=== PATIENT | female | born 1955 | race Caucasian/White ===

== ENCOUNTER 2021-02-11 09:49 | Outpatient (REF) | payer OTHER, SELFPAY ==
[2021-02-11 11:30] LABS: Basophils Percent Auto 0.2 % (0-2); Eosinophils Absolute Auto 0.1 X10*3/uL (0.0-0.4); Eosinophils Percent Auto 1.8 % (0-4); Hematocrit 37.8 % (37-47); Hemoglobin 12.6 g/dl (12.0-16.0); Imm Gran Abs Auto 0.01 X10*3/uL (0.00-0.03); Imm Gran Pct Auto 0.2 % (0.0-0.4); Lymphocytes Absolute Auto 1.4 X10*3/uL (1.2-4.9); Lymphocytes Percent Auto 28.3 % (20-40); MANUAL DIFF FLAG NO; Mean Corpuscular HGB Conc 33.3 g/dl (31.0-35.0); Mean Corpuscular Hemoglobin 36.2 pg (27.0-33.0); Mean Corpuscular Volume 108.6 fL (80-98); Mean Platelet Volume 10.2 fL (9.4-12.3); Monocytes Absolute Auto 0.6 X10*3/uL (0.1-1.2); Monocytes Percent Auto 11.6 % (2-11); Neutrophils Absolute Auto 2.9 X10*3/uL (2.0-8.3); Neutrophils Percent Auto 57.9 % (45-73); Platelet Count 212 X10*3/uL (160-400); Red Blood Count 3.48 X10*6/uL (4.20-5.50)
[2021-02-11 12:32] LABS: Alanine Aminotransferase 12 U/L (0-31); Albumin Level 4.7 g/dL (3.5-5.0); Alkaline Phosphatase 65 U/L (39-117); Anion Gap 16 (12-20); Aspartate Amino Transferase 25 U/L (5-31); Bilirubin Direct 0.4 mg/dL (0.0-0.5); Bilirubin Total 0.9 mg/dL (0.0-1.0); Blood Urea Nitrogen 29 mg/dL (9-16); Calcium 9.4 mg/dL (8.4-10.2); Carbon Dioxide 25 mmol/L (22-29); Chloride 103 mmol/L (96-108); Estimated Glomerular Filt Rate 48; Glucose Random 84 mg/dL (60-115); Potassium 4.7 mmol/L (3.3-5.1); Sodium 139 mmol/L (135-145); Total Protein 7.5 g/dL (6.5-8.0)
[2021-02-12 10:57] LABS: LDL Cholesterol Direct 53 mg/dL (<100)
== END 2021-02-11 09:50 | disposition home or self-care (01) ==
LOC: HO.HMGCLDS 09:49
PROVIDERS: PCP Internal Medicine; Visit Provider Internal Medicine
DX: I10 Essential (primary) hypertension (principal); J44.9 Chronic obstructive pulmonary disease, unspecified; Q60.0 Renal agenesis, unilateral
CPT/HCPCS: 36415; 80053; 80076; 82248; 83721; 85025

== ENCOUNTER 2021-08-16 07:37 | Outpatient (REF) | payer OTHER, SELFPAY ==
--- NOTE | ~2021-08-16 | XR_ITS ---
EXAMINATION: XR cervical spine 3V, XR shoulder RT min 2V CLINICAL INFORMATION: Reason for Exam M25.511 - Pain in right shoulder COMPARISON: None. TECHNIQUE: 3 views of the cervical spine and 3 views of the right shoulder FINDINGS: Cervical spine: No acute fracture or traumatic malalignment. Moderate loss of disc space height at C4-C5. Mild loss of disc space height at C2-C3. Small endplate osteophytes present throughout the cervical spine. Slight retrolisthesis of C5 on C6. Facet arthropathy throughout the cervical spine. Paraspinal soft tissues unremarkable. Carotid bulb calcifications. Right shoulder: No acute fracture or dislocation. Small acromioclavicular marginal osteophytes. Tiny marginal osteophytes along the glenohumeral joint. No suspicious osseous lesions. Imaged right lung unremarkable. Soft tissues unremarkable. XR/XR shoulder RT min 2V IMPRESSION: No acute findings. Cervical spondylosis and degenerative changes of the right shoulder as described
--- NOTE | ~2021-08-16 | XR_ITS ---
EXAMINATION: XR cervical spine 3V, XR shoulder RT min 2V CLINICAL INFORMATION: Reason for Exam M25.511 - Pain in right shoulder COMPARISON: None. TECHNIQUE: 3 views of the cervical spine and 3 views of the right shoulder FINDINGS: Cervical spine: No acute fracture or traumatic malalignment. Moderate loss of disc space height at C4-C5. Mild loss of disc space height at C2-C3. Small endplate osteophytes present throughout the cervical spine. Slight retrolisthesis of C5 on C6. Facet arthropathy throughout the cervical spine. Paraspinal soft tissues unremarkable. Carotid bulb calcifications. Right shoulder: No acute fracture or dislocation. Small acromioclavicular marginal osteophytes. Tiny marginal osteophytes along the glenohumeral joint. No suspicious osseous lesions. Imaged right lung unremarkable. Soft tissues unremarkable. XR/XR cervical spine 3V IMPRESSION: No acute findings. Cervical spondylosis and degenerative changes of the right shoulder as described
[2021-08-16 11:11] LABS: MANUAL DIFF FLAG NO
[2021-08-16 11:19] LABS: Basophils Percent Auto 0.5 % (0-2); Eosinophils Absolute Auto 0.2 X10*3/uL (0.0-0.4); Eosinophils Percent Auto 4.6 % (0-4); Hematocrit 39.6 % (37.0-47.0); Hemoglobin 13.1 g/dl (12.0-16.0); Imm Gran Abs Auto 0.01 X10*3/uL (0.00-0.03); Imm Gran Pct Auto 0.2 % (0.0-0.4); Lymphocytes Absolute Auto 1.3 X10*3/uL (1.2-4.9); Lymphocytes Percent Auto 29.3 % (20-40); Mean Corpuscular HGB Conc 33.1 g/dl (31.0-35.0); Mean Corpuscular Hemoglobin 33.3 pg (27.0-33.0); Mean Corpuscular Volume 100.8 fL (80.0-98.0); Mean Platelet Volume 10.9 fL (9.4-12.3); Monocytes Absolute Auto 0.5 X10*3/uL (0.1-1.2); Monocytes Percent Auto 11.2 % (2-11); Neutrophils Absolute Auto 2.4 x10*3/uL (2.0-8.3); Neutrophils Percent Auto 54.2 % (45-73); Platelet Count 228 X10*3/uL (160-400); Red Blood Count 3.93 X10*6/uL (4.20-5.50); White Blood Count 4.4 X10*3/uL (4.8-10.8)
[2021-08-16 11:56] LABS: Alanine Aminotransferase 12 U/L (0-31); Albumin Level 4.2 g/dL (3.5-5.0); Alkaline Phosphatase 68 U/L (39-117); Anion Gap 11 (12-20); Aspartate Amino Transferase 20 U/L (5-31); Bilirubin Total 0.8 mg/dL (0.0-1.0); Blood Urea Nitrogen 29 mg/dL (9-16); Calcium 9.4 mg/dL (8.4-10.2); Carbon Dioxide 27 mmol/L (22-29); Chloride 103 mmol/L (96-108); Cholesterol 205 mg/dL; Estimated Glomerular Filt Rate 49; Glucose Fasting 96 mg/dL (60-99); HDL Cholesterol 71 mg/dL; LDL Cholesterol Calculated 121 mg/dl; Potassium 4.4 mmol/L (3.3-5.1); Sodium 137 mmol/L (135-145); Total Protein 6.8 g/dL (6.5-8.0); Triglycerides 67 mg/dL
[2021-08-16 12:17] LABS: TSH reflex Free T4 0.56 uIU/mL (0.32-4.0)
== END 2021-08-16 07:38 | disposition home or self-care (01) ==
LOC: HO.HMGCX 07:37
PROVIDERS: PCP Internal Medicine; Visit Provider Internal Medicine
DX: M25.511 Pain in right shoulder (principal); R20.2 Paresthesia of skin; J44.9 Chronic obstructive pulmonary disease, unspecified; Q60.0 Renal agenesis, unilateral; I10 Essential (primary) hypertension
CPT/HCPCS: 36415; 72040; 73030; 80053; 80061; 84443; 85025

== ENCOUNTER 2021-09-05 12:43 | Outpatient (REF) | payer OTHER, SELFPAY ==
--- NOTE | ~2021-09-05 | MR_ITS ---
EXAMINATION: MR CERVICAL SPINE WITHOUT CONTRAST CLINICAL INFORMATION: 66-year-old with paresthesia of skin. COMPARISON: 08/16/2021 x-rays. TECHNIQUE: MRI of the cervical spine was obtained using routine sequences without contrast. FINDINGS: Alignment: Lordotic curvature is maintained. There is trace retrolisthesis at C4-C5 and C5-C6. Craniocervical Junction/C1-C2 Articulations: There are degenerative changes at the occipitoatlantal joints, right more than left. The C1-C2 articulations are intact and aligned. There are osteoarthritic degenerative changes at the anterior atlantodental joint with a small joint effusion. Visualized Intracranial Structures: Within normal limits. Vertebral Bodies: Normal height. Disc Spaces and Endplates: Kqdnafrn-nk-felbvh disc space height loss at C2-C3 is noted with disc desiccation and Schmorl's nodes. Severe disc space height loss at C4-C5 is noted with Schmorl's nodes and moderate spondylosis. Bckxkpts-cy-czhuub disc space height loss noted at C5-C6. Mild disc space height loss at C6-C7. Bone Marrow: There are type I degenerative marrow signal changes along the endplates at C2-C3 and C5-C6 and, to a lesser degree, at C4-C5 with type II degenerative marrow signal changes at C4-C5. No suspicious marrow-replacing process. Mild subchondral marrow edema on both sides of the left C7-T1 facet joint consistent with facet arthrosis. C2-C3: Broad-based posterior disc-osteophyte complex noted with mild flattening of the dural sac without cord impingement. Ligamentum flavum thickening noted without significant spinal canal stenosis. There is uncovertebral spurring bilaterally with facet hypertrophic change on the left, with qwzi-tt-[id number] left-sided neural foraminal stenosis. C3-C4: Small central disc protrusion noted with slight indentation of the ventral thecal sac without cord impingement or spinal canal stenosis. Xuoo-qj-ekwsftur facet hypertrophic degenerative change on the left noted with moderate left-sided neural foraminal stenosis. C4-C5: Broad-based posterior disc-osteophyte complex asymmetric to the right noted, with effacement of the dural sac without cord impingement. Mild spinal canal stenosis noted asymmetric to the right. There is uncovertebral spurring, right more than left, and there is severe right-sided and moderate left-sided facet hypertrophic degenerative change. Severe right-sided neural foraminal stenosis is noted with mild left-sided foraminal stenosis. C5-C6: Right paramedian to subarticular extruded disc herniation noted with mild caudal migration, with effacement of the dural sac on the right resulting in mild right-sided ventral cord impingement. There is effacement of the right lateral recess with mild central spinal canal stenosis. Bilateral facet arthrosis is noted with uncovertebral spurring, right more than left. Hskskown-cn-sgyjhj right-sided and bwhn-vq-sknjasxt left-sided neural foraminal stenosis noted. C6-C7: Broad-based disc-osteophyte complex asymmetric to the left with mild flattening of the dural sac without cord impingement or canal stenosis. There is uncovertebral arthrosis on the left with bilateral facet hypertrophic change, left more than right. Severe left-sided and wdwq-rz-zsdklowk right-sided neural foraminal stenosis is noted. C7-T1: No disc herniation. Trace anterolisthesis noted at this level with severe left-sided facet arthropathy, with moderate left-sided neural foraminal stenosis. No significant canal stenosis. T1-T2: No disc herniation. Mild facet arthrosis on the left with mild left-sided neural foraminal stenosis noted without canal stenosis. T2-T3: No disc herniation. No significant canal stenosis. Moderate bilateral facet arthrosis is noted with moderate bilateral neural foraminal stenosis. There is moderate bilateral facet arthropathy at T3-T4 and T4-T5 with zopc-bj-dikvqsyi degrees of bilateral neural foraminal stenosis at these levels. The cervical and visualized upper thoracic spinal cord is normal in morphology, caliber and signal intensity throughout. MR/MR cervical spine wo con IMPRESSION: 1. Slight degrees of retrolisthesis at C4-C5 and C5-C6 are noted. There is multilevel DDD and spondylosis, as discussed above, with multilevel posterior disc-osteophyte complexes and a right paramedian extruded disc herniation at C5-C6 with mild right-sided ventral cord impingement and marked narrowing of the right lateral recess. 2. Multilevel bilateral uncovertebral and facet arthropathy with multilevel bilateral neural foraminal stenosis, as detailed above. Mild degrees of canal stenosis at C4-C5 and C5-C6. 3. Upper thoracic facet arthropathy, as noted above, with associated ljkl-ls-nmvjyylw degrees of bony neural foraminal stenosis at these levels.
== END 2021-09-05 12:44 | disposition home or self-care (01) ==
LOC: HO.MRI 12:43
PROVIDERS: PCP Internal Medicine; Visit Provider Internal Medicine
DX: M54.12 Radiculopathy, cervical region (principal); R20.2 Paresthesia of skin; R29.898 Other symptoms and signs involving the musculoskeletal system
CPT/HCPCS: 72141

== ENCOUNTER 2022-02-10 14:42 | Outpatient (REF) | payer OTHER, SELFPAY ==
[2022-02-10 15:41] LABS: Influenza A PCR POSITIVE (Negative); Influenza B PCR NEGATIVE (Negative); Resp Syncy Virus RNA Qual PCR NEGATIVE (Negative); SARS COV2 PCR INHOUSE NEGATIVE (Negative)
== END 2022-02-10 14:43 | disposition home or self-care (01) ==
LOC: HO.LNP 14:42
PROVIDERS: Visit Provider Physician Assistant
DX: Z20.822 Contact with and (suspected) exposure to COVID-19 (principal); B34.9 Viral infection, unspecified
CPT/HCPCS: 0241U

== ENCOUNTER 2022-03-27 11:40 | Outpatient (REF) | payer OTHER, SELFPAY ==
[2022-03-27 14:07] LABS: Alanine Aminotransferase 10 U/L (0-31); Albumin Level 4.5 g/dL (3.5-5.0); Alkaline Phosphatase 62 U/L (39-117); Anion Gap 15 (12-20); Aspartate Amino Transferase 22 U/L (5-31); Blood Urea Nitrogen 21 mg/dL (9-16); Calcium 9.6 mg/dL (8.4-10.2); Carbon Dioxide 24 mmol/L (22-29); Chloride 102 mmol/L (96-108); Estimated Glomerular Filt Rate 43; Glucose Random 103 mg/dL (60-115); Potassium 4.1 mmol/L (3.3-5.1); Sodium 137 mmol/L (135-145); Total Protein 7.4 g/dL (6.5-8.0)
== END 2022-03-27 11:41 | disposition home or self-care (01) ==
LOC: HO.HMGCLDS 11:40
PROVIDERS: PCP Internal Medicine; Visit Provider Internal Medicine
DX: J45.909 Unspecified asthma, uncomplicated (principal); I10 Essential (primary) hypertension; Q60.0 Renal agenesis, unilateral; R20.2 Paresthesia of skin; M50.20 Other cervical disc displacement, unspecified cervical region; E66.09 Other obesity due to excess calories
CPT/HCPCS: 36415; 80053

== ENCOUNTER 2022-11-20 09:05 | Outpatient (REF) | payer MEDICARE, SELFPAY ==
[2022-11-20 11:32] LABS: MANUAL DIFF FLAG NO
[2022-11-20 11:47] LABS: Basophils Percent Auto 0.2 % (0-2); Eosinophils Absolute Auto 0.1 X10*3/uL (0.0-0.4); Eosinophils Percent Auto 2.1 % (0-4); Hematocrit 36.1 % (37.0-47.0); Hemoglobin 12.2 g/dl (12.0-16.0); Imm Gran Abs Auto 0.01 X10*3/uL (0.00-0.03); Imm Gran Pct Auto 0.2 % (0.0-0.4); Lymphocytes Absolute Auto 1.2 X10*3/uL (1.2-4.9); Lymphocytes Percent Auto 28.3 % (20-40); Mean Corpuscular HGB Conc 33.8 g/dl (31.0-35.0); Mean Corpuscular Hemoglobin 35.1 pg (27.0-33.0); Mean Corpuscular Volume 103.7 fL (80.0-98.0); Mean Platelet Volume 10.6 fL (9.4-12.3); Monocytes Absolute Auto 0.6 X10*3/uL (0.1-1.2); Monocytes Percent Auto 13.1 % (2-11); Neutrophils Absolute Auto 2.4 x10*3/uL (2.0-8.3); Neutrophils Percent Auto 56.1 % (45-73); Platelet Count 222 X10*3/uL (160-400); Red Blood Count 3.48 X10*6/uL (4.20-5.50); Red Cell Distribution Width 13.4 % (11.0-16.0); White Blood Count 4.2 X10*3/uL (4.8-10.8)
[2022-11-20 12:47] LABS: Alanine Aminotransferase 16 U/L (0-31); Albumin Level 4.5 g/dL (3.5-5.0); Alkaline Phosphatase 66 U/L (39-117); Anion Gap 13 (12-20); Aspartate Amino Transferase 24 U/L (5-31); Bilirubin Total 1.4 mg/dL (0.0-1.0); Blood Urea Nitrogen 27 mg/dL (9-16); Calcium 9.7 mg/dL (8.4-10.2); Carbon Dioxide 25 mmol/L (22-29); Chloride 99 mmol/L (96-108); Estimated Glomerular Filt Rate 36; Glucose Random 102 mg/dL (60-115); Potassium 5.4 mmol/L (3.3-5.1); Sodium 132 mmol/L (135-145); TSH reflex Free T4 0.53 uIU/mL (0.32-4.0); Total Protein 7.1 g/dL (6.5-8.0)
[2022-11-21 13:44] LABS: LDL Cholesterol Direct 118 mg/dL (<100)
== END 2022-11-20 09:06 | disposition home or self-care (01) ==
LOC: HO.HMGCLDS 09:05
PROVIDERS: PCP Internal Medicine; Visit Provider Internal Medicine
DX: J44.9 Chronic obstructive pulmonary disease, unspecified (principal); Q60.0 Renal agenesis, unilateral; I10 Essential (primary) hypertension
CPT/HCPCS: 36415; 80053; 83721; 84443; 85025

== ENCOUNTER 2022-11-23 10:26 | Outpatient (REF) | payer MEDICARE, SELFPAY ==
[2022-11-23 12:10] LABS: Anion Gap 14 (12-20); Blood Urea Nitrogen 30 mg/dL (9-16); Calcium 9.2 mg/dL (8.4-10.2); Carbon Dioxide 23 mmol/L (22-29); Chloride 93 mmol/L (96-108); Estimated Glomerular Filt Rate 37; Glucose Random 97 mg/dL (60-115); Potassium 5.7 mmol/L (3.3-5.1); Sodium 124 mmol/L (135-145)
== END 2022-11-23 10:27 | disposition home or self-care (01) ==
LOC: HO.HMGCLDS 10:26
PROVIDERS: PCP Internal Medicine; Visit Provider Internal Medicine
DX: Z13.89 Encounter for screening for other disorder (principal)
CPT/HCPCS: 36415; 80048

== ENCOUNTER 2022-11-23 16:31 | Emergency (ER) | payer MEDICARE, SELFPAY | END 2022-11-23 17:00 | disposition left against medical advice (07) | PROVIDERS: Emergency Provider Emergency Medicine; PCP Internal Medicine | DX: R79.9 Abnormal finding of blood chemistry, unspecified (principal) ==

== ENCOUNTER 2022-11-24 07:36 | Inpatient (IN) | payer MEDICARE, SELFPAY ==
[2022-11-24] VITALS (8 sets, daily range): BP systolic 139–165; BP diastolic 67–85; PULSE 70–89; RESP 12–21; TEMP 35.7–37; O2SAT 96–100; BMI 29.7
[2022-11-24 07:51] LABS: MANUAL DIFF FLAG NO
[2022-11-24 08:01] LABS: Basophils Percent Auto 0.4 % (0-2); Eosinophils Absolute Auto 0.1 X10*3/uL (0.0-0.4); Eosinophils Percent Auto 2.3 % (0-4); Hematocrit 34.7 % (37.0-47.0); Hemoglobin 12.1 g/dl (12.0-16.0); Imm Gran Abs Auto 0.02 X10*3/uL (0.00-0.03); Imm Gran Pct Auto 0.4 % (0.0-0.4); Lymphocytes Absolute Auto 1.5 X10*3/uL (1.2-4.9); Lymphocytes Percent Auto 28.5 % (20-40); Mean Corpuscular HGB Conc 34.9 g/dl (31.0-35.0); Mean Corpuscular Hemoglobin 35.4 pg (27.0-33.0); Mean Corpuscular Volume 101.5 fL (80.0-98.0); Mean Platelet Volume 9.9 fL (9.4-12.3); Monocytes Absolute Auto 0.7 X10*3/uL (0.1-1.2); Neutrophils Absolute Auto 2.9 x10*3/uL (2.0-8.3); Neutrophils Percent Auto 55.4 % (45-73); Platelet Count 203 X10*3/uL (160-400); Red Blood Count 3.42 X10*6/uL (4.20-5.50); Red Cell Distribution Width 13.1 % (11.0-16.0); White Blood Count 5.2 X10*3/uL (4.8-10.8)
[2022-11-24 08:07] LABS: Alanine Aminotransferase 17 U/L (0-31); Albumin Level 4.5 g/dL (3.5-5.0); Alkaline Phosphatase 68 U/L (39-117); Anion Gap 15 (12-20); Aspartate Amino Transferase 26 U/L (5-31); Bilirubin Total 1.4 mg/dL (0.0-1.0); Blood Urea Nitrogen 29 mg/dL (9-16); Calcium 9.5 mg/dL (8.4-10.2); Carbon Dioxide 23 mmol/L (22-29); Chloride 92 mmol/L (96-108); Estimated Glomerular Filt Rate 41; Glucose Random 98 mg/dL (60-115); Potassium 5.5 mmol/L (3.3-5.1); Sodium 124 mmol/L (135-145); Total Protein 7.4 g/dL (6.5-8.0)
[2022-11-24 08:54] LABS: Influenza A PCR NEGATIVE (Negative); Influenza B PCR NEGATIVE (Negative); Resp Syncy Virus RNA Qual PCR NEGATIVE (Negative); SARS COV2 PCR INHOUSE NEGATIVE (Negative)
--- NOTE | 2022-11-24 09:13 | ED_ITS ---
HPI - Recheck/Abnormal Lab/Rx General Chief Complaint: Recheck/Abnormal Lab/Rx Stated Complaint: Abnormal labs Time Seen by Provider: 11/24/22 08:49 Source: patient Mode of arrival: ambulatory Limitations: no limitations History of Present Illness HPI narrative: Pt is a 67y/o female with PMHx of HTN, single kidney presents from home after being called by PCP for abnormal lab values. Pt states my sodium and potassium are out of whack. Pt states she feels well. Pt endorses muscle soreness in lower extremities with some tightening at night but denies cramping. Pt states she wakes up frequently at night to urinate, denies pain/burning with urination. Pt denies vomiting/diarrhea. Pt denies alcohol intake. Pt denies recent changes in medications. Pt denies changes in fluid intake. Pt denies personal h/o cance r. Pt denies chest pain, SOB, recent illness. Related Data Previous Rx's Medication Instructions Recorded hydrochlorothiazide 25 mg tablet 25 mg PO DAILY 90 days #90 tabs 03/27/22 albuterol sulfate 90 mcg/actuation 1 inh inhalation QID PRN shortness 05/08/22 aerosol inhaler of breath or wheezing 90 days #3 ea nifedipine 60 mg tablet,extended 60 mg PO DAILY 90 days #90 tabs 09/26/22 release 24 hr losartan 100 mg tablet 100 mg PO DAILY #90 tabs 10/20/22 fluticasone 232 mcg-salmeterol 14 1 inh PO BID 90 days #3 ea 11/20/22 mcg/actuation breath activated powdr fluticasone propionate 50 1 spray intranasal DAILY 30 days 11/20/22 mcg/actuation nasal #1 mL spray,suspension (Allergy Relief (fluticasone)) gabapentin 600 mg tablet 600 mg PO BEDTIME 90 days #90 tabs 11/20/22 Allergies Allergy/AdvReac Type Severity Reaction Status Date / Time No Known Allergies Allergy Verified 11/20/22 08:37 Review of Systems Review of Systems: Yes all other systems are reviewed and are negative Constitutional: Constitutional: Reports no additional constitutional complaints Eyes: Eyes: Reports no additional eye complaints and Denies change in vision ENT: Reports system reviewed and no additional complaints, except as documented, Denies dizziness, Denies nasal congestion, Denies nasal discharge and Denies neck pain Comments: post nasal drip cough Cardiovascular: Cardiovascular: Reports no additional cardiovascular complaints, Denies chest pain, Reports leg edema (mild swelling in b/l LE) and Denies dyspnea Respiratory: Respiratory: Reports no additional respiratory complaints, Reports cough (recent cough related to post nasal drip) and Denies dyspnea Gastrointestinal: Gastrointestinal: Reports no additional gastrointestinal complaints, Denies abdominal pain, Denies diarrhea, Denies nausea and Denies vomiting Genitourinary: Genitourinary: Reports no additional female genitourinary com plaints, Reports nocturia and Denies urinary incontinence Musculoskeletal: Musculoskeletal: Reports no additional musculoskeletal complaints, Denies back pain, Denies arthralgias, Denies joint swelling, Denies neck pain, Denies numbness and Denies tingling Comments: b/l LE muscle soreness and tightness Integumentary/Breasts: Skin/Breast: Reports system reviewed and no additional complaints, except as docu and Denies rash Neurologic: Reports system reviewed and no additional complaints, except as documented, Denies Abnormal speech present, Denies dizziness, Denies numbness and Denies tingling PMFSH Past Medical History Attestation statement: The following information was validated with the patient. Source: old records reviewed and nursing notes reviewed Surgical History History of tonsillectomy History of tumor S/P removal of right ovary Family History Family History Father Cancer of prostate Mother Diabetes mellitus Brother No problems noted. Brother No problems noted. Brother No problems noted. Sister No problems noted. Sister No problems noted. Sister History of heart attack Daughter No problems noted. Daughter No problems noted. Maternal Grandfather No problems noted. Maternal Grandmother No problems noted. Paternal Grandfather No problems noted. Paternal Grandmother No problems noted. Maternal Aunt No problems noted. Social History Social History Housing: Other (mobile home) Housing Other:: Mobile Home Alcohol intake: unknown Patient Tobacco Use Status: Former Tobacco user Quit Date: 2016 Tobacco use type: Cigarette Years Smoked: 30 years Smoked in Last 30 Days: Yes e-Cigarette/Vaping Use: Never Used Use of substances other than those prescribed or required for medical reasons: Unknown Advance Directives: No Advance Directives Information Provided: Yes Current occupational status: employed and retired Cognitive needs: No Hearing needs: No Vision needs: Yes Physical Exam Vital Signs: Vital Signs: Last Vital Signs Temp 98.0 F 11/24/22 13:00 Pulse 78 11/24/22 13:00 Resp 21 H 11/24/22 13:00 BP 139/81 11/24/22 13:00 Pulse Ox 98 11/24/22 13:00 O2 Del Method 11/24/22 13:00 BMI result Body Mass Index 29.7 Const: General: cooperative, healthy appearing, comfortable and no acute distress Orientation/consciousness: patient oriented x3 Limitations: no limitations HEENT: Head: Yes normal to inspection Ears: hearing grossly normal bilaterally General nose exam: Normal external nose present Face and sinus: Yes normal facial exam Eyes: General: appearance normal, both eyes and all related structures Pupils: Equal, round and reactive pupils present Neck: Neck: Yes normal visual inspection and Yes no lymphadenopathy Chest: Chest palpation & inspection: normal inspection of the chest Resp: Effort & Inspection: normal respiratory effort Auscultation: clear to auscultation bilaterally Cardio: Rate: regular rate Rhythm: regular rhythm Peripheral pulses: Peripheral pulses 2+ throughout GI: Inspection: Yes normal to inspection Palpation (GI): Soft to palpation and nontender Auscultation: normal bowel sounds Back/Spine/Pelvis: Thoracic/Lumbar Spine: thoracic and lumbar spine normal to inspection Skin: General skin exam: no rashes or lesions noted Neuro: General: patient oriented x3, no focal motor deficits and normal sensation to monofilament Cranial nerves: Yes Equal, round and reactive pupils present Cognition (Neuro): normal cognition Speech: No Abnormal sp eech present Gait exam (Neuro): Normal gait present Motor exam (neuro): 5/5 motor strength present throughout Extrem: General: Yes normal to inspection, Yes no pedal edema and Yes no calf tenderness Course Course Course Narrative: Labs show hyponatremia with sodium 124 and hyperkalemia with potassium of 5.5. Unclear if this is acute or chronic. Patient did receive Lokelma. Nephrology was consult on the patient. See their consultation note. Patient will need admission for further management of her hyponatremia. Medications Administered Generic Name Dose Route Start Last Admin Trade Name Freq PRN Reason Stop Dose Admin Sodium Chloride 3 ml 11/24/22 16:00 11/24/22 15:51 0.9 % Sodium Chloride Flush 3 Ml Syringe IVFLUSH Not Given QSHIFT TERRENCE Discontinued Medications Generic Name Dose Route Start Last Admin Trade Name Scott PRN Reason Stop Dose Admin Sodium Zirconium Cyclosilicate 5 gm 11/24/22 09:37 11/24/22 09:58 Sodium Zirconium Cyclosilicate 5 Gm Powd.Pack PO 11/24/22 09:38 5 gm ONCE ONE Administration Medical Decision Making Medical Decision Making [facility] Narrative: 67y/o female with PMHx of HTN, single kidney presenting with hyponatremia, hyperkalemia. Pt is asymptomatic, here with abnormal labs drawn by primary care. Last available labs from 03/2021, unsure if this is acute or chronic. Overall pt appears well, normal neuro exam, vitals stable, will obtain labs, urine studies, anticipate admission. Differential Diagnosis Differential Diagnoses: The differential diagnosis associated with the present ation includes SIADH, med related, volume loss, Admission/Observation Consideration of admission/observation: Escalation of care including admission/observation considered hyponatremia with sodium 124 unsure if acute on chronic, unclear cause, would benefit from further w/u and/or nephro consultation. will need close observation and slow correction of NA Consult Healthcare Provider Management of the patient was discussed with: Hospitalist and Die Filer I spoke to the hospitalist (Thao LINDER)for admission for hyponatremia. They would like Nephrology consultation prior to admission. [id number] spoke to Dr. Delgadillo who is the on-call arts and crafts instructor. He came and consult on the patient. Thought hyponatremia may be secondary to thiazide diuretic. Recommend holding this. Recommended repeating sodium now and admission to the hospital for further management. Lab Data [facility] Lab Attestation statement: I reviewed the patient's lab results. 11/24/22 07:46 11/24/22 07:46 Labs: Lab Results 11/24/22 11/24/22 11/24/22 Range/Units 07:46 07:46 07:46 WBC 5.2 (4.8-10.8) X10*3/uL RBC 3.42 L (4.20-5.50) X10*6/uL Hgb 12.1 (12.0-16.0) g/dl Hct 34.7 L (37.0-47.0) % MCV 101.5 H (80.0-98.0) fL MCH 35.4 H (27.0-33.0) pg MCHC 34.9 (31.0-35.0) g/dl RDW 13.1 (11.0-16.0) % Plt Count 203 (160-400) X10*3/uL MPV 9.9 (9.4-12.3) fL Immature Gran % (Auto) 0.4 (0.0-0.4) % Neut % (Auto) 55.4 (45-73) % Lymph % (Auto) 28.5 (20-40) % [place] % (Auto) 13.0 H (2-11) % Eos % (Auto) 2.3 (0-4) % Baso % (Auto) 0.4 (0-2) % Lymph # (Auto) 1.5 (1.2-4.9) X10*3/uL [place] # (Auto) 0.7 (0.1-1.2) X10*3/uL Eos # (Auto) 0.1 (0.0-0.4) X10*3/uL Baso # (Auto) 0.0 (0.0-0.2) X10*3/uL Abs Immat Gran (auto) 0.02 (0.00-0.03) X10*3/uL Absolute Neuts (auto) 2.9 (2.0-8.3) x10*3/uL Absolute Nucleated RBC 0.000 (0.0-0.012) X10*3/uL Nucleated RBC % (auto) 0.0 (0.0-0.2) /100WBC Sodium 124 L (135-145) mmol/L Potassium 5.5 H (3.3-5.1) mmol/L Chloride 92 L (96-108) mmol/L Carbon Dioxide 23 (22-29) mmol/L Anion Gap 15 (12-20) BUN 29 H (9-16) mg/dL Creatinine 1.29 (0.5-1.4) mg/dL Estim Creat Clear Calc 49.0 Estimated GFR 41 Random Glucose 98 (60-115) mg/dL Osmolality (281-305) mosm/kg Calcium 9.5 (8.4-10.2) mg/dL Phosphorus (2.7-4.5) mg/dL Magnesium (1.6-2.6) mg/dL Total Bilirubin 1.4 H (0.0-1.0) mg/dL AST 26 (5-31) U/L ALT 17 (0-31) U/L Alkaline Phosphatase 68 (39-117) U/L Total Protein 7.4 (6.5-8.0) g/dL Albumin 4.5 (3.5-5.0) g/dL TSH (0.32-4.0) uIU/mL Urine Color Urine Appearance Urine pH (5.0-9.0) Ur Specific [place] (1.005-1.025) Urine Protein (Neg-Trace) mg/dL Urine Glucose (UA) (Negative) mg/dL Urine Ketones (Negative) mg/dL Urine Blood (Negative) Urine Nitrite (Negative) Ur Leukocyte Esterase (Negative) Urine Osmolality (373-1093) mosm/kg Ur Random Sodium mmol/L Ur Random Uric Acid mg/dL Urine Creatinine mg/dL Influenza Type A (PCR) NEGATIVE (Negative) Influenza Type B (PCR) NEGATIVE (Negative) RSV RNA Qual (PCR) NEGATIVE (Negative) SARS-CoV-2 RNA (RT-PCR) NEGATIVE (Negative) 11/24/22 11/24/22 11/24/22 Range/Units 09:33 09:33 09:33 WBC (4.8-10.8) X10*3/uL RBC (4.20-5.50) X10*6/uL Hgb (12.0-16.0) g/dl Hct (37.0-47.0) % MCV (80.0-98.0) fL MCH (27.0-33.0) pg MCHC (31.0-35.0) g/dl RDW (11.0-16.0) % Plt Count (160-400) X10*3/uL MPV (9.4-12.3) fL Immature Gran % (Auto) (0.0-0.4) % Neut % (Auto) (45-73) % Lymph % (Auto) (20-40) % [place] % (Auto) (2-11) % Eos % (Auto) (0-4) % Baso % (Auto) (0-2) % Lymph # (Auto) (1.2-4.9) X10*3/uL [place] # (Auto) (0.1-1.2) X10*3/uL Eos # (Auto) (0.0-0.4) X10*3/uL Baso # (Auto) (0.0-0.2) X10*3/uL Abs Immat Gran (auto) (0.00-0.03) X10*3/uL Absolute Neuts (auto) (2.0-8.3) x10*3/uL Absolute Nucleated RBC (0.0-0.012) X10*3/uL Nucleated RBC % (auto) (0.0-0.2) /100WBC Sodium (135-145) mmol/L Potassium (3.3-5.1) mmol/L Chloride (96-108) mmol/L Carbon Dioxide (22-29) mmol/L Anion Gap (12-20) BUN (9-16) mg/dL Creatinine (0.5-1.4) mg/dL Estim Creat Clear Calc Estimated GFR Random Glucose (60-115) mg/dL Osmolality 266 L (281-305) mosm/kg Calcium (8.4-10.2) mg/dL Phosphorus 3.6 (2.7-4.5) mg/dL Magnesium 1.7 (1.6-2.6) mg/dL Total Bilirubin (0.0-1.0) mg/dL AST (5-31) U/L ALT (0-31) U/L Alkaline Phosphatase (39-117) U/L Total Protein (6.5-8.0) g/dL Albumin (3.5-5.0) g/dL TSH 0.47 (0.32-4.0) uIU/mL Urine Color Yellow Urine Appearance Clear Urine pH 7.0 (5.0-9.0) Ur Specific [place] <= 1.005 (1.005-1.025) Urine Protein Negative (Neg-Trace) mg/dL Urine Glucose (UA) Negative (Negative) mg/dL Urine Ketones Negative (Negative) mg/dL Urine Blood Negative (Negative) Urine Nitrite Negative (Negative) Ur Leukocyte Esterase Negative (Negative) Urine Osmolality (373-1093) mosm/kg Ur Random Sodium mmol/L Ur Random Uric Acid mg/dL Urine Creatinine mg/dL Influenza Type A (PCR) (Negative) Influenza Type B (PCR) (Negative) RSV RNA Qual (PCR) (Negative) SARS-CoV-2 RNA (RT-PCR) (Negative) 11/24/22 11/24/22 11/24/22 Range/Units 09:33 09:33 09:33 WBC (4.8-10.8) X10*3/uL RBC (4.20-5.50) X10*6/uL Hgb (12.0-16.0) g/dl Hct (37.0-47.0) % MCV (80.0-98.0) fL MCH (27.0-33.0) pg MCHC (31.0-35.0) g/dl RDW (11.0-16.0) % Plt Count (160-400) X10*3/uL MPV (9.4-12.3) fL Immature Gran % (Auto) (0.0-0.4) % Neut % (Auto) (45-73) % Lymph % (Auto) (20-40) % [place] % (Auto) (2-11) % Eos % (Auto) (0-4) % Baso % (Auto) (0-2) % Lymph # (Auto) (1.2-4.9) X10*3/uL [place] # (Auto) (0.1-1.2) X10*3/uL Eos # (Auto) (0.0-0.4) X10*3/uL Baso # (Auto) (0.0-0.2) X10*3/uL Abs Immat Gran (auto) (0.00-0.03) X10*3/uL Absolute Neuts (auto) (2.0-8.3) x10*3/uL Absolute Nucleated RBC (0.0-0.012) X10*3/uL Nucleated RBC % (auto) (0.0-0.2) /100WBC Sodium (135-145) mmol/L Potassium (3.3-5.1) mmol/L Chloride (96-108) mmol/L Carbon Dioxide (22-29) mmol/L Anion Gap (12-20) BUN (9-16) mg/dL Creatinine (0.5-1.4) mg/dL Estim Creat Clear Calc Estimated GFR Random Glucose (60-115) mg/dL Osmolality (281-305) mosm/kg Calcium (8.4-10.2) mg/dL Phosphorus (2.7-4.5) mg/dL Magnesium (1.6-2.6) mg/dL Total Bilirubin (0.0-1.0) mg/dL AST (5-31) U/L ALT (0-31) U/L Alkaline Phosphatase (39-117) U/L Total Protein (6.5-8.0) g/dL Albumin (3.5-5.0) g/dL TSH (0.32-4.0) uIU/mL Urine Color Urine Appearance Urine pH (5.0-9.0) Ur Specific [place] (1.005-1.025) Urine Protein (Neg-Trace) mg/dL Urine Glucose (UA) (Negative) mg/dL Urine Ketones (Negative) mg/dL Urine Blood (Negative) Urine Nitrite (Negative) Ur Leukocyte Esterase (Negative) Urine Osmolality 208 L (373-1093) mosm/kg Ur Random Sodium 30.0 mmol/L Ur Random Uric Acid 19.2 mg/dL Urine Creatinine 21.79 mg/dL Influenza Type A (PCR) (Negative) Influenza Type B (PCR) (Negative) RSV RNA Qual (PCR) (Negative) SARS-CoV-2 RNA (RT-PCR) (Negative) 11/24/22 Range/Units 11:54 WBC (4.8-10.8) X10*3/uL RBC (4.20-5.50) X10*6/uL Hgb (12.0-16.0) g/dl Hct (37.0-47.0) % MCV (80.0-98.0) fL MCH (27.0-33.0) pg MCHC (31.0-35.0) g/dl RDW (11.0-16.0) % Plt Count (160-400) X10*3/uL MPV (9.4-12.3) fL Immature Gran % (Auto) (0.0-0.4) % Neut % (Auto) (45-73) % Lymph % (Auto) (20-40) % [place] % (Auto) (2-11) % Eos % (Auto) (0-4) % Baso % (Auto) (0-2) % Lymph # (Auto) (1.2-4.9) X10*3/uL [place] # (Auto) (0.1-1.2) X10*3/uL Eos # (Auto) (0.0-0.4) X10*3/uL Baso # (Auto) (0.0-0.2) X10*3/uL Abs Immat Gran (auto) (0.00-0.03) X10*3/uL Absolute Neuts (auto) (2.0-8.3) x10*3/uL Absolute Nucleated RBC (0.0-0.012) X10*3/uL Nucleated RBC % (auto) (0.0-0.2) /100WBC Sodium 124 L (135-145) mmol/L Potassium 4.5 (3.3-5.1) mmol/L Chloride 93 L (96-108) mmol/L Carbon Dioxide 23 (22-29) mmol/L Anion Gap 13 (12-20) BUN 26 H (9-16) mg/dL Creatinine 1.11 (0.5-1.4) mg/dL Estim Creat Clear Calc 57.0 Estimated GFR 49 Random Glucose 121 H (60-115) mg/dL Osmolality (281-305) mosm/kg Calcium 9.1 (8.4-10.2) mg/dL Phosphorus (2.7-4.5) mg/dL Magnesium (1.6-2.6) mg/dL Total Bilirubin (0.0-1.0) mg/dL AST (5-31) U/L ALT (0-31) U/L Alkaline Phosphatase (39-117) U/L Total Protein (6.5-8.0) g/dL Albumin (3.5-5.0) g/dL TSH (0.32-4.0) uIU/mL Urine Color Urine Appearance Urine pH (5.0-9.0) Ur Specific [place] (1.005-1.025) Urine Protein (Neg-Trace) mg/dL Urine Glucose (UA) (Negative) mg/dL Urine Ketones (Negative) mg/dL Urine Blood (Negative) Urine Nitrite (Negative) Ur Leukocyte Esterase (Negative) Urine Osmolality (373-1093) mosm/kg Ur Random Sodium mmol/L Ur Random Uric Acid mg/dL Urine Creatinine mg/dL Influenza Type A (PCR) (Negative) Influenza Type B (PCR) (Negative) RSV RNA Qual (PCR) (Negative) SARS-CoV-2 RNA (RT-PCR) (Negative) Independent Interpretation I performed an independent interpretation of an: EKG Interpretation: I independently reviewed the EKG which shows normal sinus rhythm with a rate of 78, normal AL, normal QRS, normal QT External Record Review External record reviewed: Outpatient record reviewed labs drawn outpatient Critical Care Time Critical Care Time Critical Care Time: Yes Total Critical Care Time: 60 Attestation: Management of hyponatremia, discussion with arts and crafts instructor, admission to hospital Discharge Plan Discharge Clinical Impression: Acute hyponatremia, Acute hyperkalemia Patient Disposition: Admitted As Inpatient
--- NOTE | 2022-11-24 09:37 | ECG_ITS ---
Test Reason : hyperkalemia Blood Pressure : / mmHG Vent. Rate : 078 BPM Atrial Rate : 078 BPM P-R Int : 142 ms QRS Dur : 076 ms QT Int : 370 ms P-R-T Axes : 037 071 046 degrees QTc Int : 421 ms Normal sinus rhythm Low voltage QRS Borderline ECG When compared with ECG of 01-FEB-2020 09:46, Aberrant conduction is no longer Present Criteria for Septal infarct are no longer Present Referred By: Nikki Guillory Electronically Signed By:ARNAV SHANE MD
[2022-11-24 09:51] LABS: Appearance Urine Clear; Color Urine Yellow; Glucose Urine UA Negative (Negative); Leukocyte Esterase Urine Negative (Negative); Nitrite Urine Negative (Negative); Specific Gravity - Urine <= 1.005 (1.005-1.025); Urine Blood Negative (Negative); Urine Ketones Negative (Negative); Urine Protein Negative (Neg-Trace)
--- NOTE | 2022-11-24 09:52 | PHA.MEDREC ---
Pharmacy Consult ? Medication Reconciliation Pharmacy has completed the medication reconciliation.
[2022-11-24] MEDS: Sodium Zirconium Cyclosilicate 5 GM POWD.PACK PO (09:58)
[2022-11-24 10:04] LABS: Creatinine Urine 21.79 mg/dL
[2022-11-24 10:14] LABS: Magnesium 1.7 mg/dL (1.6-2.6); Phosphorus 3.6 mg/dL (2.7-4.5)
[2022-11-24 10:16] LABS: Uric Acid Urine Random 19.2 mg/dL
[2022-11-24 10:29] LABS: Osmolality Urine 208 mosm/kg (373-1093); Osmolality, Serum 266 mosm/kg (281-305); Thyroid Stimulating Hormone 0.47 uIU/mL (0.32-4.0)
[2022-11-24 12:14] LABS: Anion Gap 13 (12-20); Blood Urea Nitrogen 26 mg/dL (9-16); Calcium 9.1 mg/dL (8.4-10.2); Carbon Dioxide 23 mmol/L (22-29); Chloride 93 mmol/L (96-108); Estimated Glomerular Filt Rate 49; Glucose Random 121 mg/dL (60-115); Potassium 4.5 mmol/L (3.3-5.1); Sodium 124 mmol/L (135-145)
--- NOTE | 2022-11-24 12:55 | P.HPHOSP_ITS ---
History of Present Illness Date of Service: 11/24/22 Chief Complaint: hypOnatremia 67 year old female with HTN takes HCTZ. Over last weekend she was having pain in the legs and had lab work done and she was noted to have low sodium and advise to hydrate herself and had lab repeated yesterday 11/23 and was called to come to ED because sodium level has dropped further and was advised to come to the ED where repeat lab is 124, essentially unchanged from yesterday. She, otherwise, feels fine. Potassium was high at 5.7 but down to 4.8 after lokelema Review of Systems Review of Systems: Gen: no fever Resp: no sob, no cough CV: no chest, no BUITRAGO, no leg edema GI: No n/v, no abd pain Neuro: No confusion Yes all other systems are reviewed and are negative [facility] Family History Father Cancer of prostate Mother Diabetes mellitus Brother No problems noted. Brother No problems noted. Brother No problems noted. Sister No problems noted. Sister No problems noted. Sister History of heart attack Daughter No problems noted. Daughter No problems noted. Maternal Grandfather No problems noted. Maternal Grandmother No problems noted. Paternal Grandfather No problems noted. Paternal Grandmother No problems noted. Maternal Aunt No problems noted. Surgical History History of tonsillectomy History of tumor S/P removal of right ovary Social History Housing: Other (mobile home) Housing Other:: Mobile Home Alcohol intake: unknown Patient Tobacco Use Status: Former Tobacco user Quit Date: 2016 Tobacco use type: Cigarette Years Smoked: 30 years Smoked in Last 30 Days: Yes e-Cigarette/Vaping Use: Never Used Use of substances other than those prescribed or required for medical reasons: Unknown Advance Directives: No Advance Directives Information Provided: Yes Nutrition Risks: No Nutritional Risk service: No Current occupational status: retired Cognitive needs: No Hearing needs: No Vision needs: Yes Meds Allergies Allergy/AdvReac Type Severity Reaction Status Date / Time No Known Allergies Allergy Verified 11/20/22 08:37 Active Medications: Current Medications Pharmacy Consult (Consult Rx Perform Med Rec) 1 each MISCELLANE ONCE PRN PRN Reason: Consult order Physical Exam Vital Signs and Narrative: Vital Signs: Last Vital Signs Temp 97.2 F 11/24/22 09:18 Pulse 80 11/24/22 10:00 Resp 16 11/24/22 10:00 BP 142/67 H 11/24/22 10:00 Pulse Ox 96 11/24/22 10:00 O2 Del Method 11/24/22 10:00 BMI result Body Mass Index 29.7 Const: Other: Constitutional: Alert, in no distress Mental Status: Oriented to person, place and time. Eyes: Pupils are equal, round and reactive to light. Ear, Nose and Throat: Oropharynx clear, mucous membranes moist. Ears and nose without deformities. Respiratory: Clear to auscultation. No wheezing, rales or rhonchi. Cardiovascular: S1 S2 regular. No murmurs, rubs or gallops. Gastrointestinal: Abdomen soft, non-tender, non-distended. Normal bowel sounds.? Neurologic: Cranial nerves II-XII grossly intact. No focal neurological deficits. Moves all extremities spontaneously.? Skin: No rashes or lesions.? Musculoskeletal: No cyanosis or clubbing. Psychiatric: Normal mood and affect? Results Labs 11/24/22 07:46 11/24/22 11:54 Labs: Laboratory Results - last 24 hr 11/24/22 11/24/22 11/24/22 07:46 07:46 07:46 MCV 101.5 H MCH 35.4 H MCHC 34.9 RDW 13.1 Plt Count 203 MPV 9.9 Immature Gran % (Auto) 0.4 Neut % (Auto) 55.4 Lymph % (Auto) 28.5 [place] % (Auto) 13.0 H Eos % (Auto) 2.3 Baso % (Auto) 0.4 Lymph # (Auto) 1.5 [place] # (Auto) 0.7 Eos # (Auto) 0.1 Baso # (Auto) 0.0 Abs Immat Gran (auto) 0.02 Absolute Neuts (auto) 2.9 Absolute Nucleated RBC 0.000 Nucleated RBC % (auto) 0.0 Anion Gap 15 Estim Creat Clear Calc 49.0 Estimated GFR 41 Random Glucose 98 Osmolality Calcium 9.5 Phosphorus Magnesium Total Bilirubin 1.4 H AST 26 ALT 17 Alkaline Phosphatase 68 Total Protein 7.4 Albumin 4.5 TSH Urine Color Urine Appearance Urine pH Ur Specific [place] Urine Protein Urine Glucose (UA) Urine Ketones Urine Blood Urine Nitrite Ur Leukocyte Esterase Urine Osmolality Ur Random Sodium Ur Random Uric Acid Urine Creatinine Influenza Type A (PCR) NEGATIVE Influenza Type B (PCR) NEGATIVE RSV RNA Qual (PCR) NEGATIVE SARS-CoV-2 RNA (RT-PCR) NEGATIVE 11/24/22 11/24/22 11/24/22 09:33 09:33 09:33 MCV MCH MCHC RDW Plt Count MPV Immature Gran % (Auto) Neut % (Auto) Lymph % (Auto) [place] % (Auto) Eos % (Auto) Baso % (Auto) Lymph # (Auto) [place] # (Auto) Eos # (Auto) Baso # (Auto) Abs Immat Gran (auto) Absolute Neuts (auto) Absolute Nucleated RBC Nucleated RBC % (auto) Anion Gap Estim Creat Clear Calc Estimated GFR Random Glucose Osmolality 266 L Calcium Phosphorus 3.6 Magnesium 1.7 Total Bilirubin AST ALT Alkaline Phosphatase Total Protein Albumin TSH 0.47 Urine Color Yellow Urine Appearance Clear Urine pH 7.0 Ur Specific [place] <= 1.005 Urine Protein Negative Urine Glucose (UA) Negative Urine Ketones Negative Urine Blood Negative Urine Nitrite Negative Ur Leukocyte Esterase Negative Urine Osmolality Ur Random Sodium Ur Random Uric Acid Urine Creatinine Influenza Type A (PCR) Influenza Type B (PCR) RSV RNA Qual (PCR) SARS-CoV-2 RNA (RT-PCR) 11/24/22 11/24/22 11/24/22 09:33 09:33 09:33 MCV MCH MCHC RDW Plt Count MPV Immature Gran % (Auto) Neut % (Auto) Lymph % (Auto) [place] % (Auto) Eos % (Auto) Baso % (Auto) Lymph # (Auto) [place] # (Auto) Eos # (Auto) Baso # (Auto) Abs Immat Gran (auto) Absolute Neuts (auto) Absolute Nucleated RBC Nucleated RBC % (auto) Anion Gap Estim Creat Clear Calc Estimated GFR Random Glucose Osmolality Calcium Phosphorus Magnesium Total Bilirubin AST ALT Alkaline Phosphatase Total Protein Albumin TSH Urine Color Urine Appearance Urine pH Ur Specific [place] Urine Protein Urine Glucose (UA) Urine Ketones Urine Blood Urine Nitrite Ur Leukocyte Esterase Urine Osmolality 208 L Ur Random Sodium 30.0 Ur Random Uric Acid 19.2 Urine Creatinine 21.79 Influenza Type A (PCR) Influenza Type B (PCR) RSV RNA Qual (PCR) SARS-CoV-2 RNA (RT-PCR) 11/24/22 11:54 MCV MCH MCHC RDW Plt Count MPV Immature Gran % (Auto) Neut % (Auto) Lymph % (Auto) [place] % (Auto) Eos % (Auto) Baso % (Auto) Lymph # (Auto) [place] # (Auto) Eos # (Auto) Baso # (Auto) Abs Immat Gran (auto) Absolute Neuts (auto) Absolute Nucleated RBC Nucleated RBC % (auto) Anion Gap 13 Estim Creat Clear Calc 57.0 Estimated GFR 49 Random Glucose 121 H Osmolality Calcium 9.1 Phosphorus Magnesium Total Bilirubin AST ALT Alkaline Phosphatase Total Protein Albumin TSH Urine Color Urine Appearance Urine pH Ur Specific [place] Urine Protein Urine Glucose (UA) Urine Ketones Urine Blood Urine Nitrite Ur Leukocyte Esterase Urine Osmolality Ur Random Sodium Ur Random Uric Acid Urine Creatinine Influenza Type A (PCR) Influenza Type B (PCR) RSV RNA Qual (PCR) SARS-CoV-2 RNA (RT-PCR) Assessment and Plan (1) Acute hyponatremia: Status: Acute Plan 67/F with HCTZ induced hyponatremia of 124 Plan: Stop HCTZ permanently, fluid restrictio, Neprhology consult, freqhrent level check Increase Nifedipine for BP control if needed,along with Losartan Time Spent With Patient Time: Total time managing care of this patient today ____ minutes. Quality Stroke Does the patient have a stroke diagnosis?: No VTE Prior VTE?: No VTE Risk Level:: Medical - low VTE Device Contraindication: Treatment Not Indicated VTE Drug Contraindication: Treatment Not Indicated
[2022-11-24 16:36] LABS: Anion Gap 16 (12-20); Carbon Dioxide 20 mmol/L (22-29); Chloride 95 mmol/L (96-108); Potassium 4.6 mmol/L (3.3-5.1); Sodium 126 mmol/L (135-145)
[2022-11-24] MEDS: Gabapentin 600 MG TABLET PO (22:00)
--- NOTE | 2022-11-24 22:00 | PC.NURSE ---
Assumed care for pt at 1900. Pt aox3 resting at the bedside in no apparent distress. VSS. Pt aware of plan of care. Will continue to monitor.
--- NOTE | 2022-11-24 23:18 | MHC.EDTECH ---
Patient placed in hospital bed for comfort,call ramirez within reach.
--- NOTE | 2022-11-24 23:51 | MHC.CM.PN ---
IMM 11/24. Lives with . Retired [employer] from [employer]. No DME/services. Pfizer x3. HCP reviewed, completed and signed. Copies given. Uploaded into [facility] [employer] and [facility] [employer]. D/C plan: Home without services. Pt will drive herself home. If need be, can arrange ride. CM to follow for discharge needs.
[2022-11-25] MEDS: 0.9 % Sodium Chloride Flush 3 ML SYRINGE IVFLUSH (03:06)
--- NOTE | 2022-11-25 03:25 | CONS_ITS ---
DATE OF SERVICE: 11/24/2022 REASON FOR CONSULTATION: I was asked to see the patient to assist in evaluation and management of patient's hyponatremia as reflected by serum sodium 124 yesterday at 10:30 a.m. and was 124 again this morning at 7:46 a.m. with hyperkalemia with a potassium of 5.7. HISTORY OF PRESENT ILLNESS: In summary, patient is a 67-year-old with history of hypertension, on hydrochlorothiazide, who admits drinking increased amount of fluids recently and I was contacted to come to the hospital because of low serum sodium. She apparently was having some increasing pains in her legs and this prompted the blood work done yesterday, which noted a low sodium. Patient states she has been on the same diuretics for many years. PAST MEDICAL HISTORY: Notable for the hypertension. MEDICATIONS: On admission noted in the admitting notes. Current medications on the NOV. FAMILY HISTORY: Noncontributory. SOCIAL HISTORY: She has history of smoking. No alcohol or illicit drug use and denies taking NSAIDs. PHYSICAL EXAMINATION: VITAL SIGNS: Blood pressure 140/60 with a heart rate in the 80s. HEAD: Atraumatic and normocephalic. NECK: Supple. Mucous membranes are moist. LUNGS: Clear. CARDIAC: Regular rate and rhythm without rub. ABDOMEN: Soft, nontender. Good bowel sounds. No CVA tenderness. EXTREMITIES: Show no edema. LABORATORY DATA: Hemoglobin of 12 and hematocrit 34.7, white count 5.2. Sodium 124, potassium 4.5, chloride 93, bicarb 23, BUN 26, creatinine 1.1. As mentioned, sodium was 124 yesterday 10:30 a.m. when she came to the hospital. She had a TSH level of 0.47. Urine studies show urine osm 208, urine sodium of 30. IMPRESSION: 67-YEAR-OLD HYPERTENSIVE PATIENT WITH HYPONATREMIA AND HYPERKALEMIA. 1. Hyponatremia. Patient appears euvolemic. I suspect the hyponatremia is due to the hydrochlorothiazide and increased p.o. fluid intake. Hydrochlorothiazide is the most common drug to cause hyponatremia due to its effect on the distal tubule by blocking sodium reabsorption and at the same time, not interfering with the concentration gradient in the medullary portion of the kidney sets up a perfect storm for developing hyponatremia in certain patients. Despite the fact that she has been on the hydrochlorothiazide long-standing, this is still most likely the culprit. 2. Other possibilities such as adrenal insufficiency needs to be ruled out. Hypothyroidism has already been ruled out. It could be that she has idiopathic SIADH, but this is a diagnosis that we can only make when she has been off thiazide diuretic for a period of time. There is some group of patients that have a persistence of the thiazide effect causing hyponatremia can last for several days. 3. Episode of hyperkalemia. Again, we need to rule out adrenal insufficiency, which could account for both the hyponatremia and hyperkalemia. RECOMMENDATION: At this time include continue p.o. fluid restriction. Avoid use of thiazide diuretics. Track serum sodiums. Our goal is to allow the serum sodium to increase by 60 mEq per 24 hours. At some point, she may need urea or salt tablets to help increase her serum sodium. We will follow the patient closely with the team. MD ROSA Oliver/BRETT / [phone]
--- NOTE | 2022-11-25 04:34 | PC.NURSE ---
Pt sleeping at the bedside in no apparent distress. Breaths are even and unlabored with equal chest rises. Will continue to monitor.
[2022-11-25 05:24] LABS: Anion Gap 12 (12-20); Blood Urea Nitrogen 23 mg/dL (9-16); Calcium 9.4 mg/dL (8.4-10.2); Carbon Dioxide 26 mmol/L (22-29); Chloride 96 mmol/L (96-108); Creatinine Clr Calc Pharmacy 59.1; Estimated Glomerular Filt Rate 51; Glucose Random 102 mg/dL (60-115); Potassium 4.5 mmol/L (3.3-5.1); Sodium 129 mmol/L (135-145)
[2022-11-25 05:37] LABS: Cortisol Random 6.9 ug/dL
[2022-11-25 06:08] VITALS: BP 132/73; PULSE 76; RESP 16; TEMP 36.9; O2SAT 100
[2022-11-25 07:55] VITALS: BP 142/68; PULSE 23; RESP 22; TEMP 36.7; O2SAT 98
[2022-11-25] MEDS: Losartan Potassium 50 MG TABLET 100 MG PO (08:53)
--- NOTE | 2022-11-25 09:49 | PC.NURSE ---
PT AOX4 BACK TO BASELINE PLAN FOR DC TODAY
--- NOTE | 2022-11-25 11:29 | P.DS_ITS ---
DS: Providers Provider Date of Service: 11/25/22 Date of admission: 11/24/22 13:21 Primary care physician: Carla Michael MD Consults: 11/24/22 11:32 Consult to Nephrology Stat Consulting Provider: Edward Delgadillo Reason for consultation: hyponatremia 11/24/22 13:27 Consult to Nephrology Routine Consulting Provider: Edward Delgadillo Reason for consultation: hypOnatremia Has provider been notified: Yes DS: Diagnosis Discharge Diagnosis (1) Acute hyponatremia: Status: Acute DS: Summary Hospital Course Hospital Course: Chief Complaint: hypOnatremia 67 year old female with HTN takes HCTZ. Over last weekend she was having pain in the legs and had lab work done? and she was noted to have low sodium and advise to hydrate herself and had lab repeated yesterday 11/23 and was called to come to ED because sodium level has dropped further? and was advised to come to the ED where repeat lab is 124, essentially unchanged from yesterday. She, otherwise, feels fine.? Potassium was high at 5.7 but down to 4.8 after [facility] course: Patient was observed overnight, HCTZ was stopped, fluid restirction was put in place. Nephology was consulted and we did serial labd drawas and by the next day, sodium level has gradually improved from 124 to 129 and had no symptoms. She was to stop HCTZ and will have lab work on outpatient basis. She was advised not to drink too much water. Time Spent with Patient Time attestation: Total time managing care of this patient today ____ minutes. Discharge coordination time: Less than 30 minutes Quality: Safe Use of Opioids Does Pt have an Active Cancer Diagnosis on the Problem List?: No Quality: Stroke Does the patient have a stroke diagnosis?: No Physical Exam Vital Signs: Vital Signs: Last Vital Signs Temp 97.8 F 11/25/22 15:17 Pulse 91 11/25/22 15:17 Resp 19 11/25/22 15:17 BP 128/63 11/25/22 15:17 Pulse Ox 100 11/25/22 15:17 O2 Del Method 11/25/22 15:17 BMI result Body Mass Index 29.7 Discharge Plan Discharge Anticipated Discharge Date/Time: 11/25/22 12:35 Patient Disposition: Home, Self-Care Discharge Diagnosis: Hyponatremia Referrals: Carla Michael MD [Primary Care Provider] - 1 Week Discharge Medications: Continued albuterol sulfate 90 mcg/actuation HFA aerosol inhaler 1 inh inhalation QID PRN (Reason: shortness of breath or wheezing) 90 Days Qty: 3 6RF nifedipine 60 mg tablet extended release 24hr 60 mg PO DAILY 90 Days Qty: 90 0RF losartan 100 mg tablet 100 mg PO DAILY Qty: 90 0RF gabapentin 600 mg tablet 600 mg PO BEDTIME 90 Days Qty: 90 0RF fluticasone propion-salmeterol 232-14 mcg/actuation aerosol powdr breath activated 1 inh PO BID 90 Days Qty: 3 1RF fluticasone propionate [Allergy Relief (fluticasone)] 50 mcg/actuation spray,suspension 1 spray intranasal DAILY 30 Days Qty: 1 0RF Rx Instructions: administer into each nostril Discontinued hydrochlorothiazide 25 mg tablet 25 mg PO DAILY 90 Days Qty: 90 1RF Discharge Orders: Discharge Order (Routine); Ordered 11/25/22 Ordered By: German Preston Diet: Advance to usual diet Activity on Discharge: As tolerated Stand Alone Forms: Patient Portal Discharge page Other Ambulatory Orders: Basic Metabolic Panel (Routine) Timeframe: 1 Week Facility: [facility] - Location: Laboratory Ordered By: German Preston Care Plan Goals: recovery from hyponatremia (low sodium) Health Concerns: Hyponatremia low sodium and Hyperkalemia high potassium now resolved Plan of Treatment: Do not take Hydrochlorothiazide anymore Follow up with Dr. Delgadillo's practice if 3 weeks You will have repeat lab done in a week Do not drink water in excess Assessment: as voida Discharge Date/Time: 11/25/22 17:21
[2022-11-25 12:53] VITALS: BP 160/89; PULSE 86; RESP 12; TEMP 36.8; O2SAT 98
[2022-11-25 15:17] VITALS: BP 128/63; PULSE 91; RESP 19; TEMP 36.6; O2SAT 100
--- NOTE | 2022-11-25 15:43 | MHC.CM.PN ---
Received notification patient will be discharged home without services. Patient will transort herself home.
[2022-11-26 18:38] LABS: Urea, Random Urine 210 mg/dL
== END 2022-11-25 17:21 | disposition home or self-care (01) | DRG 641 ==
LOC: HO.ED 09:39 → HO.EDOVER 13:28
PROVIDERS: Internal Medicine Nephrology; Nurse Practitioner Family; Admitting Provider Internal Medicine; Emergency Provider Emergency Medicine Emergency Medical Services; PCP Internal Medicine; Visit Provider Internal Medicine
DX: E87.1 Hypo-osmolality and hyponatremia (principal); E87.5 Hyperkalemia; T50.2X5A Adverse effect of carbonic-anhydrase inhibitors, benzothiadiazides and other diuretics, initial encounter; Z20.822 Contact with and (suspected) exposure to COVID-19; Z90.5 Acquired absence of kidney; Z87.891 Personal history of nicotine dependence; Z79.51 Long term (current) use of inhaled steroids; Z79.899 Other long term (current) drug therapy
CPT/HCPCS: 0241U; 36415; 80048; 80051; 80053; 81003; 82533; 83735; 83930; 83935; 84100; 84300; 84443; 84540; 84560; 85025; 93005; 99285

== ENCOUNTER 2022-12-04 10:00 | Outpatient (REF) | payer MEDICARE, SELFPAY ==
[2022-12-04 12:54] LABS: Anion Gap 12 (12-20); Blood Urea Nitrogen 19 mg/dL (9-16); Calcium 9.2 mg/dL (8.4-10.2); Carbon Dioxide 26 mmol/L (22-29); Chloride 102 mmol/L (96-108); Estimated Glomerular Filt Rate 43; Glucose Random 100 mg/dL (60-115); Potassium 5.3 mmol/L (3.3-5.1); Sodium 135 mmol/L (135-145)
== END 2022-12-04 10:01 | disposition home or self-care (01) ==
LOC: HO.HMGCLDS 10:00
PROVIDERS: PCP Internal Medicine; Visit Provider Internal Medicine
DX: E87.1 Hypo-osmolality and hyponatremia (principal)
CPT/HCPCS: 36415; 80048

== ENCOUNTER 2023-02-19 09:12 | Outpatient (REF) | payer MEDICARE, SELFPAY ==
[2023-02-19 11:23] LABS: MANUAL DIFF FLAG NO
[2023-02-19 11:38] LABS: Basophils Percent Auto 0.2 % (0-2); Eosinophils Absolute Auto 0.5 X10*3/uL (0.0-0.4); Eosinophils Percent Auto 10.1 % (0-4); Hematocrit 36.1 % (37.0-47.0); Hemoglobin 12.6 g/dl (12.0-16.0); Imm Gran Abs Auto 0.02 X10*3/uL (0.00-0.03); Imm Gran Pct Auto 0.4 % (0.0-0.4); Lymphocytes Absolute Auto 0.9 X10*3/uL (1.2-4.9); Lymphocytes Percent Auto 21.1 % (20-40); Mean Corpuscular HGB Conc 34.9 g/dl (31.0-35.0); Mean Corpuscular Hemoglobin 35.3 pg (27.0-33.0); Mean Corpuscular Volume 101.1 fL (80.0-98.0); Mean Platelet Volume 10.5 fL (9.4-12.3); Monocytes Absolute Auto 0.5 X10*3/uL (0.1-1.2); Monocytes Percent Auto 11.5 % (2-11); Neutrophils Absolute Auto 2.5 x10*3/uL (2.0-8.3); Neutrophils Percent Auto 56.7 % (45-73); Platelet Count 201 X10*3/uL (160-400); Red Blood Count 3.57 X10*6/uL (4.20-5.50); Red Cell Distribution Width 11.4 % (11.0-16.0); White Blood Count 4.5 X10*3/uL (4.8-10.8)
[2023-02-19 11:48] LABS: Alanine Aminotransferase 13 U/L (0-31); Albumin Level 4.3 g/dL (3.5-5.0); Alkaline Phosphatase 83 U/L (39-117); Anion Gap 14 (12-20); Aspartate Amino Transferase 24 U/L (5-31); Blood Urea Nitrogen 19 mg/dL (9-16); Calcium 9.4 mg/dL (8.4-10.2); Carbon Dioxide 25 mmol/L (22-29); Chloride 95 mmol/L (96-108); Estimated Glomerular Filt Rate 37; Glucose Random 96 mg/dL (60-115); Potassium 5.1 mmol/L (3.3-5.1); Sodium 129 mmol/L (135-145); Total Protein 7.1 g/dL (6.5-8.0)
== END 2023-02-19 09:13 | disposition home or self-care (01) ==
LOC: HO.HMGCLDS 09:12
PROVIDERS: PCP Internal Medicine; Visit Provider Internal Medicine
DX: E87.5 Hyperkalemia (principal); I10 Essential (primary) hypertension; J44.9 Chronic obstructive pulmonary disease, unspecified; J45.909 Unspecified asthma, uncomplicated
CPT/HCPCS: 36415; 80053; 85025

== ENCOUNTER 2023-05-28 08:31 | Outpatient (AMB) | payer MEDICARE, SELFPAY ==
[2023-05-28 08:34] VITALS: BP 140/76; PULSE 72; O2SAT 95; BMI 30.5
--- NOTE | 2023-05-28 08:34 | A.OFFPC_ITS ---
Vital Signs 05/28/23 08:34 Height 5 ft 6 in Weight 189 lb BMI 30.5 BP 140/76 H Blood Pressure Location Lt brachial Position Sitting Pulse 72 Pulse Source Pulse Oximeter Pulse Oximetry (%) 95 Oxygen Delivery Method Room Air Intake Visit Reasons: 3 Month follow up Intake Note: Pt is here today for 3 months follow up visit. Allergies No Known Allergies Allergy (Verified 05/28/23 08:34) Medication List - Last Reconciled 05/28/23 by Carla Michael MD albuterol sulfate 90 mcg/actuation 1 inh inhalation QID PRN 90 days fluticasone propion-salmeterol 232-14 mcg/actuation 1 inh PO BID 90 days fluticasone propionate 50 mcg/actuation (Allergy Relief (fluticasone)) 1 spray intranasal DAILY 30 days furosemide 20 mg PO QAM gabapentin 600 mg PO BEDTIME 90 days losartan 100 mg PO DAILY nifedipine ER 60 mg PO DAILY 90 days Tobacco use date assessed: 05/28/23 Dental Screening Dental Screen Date: 05/28/23 Did you have a dental visit in the last 12 months?: No Did you have a dental problem in the last 6 months where you did not have access to dental care?: No Was dental information given to patient?: Patient declined HPI 3 Month follow up HPI Details Patient is a 68-year-old female came in today for follow-up appointment She is feeling will overwhelmed today as her is sick and is in hospital [facility] Patient says that he had a kidney stone ended up having sepsis but he is out of ICU now Patient have a chronic lower back pain and neck pain which is managed with the help of gabapentin 600 mg at night patient is requesting a refill She is aware that this is a controlled medication and require 3 month follow-up appointment Blood pressure is controlled, patient is taking hydrochlorothiazide 25 mg, losartan 100 mg and nifedipine 60 mg no side effects, blood pressure is slightly elevated at 140 systolic Patient has single kidney and also have a hypertensive nephropathy, her kidney in was 1.4 when we did labs in January She will be repeating labs again today. I wanted her to see public administration professor last time but patient did not had the proper insurance She says that she is still waiting for the insurance so they can cover the speciality visits. Asthma is stable with maintenance inhaler and albuterol as needed BMI is elevated need to lose weight Allergic rhinitis stable with Flonase use Follow-up 3 months [facility] Surgical History History of tonsillectomy History of tumor S/P removal of right ovary Family History Father Cancer of prostate Mother Diabetes mellitus Brother No problems noted. Brother No problems noted. Brother No problems noted. Sister No problems noted. Sister No problems noted. Sister History of heart attack Daughter No problems noted. Daughter No problems noted. Maternal Grandfather No problems noted. Maternal Grandmother No problems noted. Paternal Grandfather No problems noted. Paternal Grandmother No problems noted. Maternal Aunt No problems noted. Social History Housing: Other (mobile home) Housing Other:: Mobile Home Alcohol intake: unknown Patient Tobacco Use Status: Former Tobacco user Quit Date: 2016 Tobacco use type: Cigarette Years Smoked: 30 years e-Cigarette/Vaping Use: Never Used service: No Current occupational status: retired Cognitive needs: No Hearing needs: No Vision needs: Yes Questionnaire PHQ-9 Over the last 2 weeks, how often have you been bothered by any of the following problems? 1. Little interest or pleasure in doing things: not at all 2. Feeling down, depressed, or hopeless: not at all 3. Trouble falling or staying asleep, or sleeping too much: not at all 4. Feeling tired or having little energy: not at all 5. Poor appetite or overeating: not at all 6. Feeling bad about yourself - or that you are a failure or have let yourself or your family down: not at all 7. Trouble concentrating on things, such as reading the newspaper or watching television: not at all 8. Moving or speaking so slowly that other people could have noticed. Or the opposite - being so fidgety or restless that you have been moving around a lot more than usual: not at all 9. Thoughts that you would be better off or of hurting yourself in some way: not at all Total score: 0 Depression Screening Interpretation: Negative 71307 - PHQ-9 Billing: Yes Source: Developed by Drs. Marco Antonio Oliva, Hoda Del Cid, Enmanuel Duenas and colleagues, with an educational arie from [employer]. Thrive Questionnaire Date Thrive assessed: 11/20/22 CAESAR-7 AMB Questionnaire CAESAR-7 Date CAESAR - 7 assessed: 11/20/22 Source: Developed by Drs. Marco Antonio Oliva, Hoda Del Cid, Enmanuel Duenas and colleagues, with an educational arie from [employer]. Review of Systems Const Denies chills and Denies fever(s) ENT Denies epistaxis and Denies nasal discharge Card Denies chest pain Resp Denies chest congestion, Denies cough and Denies hemoptysis GI Denies diarrhea and Denies nausea Skin/Breast Denies rash Neuro Reports no additional complaints Psych Reports no additional complaints Endo Reports no additional complaints Physical exam (Primary Care) Vital Signs: Last Vital Signs Pulse 72 05/28/23 08:34 BP 140/76 H 05/28/23 08:34 Pulse Ox 95 05/28/23 08:34 Oxygen Delivery Method Room Air 05/28/23 08:34 BMI result Body Mass Index 30.5 Tobacco/Smoking Status: Tobacco use Status Tobacco use date assessed 05/28/23 05/28/23 08:39 Patient Tobacco Use Status Former Tobacco user 05/28/23 08:34 Tobacco use type Cigarette 05/28/23 08:34 e-Cigarette/Vaping Use Never Used 05/28/23 08:34 PHQ-9: PHQ-9 Score PHQ-9: Total score 0 05/28/23 09:06 Depression Screening Interpretation: Negative Thrive Assessment: Date of Thrive Assessment Date Thrive assessed 11/20/22 05/28/23 08:34 Const General: cooperative, comfortable and no acute distress Orientation/consciousness: patient oriented x3 HENMT Head: Yes normocephalic Eyes General: appearance normal, both eyes and all related structures Neck Neck: Yes supple Resp Effort & Inspection: normal respiratory effort, no cough and no stridor Cardio Rhythm: regular rhythm Heart sounds: S1 normal heart sound present and S2 normal heart sound present Skin General skin exam: turgor normal Neuro General: patient oriented x3, tone normal and moves all extremities Extrem Right lower extremity: no edema Left lower extremity: no edema Assessment and Plan Assessment & Plan (1) Hypertensive nephropathy: Code(s): I12.9 - Hypertensive chronic kidney disease with stage 1 through stage 4 chronic kidney disease, or unspecified chronic kidney disease (2) Obesity due to excess calories: Code(s): E66.09 - Other obesity due to excess calories Qualifiers: Body mass index: BMI 30.0-30.9 Obesity classification: adult class 1 (BMI 30 - 34.9) Serious obesity comorbidity presence: with serious comorbidity Qualified Code(s): E66.09 - Other obesity due to excess calories; Z68.30 - Body mass index [BMI] 30.0-30.9, adult (3) Asthma, moderate: Code(s): J45.909 - Unspecified asthma, uncomplicated Qualifiers: Asthma complication type: uncomplicated Asthma persistence: persistent Qualified Code(s): J45.40 - Moderate persistent asthma, uncomplicated (4) Renal artery aneurysm: Code(s): I72.2 - Aneurysm of renal artery (5) Unilateral congenital absence of kidney: Code(s): Q60.0 - Renal agenesis, unilateral (6) Cervical disc herniation: Code(s): M50.20 - Other cervical disc displacement, unspecified cervical region (7) Radiculitis of right cervical region: Code(s): M54.12 - Radiculopathy, cervical region (8) COPD mixed type: Code(s): J44.9 - Chronic obstructive pulmonary disease, unspecified (9) Hypertension, essential: Code(s): I10 - Essential (primary) hypertension (10) Elevated serum creatinine: Code(s): R79.89 - Other specified abnormal findings of blood chemistry Plan Patient is a 68-year-old female came in today for follow-up appointment She is feeling will overwhelmed today as her is sick and is in [facility] Patient says that he had a kidney stone ended up having sepsis but he is out of ICU now Patient have a chronic lower back pain and neck pain which is managed with the help of gabapentin 600 mg at night patient is requesting a refill She is aware that this is a controlled medication and require 3 month follow-up appointment Blood pressure is controlled, patient is taking hydrochlorothiazide 25 mg, losartan 100 mg and nifedipine 60 mg no side effects, blood pressure is slightly elevated at 140 systolic Patient has single kidney and also have a hypertensive nephropathy, her kidney in was 1.4 when we did labs in January She will be repeating labs again today. She is established with nephrology Dr. Delgadillo, who is also monitoring the renal artery aneurysm Asthma is stable with maintenance inhaler and albuterol as needed BMI is elevated need to lose weight Allergic rhinitis stable with Flonase use Follow-up 3 months Orders: Orders Comprehensive Met. Panel Today E66.09 - Other obesity due to excess calories, I12.9 - Hypertensive chronic kidney disease with stage 1 through stage 4 chronic kidney disease, or unspecified chronic kidney disease, I72.2 - Aneurysm of renal artery, J45.909 - Unspecified asthma, uncomplicated LDL Cholesterol Direct Today E66.09 - Other obesity due to excess calories, I12.9 - Hypertensive chronic kidney disease with stage 1 through stage 4 chronic kidney disease, or unspecified chronic kidney disease, I72.2 - Aneurysm of renal artery, J45.909 - Unspecified asthma, uncomplicated Complete Blood Count Auto Diff Today E66.09 - Other obesity due to excess calories, I12.9 - Hypertensive chronic kidney disease with stage 1 through stage 4 chronic kidney disease, or unspecified chronic kidney disease, I72.2 - Aneurysm of renal artery, J45.909 - Unspecified asthma, uncomplicated Medications: New cetirizine (All Day Allergy (cetirizine)) 10 mg PO DAILY PRN 90 caps 0RF allergy symptoms Refilled gabapentin 600 mg PO BEDTIME 90 tabs 0RF 90 days Coding Level of Care Code Est Pt Level 4 (79945) Diagnoses Hypertensive nephropathy I12.9 Obesity due to excess calories E66.09; Z68.30 Body mass index: BMI 30.0-30.9 Obesity classification: adult class 1 (BMI 30 - 34.9) Serious obesity comorbidity presence: with serious comorbidity Asthma, moderate J45.40 Asthma complication type: uncomplicated Asthma persistence: persistent Renal artery aneurysm I72.2 Unilateral congenital absence of kidney Q60.0 Cervical disc herniation M50.20 Radiculitis of right cervical region M54.12 COPD mixed type J44.9 Hypertension, essential I10 Elevated serum creatinine R79.89
== END 2023-05-28 11:23 | disposition home or self-care (01) ==
PROVIDERS: Visit Provider Internal Medicine
DX: J44.9 Chronic obstructive pulmonary disease, unspecified (principal); Z68.30 Body mass index [BMI] 30.0-30.9, adult; I72.2 Aneurysm of renal artery; E66.09 Other obesity due to excess calories; Q60.0 Renal agenesis, unilateral; M50.20 Other cervical disc displacement, unspecified cervical region; M54.12 Radiculopathy, cervical region; R79.89 Other specified abnormal findings of blood chemistry
CPT/HCPCS: 99214

== ENCOUNTER 2023-05-28 08:57 | Outpatient (REF) | payer MEDICARE, SELFPAY ==
[2023-05-28 11:27] LABS: MANUAL DIFF FLAG NO
[2023-05-28 11:48] LABS: Basophils Percent Auto 0.2 % (0-2); Eosinophils Absolute Auto 0.3 X10*3/uL (0.0-0.4); Eosinophils Percent Auto 5.9 % (0-4); Hematocrit 37.2 % (37.0-47.0); Hemoglobin 12.6 g/dl (12.0-16.0); Imm Gran Abs Auto 0.01 X10*3/uL (0.00-0.03); Imm Gran Pct Auto 0.2 % (0.0-0.4); Lymphocytes Absolute Auto 1.3 X10*3/uL (1.2-4.9); Lymphocytes Percent Auto 31.1 % (20-40); Mean Corpuscular HGB Conc 33.9 g/dl (31.0-35.0); Mean Corpuscular Hemoglobin 34.9 pg (27.0-33.0); Mean Platelet Volume 10.5 fL (9.4-12.3); Monocytes Absolute Auto 0.6 X10*3/uL (0.1-1.2); Monocytes Percent Auto 13.5 % (2-11); Neutrophils Absolute Auto 2.1 x10*3/uL (2.0-8.3); Neutrophils Percent Auto 49.1 % (45-73); Platelet Count 247 X10*3/uL (160-400); Red Blood Count 3.61 X10*6/uL (4.20-5.50); Red Cell Distribution Width 12.8 % (11.0-16.0); White Blood Count 4.2 X10*3/uL (4.8-10.8)
[2023-05-28 12:05] LABS: Alanine Aminotransferase 10 U/L (0-31); Albumin Level 4.2 g/dL (3.5-5.0); Alkaline Phosphatase 80 U/L (39-117); Anion Gap 17 (12-20); Aspartate Amino Transferase 21 U/L (5-31); Bilirubin Total 0.5 mg/dL (0.0-1.0); Blood Urea Nitrogen 13 mg/dL (9-16); Calcium 10.1 mg/dL (8.4-10.2); Carbon Dioxide 24 mmol/L (22-29); Chloride 98 mmol/L (96-108); Estimated Glomerular Filt Rate 51; Glucose Random 91 mg/dL (60-115); Potassium 4.8 mmol/L (3.3-5.1); Sodium 134 mmol/L (135-145); Total Protein 7.3 g/dL (6.5-8.0)
[2023-05-30 02:38] LABS: LDL Cholesterol Direct 123 mg/dL (<100)
== END 2023-05-28 08:58 | disposition home or self-care (01) ==
LOC: HO.HMGCLDS 08:57
PROVIDERS: PCP Internal Medicine; Visit Provider Internal Medicine
DX: E66.09 Other obesity due to excess calories (principal); I12.9 Hypertensive chronic kidney disease with stage 1 through stage 4 chronic kidney disease, or unspecified chronic kidney disease; N18.9 Chronic kidney disease, unspecified; I72.2 Aneurysm of renal artery; J45.909 Unspecified asthma, uncomplicated
CPT/HCPCS: 36415; 80053; 83721; 85025

== ENCOUNTER 2023-10-01 14:34 | Outpatient (AMB) | payer MEDICARE, MEDICAID, SELFPAY ==
[2023-10-01 14:43] VITALS: BP 144/90; PULSE 68; O2SAT 97; BMI 28.6
--- NOTE | 2023-10-01 14:43 | MHC.PC.OV ---
Vital Signs 10/01/23 14:43 Height 5 ft 6 in Weight 177 lb 8 oz BMI 28.6 BP 144/90 H Blood Pressure Location Lt brachial Position Sitting Pulse 68 Pulse Source Pulse Oximeter Pulse Oximetry (%) 97 Oxygen Delivery Method Room Air Intake Visit Reasons: [facility] ~ Allergies No Known Allergies Allergy (Verified 10/01/23 14:52) Medication List - Last Reconciled 10/01/23 by Carla Michael MD albuterol sulfate 90 mcg/actuation 1 inh inhalation QID PRN 90 days fluticasone propion-salmeterol 232-14 mcg/actuation 1 inh PO BID 90 days fluticasone propionate 50 mcg/actuation (Allergy Relief (fluticasone)) 1 spray intranasal DAILY 30 days gabapentin 600 mg PO BEDTIME 90 days metoprolol succinate ER 25 mg PO BID senna mg PO torsemide 20 mg PO DAILY Tobacco use date assessed: 10/01/23 Last assessed Fall Risk: 10/01/23 Dental Screening Dental Screen Date: 10/01/23 Did you have a dental visit in the last 12 months?: Yes Did you have a dental problem in the last 6 months where you did not have access to dental care?: No Was dental information given to patient?: Patient has dentist HPI [facility] ~ HPI Details Hospital discharge follow-up September 08 08/28/2020 presented with chest pain or shortness a breath novel Hospital Workup showed NSTEMI Echocardiogram was done which showed ischemic cardiomyopathy, dyskinetic mild apex and apical segments with ejection fraction of 20-25% Patient also had cardiac catheterization and was diagnosed with stress induced cardiomyopathy She also ended up having paroxysmal atrial fibrillation in the hospital and was given script for Eliquis 5 mg b.i.d. patient is to follow up with the Cardiology she has appointment coming up next month with Dr. Barry Patient had hyponatremia in the hospital and found to have chronic kidney disease She does admit to drinking a lot of alcohol including beer which can lower the sodium We will be repeating the electrolytes again she was instructed to restrict fluid Patient was diagnosed with elevated liver enzymes most likely secondary to fatty liver She was discharged on metoprolol and losartan was discontinued Her asthma is acting up because she ran out of Breo and is not using it. Refill sent patient was instructed to continue to use it if she runs out she need to call us for refill Patient has been having severe depression since her has she was also started on Lexapro 10 I have placed a referral to Ophthalmology as she is complaining of blurring of vision Patient is on high-dose gabapentin because of chronic low back pain does not want to have surgery or any other intervention. She is doing well with gabapentin 600 mg as far as pain control his concern. Her discharge medications were atorvastatin 40 mg Lexapro 10 mg gabapentin 600 mg metoprolol 25 b.i.d. torsemide 20 mg and aspirin 81 mg and Eliquis Furosemide, losartan, nifedipine was discontinued Patient is to have labs today Follow-up 3 months [facility] Surgical History History of tumor S/P removal of right ovary History of tonsillectomy Family History Father Cancer of prostate Mother Diabetes mellitus Brother No problems noted. Brother No problems noted. Brother No problems noted. Sister No problems noted. Sister No problems noted. Sister History of heart attack Daughter No problems noted. Daughter No problems noted. Maternal Grandfather No problems noted. Maternal Grandmother No problems noted. Paternal Grandfather No problems noted. Paternal Grandmother No problems noted. Maternal Aunt No problems noted. Social History Housing: Other (mobile home) Housing Other:: Mobile Home Alcohol intake: unknown Patient Tobacco Use Status: Former Tobacco user Quit Date: 2016 Tobacco use type: Cigarette Years Smoked: 30 years e-Cigarette/Vaping Use: Never Used service: No Current occupational status: retired Cognitive needs: No Hearing needs: No Vision needs: Yes Questionnaire PHQ-9 Over the last 2 weeks, how often have you been bothered by any of the following problems? 1. Little interest or pleasure in doing things: not at all 2. Feeling down, depressed, or hopeless: more than half the days 3. Trouble falling or staying asleep, or sleeping too much: nearly every day 4. Feeling tired or having little energy: not at all 5. Poor appetite or overeating: not at all 6. Feeling bad about yourself - or that you are a failure or have let yourself or your family down: not at all 7. Trouble concentrating on things, such as reading the newspaper or watching television: not at all 8. Moving or speaking so slowly that other people could have noticed. Or the opposite - being so fidgety or restless that you have been moving around a lot more than usual: not at all 9. Thoughts that you would be better off or of hurting yourself in some way: not at all Total score: 5 Depression Screening Interpretation: Negative Depression Screening Done: Yes 41799 - PHQ-9 Billing: Yes Source: Developed by Drs. Marc oAntonio Oliva, Hoda Del Cid, Enmanuel Duenas and colleagues, with an educational arie from [employer]. Thrive Questionnaire Date Thrive assessed: 10/01/23 I am a: Patient What is your living situation today?: I have a steady place to live Within the past 12 months, did the food you bought not last and you didn't have the money to get more?: Never true Within the past 12 months, did you worry whether your food would run out before you got money to buy more?: Never true Do you have trouble paying for medicines?: No Do you have trouble getting transportation to medical appointments?: No Do you have trouble paying your heating and electricity bill?: Yes Do you have trouble taking care of your child, family member or friend?: No Do you have trouble with day-to-day activities such as bathing, preparing meals, shopping, managing finances, etc.?: No Are you currently unemployed and looking for a job?: Yes Are you interested in more education?: No Please select the resources that you would like help with: None Currently or been in a relationship where the following occur: no concerns reported AUDIT C Alcohol Use Questionnaire (AUDIT-C) 1. How often do you have a drink containing alcohol?: Never 3. How often do you have six or more drinks on one occasion?: Never Total Score: 0 Score Reviewed/Action Taken: Yes CAESAR-7 AMB Questionnaire CAESAR-7 Date CAESAR - 7 assessed: 10/01/23 Feeling nervous, anxious, or on edge: 2 = More than half the days Not being able to stop or control worryin = More than half the days Worrying too much about different things: 2 = More than half the days Trouble relaxin = Several days Being so restless that it is hard to sit still: 2 = More than half the days Becoming easily annoyed or irritable: 0 = Not at all Feeling afraid as if something awful might happen: 0 = Not at all Total CAESAR-7 score (0-4 normal; 5-9 mild; 10-14 moderate; 15-21 severe): 9 Source: Developed by Drs. Marco Antonio Oliva, Hoda Del Cid, Enmanuel Duenas and colleagues, with an educational arie from [employer]. CAESAR-7 Assessment Billing CAESAR-7 Assessment Tool: CAESAR-7 Assessment 29191 Review of Systems Const Denies chills and Denies fever(s) ENT Denies epistaxis and Denies nasal discharge Card Denies chest pain Resp Denies chest congestion, Denies cough and Denies hemoptysis GI Denies diarrhea and Denies nausea Skin/Breast Denies rash Neuro Reports no additional complaints Psych Reports no additional complaints Endo Reports no additional complaints Physical exam (Primary Care) Vital Signs: Last Vital Signs Pulse 68 10/01/23 14:43 BP 144/90 H 10/01/23 14:43 Pulse Ox 97 10/01/23 14:43 Oxygen Delivery Method Room Air 10/01/23 14:43 BMI result Body Mass Index 28.6 Tobacco/Smoking Status: Tobacco use Status Tobacco use date assessed 10/01/23 10/01/23 14:53 Patient Tobacco Use Status Former Tobacco user 10/01/23 14:53 Tobacco use type Cigarette 10/01/23 14:53 e-Cigarette/Vaping Use Never Used 10/01/23 14:53 PHQ-9: PHQ-9 Score PHQ-9: Total score 5 10/01/23 15:14 Depression Screening Interpretation: Negative Thrive Assessment: Date of Thrive Assessment Date Thrive assessed 10/01/23 10/01/23 14:53 Currently or been in a relationship where the following occur: no concerns reported Const General: cooperative, comfortable and no acute distress Orientation/consciousness: patient oriented x3 HENMT Head: Yes normocephalic Eyes General: appearance normal, both eyes and all related structures Neck Neck: Yes supple Resp Other: Mild wheezing bilateral with deep breath Effort & Inspection: normal respiratory effort, no cough and no stridor Cardio Rhythm: regular rhythm Heart sounds: S1 normal heart sound present and S2 normal heart sound present Skin General skin exam: turgor normal Neuro General: patient oriented x3, tone normal and moves all extremities Extrem Right lower extremity: no edema Left lower extremity: no edema Assessment and Plan Assessment & Plan (1) Hospital discharge follow-up: Code(s): Z09 - Encounter for follow-up examination after completed treatment for conditions other than malignant neoplasm (2) Blurring of vision: Code(s): H53.8 - Other visual disturbances (3) Acute hyponatremia: Code(s): E87.1 - Hypo-osmolality and hyponatremia (4) Hyperkalemia: Code(s): E87.5 - Hyperkalemia (5) Hypertensive nephropathy: Code(s): I12.9 - Hypertensive chronic kidney disease with stage 1 through stage 4 chronic kidney disease, or unspecified chronic kidney disease (6) Stress-induced cardiomyopathy: Code(s): I51.81 - Takotsubo syndrome (7) Cardiac LV ejection fraction of 20-34%: Code(s): R94.30 - Abnormal result of cardiovascular function study, unspecified (8) COPD mixed type: Code(s): J44.9 - Chronic obstructive pulmonary disease, unspecified (9) Renal artery aneurysm: Code(s): I72.2 - Aneurysm of renal artery (10) Asthma, moderate: Code(s): J45.909 - Unspecified asthma, uncomplicated Qualifiers: Asthma persistence: persistent Asthma complication type: uncomplicated Qualified Code(s): J45.40 - Moderate persistent asthma, uncomplicated (11) Hypertension, essential: Code(s): I10 - Essential (primary) hypertension (12) Major depression, recurrent: Code(s): F33.9 - Major depressive disorder, recurrent, unspecified Qualifiers: Active/Remission status: currently active Major depression episode severity: mild Qualified Code(s): F33.0 - Major depressive disorder, recurrent, mild Plan Hospital discharge follow-up September 08 08/28/2020 presented with chest pain or shortness a breath novel Hospital Workup showed NSTEMI Echocardiogram was done which showed ischemic cardiomyopathy, dyskinetic mild apex and apical segments with ejection fraction of 20-25% Patient also had cardiac catheterization and was diagnosed with stress induced cardiomyopathy She also ended up having paroxysmal atrial fibrillation in the hospital and was given script for Eliquis 5 mg b.i.d. patient is to follow up with the Cardiology she has appointment coming up next month with Dr. 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 Refill sent patient was instructed to continue to use it if she runs out she need to call us for refill Patient has been having severe depression since her has she was also started on Lexapro 10 I have placed a referral to Ophthalmology as she is complaining of blurring of vision Patient is on high-dose gabapentin because of chronic low back pain does not want to have surgery or any other intervention. She is doing well with gabapentin 600 mg as far as pain control his concern. Her discharge medications were atorvastatin 40 mg Lexapro 10 mg gabapentin 600 mg metoprolol 25 b.i.d. torsemide 20 mg and aspirin 81 mg and Eliquis Furosemide, losartan, nifedipine was discontinued Patient is to have labs today Follow-up 3 months Orders: Orders Comprehensive Met. Panel Today E87.1 - Hypo-osmolality and hyponatremia, E87.5 - Hyperkalemia, I12.9 - Hypertensive chronic kidney disease with stage 1 through stage 4 chronic kidney disease, or unspecified chronic kidney disease Referrals Ophthalmology Referral H53.8 - Other visual disturbances Nephrology Referral I72.2 - Aneurysm of renal artery Medications: New albuterol sulfate 90 mcg/actuation (Ventolin HFA) 1 inh inhalation QID PRN 6.7 grams 6RF shortness of breath or wheezing 30 days escitalopram oxalate (Lexapro) 10 mg PO DAILY 90 tabs 0RF atorvastatin 40 mg PO DAILY 90 tabs 0RF metoprolol succinate ER 25 mg PO BID 180 tabs 0RF 90 days torsemide 20 mg PO DAILY 30 tabs 0RF Refilled gabapentin 600 mg PO BEDTIME 90 tabs 0RF 90 days fluticasone propion-salmeterol 232-14 mcg/actuation 1 inh PO BID 3 ea 2RF 90 days J44.9 - Chronic obstructive pulmonary disease, unspecified, J45.909 - Unspecified asthma, uncomplicated Discontinued albuterol sulfate 90 mcg/actuation Discontinued Reason: Doctor's Order 1 inh inhalation QID 90 days PRN 3 ea 6RF shortness of breath or wheezing J44.9 - Chronic obstructive pulmonary disease, unspecified, J45.909 - Unspecified asthma, uncomplicated Coding Level of Care Code Est Pt Level 5 (06821) Diagnoses Hospital discharge follow-up Z09 Blurring of vision H53.8 Acute hyponatremia E87.1 Hyperkalemia E87.5 Hypertensive nephropathy I12.9 Stress-induced cardiomyopathy I51.81 Cardiac LV ejection fraction of 20-34% R94.30 COPD mixed type J44.9 Renal artery aneurysm I72.2 Moderate persistent asthma without complication J45.40 Asthma persistence: persistent Asthma complication type: uncomplicated Hypertension, essential I10 Mild episode of recurrent major depressive disorder F33.0 Active/Remission status: currently active Major depression episode severity: mild Additional Codes CAESAR-7 Assessment Billing - CAESAR-7 Assessment Tool: CAESAR-7 Assessment 26397 ([id number]) Time Spent (min) 41 Comment 7 minute preparation, 20 with patient, 14 minute charting and coordination of care
== END 2023-10-01 15:15 | disposition home or self-care (01) ==
PROVIDERS: PCP Internal Medicine; Visit Provider Internal Medicine
DX: J44.9 Chronic obstructive pulmonary disease, unspecified (principal); F33.0 Major depressive disorder, recurrent, mild; I72.2 Aneurysm of renal artery; Z09 Encounter for follow-up examination after completed treatment for conditions other than malignant neoplasm; H53.8 Other visual disturbances; E87.1 Hypo-osmolality and hyponatremia; E87.5 Hyperkalemia; I12.9 Hypertensive chronic kidney disease with stage 1 through stage 4 chronic kidney disease, or unspecified chronic kidney disease; I51.81 Takotsubo syndrome; R94.30 Abnormal result of cardiovascular function study, unspecified; J45.40 Moderate persistent asthma, uncomplicated; I10 Essential (primary) hypertension
CPT/HCPCS: 99215

== ENCOUNTER 2023-10-01 15:16 | Outpatient (REF) | payer MEDICARE, MEDICAID, SELFPAY ==
[2023-10-01 16:35] LABS: Alanine Aminotransferase 19 U/L (0-31); Albumin Level 4.2 g/dL (3.5-5.0); Alkaline Phosphatase 95 U/L (39-117); Anion Gap 15 (12-20); Aspartate Amino Transferase 34 U/L (5-31); Bilirubin Total 0.7 mg/dL (0.0-1.0); Blood Urea Nitrogen 20 mg/dL (9-16); Calcium 9.6 mg/dL (8.4-10.2); Carbon Dioxide 26 mmol/L (22-29); Chloride 100 mmol/L (96-108); Estimated Glomerular Filt Rate 34; Glucose Random 86 mg/dL (60-115); Potassium 3.8 mmol/L (3.3-5.1); Sodium 137 mmol/L (135-145); Total Protein 7.8 g/dL (6.5-8.0)
== END 2023-10-01 15:17 | disposition home or self-care (01) ==
LOC: HO.HMGCLDS 15:16
PROVIDERS: PCP Internal Medicine; Visit Provider Internal Medicine
DX: E87.1 Hypo-osmolality and hyponatremia (principal); E87.5 Hyperkalemia; I12.9 Hypertensive chronic kidney disease with stage 1 through stage 4 chronic kidney disease, or unspecified chronic kidney disease; N18.9 Chronic kidney disease, unspecified
CPT/HCPCS: 36415; 80053

== ENCOUNTER 2023-10-19 11:39 | Outpatient (AMB) | payer MEDICARE, MEDICAID, SELFPAY ==
[2023-10-19 11:42] VITALS: BP 154/84; PULSE 74; O2SAT 98; BMI 29.9
--- NOTE | 2023-10-19 11:42 | HO.NEPHOV ---
HPI HPI Comments History of Present Illness Details 68 yr old woman with a solitary kidney an dh/o Renal artery aneurysm, well known to me , referred back for CKD She lost her in May 2023 and started drinknig beer. She was admitted to [facility] with hyponatremia Na was corrected Diuretics were changed LExapro has been added Recent creatinine is 1.54 mg/dL and hence this referral She quit smoking 7 years ago She has quit beer as well [facility] Medical History (Updated 10/19/23 @ 11:58 by Steve Catalan MD) Renal artery aneurysm Surgical History History of tumor S/P removal of right ovary History of tonsillectomy Family History Father Cancer of prostate Mother Diabetes mellitus Brother No problems noted. Brother No problems noted. Brother No problems noted. Sister No problems noted. Sister No problems noted. Sister History of heart attack Daughter No problems noted. Daughter No problems noted. Maternal Grandfather No problems noted. Maternal Grandmother No problems noted. Paternal Grandfather No problems noted. Paternal Grandmother No problems noted. Maternal Aunt No problems noted. Social History Housing: Other (mobile home) Housing Other:: Mobile Home Alcohol intake: unknown Patient Tobacco Use Status: Former Tobacco user Quit Date: 2016 Tobacco use type: Cigarette Years Smoked: 30 years e-Cigarette/Vaping Use: Never Used service: No Current occupational status: retired Cognitive needs: No Hearing needs: No Vision needs: Yes Vital Signs 10/19/23 11:42 10/19/23 12:04 Height 5 ft 6 in Weight 185 lb 4 oz BMI 29.9 BP 154/84 H 134/70 Blood Pressure Location Lt brachial Lt brachial Position Sitting Sitting Pulse 74 Pulse Source Pulse Oximeter Pulse Oximetry (%) 98 Oxygen Delivery Method Room Air Physical Exam Vital Signs: Last Vital Signs Pulse 74 10/19/23 11:42 BP 154/84 H 10/19/23 11:42 Pulse Ox 98 10/19/23 11:42 Oxygen Delivery Method Room Air 10/19/23 11:42 BMI result Body Mass Index 29.9 Const General: comfortable Nutritional Appearance: well nourished Orientation/consciousness: patient oriented x3 HEENT Head: No normal to inspection Mouth: moist mucous membranes Neck Neck: Yes supple and Yes no JVD Resp Auscultation: clear to auscultation bilaterally, no rales and rub present Cardio Jugular venous distension: no JVD Palpation: no palpable S3 and no palpable S4 Heart sounds: no rubs GI Palpation (GI): Soft to palpation and nontender Percussion: No Fluid wave present General: Yes no CVA tenderness Back/Spine/Pelvis Back: no CVA tenderness Skin General skin exam: no rashes or lesions noted Neuro General: patient oriented x3 Extrem General: Yes no pedal edema and No clubbing Assessment & Plan Assessment & Plan (1) CKD (chronic kidney disease) stage 3, GFR 30-59 ml/min: Code(s): N18.30 - Chronic kidney disease, stage 3 unspecified Plan: Possible super imposed JULIO due to hypoperfusion Work up ordered (2) Hyponatremia: Code(s): E87.1 - Hypo-osmolality and hyponatremia Plan: Due to excess beer Na has normalized after stopping beer However , she is on SSRI Will recheck Na today If Na is normal, can DC Po water restriction, escpecially if she has quit drinking beer (3) HTN (hypertension): Code(s): I10 - Essential (primary) hypertension Plan: BP acceptable. No change in meds for now (4) Renal artery aneurysm: Code(s): I72.2 - Aneurysm of renal artery Plan Repeat REnal ultrasound with doppler BAsed on this, might need referral [facility] Orders: Orders US renal doppler Today E87.1 - Hypo-osmolality and hyponatremia, I72.2 - Aneurysm of renal artery, N18.30 - Chronic kidney disease, stage 3 unspecified US renal BI Today E87.1 - Hypo-osmolality and hyponatremia, I72.2 - Aneurysm of renal artery, N18.30 - Chronic kidney disease, stage 3 unspecified Coding Level of Care Code New Pt Level 5 (23347) Diagnoses CKD (chronic kidney disease) stage 3, GFR 30-59 ml/min N18.30 Hyponatremia E87.1 HTN (hypertension) I10 Renal artery aneurysm I72.2 Results Reviewed Nephrology Results: Hgb 12.6 g/dl (12.0-16.0) 09/01/23 WBC 4.2 X10*3/uL (4.8-10.8) L 05/28/23 Plt Count 247 X10*3/uL (160-400) 05/28/23 Sodium 137 mmol/L (135-145) 10/01/23 Potassium 3.8 mmol/L (3.3-5.1) 10/01/23 Chloride 100 mmol/L (96-108) 10/01/23 Carbon Dioxide 26 mmol/L (22-29) 10/01/23 BUN 20 mg/dL (9-16) H 10/01/23 Creatinine 1.54 mg/dL (0.5-1.4) H 10/01/23 Calcium 9.6 mg/dL (8.4-10.2) 10/01/23 Phosphorus 3.6 mg/dL (2.7-4.5) 11/24/22 Urine Protein Negative mg/dL (Neg-Trace) 11/24/22 Urine Creatinine 21.79 mg/dL 11/24/22
[2023-10-19 12:04] VITALS: BP 134/70
== END 2023-10-19 12:03 | disposition home or self-care (01) ==
PROVIDERS: PCP Internal Medicine; Visit Provider Internal Medicine Hypertension Specialist
DX: I12.9 Hypertensive chronic kidney disease with stage 1 through stage 4 chronic kidney disease, or unspecified chronic kidney disease (principal); N18.30 Chronic kidney disease, stage 3 unspecified; E87.1 Hypo-osmolality and hyponatremia; I72.2 Aneurysm of renal artery
CPT/HCPCS: 99205

== ENCOUNTER → 2023-10-19 11:39 | Outpatient (BNVA) | payer MEDICARE, MEDICAID, SELFPAY | PROVIDERS: PCP Internal Medicine; Visit Provider Internal Medicine Hypertension Specialist | DX: I12.9 Hypertensive chronic kidney disease with stage 1 through stage 4 chronic kidney disease, or unspecified chronic kidney disease (principal); N18.30 Chronic kidney disease, stage 3 unspecified; E87.1 Hypo-osmolality and hyponatremia; I72.2 Aneurysm of renal artery | CPT/HCPCS: 99202 ==

== ENCOUNTER 2023-11-10 09:02 | Outpatient (AMB) | payer MEDICARE, MEDICAID, SELFPAY ==
[2023-11-10 09:11] VITALS: BP 114/64; PULSE 52; BMI 29.2
--- NOTE | 2023-11-10 09:11 | MHC.OFFVIS ---
Intake Vital Signs 11/10/23 09:11 Height 5 ft 6 in Weight 181 lb 3.52 oz BMI 29.2 BP 114/64 Blood Pressure Location Lt brachial Position Sitting Pulse 52 Intake Visit Reasons: [facility] dc - 6 wk fu Intake Note: hospital follow up Qa Tester Required: No Accompanied by: Self / Same As Patient Allergies No Known Allergies Allergy (Verified 11/10/23 09:13) Medication List - Last Reconciled 11/10/23 by Bryan Barry MD acetaminophen ER (Tylenol 8 Hour) 650 mg PO Q12H albuterol sulfate 90 mcg/actuation (Ventolin HFA) 1 inh inhalation QID PRN 30 days apixaban (Eliquis) 5 mg PO BID aspirin 81 mg PO DAILY atorvastatin 40 mg PO DAILY escitalopram oxalate (Lexapro) 10 mg PO DAILY fluticasone propion-salmeterol 232-14 mcg/actuation 1 inh PO BID 90 days gabapentin 600 mg PO BEDTIME 90 days metoprolol succinate ER 25 mg PO DAILY multivitamin (Daily Multi-Vitamin tablet) 1 tab PO DAILY senna 187 mg PO torsemide 20 mg PO DAILY HPI HPI Comments History of Present Illness Details Josi returns for follow-up. She was recently seen in consultation at [facility]. Prior to that, she has been seen in our [place] off is few years back. She presented to [facility] with complaints of substernal chest pain. EKG as well as high sensitivity troponins were abnormal. Echocardiogram showed wall motion abnormalities and that led to cardiac catheterization but suspicion was rather stress-induced cardiomyopathy. Per discharge summary, it seems she also had some atrial fibrillation and hence she was put on Eliquis. Currently, she states she is feeling fine. No cardiac symptoms like angina. Otherwise, feels okay. [facility] Medical History (Updated 11/10/23 @ 09:29 by Bryan Barry MD) Atherosclerotic heart disease Renal artery aneurysm Surgical History History of tumor S/P removal of right ovary History of tonsillectomy Family History Father Cancer of prostate Mother Diabetes mellitus Brother No problems noted. Brother No problems noted. Brother No problems noted. Sister No problems noted. Sister No problems noted. Sister History of heart attack Daughter No problems noted. Daughter No problems noted. Maternal Grandfather No problems noted. Maternal Grandmother No problems noted. Paternal Grandfather No problems noted. Paternal Grandmother No problems noted. Maternal Aunt No problems noted. Social History (Updated 11/10/23 @ 09:14 by Faith Freitas) Housing: Other Housing Other:: Mobile Home Alcohol intake: former Patient Tobacco Use Status: Former Tobacco user Quit Date: 2016 Tobacco use type: Cigarette Years Smoked: 30 years e-Cigarette/Vaping Use: Never Used service: No Current occupational status: retired Cognitive needs: No Hearing needs: No Vision needs: Yes Review of Systems Const Denies chills, Denies daytime sleepiness, Denies fatigue, Denies fever(s), Denies frequent falls, Denies night sweats, Denies snoring, Denies weakness, Denies weight gain and Denies weight loss Eyes Denies loss of vision ENT Denies dizziness and Denies hearing loss Card Denies chest pain, Denies chest pain with activity, Denies syncope, Denies rapid heart rate, Denies edema, Denies claudication, Denies leg edema, Denies lightheadedness, Denies palpitations and Denies orthopnea Resp Denies cough, Denies excessive phlegm production, Denies snoring and Denies wheezing GI Denies abdominal pain, Denies hematochezia, Denies change in bowel habits, Denies change in stool character, Denies heartburn, Denies nausea and Denies vomiting Denies hematuria, Denies urinary frequency and Denies dysuria Musc Denies arthralgias, Denies muscle weakness, Denies numbness and Denies tingling Skin/Breast Denies nail changes and Denies rash Neuro Denies Abnormal speech present, Denies dizziness, Denies syncope, Denies frequent falls, Denies loss of vision, Denies memory loss, Denies numbness, Denies tingling and Denies weakness Psych Denies depression and Denies memory loss Endo Denies fatigue and Denies palpitations Aller/Immun Denies wheezing Physical Exam Vital Signs: Last Vital Signs Pulse 52 11/10/23 09:11 BP 114/64 11/10/23 09:11 BMI result Body Mass Index 29.2 Const General: comfortable and no acute distress Orientation/consciousness: patient oriented x3 HEENT Other: Unremarkable Head: Yes normal to inspection Neck Neck: Yes normal visual inspection Chest Chest palpation & inspection: normal inspection of the chest Resp Auscultation: clear to auscultation bilaterally Cardio Palpation: normal PMI Heart sounds: S1 normal heart sound present, S2 normal heart sound present, no gallops, no murmurs and no rubs GI Palpation (GI): Soft to palpation Back/Spine/Pelvis Other: unremarkable Skin General skin exam: no rashes or lesions noted Neuro General: patient oriented x3 Speech: No Abnormal speech present Extrem General: Yes normal to inspection Psych Mental Status: mental status grossly normal Office Procedures EKG Details: EKG today shows junctional rhythm at 52/Min. [place] septal infarct. [id number], Complete Assessment & Plan Assessment & Plan (1) Stress-induced cardiomyopathy: Code(s): I51.81 - Takotsubo syndrome Plan: [place] [facility] [place]F of 20-25%. Mid/apical segments dyskinetic and basal segments hyperdynamic. Cardiac catheterization with 40% stenosis in the proximal LAD/RCA with minimal irregularities circumflex. Overall suspicion is stress-induced cardiomyopathy. Clinically, no heart failure symptoms or signs. Due to junctional rhythm, stopped beta-blockers. Can not use NAKUL inhibitors or ARB due to renal insufficiency. Repeat echocardiogram to assess for recovery of LVEF. (2) Atherosclerotic heart disease: Code(s): I25.10 - Atherosclerotic heart disease of [place] coronary artery without angina pectoris Plan: Moderate coronary disease only. Continue statins. May check lipids in due course. No angina clinically. (3) Junctional rhythm: Code(s): I49.8 - Other specified cardiac arrhythmias Plan: EKG today shows junctional rhythm. From last year had shown sinus rhythm at 78/Min. We will get the most recent EKG from [facility]. Will stop beta-blockers and get a Holter monitor. Orders: Orders ECG 3 day holter monitor Today I49.8 - Other specified cardiac arrhythmias CA echo transthoracic complete Today I51.81 - Takotsubo syndrome Coding Level of Care Code Est Pt Level 4 (18306) Diagnoses Stress-induced cardiomyopathy I51.81 Atherosclerotic heart disease I25.10 Junctional rhythm I49.8 CPT Codes EKG - CPT: 14476-[id number], Complete ([id number])
== END 2023-11-10 09:34 | disposition home or self-care (01) ==
PROVIDERS: PCP Internal Medicine; Visit Provider Internal Medicine
DX: I51.81 Takotsubo syndrome (principal); I25.10 Atherosclerotic heart disease of native coronary artery without angina pectoris; I49.8 Other specified cardiac arrhythmias
CPT/HCPCS: 93010; 99214

== ENCOUNTER 2023-11-10 09:40 | Outpatient (REF) | payer MEDICARE, MEDICAID, SELFPAY ==
--- NOTE | ~2023-11-10 | US_ITS ---
EXAMINATION: ULTRASOUND RENAL WITH DOPPLER CLINICAL INFORMATION: Renal artery aneurysm; congenitally absent right kidney. COMPARISON: CT abdomen dated 11/01/2007. TECHNIQUE: Real-time grayscale, color Doppler, and duplex Doppler evaluation of the kidneys and renal vasculature was performed. FINDINGS: RENAL MEASUREMENTS: Right: Congenitally absent as per history. Left: 12.2 x 4.2 x 5.9 cm (Sag x AP x TV) The left renal parenchyma appears normal. A 1.4 cm calcified interpolar aneurysm is redemonstrated. This shows no central Doppler flow and may be thrombosed, although this cannot be said with full certainty. No hydronephrosis or nephrolithiasis. At the lower pole, an 8 mm benign, simple cyst is seen, which requires no imaging follow-up. DOPPLER INTERROGATION: Aorta: 62 cm/sec Left Main Renal Artery: Proximal: 93 cm/sec Mid: 192 cm/sec Distal: 105 cm/sec Renal-Aortic Ratio (RAR): Left: 3.1 Bilateral upper pole, interpolar and lower pole segmental arteriolar resistive indices are within normal limits. Bilateral upper pole, interpolar and lower pole segmental arteriolar pulse doppler waveforms are unremarkable, with uniformly rapid upstrokes and no parvus et tardus configuration. US/US renal LT IMPRESSION: 1. Abnormal findings, consistent with less than 60% left renal artery stenosis. This could be more fully evaluated with CTA or MRA, if clinically indicated. 2. A 1.4 cm heavily calcified mid left renal artery aneurysm is redemonstrated, possibly thrombosed. This as well could be further evaluated with CTA/MRA. 3. The right kidney is congenitally absent.
--- NOTE | ~2023-11-10 | US_ITS ---
EXAMINATION: ULTRASOUND RENAL WITH DOPPLER CLINICAL INFORMATION: Renal artery aneurysm; congenitally absent right kidney. COMPARISON: CT abdomen dated 11/01/2007. TECHNIQUE: Real-time grayscale, color Doppler, and duplex Doppler evaluation of the kidneys and renal vasculature was performed. FINDINGS: RENAL MEASUREMENTS: Right: Congenitally absent as per history. Left: 12.2 x 4.2 x 5.9 cm (Sag x AP x TV) The left renal parenchyma appears normal. A 1.4 cm calcified interpolar aneurysm is redemonstrated. This shows no central Doppler flow and may be thrombosed, although this cannot be said with full certainty. No hydronephrosis or nephrolithiasis. At the lower pole, an 8 mm benign, simple cyst is seen, which requires no imaging follow-up. DOPPLER INTERROGATION: Aorta: 62 cm/sec Left Main Renal Artery: Proximal: 93 cm/sec Mid: 192 cm/sec Distal: 105 cm/sec Renal-Aortic Ratio (RAR): Left: 3.1 Bilateral upper pole, interpolar and lower pole segmental arteriolar resistive indices are within normal limits. Bilateral upper pole, interpolar and lower pole segmental arteriolar pulse doppler waveforms are unremarkable, with uniformly rapid upstrokes and no parvus et tardus configuration. US/US renal doppler IMPRESSION: 1. Abnormal findings, consistent with less than 60% left renal artery stenosis. This could be more fully evaluated with CTA or MRA, if clinically indicated. 2. A 1.4 cm heavily calcified mid left renal artery aneurysm is redemonstrated, possibly thrombosed. This as well could be further evaluated with CTA/MRA. 3. The right kidney is congenitally absent.
== END 2023-11-10 09:41 | disposition home or self-care (01) ==
LOC: HO.US 09:40
PROVIDERS: PCP Internal Medicine; Visit Provider Internal Medicine Hypertension Specialist
DX: I72.2 Aneurysm of renal artery (principal); I51.81 Takotsubo syndrome; I25.10 Atherosclerotic heart disease of native coronary artery without angina pectoris; I49.8 Other specified cardiac arrhythmias; E87.1 Hypo-osmolality and hyponatremia; N18.30 Chronic kidney disease, stage 3 unspecified; Z79.899 Other long term (current) drug therapy
CPT/HCPCS: 76775; 93005; 93975; 99212

== ENCOUNTER → 2023-11-19 10:39 | Outpatient (REF) | payer MEDICARE, MEDICAID, SELFPAY ==
--- NOTE | 2023-11-19 10:41 | HM_ITS ---
Conclusion: 1. Patient was monitored for total period of 3 days 2. Baseline was normal sinus rhythm with average heart of 71 beats per minute 3. 1 episode of atrial fibrillation noticed that lasted for 3 minutes with the fastest heart rate of 208 beats per minute 4. Frequent PACs noted with total burden of 2.1% 5. One episode of nonsustained VT noted, 4 beats at 240 beats per minute 6. One reported patient event of sharp chest pain correlated with sinus rhythm MTDD
== END ==
LOC: HO.CARD 10:39
PROVIDERS: PCP Internal Medicine; Visit Provider Internal Medicine
DX: I49.8 Other specified cardiac arrhythmias (principal)
CPT/HCPCS: 93242

== ENCOUNTER → 2023-11-19 10:41 | Outpatient (BNV) | payer MEDICARE, MEDICAID, SELFPAY | PROVIDERS: PCP Internal Medicine; Visit Provider Internal Medicine Cardiovascular Disease | DX: I48.0 Paroxysmal atrial fibrillation (principal) | CPT/HCPCS: 93244 ==

== ENCOUNTER → 2023-11-23 12:44 | Outpatient (REF) | payer MEDICARE, MEDICAID, SELFPAY ==
--- NOTE | 2023-11-23 12:47 | CA_ITS ---
Transthoracic Echocardiogram Patient (Last, First, Middle): Josi Bush A Gender: Female Date of : 1955 Age: 68 Procedure Date: 11/23/2023 Procedure Type: Transthoracic Echocardiogram Location: OP Height: 167.64 cm Weight: 81.65 kg BSA: 1.91 m2 Heart Rate: bpm BP: 122 / 76 mmHg Go Go Dancer: TO Referring MD: Bryan Barry MD Symptoms: I51.81 - Takotsubo syndrome Study Quality: Fair/Contrast ECG Rhythm: Sinus Conclusions: - The left ventricular systolic function is low normal. The calculated ejection fraction is 54% by biplane method. - No obvious valvular pathology seen on this study. - There is mild dilatation of the ascending aorta measuring 4.00 cm. Findings Procedure Information Contrast agent, definity, is being given per protocol without apparent complications. Left Ventricle Normal left ventricular cavity size. The left ventricular systolic function is low normal. The calculated ejection fraction is 54% by biplane method. There is no evidence of regional wall motion abnormalities. Evidence suggests grade I (mild) diastolic dysfunction. There is mild septal and mild basal asymmetric hypertrophy. Right Ventricle Normal right ventricular cavity size and systolic function. Atria Both atria are normal in size. Aortic Valve There is a normal trileaflet aortic valve. There is no aortic valve stenosis. There is no aortic valve regurgitation. Mitral Valve There is mild mitral annular calcification. There is trace mitral valve regurgitation. There is no mitral valve stenosis. Pulmonic Valve The pulmonic valve is likely normal. Tricuspid Valve Normal tricuspid valve structure. There is mild tricuspid valve regurgitation. There is no evidence of pulmonary hypertension. Great Vessels There is mild dilatation of the ascending aorta measuring 4.00 cm. Small plaque is seen in the sino tubular ridge. (4cm proximally; 3.5cm distal ascending aorta). Venous The inferior vena cava is normal in size and collapses greater than 50% with inspiration. Pericardium/Pleural There is no evidence of pericardial effusion. Prior Study Comparison Changes noted compared to prior study dated: 09/23/2023. Improved LVEF compared [place] [facility] [place]ations, Care & Conclusions No obvious valvular pathology seen on this study. Measurements 2D Linear Measurements IVSd: 1.26 0.6-0.9/0.6-1.0 cm LVIDd: 4.43 3.9-5.3/4.2-5.9 cm LVIDd Index: 2.32 2.4-3.2/2.2-3.1 cm/m2 LVIDs: 2.70 2.0-3.6 cm LVPWd: 0.90 0.7-1.1 cm LA Diam: 2.80 2.7-3.8/3.0-4.0 cm LAIDs Index: 1.47 1.5-2.3 cm/m2 LV Mass: 207.36 67-162/88-224 g LV Mass Index: 108.56 43-95/49-115 g/m2 LVOT Diam: 2.00 3.0+(-)1.3 cm 2D Systolic Function EF 4C: 51.70 >55% EF 2C: 55.80 >55% EF BiP: 54.40 >55% Mitral Valve MV Pk E: 0.46 MV PK A: 0.87 MV Decel Time: 318.00 E/A: 0.50 E'Lateral: 4.35 E'Medial: 3.15 E/E' Med: 14.70 E/E' Lat: 10.60 PHT: 93.00 MVA PHT: 2.37 Decel Dare: 1.46 Aortic Valve AoV Pk Gerson: 1.43 AoV Mn Gerson: 0.93 AoV VTI: 0.30 AoV Pk Grad: 8.00 Aov Mn Grad: 4.00 KRISTEN Cont.VTI: 1.99 LVOT LVOT Pk Gerson: 0.99 LVOT Mn Gerson: 0.62 LVOT VTI: 0.19 LVOT Pk Grad: 4.00 LVOT Mn Grad: 2.00 LVOT Diam: 2.00 LVOT Area: 3.14 Diastolic Function MV Pk E: 0.46 MV Pk A: 0.87 E/A: 0.50 E'Medial: 3.15 E/E' Med: 14.70 E' Laterial: 4.35 E/E' Lat: 10.60 Right Ventricle TAPSE (mm): 20.70 TVS' Gerson: 17.10 Tricuspid Valve TR Pk Gerson: 2.17 TR Pk Grad: 19.00 RA Press: 3.00 RVSP: 22.00 Great Vessels Aorta Sinus of Valsalva: 3.60 2.0-3.[address] [place]: 2.76 1.7-3.4 cm Ao Asc: 4.00 2.1-3.4 cm Updated in Other Vendor System with Status of Final Bryan Barry MD electronically signed on 11/24/2023 9:00:33 AM with status of Final
== END ==
LOC: HO.CARD 12:44
PROVIDERS: PCP Internal Medicine; Visit Provider Internal Medicine
DX: I51.81 Takotsubo syndrome (principal)
CPT/HCPCS: 93306; Q9957

== ENCOUNTER → 2023-11-23 12:47 | Outpatient (BNV) | payer MEDICARE, MEDICAID, SELFPAY | PROVIDERS: PCP Internal Medicine; Visit Provider Internal Medicine | DX: I51.81 Takotsubo syndrome (principal); I36.1 Nonrheumatic tricuspid (valve) insufficiency | CPT/HCPCS: 93306 ==

== ENCOUNTER 2023-12-09 11:20 | Outpatient (AMB) | payer MEDICARE, MEDICAID, SELFPAY ==
--- NOTE | 2023-12-09 11:24 | HO.NEPHOV_ITS ---
HPI HPI Comments History of Present Illness Details 68 yr old woman with a solitary kidney a n dh/o Renal artery aneurysm, well known to me , referred back for CKD She lost her in May 2023 and started drinknig beer. She was admitted to [facility] [place] with hyponatremia Na was corrected Diuretics were changed LExapro has been added Recent creatinine is 1.54 mg/dL and hence this referral She quit smoking 7 years ago She has quit beer as well 12/09/23 Doing well. No edema Still has dyspnea [facility] Medical History (Updated 11/26/23 @ 12:23 by Bryan Barry MD) PAF (paroxysmal atrial fibrillation) Atherosclerotic heart disease Renal artery aneurysm Surgical History History of tumor S/P removal of right ovary History of tonsillectomy Family History Father Cancer of prostate Mother Diabetes mellitus Brother No problems noted. Brother No problems noted. Brother No problems noted. Sister No problems noted. Sister No problems noted. Sister History of heart attack Daughter No problems noted. Daughter No problems noted. Maternal Grandfather No problems noted. Maternal Grandmother No problems noted. Paternal Grandfather No problems noted. Paternal Grandmother No problems noted. Maternal Aunt No problems noted. Social History Housing: Other Housing Other:: Mobile Home Alcohol intake: former Patient Tobacco Use Status: Former Tobacco user Quit Date: 2016 Tobacco use type: Cigarette Years Smoked: 30 years e-Cigarette/Vaping Use: Never Used service: No Current occupational status: retired Cognitive needs: No Hearing needs: No Vision needs: Yes Vital Signs 12/09/23 11:25 Height 5 ft 6 in Weight 176 lb BMI 28.4 BP 112/64 Blood Pressure Location Lt brachial Position Sitting Pulse 80 Pulse Source Pulse Oximeter Pulse Oximetry (%) 96 Oxygen Delivery Method Room Air Physical Exam Vital Signs: Last Vital Signs Pulse 80 12/09/23 11:25 BP 112/64 12/09/23 11:25 Pulse Ox 96 12/09/23 11:25 Oxygen Delivery Method Room Air 12/09/23 11:25 BMI result Body Mass Index 28.4 Const General: comfortable Nutritional Appearance: well nourished Orientation/consciousness: patient oriented x3 HEENT Head: No normal to inspection Mouth: moist mucous membranes Neck Neck: Yes supple and Yes no JVD Resp Auscultation: clear to auscultation bilaterally, no rales and rub present Cardio Jugular venous distension: no JVD Palpation: no palpable S3 and no palpable S4 Heart sounds: no rubs GI Palpation (GI): Soft to palpation and nontender Percussion: No Fluid wave present General: Yes no CVA tenderness Back/Spine/Pelvis Back: no CVA tenderness Skin General skin exam: no rashes or lesions noted Neuro General: patient oriented x3 Extrem General: Yes no pedal edema and No clubbing Assessment & Plan Assessment & Plan (1) CKD (chronic kidney disease) stage 3, GFR 30-59 ml/min: Code(s): N18.30 - Chronic kidney disease, stage 3 unspecified Plan: Possible super imposed JULIO due to hypoperfusion Cr is at 1.5 Will decrease Torsemide to 20 mg QOD Follow creatinine (2) Hyponatremia: Code(s): E87.1 - Hypo-osmolality and hyponatremia Plan: Due to excess beer Na has normalized after stopping beer However , she is on SSRI Discussed avoiding beer and limit PO water intake (3) HTN (hypertension): Code(s): I10 - Essential (primary) hypertension Plan: BP acceptable. No change in meds for now (4) Renal artery aneurysm: Code(s): I72.2 - Aneurysm of renal artery (5) COPD mixed type: Code(s): J44.9 - Chronic obstructive pulmonary disease, unspecified Plan Right kidney is absent Left reanl artery Aneurysm is calcified Left RA shows about 60 % stenosis Avoid CTA due to risk of Contrast nephropathy Will consider MRA if Creatinien worsens of BP is difficulty BAsed on MRA,might need referral to Vascular surgery Orders: Orders Basic Metabolic Panel 1 Week N18.30 - Chronic kidney disease, stage 3 unspecified Comprehensive Met. Panel 4 Months N18.9 - Chronic kidney disease, unspecified Referrals Pulmonary Medicine Referral J44.9 - Chronic obstructive pulmonary disease, unspecified Coding Level of Care Code Est Pt Level 4 (71673) Diagnoses CKD (chronic kidney disease) stage 3, GFR 30-59 ml/min N18.30 Hyponatremia E87.1 HTN (hypertension) I10 Renal artery aneurysm I72.2 COPD mixed type J44.9 Results Reviewed Results Reviewed: 1. Abnormal findings, consistent with less than 60% left renal artery stenosis. This could be more fully evaluated with CTA or MRA, if clinically indicated. 2. A 1.4 cm heavily calcified mid left renal artery aneurysm is redemonstrated, possibly thrombosed. This as well could be further evaluated with CTA/MRA. 3. The right kidney is congenitally absent. Nephrology Results: Hgb 12.6 g/dl (12.0-16.0) 05/28/23 WBC 4.2 X10*3/uL (4.8-10.8) L 05/28/23 Plt Count 247 X10*3/uL (160-400) 05/28/23 Sodium 137 mmol/L (135-145) 10/01/23 Potassium 3.8 mmol/L (3.3-5.1) 10/01/23 Chloride 100 mmol/L (96-108) 10/01/23 Carbon Dioxide 26 mmol/L (22-29) 10/01/23 BUN 20 mg/dL (9-16) H 10/01/23 Creatinine 1.54 mg/dL (0.5-1.4) H 10/01/23 Calcium 9.6 mg/dL (8.4-10.2) 10/01/23 Renal US 11/10/23
[2023-12-09 11:25] VITALS: BP 112/64; PULSE 80; O2SAT 96; BMI 28.4
== END 2023-12-09 11:43 | disposition home or self-care (01) ==
PROVIDERS: PCP Internal Medicine; Visit Provider Internal Medicine Hypertension Specialist
DX: N18.30 Chronic kidney disease, stage 3 unspecified (principal); E87.1 Hypo-osmolality and hyponatremia; I10 Essential (primary) hypertension; I72.2 Aneurysm of renal artery; J44.9 Chronic obstructive pulmonary disease, unspecified
CPT/HCPCS: 99214

== ENCOUNTER → 2023-12-09 11:20 | Outpatient (BNVA) | payer MEDICARE, MEDICAID, SELFPAY | PROVIDERS: PCP Internal Medicine; Visit Provider Internal Medicine Hypertension Specialist | DX: I12.9 Hypertensive chronic kidney disease with stage 1 through stage 4 chronic kidney disease, or unspecified chronic kidney disease (principal); N18.30 Chronic kidney disease, stage 3 unspecified; E87.1 Hypo-osmolality and hyponatremia; I72.2 Aneurysm of renal artery; J44.9 Chronic obstructive pulmonary disease, unspecified | CPT/HCPCS: 99212 ==

== ENCOUNTER 2023-12-17 08:43 | Outpatient (AMB) | payer MEDICARE, MEDICAID, SELFPAY ==
--- NOTE | 2023-12-17 08:46 | MHC.PC.OV ---
Vital Signs 12/17/23 08:47 Height 5 ft 6 in Weight 177 lb 4 oz BMI 28.6 BP 116/66 Blood Pressure Location Rt brachial Position Sitting Pulse 67 Pulse Source Pulse Oximeter Pulse Oximetry (%) 96 Oxygen Delivery Method Room Air Intake Visit Reasons: 3 month follow up Allergies No Known Allergies Allergy (Verified 12/17/23 08:47) Medication List - Last Reconciled 12/17/23 by Carla Michael MD acetaminophen ER (Tylenol 8 Hour) 650 mg PO Q12H albuterol sulfate 90 mcg/actuation (Ventolin HFA) 1 inh inhalation QID PRN 30 days apixaban (Eliquis) 5 mg PO BID aspirin 81 mg PO DAILY atorvastatin 40 mg PO DAILY escitalopram oxalate (Lexapro) 10 mg PO DAILY fluticasone propion-salmeterol 232-14 mcg/actuation 1 inh PO BID 90 days gabapentin 600 mg PO BEDTIME 90 days multivitamin (Daily Multi-Vitamin tablet) 1 tab PO DAILY senna 187 mg PO DAILY torsemide 20 mg PO DAILY Tobacco use date assessed: 12/17/23 Fall risk assessment: 1 Fall in past year Last assessed Fall Risk: 12/17/23 Dental Screening Dental Screen Date: 12/17/23 Did you have a dental visit in the last 12 months?: Yes Did you have a dental problem in the last 6 months where you did not have access to dental care?: No Was dental information given to patient?: Patient has dentist HPI 3 month follow up HPI Details Patient is 68-year-old female came in today for her regular follow-up appointment. Patient had ischemic cardiomyopathy, dyskinetic mild apex and apical segments with ejection fraction of 20-25% Patient also had cardiac catheterization and was diagnosed with stress induced cardiomyopathy In October of this year she had echocardiogram which showed Conclusions: - The left ventricular systolic function is low normal. The calculated ejection fraction is 54% by biplane method. - No obvious valvular pathology seen on this study. - There is mild dilatation of the ascending aorta measuring 4.[address] Barry, and is taking Eliquis for atrial fibrillation Patient is on high-dose gabapentin because of chronic low back pain does not want to have surgery or any other intervention. She is doing well with gabapentin 600 mg as far as pain control his concern. Taking Lexapro for depression Having difficulty sleeping, patient is requesting help with that I have sent mirtazapine 15 mg patient is to get back to me if there is any problem Allergies are acting up, patient is requesting refill on her cetirizine which I have sent. Chronic kidney disease patient is seeing Dr. Gallagher, and have appointment coming up Asthma COPD: Continue inhalers, patient has appointment with Dr. Albright coming up [facility] Medical History PAF (paroxysmal atrial fibrillation) Atherosclerotic heart disease Renal artery aneurysm Surgical History History of tumor S/P removal of right ovary History of tonsillectomy Family History Father Cancer of prostate Mother Diabetes mellitus Brother No problems noted. Brother No problems noted. Brother No problems noted. Sister No problems noted. Sister No problems noted. Sister History of heart attack Daughter No problems noted. Daughter No problems noted. Maternal Grandfather No problems noted. Maternal Grandmother No problems noted. Paternal Grandfather No problems noted. Paternal Grandmother No problems noted. Maternal Aunt No problems noted. Social History Housing: Other Housing Other:: Mobile Home Alcohol intake: former Patient Tobacco Use Status: Former Tobacco user Quit Date: 2016 Tobacco use type: Cigarette Years Smoked: 30 years e-Cigarette/Vaping Use: Never Used service: No Current occupational status: retired Cognitive needs: No Hearing needs: No Vision needs: Yes Questionnaire Thrive Questionnaire Date Thrive assessed: 10/01/23 AUDIT C Alcohol Use Questionnaire (AUDIT-C) 1. How often do you have a drink containing alcohol?: Never 3. How often do you have six or more drinks on one occasion?: Never Total Score: 0 Score Reviewed/Action Taken: Yes CAESAR-7 AMB Questionnaire CAESAR-7 Date CAESAR - 7 assessed: 10/01/23 Source: Developed by Drs. Marco Antonio Oliva, Hoda Del Cid, Enmanuel Duenas and colleagues, with an educational arie from [employer]. Review of Systems Const Denies chills and Denies fever(s) ENT Denies epistaxis and Denies nasal discharge Card Denies chest pain Resp Denies hemoptysis GI Denies diarrhea and Denies nausea Skin/Breast Denies rash Neuro Reports no additional complaints Psych Reports no additional complaints Endo Reports no additional complaints Physical exam (Primary Care) Vital Signs: Last Vital Signs Pulse 67 12/17/23 08:47 BP 116/66 12/17/23 08:47 Pulse Ox 96 12/17/23 08:47 Oxygen Delivery Method Room Air 12/17/23 08:47 BMI result Body Mass Index 28.6 Tobacco/Smoking Status: Tobacco use Status Tobacco use date assessed 12/17/23 12/17/23 08:49 Patient Tobacco Use Status Former Tobacco user 12/17/23 08:49 Tobacco use type Cigarette 12/17/23 08:49 e-Cigarette/Vaping Use Never Used 12/17/23 08:49 Thrive Assessment: Date of Thrive Assessment Date Thrive assessed 10/01/23 12/17/23 08:49 Const General: cooperative, comfortable and no acute distress Orientation/consciousness: patient oriented x3 HENMT Head: Yes normocephalic Eyes General: appearance normal, both eyes and all related structures Neck Neck: Yes supple Resp Effort & Inspection: normal respiratory effort, no cough and no stridor Cardio Rhythm: regular rhythm Heart sounds: S1 normal heart sound present and S2 normal heart sound present Skin General skin exam: turgor normal Neuro General: patient oriented x3, tone normal and moves all extremities Extrem Right lower extremity: no edema Left lower extremity: no edema Assessment and Plan Assessment & Plan (1) Hypertension, essential: Code(s): I10 - Essential (primary) hypertension (2) Asthma, moderate: Code(s): J45.909 - Unspecified asthma, uncomplicated Qualifiers: Asthma complication type: uncomplicated Asthma persistence: persistent Qualified Code(s): J45.40 - Moderate persistent asthma, uncomplicated (3) COPD mixed type: Code(s): J44.9 - Chronic obstructive pulmonary disease, unspecified (4) CKD (chronic kidney disease) stage 3, GFR 30-59 ml/min: Code(s): N18.30 - Chronic kidney disease, stage 3 unspecified Qualifiers: Chronic kidney disease stage 3 subtype: stage 3b (GFR 30-44) Qualified Code(s): N18.32 - Chronic kidney disease, stage 3b (5) Major depression, recurrent: Code(s): F33.9 - Major depressive disorder, recurrent, unspecified Qualifiers: Active/Remission status: currently active Major depression episode severity: mild Qualified Code(s): F33.0 - Major depressive disorder, recurrent, mild (6) HTN (hypertension): Code(s): I10 - Essential (primary) hypertension Qualifiers: Hypertension type: primary hypertension Qualified Code(s): I10 - Essential (primary) hypertension (7) PAF (paroxysmal atrial fibrillation): Code(s): I48.0 - Paroxysmal atrial fibrillation (8) Hypertensive nephropathy: Code(s): I12.9 - Hypertensive chronic kidney disease with stage 1 through stage 4 chronic kidney disease, or unspecified chronic kidney disease (9) Stress-induced cardiomyopathy: Code(s): I51.81 - Takotsubo syndrome (10) Cardiac LV ejection fraction of 20-34%: Code(s): R94.30 - Abnormal result of cardiovascular function study, unspecified (11) Renal artery aneurysm: Code(s): I72.2 - Aneurysm of renal artery Plan Patient is 68-year-old female came in today for her regular follow-up appointment. Patient had ischemic cardiomyopathy, dyskinetic mild apex and apical segments with ejection fraction of 20-25% Patient also had cardiac catheterization and was diagnosed with stress induced cardiomyopathy In October of this year she had echocardiogram which showed Conclusions: - The left ventricular systolic function is low normal. The calculated ejection fraction is 54% by biplane method. - No obvious valvular pathology seen on this study. - There is mild dilatation of the ascending aorta measuring 4.[address] Barry, and is taking Eliquis for atrial fibrillation Patient is on high-dose gabapentin because of chronic low back pain does not want to have surgery or any other intervention. She is doing well with gabapentin 600 mg as far as pain control his concern. Taking Lexapro for depression Having difficulty sleeping, patient is requesting help with that I have sent mirtazapine 15 mg patient is to get back to me if there is any problem Allergies are acting up, patient is requesting refill on her cetirizine which I have sent. Chronic kidney disease patient is seeing Dr. Gallagher, and have appointment coming up Asthma COPD: Continue inhalers, patient has appointment with Dr. Albright coming up Orders: Orders Complete Blood Count Auto Diff Today E66.09 - Other obesity due to excess calories, F33.9 - Major depressive disorder, recurrent, unspecified, I10 - Essential (primary) hypertension, I48.0 - Paroxysmal atrial fibrillation, J44.9 - Chronic obstructive pulmonary disease, unspecified, J45.909 - Unspecified asthma, uncomplicated, N18.30 - Chronic kidney disease, stage 3 unspecified Comprehensive Marshall. Panel Fast Today E66.09 - Other obesity due to excess calories, F33.9 - Major depressive disorder, recurrent, unspecified, I10 - Essential (primary) hypertension, I48.0 - Paroxysmal atrial fibrillation, J44.9 - Chronic obstructive pulmonary disease, unspecified, J45.909 - Unspecified asthma, uncomplicated, N18.30 - Chronic kidney disease, stage 3 unspecified Lipid Panel Today E66.09 - Other obesity due to excess calories, F33.9 - Major depressive disorder, recurrent, unspecified, I10 - Essential (primary) hypertension, I48.0 - Paroxysmal atrial fibrillation, J44.9 - Chronic obstructive pulmonary disease, unspecified, J45.909 - Unspecified asthma, uncomplicated, N18.30 - Chronic kidney disease, stage 3 unspecified Vitamin D 25-OH (D2 and D3) Today E66.09 - Other obesity due to excess calories, F33.9 - Major depressive disorder, recurrent, unspecified, I10 - Essential (primary) hypertension, I48.0 - Paroxysmal atrial fibrillation, J44.9 - Chronic obstructive pulmonary disease, unspecified, J45.909 - Unspecified asthma, uncomplicated, N18.30 - Chronic kidney disease, stage 3 unspecified TSH reflex Free T4 Today E66.09 - Other obesity due to excess calories, F33.9 - Major depressive disorder, recurrent, unspecified, I10 - Essential (primary) hypertension, I48.0 - Paroxysmal atrial fibrillation, J44.9 - Chronic obstructive pulmonary disease, unspecified, J45.909 - Unspecified asthma, uncomplicated, N18.30 - Chronic kidney disease, stage 3 unspecified Medications: New sennosides-docusate sodium 8.6-50 mg (Senokot-S) 1 tab-cap PO BEDTIME 90 tabs 0RF 90 days K59.03 - Drug induced constipation, T40.2X5A - Adverse effect of other opioids, initial encounter mirtazapine 15 mg PO BEDTIME 30 tabs 0RF Refilled cetirizine (All Day Allergy (cetirizine)) 10 mg PO DAILY PRN 90 caps 0RF allergy symptoms gabapentin 600 mg PO BEDTIME 90 tabs 0RF 90 days Coding Level of Care Code Est Pt Level 4 (87880) Diagnoses Hypertension, essential I10 Moderate persistent asthma without complication J45.40 Asthma complication type: uncomplicated Asthma persistence: persistent COPD mixed type J44.9 Stage 3b chronic kidney disease N18.32 Chronic kidney disease stage 3 subtype: stage 3b (GFR 30-44) Mild episode of recurrent major depressive disorder F33.0 Active/Remission status: currently active Major depression episode severity: mild Primary hypertension I10 Hypertension type: primary hypertension PAF (paroxysmal atrial fibrillation) I48.0 Hypertensive nephropathy I12.9 Stress-induced cardiomyopathy I51.81 Cardiac LV ejection fraction of 20-34% R94.30 Renal artery aneurysm I72.2
[2023-12-17 08:47] VITALS: BP 116/66; PULSE 67; O2SAT 96; BMI 28.6
== END 2023-12-17 09:07 | disposition home or self-care (01) ==
PROVIDERS: PCP Internal Medicine; Visit Provider Internal Medicine
DX: I12.9 Hypertensive chronic kidney disease with stage 1 through stage 4 chronic kidney disease, or unspecified chronic kidney disease (principal); N18.32 Chronic kidney disease, stage 3b; J44.9 Chronic obstructive pulmonary disease, unspecified; F33.0 Major depressive disorder, recurrent, mild; I48.0 Paroxysmal atrial fibrillation; I72.2 Aneurysm of renal artery; J45.40 Moderate persistent asthma, uncomplicated; I51.81 Takotsubo syndrome; R94.30 Abnormal result of cardiovascular function study, unspecified
CPT/HCPCS: 99214

== ENCOUNTER 2023-12-17 09:07 | Outpatient (REF) | payer MEDICARE, MEDICAID, SELFPAY ==
[2023-12-17 10:30] LABS: MANUAL DIFF FLAG NO
[2023-12-17 10:39] LABS: Basophils Percent Auto 0.2 % (0-2); Eosinophils Absolute Auto 0.1 X10*3/uL (0.0-0.4); Eosinophils Percent Auto 2.1 % (0-4); Hematocrit 37.6 % (37.0-47.0); Hemoglobin 12.4 g/dl (12.0-16.0); Imm Gran Abs Auto 0.01 X10*3/uL (0.00-0.03); Imm Gran Pct Auto 0.2 % (0.0-0.4); Lymphocytes Absolute Auto 1.4 X10*3/uL (1.2-4.9); Lymphocytes Percent Auto 24.8 % (20-40); Mean Corpuscular Hemoglobin 31.6 pg (27.0-33.0); Mean Corpuscular Volume 95.7 fL (80.0-98.0); Mean Platelet Volume 10.8 fL (9.4-12.3); Monocytes Absolute Auto 0.5 X10*3/uL (0.1-1.2); Monocytes Percent Auto 8.4 % (2-11); Neutrophils Absolute Auto 3.6 x10*3/uL (2.0-8.3); Neutrophils Percent Auto 64.3 % (45-73); Platelet Count 259 X10*3/uL (160-400); Red Blood Count 3.93 X10*6/uL (4.20-5.50); Red Cell Distribution Width 14.1 % (11.0-16.0); White Blood Count 5.6 X10*3/uL (4.8-10.8)
[2023-12-17 11:01] LABS: Alanine Aminotransferase 16 U/L (0-31); Albumin Level 4.2 g/dL (3.5-5.0); Alkaline Phosphatase 92 U/L (39-117); Anion Gap 13 (12-20); Aspartate Amino Transferase 24 U/L (5-31); Blood Urea Nitrogen 19 mg/dL (9-16); Calcium 10.1 mg/dL (8.4-10.2); Carbon Dioxide 29 mmol/L (22-29); Chloride 98 mmol/L (96-108); Cholesterol 181 mg/dL (<200); Estimated Glomerular Filt Rate 43; Glucose Fasting 96 mg/dL (60-99); Glucose Random 97 mg/dL (60-115); HDL Cholesterol 71 mg/dL (>40); LDL Cholesterol Calculated 93 mg/dL (<100); Potassium 3.9 mmol/L (3.3-5.1); Sodium 136 mmol/L (135-145); Total Protein 7.7 g/dL (6.5-8.0); Triglycerides 86 mg/dL (<150)
[2023-12-17 11:14] LABS: TSH reflex Free T4 0.82 uIU/mL (0.32-4.0)
[2023-12-22 13:58] LABS: Vitamin D 25-OH, D2 <4 ng/mL; Vitamin D 25-OH, D3 34 ng/mL; Vitamin D 25-OH, Total 34 ng/mL (30-100)
== END 2023-12-17 09:08 | disposition home or self-care (01) ==
LOC: HO.HMGCLDS 09:07
PROVIDERS: PCP Internal Medicine; Referring Provider Internal Medicine Hypertension Specialist; Visit Provider Internal Medicine
DX: I12.9 Hypertensive chronic kidney disease with stage 1 through stage 4 chronic kidney disease, or unspecified chronic kidney disease (principal); N18.30 Chronic kidney disease, stage 3 unspecified; J44.9 Chronic obstructive pulmonary disease, unspecified; E66.09 Other obesity due to excess calories; F33.9 Major depressive disorder, recurrent, unspecified; I48.0 Paroxysmal atrial fibrillation
CPT/HCPCS: 36415; 80048; 80053; 80061; 82306; 84443; 85025

== ENCOUNTER 2024-01-12 14:12 | Outpatient (AMB) | payer MEDICARE, MEDICAID, SELFPAY ==
--- NOTE | 2024-01-12 14:20 | A.OFFVIS_ITS ---
Intake Vital Signs 01/12/24 14:22 Height 5 ft 6 in Weight 182 lb BMI 29.4 BP 110/78 Blood Pressure Location Lt brachial Position Sitting Pulse 75 Pulse Source Pulse Oximeter Pulse Oximetry (%) 97 Oxygen Delivery Method Room Air Intake Visit Reasons: COPD Intake Note: pt is here as a new patient, she is experiencing shortness of breath, coughing and wheezing, she had a heart attack in September 08. Household Worker Required: No Allergies No Known Allergies Allergy (Verified 01/12/24 14:25) HPI COPD HPI Details This 68 years old female is being seen for the 1st time for pulmonary evaluation and ongoing management. She is quite familiar to us because she used to always come with her was a patient of mine for many years, and unfortunately in the fall 2022. She has history of heavy smoking since age 22 to age 62, 2 packs a day. She quit smoking 6 years ago. She does have history of chronic obstructive pulmonary disease for the past many years. She has had frequent bouts of cough with, some expectoration, occasional wheezing and mainly dyspnea on exertion such as walking even on the floor or climbing 1 flight of stairs. This dyspnea on exertion is gradually worse now to the point that even in her trailer walking from the bedroom to the bathroom makes her short of breath. She is using fluticasone/salmeterol 1 inhalation b.i.d. and uses albuterol p.r.n. maybe once or twice a day. Her symptoms are somewhat worse in the fall and winter months . She does not have history of any specific allergy. In August 2023 she had acute myocardial infarction, and ischemic cardiomyopathy, for which she is being watched closely by the cardiology service This is a question of the paroxysmal atrial fibrillation with slow heart rate and she is to be evaluated for possible cardiac pacemaker. She is on anticoagulation therapy. For depression after the of her she is being treated with escitalopram and mirtazapine. [facility] REVIEWED. [facility] Medical History Encounter for screening for malignant neoplasm of lung in former smoker who quit in past 15 years with 30 pack year history or greater PAF (paroxysmal atrial fibrillation) Atherosclerotic heart disease Renal artery aneurysm Surgical History History of tumor S/P removal of right ovary History of tonsillectomy Family History Father Cancer of prostate Mother Diabetes mellitus Brother No problems noted. Brother No problems noted. Brother No problems noted. Sister No problems noted. Sister No problems noted. Sister History of heart attack Daughter No problems noted. Daughter No problems noted. Maternal Grandfather No problems noted. Maternal Grandmother No problems noted. Paternal Grandfather No problems noted. Paternal Grandmother No problems noted. Maternal Aunt No problems noted. Social History Housing: Other Housing Other:: Mobile Home Alcohol intake: former Patient Tobacco Use Status: Former Tobacco user Quit Date: 2016 Tobacco use type: Cigarette Years Smoked: 30 years e-Cigarette/Vaping Use: Never Used service: No Current occupational status: retired Cognitive needs: No Hearing needs: No Vision needs: Yes Review of Systems Const All systems reviewed & are unremarkable except as noted in HPI and below Eyes Reports no additional complaints ENT Reports no additional complaints Card Denies chest pain, Reports leg edema and Reports dyspnea on exertion Resp Reports as per HPI and Reports dyspnea on exertion GI Reports constipation Musc Reports no additional complaints Skin/Breast Reports system reviewed and no additional complaints, except as documented Neuro Reports no additional complaints Psych Reports depression Ang/Lymph Reports no additional complaints Physical Exam Vital Signs: Last Vital Signs Pulse 75 01/12/24 14:22 BP 110/78 01/12/24 14:22 Pulse Ox 97 01/12/24 14:22 Oxygen Delivery Method Room Air 01/12/24 14:22 BMI result Body Mass Index 29.4 Const General: comfortable, no acute distress, alert and awake Orientation/consciousness: patient oriented x3 HEENT Head: Yes normal to inspection General nose exam: No nasal polyps present and No nasal discharge present Face and sinus: Yes sinuses nontender Mouth: oropharynx normal Teeth and gingiva: caries and poor dentition Throat: Yes posterior oropharynx normal Eyes General: appearance normal, both eyes and all related structures Neck Neck: Yes normal visual inspection, Yes no lymphadenopathy, Yes trachea midline and Yes no JVD Thyroid: Thyroid normal Chest Chest palpation & inspection: normal inspection of the chest, normal palpation of entire chest wall and no tenderness Resp Other: PERCUSSION NOTE IS RESONANT. BREATH SOUNDS. ARE DISTANT WITH PROLONGED EXPIRATORY PHASE SHE DOES HAVE SCATTERED EXPIRATORY WHEEZES OVER THE LOWER LOBES ON BOTH SIDES. NO CREPITATIONS. Cardio Palpation: normal PMI Rate: regular rate Rhythm: regular rhythm Heart sounds: no gallops and no murmurs GI Palpation (GI): Soft to palpation, nontender, No hepatosplenomegaly present and no masses Auscultation: normal bowel sounds Back/Spine/Pelvis Thoracic/Lumbar Spine: thoracic and lumbar spine normal to inspection Skin General skin exam: no rashes or lesions noted Neuro General: patient oriented x3 and no focal motor deficits Cranial nerves: Yes CN's II-XII intact bilaterally Extrem General: Yes normal to inspection, Yes no clubbing, cyanosis or edema and Yes no calf tenderness Psych Appearance: grossly normal and well kempt Speech and movement: Normal speech and movement present Assessment & Plan Assessment & Plan (1) COPD mixed type: Comment: THIS PATIENT HAS CHRONIC OBSTRUCTIVE PULMONARY DISEASE FOR THE PAST MANY YEARS. SECONDARY TO HER SMOKING. Code(s): J44.9 - Chronic obstructive pulmonary disease, unspecified Plan: COMPLETE PULMONARY FUNCTION TEST TO DEFINE THE SEVERITY OF COPD, TREATMENT REGIMEN WILL BE ADJUSTED AFTER THESE PULMONARY FUNCTION TEST. (2) Encounter for screening for malignant neoplasm of lung in former smoker who quit in past 15 years with 30 pack year history or greater: Comment: SHE HAS HISTORY OF SMOKING FOR 40 YEARS, 2 PACKS A DAY, QUIT 6 YEARS AGO. SHE DOES NEED ANNUAL LUNG SCREENING. Code(s): Z12.2 - Encounter for screening for malignant neoplasm of respiratory organs; Z87.891 - Personal history of nicotine dependence Plan: REFERRED FOR ANNUAL LUNG SCREENING PROGRAM. Orders: Orders XR chest 2V Today J44.9 - Chronic obstructive pulmonary disease, unspecified, Z12.2 - Encounter for screening for malignant neoplasm of respiratory organs, Z87.891 - Personal history of nicotine dependence PFT pulmonary function test Today Referrals Pulmonary Medicine Referral J44.9 - Chronic obstructive pulmonary disease, unspecified, J45.40 - Moderate persistent asthma, uncomplicated, Z12.2 - Encounter for screening for malignant neoplasm of respiratory organs, Z87.891 - Personal history of nicotine dependence Coding Level of Care Code New Pt Level 4 (84747) Diagnoses COPD mixed type J44.9 Encounter for screening for malignant neoplasm of lung in former smoker who quit in past 15 years with 30 pack year history or greater Z12.2; Z87.891
[2024-01-12 14:22] VITALS: BP 110/78; PULSE 75; O2SAT 97; BMI 29.4
== END 2024-01-12 15:00 | disposition home or self-care (01) ==
PROVIDERS: PCP Internal Medicine; Referring Provider Internal Medicine Hypertension Specialist; Visit Provider Internal Medicine
DX: J44.9 Chronic obstructive pulmonary disease, unspecified (principal); Z12.2 Encounter for screening for malignant neoplasm of respiratory organs; Z87.891 Personal history of nicotine dependence
CPT/HCPCS: 99204

== ENCOUNTER 2024-01-12 14:12 | Outpatient (REF) | payer MEDICARE, MEDICAID, SELFPAY ==
--- NOTE | ~2024-01-12 | XR_ITS ---
EXAMINATION: XR CHEST 2 VIEWS CLINICAL INFORMATION: Cough. COMPARISON: Chest radiograph dated 02/01/2020. TECHNIQUE: Frontal and lateral views of the chest were obtained. FINDINGS: The heart, great vessels, pulmonary vasculature and mediastinum are normal. The lungs show no focal infiltrate, effusion or pneumothorax. There is stable mild hyperinflation. There is no acute osseous abnormality. XR/XR chest 2V IMPRESSION: No active cardiopulmonary disease. There is stable mild hyperinflation.
== END 2024-01-12 14:13 | disposition home or self-care (01) ==
LOC: HO.XRAY 14:12
PROVIDERS: PCP Internal Medicine; Referring Provider Internal Medicine Hypertension Specialist; Visit Provider Internal Medicine
DX: J44.9 Chronic obstructive pulmonary disease, unspecified (principal); Z87.891 Personal history of nicotine dependence
CPT/HCPCS: 71046; 99202

== ENCOUNTER 2024-01-19 09:05 | Outpatient (AMB) | payer MEDICARE, MEDICAID, SELFPAY ==
--- NOTE | 2024-01-19 09:22 | A.OFFVIS_ITS ---
Vital Signs 01/19/24 09:23 Height 5 ft 6 in Weight 182 lb 15.739 oz BMI 29.5 BP 120/72 Blood Pressure Location Lt brachial Position Sitting Pulse 72 Intake Visit Reasons: f/up echo/ holter Intake Note: Follow-up after echo and holter Executor Of Estate Required: No Allergies No Known Allergies Allergy (Verified 01/12/24 14:25) Medication List - Last Reconciled 01/19/24 by Bryan Barry MD acetaminophen ER (Tylenol 8 Hour) 650 mg PO Q12H albuterol sulfate 90 mcg/actuation (Ventolin HFA) 1 inh inhalation QID PRN 30 days apixaban (Eliquis) 5 mg PO BID aspirin 81 mg PO DAILY atorvastatin 40 mg PO DAILY cetirizine (All Day Allergy (cetirizine)) 10 mg PO DAILY PRN escitalopram oxalate (Lexapro) 10 mg PO DAILY fluticasone propion-salmeterol 232-14 mcg/actuation 1 inh PO BID 90 days gabapentin 600 mg PO BEDTIME 90 days mirtazapine 15 mg PO BEDTIME multivitamin (Daily Multi-Vitamin tablet) 1 tab PO DAILY senna 187 mg PO DAILY sennosides-docusate sodium 8.6-50 mg (Senokot-S) 1 tab-cap PO BEDTIME 90 days torsemide 20 mg PO .every other day HPI Comments Details: Josi returns for follow-up. She was recently seen in consultation at [facility]. Prior to that, she has been seen in our [place] off is few years back. She presented to [facility] with complaints of substernal chest pain. EKG as well as high sensitivity troponins were abnormal. Echocardiogram showed wall motion abnormalities and that led to cardiac catheterization but suspicion was rather stress-induced cardiomyopathy. Per discharge summary, it seems she also had some atrial fibrillation and hence she was put on Eliquis. Overall, she states that she feels good. No cardiac complaints. [facility] Medical History Encounter for screening for malignant neoplasm of lung in former smoker who quit in past 15 years with 30 pack year history or greater PAF (paroxysmal atrial fibrillation) Atherosclerotic heart disease Renal artery aneurysm Surgical History History of tumor S/P removal of right ovary History of tonsillectomy Family History Father Cancer of prostate Mother Diabetes mellitus Brother No problems noted. Brother No problems noted. Brother No problems noted. Sister No problems noted. Sister No problems noted. Sister History of heart attack Daughter No problems noted. Daughter No problems noted. Maternal Grandfather No problems noted. Maternal Grandmother No problems noted. Paternal Grandfather No problems noted. Paternal Grandmother No problems noted. Maternal Aunt No problems noted. Social History Housing: Other Housing Other:: Mobile Home Alcohol intake: former Patient Tobacco Use Status: Former Tobacco user Quit Date: 2016 Tobacco use type: Cigarette Years Smoked: 30 years e-Cigarette/Vaping Use: Never Used service: No Current occupational status: retired Cognitive needs: No Hearing needs: No Vision needs: Yes Review of Systems Const Denies chills, Denies fatigue, Denies fever(s), Denies frequent falls, Denies weakness, Denies weight gain and Denies weight loss ENT Denies dizziness Card Denies chest pain, Denies leg edema, Denies lightheadedness, Denies palpitations, Denies dyspnea, Denies dyspnea on exertion, Denies orthopnea and Denies other (loss of consciousness) Resp Denies cough, Denies dyspnea and Denies dyspnea on exertion GI Denies hematochezia and Denies change in stool character Musc Denies abnormal gait, Denies muscle weakness, Denies numbness, Denies radiating pain into limb and Denies tingling Neuro Denies abnormal gait, Denies dizziness, Denies frequent falls, Denies numbness, Denies tingling and Denies weakness Endo Denies fatigue and Denies palpitations Physical Exam Vital Signs: Last Vital Signs Pulse 72 01/19/24 09:23 BP 120/72 01/19/24 09:23 BMI result Body Mass Index 29.5 Const General: comfortable and no acute distress Orientation/consciousness: patient oriented x3 HEENT Other: Unremarkable Head: Yes normal to inspection Neck Neck: Yes normal visual inspection Chest Chest palpation & inspection: normal inspection of the chest Resp Auscultation: clear to auscultation bilaterally Cardio Palpation: normal PMI Heart sounds: S1 normal heart sound present, S2 normal heart sound present, no gallops, no murmurs and no rubs GI Palpation (GI): Soft to palpation Back/Spine/Pelvis Other: unremarkable Skin General skin exam: no rashes or lesions noted Neuro General: patient oriented x3 Extrem General: Yes normal to inspection Psych Mental Status: mental status grossly normal Assessment & Plan Assessment & Plan (1) Stress-induced cardiomyopathy: Code(s): I51.81 - Takotsubo syndrome Category: Medical Plan: Echocardiogram at [facility] [place] [place] with LVEF of 20-25%. Mid/apical segments dyskinetic and basal segments hyperdynamic. Cardiac catheterization with 40% stenosis in the proximal LAD/RCA with minimal irregularities circumflex. In the repeat study, LVEF is 55%. Overall suspicion is stress-induced cardiomyopathy. Clinically, no heart failure symptoms or signs. Due to junctional rhythm, stopped beta-blockers. She has not on any NAKUL inhibitors or ARB and has had intermittently elevated creatinine. Clinically, no symptoms or signs of congestive heart failure. (2) Atherosclerotic heart disease: Code(s): I25.10 - Atherosclerotic heart disease of [place] coronary artery without angina pectoris Category: Medical Plan: Moderate coronary disease only. Continue statins. Most recent LDL is 93 mg/dL. Can go up on the statin dose. (3) Junctional rhythm: Code(s): I49.8 - Other specified cardiac arrhythmias Category: Medical Plan: EKG last visit shows junctional rhythm. She was on beta-blockers and that has been stopped. In the Holter monitor, no significant bradyarrhythmia. (4) PAF (paroxysmal atrial fibrillation): Code(s): I48.0 - Paroxysmal atrial fibrillation Category: Medical Plan: Recently noted during [facility] hospitalization. She has not Eliquis. She was also beta-blockers but she was in junctional escape rhythm during last visit and hence they were stopped. In the Holter monitor, mostly sinus rhythm but she had 1 episode of atrial fibrillation for a few minutes when she went up to > 200/min. EP evaluation pending. Medications: New atorvastatin 80 mg PO QPM 90 tabs 3RF Bryan Barry MD Changed From torsemide 20 mg PO DAILY 30 tabs 0RF To torsemide 20 mg PO .every other day Carla Michael MD Discontinued atorvastatin Discontinued Reason: Doctor's Order 40 mg PO DAILY 90 tabs 0RF Coding Level of Care Code Est Pt Level 4 (44264) Diagnoses Stress-induced cardiomyopathy I51.81 Atherosclerotic heart disease I25.10 Junctional rhythm I49.8 PAF (paroxysmal atrial fibrillation) I48.0
[2024-01-19 09:23] VITALS: BP 120/72; PULSE 72; BMI 29.5
== END 2024-01-19 09:48 | disposition home or self-care (01) ==
PROVIDERS: PCP Internal Medicine; Visit Provider Internal Medicine
DX: I51.81 Takotsubo syndrome (principal); I25.10 Atherosclerotic heart disease of native coronary artery without angina pectoris; I49.8 Other specified cardiac arrhythmias; I48.0 Paroxysmal atrial fibrillation
CPT/HCPCS: 99214

== ENCOUNTER → 2024-01-19 09:05 | Outpatient (BNVA) | payer MEDICARE, MEDICAID, SELFPAY | PROVIDERS: PCP Internal Medicine; Visit Provider Internal Medicine | DX: I51.81 Takotsubo syndrome (principal); I25.10 Atherosclerotic heart disease of native coronary artery without angina pectoris; I49.8 Other specified cardiac arrhythmias; I48.0 Paroxysmal atrial fibrillation | CPT/HCPCS: 99212 ==

== ENCOUNTER 2024-02-25 10:27 | Outpatient (AMB) | payer MEDICARE, MEDICAID, SELFPAY ==
--- NOTE | 2024-02-25 08:00 | A.OFFVIS_ITS ---
Intake Visit Reasons: Former Smoker Allergies No Known Allergies Allergy (Verified 01/12/24 14:25) HPI HPI Former Smoker: Details: Initial visit for this 68yo smoker with a 60 PYH. Patient has been smoking since age 21 for 41 years at 1-2ppd. Quit 2018. . Denies marijuana use. Denies second hand smoke exposure. 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 . Denies known family history of lung cancer. Denies personal history of cancers. . Denies chest CT in last year. Screening Chest CT done 08/06/[address] Michael was Lung RADS 2 . Denies recent travel outside the [place]. Denies recent respiratory illness or recent hospitalization for respiratory issues. Notes testing positive for COVID x 2. Admits receiving COVID Vaccine. x 4. . Denies fever, chills, new/worsening cough, hemoptysis, hoarseness or dysphagia. Denies significant chest pain, significant dyspnea or unintentional weight loss. Patient Lung Cancer Screening Questionnaire reviewed with patient by provider. . Shared Decision Making Completed. Patient meets criteria. Discussed in detail with patient, the risk vs benefit of LDCT screening. Patient consents to proceed with scan. Discussed and encouraged continued smoking cessation. [facility] [place] [place] Medical History (Updated 02/25/24 @ 10:43 by Willow Sutherland PA-C) Atherosclerotic heart disease Stress-induced cardiomyopathy (~08/2023) History of non-ST elevation myocardial infarction (NSTEMI) (~08/2023) PAF (paroxysmal atrial fibrillation) (~08/2023) HTN (hypertension) Renal artery aneurysm Kidney congenitally absent, right COPD mixed type Personal history of nicotine dependence Surgical History (Updated 01/24/24 @ 15:32 by Willow Sutherland PA-C) History of cardiac cath (~2022) History of right oophorectomy (~1979) History of left breast biopsy (~1974) History of tubal ligation History of tonsillectomy (~1969) Family History Father Cancer of prostate Mother Diabetes mellitus Brother No problems noted. Brother No problems noted. Brother No problems noted. Sister No problems noted. Sister No problems noted. Sister History of heart attack Daughter No problems noted. Daughter No problems noted. Maternal Grandfather No problems noted. Maternal Grandmother No problems noted. Paternal Grandfather No problems noted. Paternal Grandmother No problems noted. Maternal Aunt No problems noted. Social History (Updated 02/25/24 @ 10:43 by Willow Sutherland PA-C) Housing: Other Housing Other:: Mobile Home Alcohol intake: former Patient Tobacco Use Status: Former Tobacco user Tobacco use type: Cigarette Years Smoked: (onset 21yo, 1-2ppd x 41yrs, 60pyh - quit 2018) e-Cigarette/Vaping Use: Never Used service: No Current occupational status: retired Cognitive needs: No Hearing needs: No Vision needs: Yes Assessment & Plan Assessment & Plan (1) Personal history of nicotine dependence: Comment: (former smoker - onset 21yo, 1-2ppd x 41yrs, 60pyh - quit 2018) Code(s): Z87.891 - Personal history of nicotine dependence Category: Medical Plan: - SDM visit completed today in office. - Patient meets criteria for LDCT for lung cancer screening purposes and is asymptomatic. - Smoking cessation counseling offered. Patients can always call [phone]. - Will arrange for a LDCT scan of the chest for screening purposes at [facility]. - Risks, benefits, and alternatives were discussed in detail and the patient agrees to proceed. - Risks discussed include but are not limited to: radiation exposure, anxiety during testing and while awaiting results, false negatives, false positives and possibility of additional intervention such as further imaging or surgical pro cedures for benign disease. - Benefits are obviously detection of lung cancer at an early stage which can lead to improved outcomes. - Discussed the importance of screening program compliance with adherence to yearly LDCT scan as scheduled - or sooner interval scans for personalized screening regimen. - Discussed follow up plan. Our office will send a letter discussing results and if needed set up phone call and office visit based on CT findings. - Patient educated on results categorization and the management decisions for suspicious findings potentially found on the screening LDCT scan. Any patient with a Lung RADS score of 3 or 4 will be reviewed by a multidisciplinary team at [facility] to form a plan of action in regards to scan findings. - If further work up is warranted for a suspicious lung finding this will be followed by the Lung Cancer Screening program in conjunction with the Thoracic Surgery Department at [facility]. - A copy of the office note and LDCT will be sent to the patient's PCP - as well as documentation on any associated further plans of care. - Incidental findings on LDCT are the PCP's responsibility. These findings are indicated with an S finding on the LDCT Assessment. A note discussing the findings will be sent to the PCP who is then responsible for further management. - All questions answered.? Coding Level of Care Code Lung Cancer Screening G0296 Diagnoses Personal history of nicotine dependence Z87.891
== END 2024-02-25 10:49 | disposition home or self-care (01) ==
PROVIDERS: PCP Internal Medicine; Referring Provider Internal Medicine; Visit Provider Physician Assistant Medical
DX: Z87.891 Personal history of nicotine dependence (principal)
CPT/HCPCS: G0296

== ENCOUNTER 2024-02-25 10:50 | Outpatient (REF) | payer MEDICARE, MEDICAID, SELFPAY ==
--- NOTE | ~2024-02-25 | CT_ITS ---
EXAMINATION: CT LOW-DOSE SCREENING CHEST WITHOUT CONTRAST CLINICAL INFORMATION: Personal history of nicotine dependence. The patient has a 19 pack-year history of smoking, having quit 7 years ago. COMPARISON: CT chest 08/06/2017. TECHNIQUE: Multidetector volumetric CT imaging of the chest is performed on a Siemens SOMATOM Definition scanner without contrast using low dose technique. Additional 2D coronal and sagittal reformatted images and axial 3D maximum intensity projection (MIP) images are generated on the CT workstation. This CT examination was performed using dose optimization techniques as appropriate, variously including the following: *Automated exposure control *Adjustment of mA and/or kV according to patient size (this includes techniques or standardized protocols for targeted exams where dose is matched to indication/reason for exam; i.e. extremities or head) *Use of iterative reconstruction technique TOTAL EXAM DLP: 52 mGy-cm. CTDIvol: 1.43 mGy. FINDINGS: PULMONARY NODULES: There is a 3 mm left lower lobe pulmonary nodule (5:117). There is a calcified granuloma in the right middle lobe and right lower lobe (5:326 and 333). LUNGS: Lungs bilaterally symmetrically expanded. There is mild emphysema and bronchial thickening.. No effusion or pneumothorax. Central airways patent. MEDIASTINUM: No mediastinal, hilar or axillary adenopathy or free fluid collection. CORONARY ARTERY CALCIFICATION: Moderate to marked. THYROID GLAND: Unremarkable to the extent seen. CARDIOVASCULAR STRUCTURES: Aortic and heart size normal. No pericardial effusion. CHEST WALL/AXILLA: Unremarkable. UPPER ABDOMEN: Large calcified splenic granuloma is present. A splenule is seen. Otherwise, the included portions of the solid organs in the upper abdomen unremarkable on noncontrast imaging. OSSEOUS STRUCTURES: No suspicious focal findings. CT/CT lung screening IMPRESSION: 1. A 3 mm left lower lobe pulmonary nodule. 2. Mild emphysema and bronchial thickening. 3. [id number] coronary calcifications. 4. Incidental findings (S category): No incidental findings. ASSESSMENT: Lung-RADS Category 2: Benign appearance or behavior of nodules. N/A RECOMMENDATION: Continued routine annual low-dose CT lung screening in 1 year is recommended. An order for CT CHEST LOW DOSE CANCER SCREENING ([id number]) can be placed.
== END 2024-02-25 10:51 | disposition home or self-care (01) ==
LOC: HO.CT 10:50
PROVIDERS: PCP Internal Medicine; Visit Provider Physician Assistant Medical
DX: Z12.2 Encounter for screening for malignant neoplasm of respiratory organs (principal); Z87.891 Personal history of nicotine dependence
CPT/HCPCS: 71271; G0296

== ENCOUNTER 2024-03-03 09:47 | Outpatient (REF) | payer MEDICARE, MEDICAID, SELFPAY ==
[2024-03-03 10:16] VITALS: PULSE 65; RESP 16; O2SAT 98
--- NOTE | 2024-03-03 15:56 | PFT_ITS ---
Indication: COPD Spirometry [FEV1 to FVC 60%; FEV1 1.52 L; FVC 2.54 L. there was a significant response to bronchodilators noted. Maximum voluntary ventilation 45% predicted Lung Volumes [Total lung capacity 90% predicted; residual volume 148% predicted] Diffusion Capacity [DLCO 60% predicted] Comparisons [None] Interpretation [There has an obstructive ventilatory defect consistent with likely moderate COPD. There was a significant response to bronchodilators noted. The patient does have a moderate to severe decrease in maximum voluntary ventilation which could be due to worsening dynamic inspiratory capacity and or deconditioning. Neuromuscular conditions can not be ruled out. Lung volumes are significant for air trapping due to the COPD. The patient also has a moderate diffusion impairment. Clinical correlation warranted.] MTDD
== END 2024-03-03 09:48 | disposition home or self-care (01) ==
LOC: HO.RESP 09:47
PROVIDERS: PCP Internal Medicine; Visit Provider Internal Medicine
DX: J44.9 Chronic obstructive pulmonary disease, unspecified (principal)
CPT/HCPCS: 94010; 94640; 94727; 94729

== ENCOUNTER → 2024-03-03 15:56 | Outpatient (BNV) | payer MEDICARE, MEDICAID, SELFPAY | PROVIDERS: PCP Internal Medicine; Visit Provider Hospitalist | DX: J44.9 Chronic obstructive pulmonary disease, unspecified (principal) | CPT/HCPCS: 94060; 94727; 94729 ==

== ENCOUNTER 2024-03-06 09:37 | Outpatient (AMB) | payer MEDICARE, MEDICAID, SELFPAY ==
[2024-03-06 09:51] VITALS: BP 130/82; PULSE 6; O2SAT 99; BMI 30.2
--- NOTE | 2024-03-06 09:51 | MHC.OFFVIS ---
Vital Signs 03/06/24 09:51 Height 5 ft 6 in Weight 187 lb BMI 30.2 BP 130/82 Blood Pressure Location Lt brachial Position Sitting Pulse 6 L Pulse Source Pulse Oximeter Pulse Oximetry (%) 99 Oxygen Delivery Method Room Air Intake Visit Reasons: COPD/PFT Follow Up Intake Note: pt is here for follow up Responder Required: No Allergies No Known Allergies Allergy (Verified 03/06/24 09:59) Medication List - Last Reconciled 03/06/24 by Enrique Albright MD acetaminophen ER (Tylenol 8 Hour) 650 mg PO Q12H albuterol sulfate 90 mcg/actuation (Ventolin HFA) 1 inh inhalation QID PRN 30 days apixaban (Eliquis) 5 mg PO BID atorvastatin 80 mg PO QPM cetirizine (All Day Allergy (cetirizine)) 10 mg PO DAILY PRN escitalopram oxalate (Lexapro) 10 mg PO DAILY gabapentin 600 mg PO BEDTIME 90 days mirtazapine 15 mg PO BEDTIME mometasone-formoterol 200-5 mcg/actuation (Dulera) 2 puffs inhalation BID multivitamin (Daily Multi-Vitamin tablet) 1 tab PO DAILY senna 187 mg PO DAILY sennosides-docusate sodium 8.6-50 mg (Senokot-S) 1 tab-cap PO BEDTIME 90 days torsemide 20 mg PO .every other day Do you need a note to return to daycare/school/sports/work: No HPI HPI COPD/PFT Follow Up: Details: This 68 years old female who quit smoking 6 years ago, Comes for follow-up for her COPD. Using Dulera of 200-5 2 puffs b.i.d. and breathing has remained very stable. She did not have to use the rescue inhaler much. Still gets short of breath when she wakes up and goes in a hurry to the bathroom, but as she slows down she feels okay. She has occasional cough. Denies any wheezing. [facility] Medical History Atherosclerotic heart disease Stress-induced cardiomyopathy (~08/2023) History of non-ST elevation myocardial infarction (NSTEMI) (~08/2023) PAF (paroxysmal atrial fibrillation) (~08/2023) HTN (hypertension) Renal artery aneurysm Kidney congenitally absent, right COPD mixed type Personal history of nicotine dependence Surgical History History of cardiac cath (~2022) History of right oophorectomy (~1979) History of left breast biopsy (~1974) History of tubal ligation History of tonsillectomy (~1969) Family History Father Cancer of prostate Mother Diabetes mellitus Brother No problems noted. Brother No problems noted. Brother No problems noted. Sister No problems noted. Sister No problems noted. Sister History of heart attack Daughter No problems noted. Daughter No problems noted. Maternal Grandfather No problems noted. Maternal Grandmother No problems noted. Paternal Grandfather No problems noted. Paternal Grandmother No problems noted. Maternal Aunt No problems noted. Social History Housing: Other Housing Other:: Mobile Home Alcohol intake: former Patient Tobacco Use Status: Former Tobacco user Tobacco use type: Cigarette Years Smoked: (onset 21yo, 1-2ppd x 41yrs, 60pyh - quit 2017) e-Cigarette/Vaping Use: Never Used service: No Current occupational status: retired Cognitive needs: No Hearing needs: No Vision needs: Yes Review of Systems Const All systems reviewed & are unremarkable except as noted in HPI and below Eyes Reports no additional complaints ENT Reports no additional complaints Card Denies chest pain, Reports leg edema and Reports dyspnea on exertion Resp Reports as per HPI and Reports dyspnea on exertion GI Reports constipation Musc Reports no additional complaints Skin/Breast Reports system reviewed and no additional complaints, except as documented Neuro Reports no additional complaints Psych Reports depression Ang/Lymph Reports no additional complaints Physical Exam Vital Signs: Last Vital Signs Pulse 6 L 03/06/24 09:51 BP 130/82 03/06/24 09:51 Pulse Ox 99 03/06/24 09:51 Oxygen Delivery Method Room Air 03/06/24 09:51 BMI result Body Mass Index 30.2 Const General: comfortable, no acute distress, alert and awake Orientation/consciousness: patient oriented x3 HEENT Head: Yes normal to inspection General nose exam: No nasal polyps present and No nasal discharge present Face and sinus: Yes sinuses nontender Mouth: oropharynx normal Teeth and gingiva: caries and poor dentition Throat: Yes posterior oropharynx normal Eyes General: appearance normal, both eyes and all related structures Neck Neck: Yes normal visual inspection, Yes no lymphadenopathy, Yes trachea midline and Yes no JVD Thyroid: Thyroid normal Chest Chest palpation & inspection: normal inspection of the chest, normal palpation of entire chest wall and no tenderness Resp Other: PERCUSSION NOTE IS RESONANT. BREATH SOUNDS ARE DISTANT WITH PROLONGED EXPIRATORY PHASE NO WHEEZES OR RHONCHI ARE HEARD TODAY. NO CREPITATIONS. Cardio Palpation: normal PMI Rate: regular rate Rhythm: regular rhythm Heart sounds: no gallops and no murmurs GI Palpation (GI): Soft to palpation, nontender, No hepatosplenomegaly present and no masses Auscultation: normal bowel sounds Back/Spine/Pelvis Thoracic/Lumbar Spine: thoracic and lumbar spine normal to inspection Skin General skin exam: no rashes or lesions noted Neuro General: patient oriented x3 and no focal motor deficits Cranial nerves: Yes CN's II-XII intact bilaterally Extrem General: Yes normal to inspection, Yes no clubbing, cyanosis or edema and Yes no calf tenderness Psych Appearance: grossly normal and well kempt Speech and movement: Normal speech and movement present Results Reviewed Results Reviewed: PULMONARY FUNCTION TEST. MODERATELY SEVERE OBSTRUCTIVE AIRWAY DISORDER WITH GOOD RESPONSE TO BRONCHODILATOR THERAPY ( C/W ASTHMA/COPD OVERLAP SYNDROME ) CHEST XRAY , UNREMARKABLE . LDCT SCAN : ( OFFICIAL READING IS PENDING ) Assessment & Plan Assessment & Plan (1) COPD mixed type: Comment: (COPD - secondary to smoking), MODERATELY SEVERE, WITH GOOD RESPONSE TO BRONCHODILATOR THERAPY. Code(s): J44.9 - Chronic obstructive pulmonary disease, unspecified Category: Medical Plan: CONTINUE USING DULERA 200-5 2 PUFFS B.I.D. REGULARLY. RINSE THE THROAT THOROUGHLY AFTER USING. THE INHALER USE ALBUTEROL HFA 2 PUFFS Q 6 HOURS ONLY P.R.N.. (2) Personal history of nicotine dependence: Comment: (former smoker - onset 21yo, 1-2ppd x 41yrs, 60pyh - quit 2018) Code(s): Z87.891 - Personal history of nicotine dependence Category: Medical Plan: COMMENDED FOR HAVING QUIT SMOKING ALREADY. PATIENT IS IN ANNUAL LUNG SCREENING PROGRAM Coding Level of Care Code Est Pt Level 3 (12046) Diagnoses COPD mixed type J44.9 Personal history of nicotine dependence Z87.894
== END 2024-03-06 10:01 | disposition home or self-care (01) ==
PROVIDERS: PCP Internal Medicine; Visit Provider Internal Medicine
DX: J44.9 Chronic obstructive pulmonary disease, unspecified (principal); Z87.891 Personal history of nicotine dependence
CPT/HCPCS: 99213

== ENCOUNTER → 2024-03-06 09:37 | Outpatient (BNVA) | payer MEDICARE, MEDICAID, SELFPAY | PROVIDERS: PCP Internal Medicine; Visit Provider Internal Medicine | DX: J44.9 Chronic obstructive pulmonary disease, unspecified (principal); Z87.891 Personal history of nicotine dependence | CPT/HCPCS: 99212 ==

== ENCOUNTER 2024-03-15 08:19 | Outpatient (AMB) | payer MEDICARE, MEDICAID, SELFPAY ==
--- NOTE | 2024-03-15 08:22 | MHC.PC.OV ---
Vital Signs 03/15/24 08:32 Height 5 ft 6 in Weight 186 lb BMI 30.0 BP 124/82 Blood Pressure Location Rt brachial Position Sitting Pulse 82 Pulse Source Pulse Oximeter Pulse Oximetry (%) 98 Oxygen Delivery Method Room Air Intake Visit Reasons: 3 month follow up Allergies No Known Allergies Allergy (Verified 03/15/24 08:32) Medication List - Last Reconciled 03/15/24 by Carla Michael MD acetaminophen ER (Tylenol 8 Hour) 650 mg PO Q12H albuterol sulfate 90 mcg/actuation (Ventolin HFA) 1 inh inhalation QID PRN 30 days apixaban (Eliquis) 5 mg PO BID atorvastatin 80 mg PO QPM cetirizine (All Day Allergy (cetirizine)) 10 mg PO DAILY PRN escitalopram oxalate (Lexapro) 10 mg PO DAILY gabapentin 600 mg PO BEDTIME 90 days mirtazapine 15 mg PO BEDTIME mometasone-formoterol 200-5 mcg/actuation (Dulera) 2 puffs inhalation BID multivitamin (Daily Multi-Vitamin tablet) 1 tab PO DAILY senna 187 mg PO DAILY sennosides-docusate sodium 8.6-50 mg (Senokot-S) 1 tab-cap PO BEDTIME 90 days torsemide 20 mg PO .every other day Tobacco use date assessed: 03/15/24 Fall risk assessment: No Falls in past year Last assessed Fall Risk: 03/15/24 Dental Screening Dental Screen Date: 12/17/23 HPI 3 month follow up HPI Details Patient is a 68-year-old female with a history of stress-induced cardiomyopathy diagnosed August of 2023 with improved ejection fraction after that back to 55% from 25% on echocardiogram done October of 2023. Cardiac catheterization showed 40% blockage of CAD Patient had monitoring coordinator which showed evidence of atrial fibrillation along with SVT. She continued to complain of palpitations Patient is going in tomorrow for electrophysiological study and possible ablation. Explained to her what is going on as patient was not very clear and was feeling anxious She has seen Dr. Barry in December as well, note reviewed. She has a renal artery aneurysm, and her appointment with Nephrology is coming up in March She is seeing Dr. Gallagher for CKD She is very active now and is doing lot of gardening growing donovan and vegetable plants Patient is on high-dose gabapentin because of chronic low back pain does not want to have surgery or any other intervention. She is doing well with gabapentin 600 mg as far as pain control his concern. Taking Lexapro for depression She takes mirtazapine 15 mg to sleep at night and is doing well with that medication as well, no side effects Allergies stable with cetirizine Asthma COPD: Continue inhalers, patient has appointment with Dr. Albright coming up Follow-up 3 months labs are needed before visit [facility] Medical History Atherosclerotic heart disease Stress-induced cardiomyopathy (~08/2023) History of non-ST elevation myocardial infarction (NSTEMI) (~08/2023) PAF (paroxysmal atrial fibrillation) (~08/2023) HTN (hypertension) Renal artery aneurysm Kidney congenitally absent, right COPD mixed type Personal history of nicotine dependence Surgical History History of cardiac cath (~2022) History of right oophorectomy (~1979) History of left breast biopsy (~1974) History of tubal ligation History of tonsillectomy (~1969) Family History Father Cancer of prostate Mother Diabetes mellitus Brother No problems noted. Brother No problems noted. Brother No problems noted. Sister No problems noted. Sister No problems noted. Sister History of heart attack Daughter No problems noted. Daughter No problems noted. Maternal Grandfather No problems noted. Maternal Grandmother No problems noted. Paternal Grandfather No problems noted. Paternal Grandmother No problems noted. Maternal Aunt No problems noted. Social History Housing: Other Housing Other:: Mobile Home Alcohol intake: former Patient Tobacco Use Status: Former Tobacco user Tobacco use type: Cigarette Years Smoked: (onset 21yo, 1-2ppd x 41yrs, 60pyh - quit 2017) e-Cigarette/Vaping Use: Never Used service: No Current occupational status: retired Cognitive needs: No Hearing needs: No Vision needs: Yes Questionnaire Thrive Questionnaire Date Thrive assessed: 10/01/23 CAESAR-7 AMB Questionnaire CAESAR-7 Date CAESAR - 7 assessed: 10/01/23 Source: Developed by Drs. Marco Antonio Oliva, Hoda Del Cid, Enmanuel Duenas and colleagues, with an educational arie from [employer]. Review of Systems Const Denies chills and Denies fever(s) ENT Denies epistaxis and Denies nasal discharge Card Denies chest pain Resp Denies chest congestion, Denies cough and Denies hemoptysis GI Denies diarrhea and Denies nausea Skin/Breast Denies rash Neuro Reports no additional complaints Psych Reports no additional complaints Endo Reports no additional complaints Physical exam (Primary Care) Vital Signs: Last Vital Signs Pulse 82 03/15/24 08:32 BP 124/82 03/15/24 08:32 Pulse Ox 98 03/15/24 08:32 Oxygen Delivery Method Room Air 03/15/24 08:32 BMI result Body Mass Index 30.0 Tobacco/Smoking Status: Tobacco use Status Tobacco use date assessed 03/15/24 03/15/24 08:34 Patient Tobacco Use Status Former Tobacco user 03/15/24 08:23 Tobacco use type Cigarette 03/15/24 08:23 e-Cigarette/Vaping Use Never Used 03/15/24 08:23 Thrive Assessment: Date of Thrive Assessment Date Thrive assessed 10/01/23 03/15/24 08:23 Const General: cooperative, comfortable and no acute distress Orientation/consciousness: patient oriented x3 HENMT Head: Yes normocephalic Eyes General: appearance normal, both eyes and all related structures Neck Neck: Yes supple Resp Effort & Inspection: normal respiratory effort, no cough and no stridor Cardio Heart sounds: S1 normal heart sound present and S2 normal heart sound present Skin General skin exam: turgor normal Neuro General: patient oriented x3, tone normal and moves all extremities Extrem Right lower extremity: no edema Left lower extremity: no edema Assessment and Plan Assessment & Plan (1) Hypertension, essential: Code(s): I10 - Essential (primary) hypertension (2) Asthma, moderate: Code(s): J45.909 - Unspecified asthma, uncomplicated Qualifiers: Asthma complication type: uncomplicated Asthma persistence: persistent Qualified Code(s): J45.40 - Moderate persistent asthma, uncomplicated (3) COPD mixed type: Comment: (COPD - secondary to smoking), MODERATELY SEVERE, WITH GOOD RESPONSE TO BRONCHODILATOR THERAPY. Code(s): J44.9 - Chronic obstructive pulmonary disease, unspecified (4) CKD (chronic kidney disease) stage 3, GFR 30-59 ml/min: Code(s): N18.30 - Chronic kidney disease, stage 3 unspecified Qualifiers: Chronic kidney disease stage 3 subtype: stage 3b (GFR 30-44) Qualified Code(s): N18.32 - Chronic kidney disease, stage 3b (5) Major depression, recurrent: Code(s): F33.9 - Major depressive disorder, recurrent, unspecified Qualifiers: Active/Remission status: currently active Major depression episode severity: mild Qualified Code(s): F33.0 - Major depressive disorder, recurrent, mild (6) HTN (hypertension): Code(s): I10 - Essential (primary) hypertension Qualifiers: Hypertension type: primary hypertension Qualified Code(s): I10 - Essential (primary) hypertension (7) PAF (paroxysmal atrial fibrillation): Onset Date: ~08/2023 Code(s): I48.0 - Paroxysmal atrial fibrillation (8) Hypertensive nephropathy: Code(s): I12.9 - Hypertensive chronic kidney disease with stage 1 through stage 4 chronic kidney disease, or unspecified chronic kidney disease (9) Stress-induced cardiomyopathy: Onset Date: ~08/2023 Code(s): I51.81 - Takotsubo syndrome (10) Renal artery aneurysm: Code(s): I72.2 - Aneurysm of renal artery Plan Patient is a 68-year-old female with a history of stress-induced cardiomyopathy diagnosed August of 2023 with improved ejection fraction after that back to 55% from 25% on echocardiogram done October of 2023. Cardiac catheterization showed 40% blockage of CAD Patient had monitoring coordinator which showed evidence of atrial fibrillation along with SVT. She continued to complain of palpitations Patient is going in tomorrow for electrophysiological study and possible ablation. Explained to her what is going on as patient was not very clear and was feeling anxious She has seen Dr. Barry in December as well, note reviewed. She has a renal artery aneurysm, and her appointment with Nephrology is coming up in March She is seeing Dr. Gallagher for CKD She is very active now and is doing lot of gardening growing donovan and vegetable plants Patient is on high-dose gabapentin because of chronic low back pain does not want to have surgery or any other intervention. She is doing well with gabapentin 600 mg as far as pain control his concern. Taking Lexapro for depression She takes mirtazapine 15 mg to sleep at night and is doing well with that medication as well, no side effects Allergies stable with cetirizine Asthma COPD: Continue inhalers, patient has appointment with Dr. Albright coming up Follow-up 3 months labs are needed before visit Total amount of time spent in care of this patient 46 minutes Orders: Orders Complete Blood Count Auto Diff Today I10 - Essential (primary) hypertension, I12.9 - Hypertensive chronic kidney disease with stage 1 through stage 4 chronic kidney disease, or unspecified chronic kidney disease, I48.0 - Paroxysmal atrial fibrillation, I72.2 - Aneurysm of renal artery, N18.32 - Chronic kidney disease, stage 3b Comprehensive Met. Panel Today I10 - Essential (primary) hypertension, I12.9 - Hypertensive chronic kidney disease with stage 1 through stage 4 chronic kidney disease, or unspecified chronic kidney disease, I48.0 - Paroxysmal atrial fibrillation, I72.2 - Aneurysm of renal artery, N18.32 - Chronic kidney disease, stage 3b LDL Cholesterol Direct Today I10 - Essential (primary) hypertension, I12.9 - Hypertensive chronic kidney disease with stage 1 through stage 4 chronic kidney disease, or unspecified chronic kidney disease, I48.0 - Paroxysmal atrial fibrillation, I72.2 - Aneurysm of renal artery, N18.32 - Chronic kidney disease, stage 3b Coding Level of Care Code Est Pt Level 5 (24324) Complex EM visit Add On G2211 Diagnoses Hypertension, essential I10 Moderate persistent asthma without complication J45.40 Asthma complication type: uncomplicated Asthma persistence: persistent COPD mixed type J44.9 Stage 3b chronic kidney disease N18.32 Chronic kidney disease stage 3 subtype: stage 3b (GFR 30-44) Mild episode of recurrent major depressive disorder F33.0 Active/Remission status: currently active Major depression episode severity: mild Primary hypertension I10 Hypertension type: primary hypertension PAF (paroxysmal atrial fibrillation) I48.0 Hypertensive nephropathy I12.9 Stress-induced cardiomyopathy I51.81 Renal artery aneurysm I72.2
[2024-03-15 08:32] VITALS: BP 124/82; PULSE 82; O2SAT 98
== END 2024-03-15 08:47 | disposition home or self-care (01) ==
PROVIDERS: PCP Internal Medicine; Visit Provider Internal Medicine
DX: I12.9 Hypertensive chronic kidney disease with stage 1 through stage 4 chronic kidney disease, or unspecified chronic kidney disease (principal); N18.32 Chronic kidney disease, stage 3b; F33.0 Major depressive disorder, recurrent, mild; J44.9 Chronic obstructive pulmonary disease, unspecified; I72.2 Aneurysm of renal artery; I48.0 Paroxysmal atrial fibrillation; I51.81 Takotsubo syndrome; J45.40 Moderate persistent asthma, uncomplicated
CPT/HCPCS: 99215; G2211

== ENCOUNTER 2024-04-13 13:29 | Outpatient (AMB) | payer MEDICARE, MEDICAID, SELFPAY ==
--- NOTE | 2024-04-13 13:35 | A.OFFVIS_ITS ---
Vital Signs 04/13/24 13:36 Height 5 ft 6 in Weight 185 lb 10.067 oz BMI 30.0 BP 124/68 Blood Pressure Location Lt brachial Position Sitting Pulse 63 Pulse Source Pulse Oximeter Intake Visit Reasons: 3 mth f/up [employer] Director Required: No Accompanied by: Self / Same As Patient Allergies No Known Allergies Allergy (Verified 03/15/24 08:32) Medication List - Last Reconciled 04/13/24 by Bryan Barry MD acetaminophen ER (Tylenol 8 Hour) 650 mg PO Q12H albuterol sulfate 90 mcg/actuation (Ventolin HFA) 1 inh inhalation QID PRN 30 days apixaban (Eliquis) 5 mg PO BID atorvastatin 80 mg PO QPM cetirizine (All Day Allergy (cetirizine)) 10 mg PO DAILY PRN escitalopram oxalate (Lexapro) 10 mg PO DAILY gabapentin 600 mg PO BEDTIME 90 days metoprolol tartrate 25 mg PO BID mirtazapine 15 mg PO BEDTIME mometasone-formoterol 200-5 mcg/actuation (Dulera) 2 puffs inhalation BID multivitamin (Daily Multi-Vitamin tablet) 1 tab PO DAILY senna 187 mg PO DAILY sennosides-docusate sodium 8.6-50 mg (Senokot-S) 1 tab-cap PO BEDTIME 90 days torsemide 20 mg PO .every other day HPI Comments Details: Josi returns for follow-up. To recall, she presented to [facility] with complaints of substernal chest pain. EKG as well as high sensitivity troponins were abnormal. Echocardiogram showed wall motion abnormalities and that led to cardiac catheterization but suspicion was rather stress-induced cardiomyopathy. Per discharge summary, it seems she also had some atrial fibrillation and hence she was put on Eliquis. During outpatient visit, she also had evidence of junctional rhythm. Then we had stopped the beta-blockers she was taking. Sent to EP and it seems that she underwent atrial fibrillation ablation. She states that she is back on beta-blockers as advised by EP. Otherwise, doing very well. No complaints whatsoever. [facility] Medical History Atherosclerotic heart disease Stress-induced cardiomyopathy (~08/2023) History of non-ST elevation myocardial infarction (NSTEMI) (~08/2023) PAF (paroxysmal atrial fibrillation) (~08/2023) HTN (hypertension) Renal artery aneurysm Kidney congenitally absent, right COPD mixed type Personal history of nicotine dependence Surgical History History of cardiac cath (~2022) History of right oophorectomy (~1979) History of left breast biopsy (~1974) History of tubal ligation History of tonsillectomy (~1969) Family History Father Cancer of prostate Mother Diabetes mellitus Brother No problems noted. Brother No problems noted. Brother No problems noted. Sister No problems noted. Sister No problems noted. Sister History of heart attack Daughter No problems noted. Daughter No problems noted. Maternal Grandfather No problems noted. Maternal Grandmother No problems noted. Paternal Grandfather No problems noted. Paternal Grandmother No problems noted. Maternal Aunt No problems noted. Social History Housing: Other Housing Other:: Mobile Home Alcohol intake: former Patient Tobacco Use Status: Former Tobacco user Tobacco use type: Cigarette Years Smoked: (onset 21yo, 1-2ppd x 41yrs, 60pyh - quit 2017) e-Cigarette/Vaping Use: Never Used service: No Current occupational status: retired Cognitive needs: No Hearing needs: No Vision needs: Yes Review of Systems Const Denies chills, Denies fatigue, Denies fever(s), Denies weight gain and Denies weight loss ENT Denies dizziness Card Denies chest pain, Denies leg edema, Denies lightheadedness, Denies palpitations, Denies dyspnea on exertion, Denies orthopnea and Denies other Resp Denies cough and Denies dyspnea on exertion GI Denies hematochezia and Denies change in stool character Musc Denies abnormal gait, Denies muscle weakness, Denies numbness, Denies radiating pain into limb and Denies tingling Neuro Denies abnormal gait, Denies dizziness, Denies numbness and Denies tingling Endo Denies fatigue and Denies palpitations Physical Exam Vital Signs: Last Vital Signs Pulse 63 04/13/24 13:36 BP 124/68 04/13/24 13:36 BMI result Body Mass Index 30.0 Const General: comfortable and no acute distress Orientation/consciousness: patient oriented x3 HEENT Other: Unremarkable Head: Yes normal to inspection Neck Neck: Yes normal visual inspection Chest Chest palpation & inspection: normal inspection of the chest Resp Auscultation: clear to auscultation bilaterally Cardio Palpation: normal PMI Heart sounds: S1 normal heart sound present, S2 normal heart sound present, no gallops, no murmurs and no rubs GI Palpation (GI): Soft to palpation Back/Spine/Pelvis Other: unremarkable Skin General skin exam: no rashes or lesions noted Neuro General: patient oriented x3 Extrem General: Yes normal to inspection Psych Mental Status: mental status grossly normal Assessment & Plan Assessment & Plan (1) Stress-induced cardiomyopathy: Onset Date: ~08/2023 Code(s): I51.81 - Takotsubo syndrome Category: Medical Plan: Echocardiogram at [facility] [place] with LVEF of 20-25%. Mid/apical segments dyskinetic and basal segments hyperdynamic. Cardiac catheterization with 40% stenosis in the proximal LAD/RCA with minimal irregularities circumflex. In the repeat study, LVEF is 55%. Overall suspicion is stress-induced cardiomyopathy. Clinically, no heart failure symptoms or signs. Not on any NAKUL inhibitors or ARB and has had intermittently elevated creatinine. On beta-blockers. (2) Atherosclerotic heart disease: Code(s): I25.10 - Atherosclerotic heart disease of [place] coronary artery without angina pectoris Category: Medical Plan: Moderate coronary disease only. Continue statins. Most recent LDL is 93 mg/dL. Statin dose has been increased. Follow-up lipids in due course. (3) Junctional rhythm: Code(s): I49.8 - Other specified cardiac arrhythmias Category: Medical Plan: EKG in a prior visit had shown junctional rhythm. At that time, she was on beta-blockers that was stopped but she states she is back on them as advised by EP. We will recheck Holter in about 3 months or so. She states she is taking metoprolol twice a day but advised to do once a day. (4) PAF (paroxysmal atrial fibrillation): Onset Date: ~08/2023 Code(s): I48.0 - Paroxysmal atrial fibrillation Category: Medical Plan: Recently noted during [facility] hospitalization. Status post atrial fibrillation ablation. Remains on Eliquis. With regard to beta-blockers, may reduced to once a day due to history of junctional rhythm. Follow-up Holter in 3 months. Orders: Orders ECG 3 day holter monitor 3 Months I48.0 - Paroxysmal atrial fibrillation, I49.8 - Other specified cardiac arrhythmias Coding Level of Care Code Est Pt Level 4 (81309) Diagnoses Stress-induced cardiomyopathy I51.81 Atherosclerotic heart disease I25.10 Junctional rhythm I49.8 PAF (paroxysmal atrial fibrillation) I48.0
[2024-04-13 13:36] VITALS: BP 124/68; PULSE 63
== END 2024-04-13 13:56 | disposition home or self-care (01) ==
PROVIDERS: PCP Internal Medicine; Visit Provider Internal Medicine
DX: I51.81 Takotsubo syndrome (principal); I25.10 Atherosclerotic heart disease of native coronary artery without angina pectoris; I49.8 Other specified cardiac arrhythmias; I48.0 Paroxysmal atrial fibrillation
CPT/HCPCS: 99214

== ENCOUNTER → 2024-04-13 13:29 | Outpatient (BNVA) | payer MEDICARE, MEDICAID, SELFPAY | PROVIDERS: PCP Internal Medicine; Visit Provider Internal Medicine | DX: I51.81 Takotsubo syndrome (principal); I25.10 Atherosclerotic heart disease of native coronary artery without angina pectoris; I49.8 Other specified cardiac arrhythmias; I48.0 Paroxysmal atrial fibrillation | CPT/HCPCS: 99212 ==

== ENCOUNTER 2024-04-18 10:29 | Outpatient (REF) | payer MEDICARE, MEDICAID, SELFPAY ==
[2024-04-18 11:21] LABS: MANUAL DIFF FLAG NO
[2024-04-18 11:32] LABS: Basophils Percent Auto 0.5 % (0-2); Eosinophils Absolute Auto 0.2 X10*3/uL (0.0-0.4); Eosinophils Percent Auto 4.1 % (0-4); Hematocrit 35.1 % (37.0-47.0); Hemoglobin 11.6 g/dl (12.0-16.0); Imm Gran Abs Auto 0.02 X10*3/uL (0.00-0.03); Imm Gran Pct Auto 0.5 % (0.0-0.4); Lymphocytes Absolute Auto 1.2 X10*3/uL (1.2-4.9); Lymphocytes Percent Auto 27.4 % (20-40); Mean Platelet Volume 10.6 fL (9.4-12.3); Monocytes Absolute Auto 0.5 X10*3/uL (0.1-1.2); Monocytes Percent Auto 10.8 % (2-11); Neutrophils Absolute Auto 2.5 x10*3/uL (2.0-8.3); Neutrophils Percent Auto 56.7 % (45-73); Platelet Count 167 X10*3/uL (160-400); Red Blood Count 3.51 X10*6/uL (4.20-5.50); Red Cell Distribution Width 14.4 % (11.0-16.0); White Blood Count 4.4 X10*3/uL (4.8-10.8)
[2024-04-18 12:12] LABS: Alanine Aminotransferase 9 U/L (0-31); Albumin Level 4.1 g/dL (3.5-5.0); Alkaline Phosphatase 104 U/L (39-117); Anion Gap 15 (12-20); Aspartate Amino Transferase 22 U/L (5-31); Bilirubin Total 0.8 mg/dL (0.0-1.0); Blood Urea Nitrogen 25 mg/dL (9-16); Calcium 8.5 mg/dL (8.4-10.2); Carbon Dioxide 24 mmol/L (22-29); Chloride 104 mmol/L (96-108); Estimated Glomerular Filt Rate 36; Glucose Random 92 mg/dL (60-115); Sodium 138 mmol/L (135-145); Total Protein 6.9 g/dL (6.5-8.0)
[2024-04-18 12:29] LABS: Appearance Urine Clear; Color Urine Dark Yellow; Glucose Urine UA Negative (Negative); Leukocyte Esterase Urine Negative (Negative); Nitrite Urine Negative (Negative); Specific Gravity - Urine 1.025 (1.005-1.025); UMIC TRIGGER UA YES; Urine Blood Negative (Negative); Urine Ketones Trace mg/dL (Negative); Urine Protein 30 (1+) mg/dL (Neg-Trace)
[2024-04-18 12:53] LABS: Bacteria Urine None Seen (None Seen); Epith (RTE) Cast Present; Hyaline Casts Urine >20 /LPF (0-2); RBC Urine 0-2 /HPF (0-2); WBC Urine 0-5 /HPF (0-5)
== END 2024-04-18 10:30 | disposition home or self-care (01) ==
LOC: HO.LAB 10:29
PROVIDERS: PCP Internal Medicine; Visit Provider Internal Medicine Hypertension Specialist
DX: I12.9 Hypertensive chronic kidney disease with stage 1 through stage 4 chronic kidney disease, or unspecified chronic kidney disease (principal); N18.32 Chronic kidney disease, stage 3b; E87.1 Hypo-osmolality and hyponatremia; I72.2 Aneurysm of renal artery; J44.9 Chronic obstructive pulmonary disease, unspecified; N39.0 Urinary tract infection, site not specified
CPT/HCPCS: 36415; 80053; 81001; 85025; 87086; 87088; 99212

== ENCOUNTER 2024-04-18 10:29 | Outpatient (AMB) | payer MEDICARE, MEDICAID, SELFPAY ==
[2024-04-18 10:37] VITALS: BP 110/64; PULSE 62; O2SAT 97; BMI 30.2
--- NOTE | 2024-04-18 10:37 | HO.NEPHOV_ITS ---
Vital Signs 04/18/24 10:37 Height 5 ft 6 in Weight 187 lb BMI 30.2 BP 110/64 Blood Pressure Location Rt brachial Position Sitting Pulse 62 Pulse Source Pulse Oximeter Pulse Oximetry (%) 97 Oxygen Delivery Method Room Air Intake Visit Reasons: CKD / 4 MO FU/ LVM [employer] Supervisor Required: No Accompanied by: Self / Same As Patient Allergies No Known Allergies Allergy (Verified 04/18/24 10:41) HPI Comments Details: 68 yr old woman with a solitary kidney an dh/o Renal artery aneurysm, well known to me , referred back for CKD She lost her in May 2023 and started drinknig beer. She was admitted to [facility] with hyponatremia Na was corrected Diuretics were changed LExapro has been added Recent creatinine is 1.54 mg/dL and hence this referral She quit smoking 7 years ago She has quit beer as well 12/09/23 Doing well. No edema Still has dyspnea 04/18/2024. She underwent cardiac ablation due to paroxysmal supraventricular tachycardia. Overall his no new complaints today. [facility] Medical History (Updated 04/18/24 @ 10:54 by Steve Catalan MD) Atherosclerotic heart disease Stress-induced cardiomyopathy (~08/2023) History of non-ST elevation myocardial infarction (NSTEMI) (~08/2023) PAF (paroxysmal atrial fibrillation) (~08/2023) HTN (hypertension) Renal artery aneurysm Kidney congenitally absent, right COPD mixed type Personal history of nicotine dependence Surgical History (Updated 04/18/24 @ 10:41 by SELENA Leyva) History of cardiac cath (~2022) History of right oophorectomy (~1979) History of left breast biopsy (~1974) History of tubal ligation History of tonsillectomy (~1969) Family History Father Cancer of prostate Mother Diabetes mellitus Brother No problems noted. Brother No problems noted. Brother No problems noted. Sister No problems noted. Sister No problems noted. Sister History of heart attack Daughter No problems noted. Daughter No problems noted. Maternal Grandfather No problems noted. Maternal Grandmother No problems noted. Paternal Grandfather No problems noted. Paternal Grandmother No problems noted. Maternal Aunt No problems noted. Social History Housing: Other Housing Other:: Mobile Home Alcohol intake: former Patient Tobacco Use Status: Former Tobacco user Tobacco use type: Cigarette Years Smoked: (onset 21yo, 1-2ppd x 41yrs, 60pyh - quit 2018) e-Cigarette/Vaping Use: Never Used service: No Current occupational status: retired Cognitive needs: No Hearing needs: No Vision needs: Yes Physical Exam Vital Signs: Last Vital Signs Pulse 62 04/18/24 10:37 BP 110/64 04/18/24 10:37 Pulse Ox 97 04/18/24 10:37 Oxygen Delivery Method Room Air 04/18/24 10:37 BMI result Body Mass Index 30.2 Const General: comfortable; No acute distress Orientation/consciousness: patient oriented x3 Eyes General: appearance normal, both eyes and all related structures Visual Kingsley: normal visual kingsley by confrontation Neck Neck: Yes supple and Yes no JVD Resp Effort & Inspection: normal respiratory effort and respiratory effort not decreased Auscultation: rhonchi Cardio Palpation: no palpable S3 and no palpable S4 Heart sounds: no rubs GI Inspection: Yes normal to inspection Palpation (GI): Soft to palpation Percussion: Yes normal to percussion Auscultation: normal bowel sounds General: Yes no CVA tenderness Back/Spine/Pelvis Back: no CVA tenderness Skin General skin exam: no petechiae and no purpura Neuro General: patient oriented x3 and no focal motor deficits Extrem General: No clubbing and No edema Results Reviewed Nephrology Results: Hgb 11.6 g/dl (12.0-16.0) L 04/18/24 WBC 4.4 X10*3/uL (4.8-10.8) L 04/18/24 Plt Count 167 X10*3/uL (160-400) 04/18/24 Sodium 138 mmol/L (135-145) 04/18/24 Potassium 5.0 mmol/L (3.3-5.1) 04/18/24 Chloride 104 mmol/L (96-108) 04/18/24 Carbon Dioxide 24 mmol/L (22-29) 04/18/24 BUN 25 mg/dL (9-16) H 04/18/24 Creatinine 1.44 mg/dL (0.5-1.4) H 04/18/24 Calcium 8.5 mg/dL (8.4-10.2) 04/18/24 Urine Protein 30 (1+) mg/dL (Neg-Trace) H 04/18/24 Assessment & Plan Assessment & Plan (1) HTN (hypertension): Code(s): I10 - Essential (primary) hypertension Category: Medical Qualifiers: Hypertension type: primary hypertension Qualified Code(s): I10 - Essential (primary) hypertension Plan: BP acceptable. No change in meds for now (2) CKD (chronic kidney disease) stage 3, GFR 30-59 ml/min: Code(s): N18.30 - Chronic kidney disease, stage 3 unspecified Category: Medical Qualifiers: Chronic kidney disease stage 3 subtype: stage 3b (GFR 30-44) Qualified Code(s): N18.32 - Chronic kidney disease, stage 3b Plan: Possible super imposed JULIO due to hypoperfusion Cr is at 1.5 Will keep Torsemide to 20 mg QOD Follow creatinine (3) Hyponatremia: Code(s): E87.1 - Hypo-osmolality and hyponatremia Category: Medical Plan: Due to excess beer Na has normalized after stopping beer However , she is on SSRI Discussed avoiding beer and limit PO water intake (4) Renal artery aneurysm: Code(s): I72.2 - Aneurysm of renal artery Category: Medical (5) COPD mixed type: Comment: (COPD - secondary to smoking), MODERATELY SEVERE, WITH GOOD RESPONSE TO BRONCHODILATOR THERAPY. Code(s): J44.9 - Chronic obstructive pulmonary disease, unspecified Category: Medical Plan Right kidney is absent Left renal artery Aneurysm is calcified Left RA shows about 60 % stenosis Avoid CTA due to risk of Contrast nephropathy Will consider MRA if Creatinine worsens of BP is difficulty Based on MRA,might need referral to Vascular surgery Orders: Orders UA and rflx microscopic Today N39.0 - Urinary tract infection, site not specified Urine Culture Today N39.0 - Urinary tract infection, site not specified Complete Blood Count Auto Diff Today I10 - Essential (primary) hypertension, N18.32 - Chronic kidney disease, stage 3b Comprehensive Met. Panel Today I10 - Essential (primary) hypertension, N18.32 - Chronic kidney disease, stage 3b Basic Metabolic Panel 4 Months N18.32 - Chronic kidney disease, stage 3b Coding Level of Care Code Est Pt Level 4 (65159) Diagnoses Primary hypertension I10 Hypertension type: primary hypertension Stage 3b chronic kidney disease N18.32 Chronic kidney disease stage 3 subtype: stage 3b (GFR 30-44) Hyponatremia E87.1 Renal artery aneurysm I72.2 COPD mixed type J44.9
== END 2024-04-18 11:00 | disposition home or self-care (01) ==
PROVIDERS: PCP Internal Medicine; Visit Provider Internal Medicine Hypertension Specialist
DX: I10 Essential (primary) hypertension (principal); N18.32 Chronic kidney disease, stage 3b; E87.1 Hypo-osmolality and hyponatremia; I72.2 Aneurysm of renal artery; J44.9 Chronic obstructive pulmonary disease, unspecified
CPT/HCPCS: 99214

== ENCOUNTER 2024-06-06 08:34 | Outpatient (AMB) | payer MEDICARE, MEDICAID, SELFPAY ==
[2024-06-06 08:40] VITALS: BP 136/88; PULSE 54; O2SAT 98; BMI 31.1
--- NOTE | 2024-06-06 08:40 | A.OFFPC_ITS ---
Vital Signs 06/06/24 08:40 Height 5 ft 6 in Weight 193 lb BMI 31.1 BP 136/88 Blood Pressure Location Lt brachial Position Sitting Pulse 54 Pulse Source Pulse Oximeter Pulse Oximetry (%) 98 Oxygen Delivery Method Room Air Intake Visit Reasons: 3 month follow up Allergies No Known Allergies Allergy (Verified 06/06/24 08:43) Medication List - Last Reconciled 06/06/24 by Carla Michael MD acetaminophen ER (Tylenol 8 Hour) 650 mg PO Q12H albuterol sulfate 90 mcg/actuation (Ventolin HFA) 1 inh inhalation QID PRN 30 days apixaban (Eliquis) 5 mg PO BID atorvastatin 80 mg PO QPM cetirizine (All Day Allergy (cetirizine)) 10 mg PO DAILY PRN escitalopram oxalate (Lexapro) 10 mg PO DAILY gabapentin 600 mg PO BEDTIME 90 days metoprolol tartrate 25 mg PO DAILY mirtazapine 15 mg PO BEDTIME mometasone-formoterol 200-5 mcg/actuation (Dulera) 2 puffs inhalation BID multivitamin (Daily Multi-Vitamin tablet) 1 tab PO DAILY senna 187 mg PO DAILY sennosides-docusate sodium 8.6-50 mg (Senokot-S) 1 tab-cap PO BEDTIME 90 days torsemide 20 mg PO .every other day Tobacco use date assessed: 06/06/24 Fall risk assessment: No Falls in past year Last assessed Fall Risk: 06/06/24 Dental Screening Dental Screen Date: 06/06/24 Did you have a dental visit in the last 12 months?: Yes Did you have a dental problem in the last 6 months where you did not have access to dental care?: No Was dental information given to patient?: Patient has dentist HPI 3 month follow up HPI Details Patient is a 69-year-old female with a history of stress-induced cardiomyopathy diagnosed August of 2023 with improved ejection fraction after that back to 55% from 25% on echocardiogram done October of 2023. Cardiac catheterization showed 40% blockage of CAD Patient had night monitor which showed evidence of atrial fibrillation along with SVT. Had electrophysiological study and has appointment for follow-up on that Patient is also seeing Dr. Barry , cardiology [facility] She has a renal artery aneurysm which is stable She is seeing Dr. Gallagher for CKD Enjoying her time with family Patient is on high-dose gabapentin because of chronic low back pain does not want to have surgery or any other intervention. She is doing well with gabapentin 600 mg as far as pain control his concern. Taking Lexapro for depression She takes mirtazapine 15 mg to sleep at night and is doing well with that medication as well, no side effects Allergies stable with cetirizine Asthma COPD: Continue inhalers, managed by Pulmonary [facility] Dr. Albright [facility] Medical History Atherosclerotic heart disease Stress-induced cardiomyopathy (~08/2023) History of non-ST elevation myocardial infarction (NSTEMI) (~08/2023) PAF (paroxysmal atrial fibrillation) (~08/2023) HTN (hypertension) Renal artery aneurysm Kidney congenitally absent, right COPD mixed type Personal history of nicotine dependence Surgical History History of cardiac cath (~2022) History of right oophorectomy (~1979) History of left breast biopsy (~1974) History of tubal ligation History of tonsillectomy (~1969) Family History Father Cancer of prostate Mother Diabetes mellitus Brother No problems noted. Brother No problems noted. Brother No problems noted. Sister No problems noted. Sister No problems noted. Sister History of heart attack Daughter No problems noted. Daughter No problems noted. Maternal Grandfather No problems noted. Maternal Grandmother No problems noted. Paternal Grandfather No problems noted. Paternal Grandmother No problems noted. Maternal Aunt No problems noted. Social History Housing: Other Housing Other:: Mobile Home Alcohol intake: former Patient Tobacco Use Status: Former Tobacco user Tobacco use type: Cigarette Years Smoked: (onset 21yo, 1-2ppd x 41yrs, 60pyh - quit 2018) e-Cigarette/Vaping Use: Never Used service: No Current occupational status: retired Cognitive needs: No Hearing needs: No Vision needs: Yes Questionnaire PHQ-9 Over the last 2 weeks, how often have you been bothered by any of the following problems? 1. Little interest or pleasure in doing things: not at all 2. Feeling down, depressed, or hopeless: several days 3. Trouble falling or staying asleep, or sleeping too much: several days 4. Feeling tired or having little energy: not at all 5. Poor appetite or overeating: not at all 6. Feeling bad about yourself - or that you are a failure or have let yourself or your family down: not at all 7. Trouble concentrating on things, such as reading the newspaper or watching television: not at all 8. Moving or speaking so slowly that other people could have noticed. Or the opposite - being so fidgety or restless that you have been moving around a lot more than usual: not at all 9. Thoughts that you would be better off or of hurting yourself in some way: not at all Total score: 2 Depression Screening Interpretation: Negative Depression Screening Done: Yes 09321 - PHQ-9 Billing: Yes Source: Developed by Drs. Marco Antonio Oliva, Hoda Del Cid, Enmanuel Duenas and colleagues, with an educational arie from [employer]. Thrive Questionnaire Date Thrive assessed: 06/06/24 I am a: Patient What is your living situation today?: I have a steady place to live Within the past 12 months, did the food you bought not last and you didn't have the money to get more?: Never true Within the past 12 months, did you worry whether your food would run out before you got money to buy more?: Never true Do you have trouble paying for medicines?: No Do you have trouble getting transportation to medical appointments?: No Do you have trouble paying your heating and electricity bill?: Yes Do you have trouble taking care of your child, family member or friend?: No Do you have trouble with day-to-day activities such as bathing, preparing meals, shopping, managing finances, etc.?: No Are you currently unemployed and looking for a job?: No Are you interested in more education?: No Please select the resources that you would like help with: None Currently or been in a relationship where the following occur: No concerns reported THRIVE Score: 1 AUDIT C Alcohol Use Questionnaire (AUDIT-C) 1. How often do you have a drink containing alcohol?: Never 3. How often do you have six or more drinks on one occasion?: Never Total Score: 0 Score Reviewed/Action Taken: Yes CAESAR-7 AMB Questionnaire CAESAR-7 Date CAESAR - 7 assessed: 06/06/24 Feeling nervous, anxious, or on edge: 0 = Not at all Not being able to stop or control worryin = Not at all Worrying too much about different things: 0 = Not at all Trouble relaxin = Not at all Being so restless that it is hard to sit still: 0 = Not at all Becoming easily annoyed or irritable: 0 = Not at all Feeling afraid as if something awful might happen: 0 = Not at all Total CAESAR-7 score (0-4 normal; 5-9 mild; 10-14 moderate; 15-21 severe): 0 Source: Developed by Drs. Marco Antonio Oliva, Hoda Del Cid, Enmanuel Duenas and colleagues, with an educational arie from [employer]. CAESAR-7 Assessment Billing CAESAR-7 Assessment Tool: CAESAR-7 Assessment 31077 Review of Systems Const Denies chills and Denies fever(s) ENT Denies epistaxis and Denies nasal discharge Card Denies chest pain Resp Denies chest congestion, Denies cough and Denies hemoptysis GI Denies diarrhea and Denies nausea Skin/Breast Denies rash Neuro Reports no additional complaints Psych Reports no additional complaints Endo Reports no additional complaints Physical exam (Primary Care) Vital Signs: Last Vital Signs Pulse 54 06/06/24 08:40 BP 136/88 06/06/24 08:40 Pulse Ox 98 06/06/24 08:40 Oxygen Delivery Method Room Air 06/06/24 08:40 BMI result Body Mass Index 31.1 Tobacco/Smoking Status: Tobacco use Status Tobacco use date assessed 06/06/24 06/06/24 08:43 Patient Tobacco Use Status Former Tobacco user 06/06/24 08:43 Tobacco use type Cigarette 06/06/24 08:43 e-Cigarette/Vaping Use Never Used 06/06/24 08:43 PHQ-9: PHQ-9 Score PHQ-9: Total score 2 06/06/24 09:12 Depression Screening Interpretation: Negative Thrive Assessment: Date of Thrive Assessment Date Thrive assessed 06/06/24 06/06/24 08:43 Currently or been in a relationship where the following occur: No concerns reported Const General: cooperative, comfortable and no acute distress Orientation/consciousness: patient oriented x3 HENMT Head: Yes normocephalic Eyes General: appearance normal, both eyes and all related structures Neck Neck: Yes supple Resp Effort & Inspection: normal respiratory effort, no cough and no stridor Cardio Rhythm: regular rhythm Heart sounds: S1 normal heart sound present and S2 normal heart sound present Skin General skin exam: turgor normal Neuro General: patient oriented x3, tone normal and moves all extremities Extrem Right lower extremity: no edema Left lower extremity: no edema Assessment and Plan Assessment & Plan (1) Hypertension, essential: Code(s): I10 - Essential (primary) hypertension (2) Asthma, moderate: Code(s): J45.909 - Unspecified asthma, uncomplicated Qualifiers: Asthma complication type: uncomplicated Asthma persistence: persistent Qualified Code(s): J45.40 - Moderate persistent asthma, uncomplicated (3) COPD mixed type: Comment: (COPD - secondary to smoking), MODERATELY SEVERE, WITH GOOD RESPONSE TO BRONCHODILATOR THERAPY. Code(s): J44.9 - Chronic obstructive pulmonary disease, unspecified (4) CKD (chronic kidney disease) stage 3, GFR 30-59 ml/min: Code(s): N18.30 - Chronic kidney disease, stage 3 unspecified Qualifiers: Chronic kidney disease stage 3 subtype: stage 3b (GFR 30-44) Qualified Code(s): N18.32 - Chronic kidney disease, stage 3b (5) Major depression, recurrent: Code(s): F33.9 - Major depressive disorder, recurrent, unspecified Qualifiers: Active/Remission status: currently active Major depression episode severity: mild Qualified Code(s): F33.0 - Major depressive disorder, recurrent, mild (6) HTN (hypertension): Code(s): I10 - Essential (primary) hypertension Qualifiers: Hypertension type: primary hypertension Qualified Code(s): I10 - Essential (primary) hypertension (7) PAF (paroxysmal atrial fibrillation): Onset Date: ~08/2023 Code(s): I48.0 - Paroxysmal atrial fibrillation (8) Hypertensive nephropathy: Code(s): I12.9 - Hypertensive chronic kidney disease with stage 1 through stage 4 chronic kidney disease, or unspecified chronic kidney disease (9) Stress-induced cardiomyopathy: Onset Date: ~08/2023 Code(s): I51.81 - Takotsubo syndrome (10) Renal artery aneurysm: Code(s): I72.2 - Aneurysm of renal artery Plan Patient is a 69-year-old female with a history of stress-induced cardiomyopathy diagnosed August of 2023 with improved ejection fraction after that back to 55% from 25% on echocardiogram done October of 2023. Cardiac catheterization showed 40% blockage of CAD Patient had night monitor which showed evidence of atrial fibrillation along with SVT. Had electrophysiological study and has appointment for follow-up on that Patient is also seeing Dr. Barry , cardiology [facility] She has a renal artery aneurysm which is stable She is seeing Dr. Gallagher for CKD Enjoying her time with family Patient is on high-dose gabapentin because of chronic low back pain does not want to have surgery or any other intervention. She is doing well with gabapentin 600 mg as far as pain control his concern. Taking Lexapro for depression She takes mirtazapine 15 mg to sleep at night and is doing well with that medication as well, no side effects Allergies stable with cetirizine Asthma COPD: Continue inhalers, managed by Pulmonary [facility] Dr. Albright Coding Level of Care Code Est Pt Level 4 (03343) Complex EM visit Add On G2211 Diagnoses Hypertension, essential I10 Moderate persistent asthma without complication J45.40 Asthma complication type: uncomplicated Asthma persistence: persistent COPD mixed type J44.9 Stage 3b chronic kidney disease N18.32 Chronic kidney disease stage 3 subtype: stage 3b (GFR 30-44) Mild episode of recurrent major depressive disorder F33.0 Active/Remission status: currently active Major depression episode severity: mild Primary hypertension I10 Hypertension type: primary hypertension PAF (paroxysmal atrial fibrillation) I48.0 Hypertensive nephropathy I12.9 Stress-induced cardiomyopathy I51.81 Renal artery aneurysm I72.2 Additional Codes CAESAR-7 Assessment Billing - CAESAR-7 Assessment Tool: CAESAR-7 Assessment [id number] ([id number])
== END 2024-06-06 09:03 | disposition home or self-care (01) ==
PROVIDERS: PCP Internal Medicine; Visit Provider Internal Medicine
DX: I12.9 Hypertensive chronic kidney disease with stage 1 through stage 4 chronic kidney disease, or unspecified chronic kidney disease (principal); J44.9 Chronic obstructive pulmonary disease, unspecified; N18.32 Chronic kidney disease, stage 3b; F33.0 Major depressive disorder, recurrent, mild; I48.0 Paroxysmal atrial fibrillation; I72.2 Aneurysm of renal artery; I10 Essential (primary) hypertension; J45.40 Moderate persistent asthma, uncomplicated; I51.81 Takotsubo syndrome
CPT/HCPCS: 99214; G2211

== ENCOUNTER 2024-07-11 10:10 | Outpatient (AMB) | payer MEDICARE, MEDICAID, SELFPAY ==
[2024-07-11 10:34] VITALS: BP 120/82; PULSE 72; O2SAT 97; BMI 29.9
--- NOTE | 2024-07-11 10:34 | A.OFFVIS_ITS ---
Vital Signs 07/11/24 10:34 Height 5 ft 6 in Weight 185 lb 3.013 oz BMI 29.9 BP 120/82 Blood Pressure Location Lt brachial Position Sitting Pulse 72 Pulse Source Pulse Oximeter Pulse Oximetry (%) 97 Oxygen Delivery Method Room Air Intake Visit Reasons: COPD Intake Note: pt is here for follow up and has been not feeling well for about a week, coughing, running nose, head congestion, negative covid test. no energy. [employer] Required: No Allergies No Known Allergies Allergy (Verified 07/11/24 10:55) Medication List - Last Reconciled 07/11/24 by Enrique Albright MD acetaminophen ER (Tylenol 8 Hour) 650 mg PO Q12H albuterol sulfate 90 mcg/actuation (Ventolin HFA) 1 inh inhalation QID PRN 30 days apixaban (Eliquis) 5 mg PO BID atorvastatin 80 mg PO QPM cetirizine (All Day Allergy (cetirizine)) 10 mg PO DAILY PRN escitalopram oxalate (Lexapro) 10 mg PO DAILY ferrous sulfate (Feosol) 325 mg PO DAILY gabapentin 600 mg PO BEDTIME 90 days metoprolol tartrate 25 mg PO DAILY mirtazapine 15 mg PO BEDTIME mometasone-formoterol 200-5 mcg/actuation (Dulera) 2 puffs inhalation BID multivitamin (Daily Multi-Vitamin tablet) 1 tab PO DAILY senna 187 mg PO DAILY sennosides-docusate sodium 8.6-50 mg (Senokot-S) 1 tab-cap PO BEDTIME 90 days torsemide 20 mg PO .every other day Do you need a note to return to daycare/school/sports/work: No HPI HPI COPD: Details: 69 years old female known case of COPD/asthma, normally well controlled with the use of Dulera. Now for the past 1 week she has cough with nasal congestion and increased wheezing, Denies fever or chills, COVID testing was negative. She continues to have lot of cough and some discomfort in the chest. [facility] Medical History Atherosclerotic heart disease Stress-induced cardiomyopathy (~08/2023) History of non-ST elevation myocardial infarction (NSTEMI) (~08/2023) PAF (paroxysmal atrial fibrillation) (~08/2023) HTN (hypertension) Renal artery aneurysm Kidney congenitally absent, right COPD mixed type Personal history of nicotine dependence Surgical History History of cardiac cath (~2022) History of right oophorectomy (~1979) History of left breast biopsy (~1974) History of tubal ligation History of tonsillectomy (~1969) Family History Father Cancer of prostate Mother Diabetes mellitus Brother No problems noted. Brother No problems noted. Brother No problems noted. Sister No problems noted. Sister No problems noted. Sister History of heart attack Daughter No problems noted. Daughter No problems noted. Maternal Grandfather No problems noted. Maternal Grandmother No problems noted. Paternal Grandfather No problems noted. Paternal Grandmother No problems noted. Maternal Aunt No problems noted. Social History Housing: Other Housing Other:: Mobile Home Alcohol intake: former Patient Tobacco Use Status: Former Tobacco user Tobacco use type: Cigarette Years Smoked: (onset 21yo, 1-2ppd x 41yrs, 60pyh - quit 2017) e-Cigarette/Vaping Use: Never Used service: No Current occupational status: retired Cognitive needs: No Hearing needs: No Vision needs: Yes Review of Systems Const All systems reviewed & are unremarkable except as noted in HPI and below Eyes Reports no additional complaints ENT Reports no additional complaints Card Denies chest pain, Reports leg edema and Reports dyspnea on exertion Resp Reports as per HPI and Reports dyspnea on exertion GI Reports constipation Musc Reports no additional complaints Skin/Breast Reports system reviewed and no additional complaints, except as documented Neuro Reports no additional complaints Psych Reports depression Ang/Lymph Reports no additional complaints Physical Exam Vital Signs: Last Vital Signs Pulse 72 07/11/24 10:34 BP 120/82 07/11/24 10:34 Pulse Ox 97 07/11/24 10:34 Oxygen Delivery Method Room Air 07/11/24 10:34 BMI result Body Mass Index 29.9 Const General: comfortable, no acute distress, alert and awake Orientation/consciousness: patient oriented x3 HEENT Head: Yes normal to inspection General nose exam: No nasal polyps present and No nasal discharge present Face and sinus: Yes sinuses nontender Mouth: oropharynx normal Teeth and gingiva: caries and poor dentition Throat: Yes posterior oropharynx normal Eyes General: appearance normal, both eyes and all related structures Neck Neck: Yes normal visual inspection, Yes no lymphadenopathy, Yes trachea midline and Yes no JVD Thyroid: Thyroid normal Chest Chest palpation & inspection: normal inspection of the chest, normal palpation of entire chest wall and no tenderness Resp Other: PERCUSSION NOTE IS RESONANT. BREATH SOUNDS ARE DISTANT WITH PROLONGED EXPIRATORY PHASE HAS SCATTERED INSPIRATORY AND EXPIRATORY WHEEZES ESPECIALLY ON THE LEFT SIDE OF THE CHEST.. NO CREPITATIONS. Cardio Palpation: normal PMI Rate: regular rate Rhythm: regular rhythm Heart sounds: no gallops and no murmurs GI Palpation (GI): Soft to palpation, nontender, No hepatosplenomegaly present and no masses Auscultation: normal bowel sounds Back/Spine/Pelvis Thoracic/Lumbar Spine: thoracic and lumbar spine normal to inspection Skin General skin exam: no rashes or lesions noted Neuro General: patient oriented x3 and no focal motor deficits Cranial nerves: Yes CN's II-XII intact bilaterally Extrem General: Yes normal to inspection, Yes no clubbing, cyanosis or edema and Yes no calf tenderness Psych Appearance: grossly normal and well kempt Speech and movement: Normal speech and movement present Assessment & Plan Assessment & Plan (1) COPD mixed type: Comment: (COPD - secondary to smoking), MODERATELY SEVERE, WITH GOOD RESPONSE TO BRONCHODILATOR THERAPY. PATIENT HAS BEEN FEELING WELL WITH THE USE OF DULERA HFA 2 PUFFS B.I.D., AND HARDLY NEEDING TO USE THE RESCUE INHALER. NOW FOR THE PAST 1 WEEK SHE HAS A LINGERING COUGH WITH SOME WHEEZING, AND GETTING MORE SHORT OF BREATH. SHE SEEMS TO HAVE AN ACUTE EXACERBATIONS SECONDARY TO UPPER AIRWAYS ALLERGY OR A MILD VIRAL INFECTION. Code(s): J44.9 - Chronic obstructive pulmonary disease, unspecified Category: Medical Plan: CONTINUE DULERA 200-5 2 PUFFS B.I.D. USE ALBUTEROL HFA(VENTOLIN ) 2 PUFFS Q 4-6 HOURS P.R.N.. A SHORT COURSE OF PREDNISONE 40 MG A DAY FOR 5 DAYS IS PRESCRIBED (2) Personal history of nicotine dependence: Comment: (former smoker - onset 21yo, 1-2ppd x 41yrs, 60pyh - quit 2018) Code(s): Z87.891 - Personal history of nicotine dependence Category: Medical Plan: COMMENDED FOR NOT GOING BACK TO SMOKING Coding Level of Care Code Est Pt Level 3 (76562) Diagnoses COPD mixed type J44.9 Personal history of nicotine dependence Z87.891
== END 2024-07-11 11:01 | disposition home or self-care (01) ==
PROVIDERS: PCP Internal Medicine; Visit Provider Internal Medicine
DX: J44.9 Chronic obstructive pulmonary disease, unspecified (principal); Z87.891 Personal history of nicotine dependence
CPT/HCPCS: 99213

== ENCOUNTER → 2024-07-11 10:10 | Outpatient (BNVA) | payer MEDICARE, MEDICAID, SELFPAY | PROVIDERS: PCP Internal Medicine; Visit Provider Internal Medicine | DX: J44.9 Chronic obstructive pulmonary disease, unspecified (principal); Z87.891 Personal history of nicotine dependence | CPT/HCPCS: 99212 ==

== ENCOUNTER → 2024-07-14 10:41 | Outpatient (REF) | payer MEDICARE, MEDICAID, SELFPAY ==
--- NOTE | 2024-07-14 10:46 | HM_ITS ---
* Total monitoring time 3 days. * Underlying rhythm is sinus with an average rate of 75/Min. * Frequent supraventricular ectopy with a burden of 3.6%. * No significant pauses or high-grade AV blocks. * No patient markers or diary events. MTDD
== END ==
LOC: HO.CARD 10:41
PROVIDERS: PCP Internal Medicine; Visit Provider Internal Medicine
DX: I48.0 Paroxysmal atrial fibrillation (principal); I49.8 Other specified cardiac arrhythmias
CPT/HCPCS: 93242

== ENCOUNTER → 2024-07-14 10:46 | Outpatient (BNV) | payer MEDICARE, MEDICAID, SELFPAY | PROVIDERS: PCP Internal Medicine; Visit Provider Internal Medicine | DX: I48.91 Unspecified atrial fibrillation (principal) | CPT/HCPCS: 93244 ==

== ENCOUNTER 2024-08-07 10:33 | Outpatient (REF) | payer MEDICARE, MEDICAID, SELFPAY ==
[2024-08-07 11:30] LABS: MANUAL DIFF FLAG NO
[2024-08-07 12:07] LABS: Basophils Percent Auto 0.2 % (0-2); Eosinophils Absolute Auto 0.2 X10*3/uL (0.0-0.4); Hematocrit 34.9 % (37.0-47.0); Hemoglobin 11.7 g/dl (12.0-16.0); Imm Gran Abs Auto 0.02 X10*3/uL (0.00-0.03); Imm Gran Pct Auto 0.4 % (0.0-0.4); Lymphocytes Absolute Auto 1.2 X10*3/uL (1.2-4.9); Mean Corpuscular HGB Conc 33.5 g/dl (31.0-35.0); Mean Corpuscular Hemoglobin 32.7 pg (27.0-33.0); Mean Corpuscular Volume 97.5 fL (80.0-98.0); Mean Platelet Volume 10.4 fL (9.4-12.3); Monocytes Absolute Auto 0.6 X10*3/uL (0.1-1.2); Monocytes Percent Auto 12.2 % (2-11); Neutrophils Absolute Auto 2.8 x10*3/uL (2.0-8.3); Neutrophils Percent Auto 58.2 % (45-73); Platelet Count 256 X10*3/uL (160-400); Red Blood Count 3.58 X10*6/uL (4.20-5.50); Red Cell Distribution Width 12.6 % (11.0-16.0); White Blood Count 4.8 X10*3/uL (4.8-10.8)
[2024-08-07 12:22] LABS: Appearance Urine Clear; Color Urine Yellow; Glucose Urine UA Negative (Negative); Leukocyte Esterase Urine Negative (Negative); Nitrite Urine Negative (Negative); PH 8.5 (5.0-9.0); Specific Gravity - Urine <= 1.005 (1.005-1.025); Urine Blood Negative (Negative); Urine Ketones Negative (Negative); Urine Protein Negative (Neg-Trace)
[2024-08-07 12:44] LABS: Alanine Aminotransferase 14 U/L (0-31); Albumin Level 3.8 g/dL (3.5-5.0); Alkaline Phosphatase 96 U/L (39-117); Anion Gap 12 (12-20); Aspartate Amino Transferase 28 U/L (5-31); Blood Urea Nitrogen 15 mg/dL (9-16); Calcium 8.5 mg/dL (8.4-10.2); Carbon Dioxide 28 mmol/L (22-29); Chloride 98 mmol/L (96-108); Cholesterol 131 mg/dL (<200); Estimated Glomerular Filt Rate 44; Glucose Random 91 mg/dL (60-115); HDL Cholesterol 70 mg/dL (>40); LDL Cholesterol Calculated 51 mg/dL (<100); Potassium 4.3 mmol/L (3.3-5.1); Sodium 134 mmol/L (135-145); Total Protein 6.8 g/dL (6.5-8.0); Triglycerides 52 mg/dL (<150)
[2024-08-08 20:17] LABS: LDL Cholesterol Direct 48 mg/dL (<100)
== END 2024-08-07 10:34 | disposition home or self-care (01) ==
LOC: HO.LAB 10:33
PROVIDERS: Internal Medicine Hypertension Specialist; PCP Internal Medicine; Visit Provider Internal Medicine
DX: E78.5 Hyperlipidemia, unspecified (principal); N39.0 Urinary tract infection, site not specified; N18.32 Chronic kidney disease, stage 3b; I72.2 Aneurysm of renal artery; I12.9 Hypertensive chronic kidney disease with stage 1 through stage 4 chronic kidney disease, or unspecified chronic kidney disease; I10 Essential (primary) hypertension; I48.0 Paroxysmal atrial fibrillation
CPT/HCPCS: 36415; 80053; 80061; 81003; 83721; 85025; 99212

== ENCOUNTER 2024-08-07 10:33 | Outpatient (AMB) | payer MEDICARE, MEDICAID, SELFPAY ==
--- NOTE | 2024-08-07 10:48 | A.OFFVIS_ITS ---
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 Accompanied by: Self / Same As Patient Allergies No Known Allergies Allergy (Verified 07/11/24 10:55) Medication List - Last Reconciled 08/07/24 by Bryan Barry MD acetaminophen ER (Tylenol 8 Hour) 650 mg PO Q12H albuterol sulfate 90 mcg/actuation (Ventolin HFA) 1 inh inhalation QID PRN 30 days apixaban (Eliquis) 5 mg PO BID atorvastatin 80 mg PO QPM cetirizine (All Day Allergy (cetirizine)) 10 mg PO DAILY PRN escitalopram oxalate (Lexapro) 10 mg PO DAILY ferrous sulfate (Feosol) 325 mg PO DAILY gabapentin 600 mg PO BEDTIME 90 days metoprolol succinate ER 25 mg PO DAILY mirtazapine 15 mg PO BEDTIME mometasone-formoterol 200-5 mcg/actuation (Dulera) 2 puffs inhalation BID multivitamin (Daily Multi-Vitamin tablet) 1 tab PO DAILY senna 187 mg PO DAILY sennosides-docusate sodium 8.6-50 mg (Senokot-S) 1 tab-cap PO BEDTIME 90 days torsemide 20 mg PO .every other day HPI Comments Details: Josi returns for follow-up. To recall, she presented to [facility] with complaints of substernal chest pain. EKG as well as high sensitivity troponins were abnormal. Echocardiogram showed wall motion abnormalities and that led to cardiac catheterization but suspicion was rather stress-induced cardiomyopathy. Per discharge summary, it seems she also had some atrial fibrillation and hence she was put on Eliquis. During outpatient visit, she also had evidence of junctional rhythm. Then we had stopped the beta-blockers she was taking. Sent to EP and she underwent atrial fibrillation ablation. She is back on a small dose of beta-blockers. Otherwise, doing fine. No angina or palpitations or any other cardiac symptoms. Getting along fine. [facility] Medical History Atherosclerotic heart disease Stress-induced cardiomyopathy (~08/2023) History of non-ST elevation myocardial infarction (NSTEMI) (~08/2023) PAF (paroxysmal atrial fibrillation) (~08/2023) HTN (hypertension) Renal artery aneurysm Kidney congenitally absent, right COPD mixed type Personal history of nicotine dependence Surgical History History of cardiac cath (~2022) History of right oophorectomy (~1979) History of left breast biopsy (~1974) History of tubal ligation History of tonsillectomy (~1969) Family History Father Cancer of prostate Mother Diabetes mellitus Brother No problems noted. Brother No problems noted. Brother No problems noted. Sister No problems noted. Sister No problems noted. Sister History of heart attack Daughter No problems noted. Daughter No problems noted. Maternal Grandfather No problems noted. Maternal Grandmother No problems noted. Paternal Grandfather No problems noted. Paternal Grandmother No problems noted. Maternal Aunt No problems noted. Social History Housing: Other Housing Other:: Mobile Home Alcohol intake: former Patient Tobacco Use Status: Former Tobacco user Tobacco use type: Cigarette Years Smoked: (onset 21yo, 1-2ppd x 41yrs, 60pyh - quit 2017) e-Cigarette/Vaping Use: Never Used service: No Current occupational status: retired Cognitive needs: No Hearing needs: No Vision needs: Yes Review of Systems Const Denies chills, Denies fatigue, Denies fever(s), Denies weight gain and Denies weight loss ENT Denies dizziness Card Denies chest pain, Denies leg edema, Denies lightheadedness, Denies palpitati ons, Denies dyspnea on exertion, Denies orthopnea and Denies other Resp Denies cough and Denies dyspnea on exertion GI Denies hematochezia and Denies change in stool character Musc Denies abnormal gait, Denies muscle weakness, Denies numbness, Denies radiating pain into limb and Denies tingling Neuro Denies abnormal gait, Denies dizziness, Denies numbness and Denies tingling Endo Denies fatigue and Denies palpitations Physical Exam Vital Signs: Last Vital Signs Pulse 63 08/07/24 10:49 BP 126/70 08/07/24 10:49 BMI result Body Mass Index 31.0 Const General: comfortable and no acute distress Orientation/consciousness: patient oriented x3 HEENT Other: Unremarkable Head: Yes normal to inspection Neck Neck: Yes normal visual inspection Chest Chest palpation & inspection: normal inspection of the chest Resp Auscultation: clear to auscultation bilaterally Cardio Palpation: normal PMI Heart sounds: S1 normal heart sound present, S2 normal heart sound present, no gallops, no murmurs and no rubs GI Palpation (GI): Soft to palpation Back/Spine/Pelvis Other: unremarkable Skin General skin exam: no rashes or lesions noted Neuro General: patient oriented x3 Extrem General: Yes normal to inspection Psych Mental Status: mental status grossly normal Assessment & Plan Assessment & Plan (1) Stress-induced cardiomyopathy: Onset Date: ~08/2023 Code(s): I51.81 - Takotsubo syndrome Category: Medical Plan: Echocardiogram at [facility] with LVEF of 20-25%. Mid/apical segments dyskinetic and basal segments hyperdynamic. Cardiac catheterization with 40% stenosis in the proximal LAD/RCA with minimal irregularities in circumflex. In the repeat study, LVEF is 55%. Overall suspicion is stress-induced cardiomyopathy. Clinically, no heart failure symptoms or signs. Not on any NAKUL inhibitors or ARB and has had intermittently elevated creatinine. On beta-blockers. (2) Atherosclerotic heart disease: Code(s): I25.10 - Atherosclerotic heart disease of [place] coronary artery without angina pectoris Category: Medical Plan: Moderate coronary disease only. Continue statins. Dose increased in the past. May recheck lipids. (3) Junctional rhythm: Code(s): I49.8 - Other specified cardiac arrhythmias Category: Medical Plan: EKG in a prior visit had shown junctional rhythm. This issue is resolved at this time. (4) PAF (paroxysmal atrial fibrillation): Onset Date: ~08/2023 Code(s): I48.0 - Paroxysmal atrial fibrillation Category: Medical Plan: Recently noted during [facility] hospitalization. Now status post ablation. On a small dose of beta-blockers due to junctional rhythm history. Continue anticoagulation. In the Holter monitor, underlying sinus rhythm with an average rate of 75/Min. Frequent supraventricular ectopy with a burden of 3.6%. Orders: Orders Lipid Panel Today E78.5 - Hyperlipidemia, unspecified Coding Level of Care Code Est Pt Level 4 (42956) Diagnoses Stress-induced cardiomyopathy I51.81 Atherosclerotic heart disease I25.10 Junctional rhythm I49.8 PAF (paroxysmal atrial fibrillation) I48.0
[2024-08-07 10:49] VITALS: BP 126/70; PULSE 63; BMI 31.0
== END 2024-08-07 11:08 | disposition home or self-care (01) ==
PROVIDERS: PCP Internal Medicine; Visit Provider Internal Medicine
DX: I51.81 Takotsubo syndrome (principal); I25.10 Atherosclerotic heart disease of native coronary artery without angina pectoris; I49.8 Other specified cardiac arrhythmias; I48.0 Paroxysmal atrial fibrillation
CPT/HCPCS: 99214

== ENCOUNTER 2024-08-15 09:19 | Outpatient (AMB) | payer MEDICARE, MEDICAID, SELFPAY ==
--- NOTE | 2024-08-15 09:29 | HO.NEPHOV ---
Vital Signs 08/15/24 09:30 Height 5 ft 6 in Weight 192 lb BMI 31.0 BP 114/72 Blood Pressure Location Rt brachial Position Sitting Pulse 65 Pulse Source Pulse Oximeter Pulse Oximetry (%) 97 Oxygen Delivery Method Room Air Intake Visit Reasons: 4 mon follow up/ Conf Concrete Analyst Required: No Accompanied by: Self / Same As Patient Allergies No Known Allergies Allergy (Verified 08/15/24 09:33) Medication List - Last Reconciled 08/15/24 by Steve Catalan MD acetaminophen ER (Tylenol 8 Hour) 650 mg PO Q12H albuterol sulfate 90 mcg/actuation (Ventolin HFA) 1 inh inhalation QID PRN 30 days apixaban (Eliquis) 5 mg PO BID atorvastatin 80 mg PO QPM cetirizine (All Day Allergy (cetirizine)) 10 mg PO DAILY PRN escitalopram oxalate (Lexapro) 10 mg PO DAILY ferrous sulfate (Feosol) 325 mg PO DAILY gabapentin 600 mg PO BEDTIME 90 days metoprolol succinate ER 25 mg PO DAILY mirtazapine 15 mg PO BEDTIME mometasone-formoterol 200-5 mcg/actuation (Dulera) 2 puffs inhalation BID multivitamin (Daily Multi-Vitamin tablet) 1 tab PO DAILY senna 187 mg PO DAILY sennosides-docusate sodium 8.6-50 mg (Senokot-S) 1 tab-cap PO BEDTIME 90 days torsemide 20 mg PO .every other day HPI Comments Details: 68 yr old woman with a solitary kidney an dh/o Renal artery aneurysm, well known to me , referred back for CKD She lost her in May 2023 and started drinknig beer. She was admitted to [facility] with hyponatremia Na was corrected Diuretics were changed LExapro has been added Recent creatinine is 1.54 mg/dL and hence this referral She quit smoking 7 years ago She has quit beer as well 12/09/23 Doing well.No edema;Still has dyspnea 04/18/2024. She underwent cardiac ablation due to paroxysmal supraventricular tachycardia. Overall his no new complaints today. 08/15/24 Doing well. Dyspnea on exertion. NO chest pain Follows with Dr. Albright and currently on inhalers Currently not smoking or consuming beer [facility] Medical History Atherosclerotic heart disease Stress-induced cardiomyopathy (~08/2023) History of non-ST elevation myocardial infarction (NSTEMI) (~08/2023) PAF (paroxysmal atrial fibrillation) (~08/2023) HTN (hypertension) Renal artery aneurysm Kidney congenitally absent, right COPD mixed type Personal history of nicotine dependence Surgical History History of cardiac cath (~2022) History of right oophorectomy (~1979) History of left breast biopsy (~1974) History of tubal ligation History of tonsillectomy (~1969) Family History Father Cancer of prostate Mother Diabetes mellitus Brother No problems noted. Brother No problems noted. Brother No problems noted. Sister No problems noted. Sister No problems noted. Sister History of heart attack Daughter No problems noted. Daughter No problems noted. Maternal Grandfather No problems noted. Maternal Grandmother No problems noted. Paternal Grandfather No problems noted. Paternal Grandmother No problems noted. Maternal Aunt No problems noted. Social History Housing: Other Housing Other:: Mobile Home Alcohol intake: former Patient Tobacco Use Status: Former Tobacco user Tobacco use type: Cigarette Years Smoked: (onset 21yo, 1-2ppd x 41yrs, 60pyh - quit 2017) e-Cigarette/Vaping Use: Never Used service: No Current occupational status: retired Cognitive needs: No Hearing needs: No Vision needs: Yes Physical Exam Vital Signs: Last Vital Signs Pulse 65 08/15/24 09:30 BP 114/72 08/15/24 09:30 Pulse Ox 97 08/15/24 09:30 Oxygen Delivery Method Room Air 08/15/24 09:30 BMI result Body Mass Index 31.0 Const General: comfortable; No acute distress Orientation/consciousness: patient oriented x3 Eyes General: appearance normal, both eyes and all related structures Visual Kingsley: normal visual kingsley by confrontation Neck Neck: Yes supple and Yes no JVD Resp Effort & Inspection: normal respiratory effort and respiratory effort not decreased Auscultation: rhonchi Cardio Palpation: no palpable S3 and no palpable S4 Heart sounds: no rubs GI Inspection: Yes normal to inspection Palpation (GI): Soft to palpation Percussion: Yes normal to percussion Auscultation: normal bowel sounds General: Yes no CVA tenderness Back/Spine/Pelvis Back: no CVA tenderness Skin General skin exam: no petechiae and no purpura Neuro General: patient oriented x3 and no focal motor deficits Extrem General: No clubbing and No edema Results Reviewed Nephrology Results: Hgb 11.7 g/dl (12.0-16.0) L 08/07/24 WBC 4.8 X10*3/uL (4.8-10.8) 08/07/24 Plt Count 256 X10*3/uL (160-400) 08/07/24 Sodium 134 mmol/L (135-145) L 08/07/24 Potassium 4.3 mmol/L (3.3-5.1) 08/07/24 Chloride 98 mmol/L (96-108) 08/07/24 Carbon Dioxide 28 mmol/L (22-29) 08/07/24 BUN 15 mg/dL (9-16) 08/07/24 Creatinine 1.22 mg/dL (0.5-1.4) 08/07/24 Calcium 8.5 mg/dL (8.4-10.2) 08/07/24 Urine Protein Negative mg/dL (Neg-Trace) 08/07/24 Assessment & Plan Assessment & Plan (1) HTN (hypertension): Comment: Right kidney is absent Left renal artery Aneurysm is calcified Left RA shows about 60 % stenosis Code(s): I10 - Essential (primary) hypertension Category: Medical Qualifiers: Hypertension type: primary hypertension Qualified Code(s): I10 - Essential (primary) hypertension Plan: BP acceptable. No change in meds for now Would avoid CTA due to risk of Contrast nephropathy Will consider MRA IF Creatinine worsens of BP is difficulty Based on MRA,might need referral to Vascular surgery. (2) CKD (chronic kidney disease) stage 3, GFR 30-59 ml/min: Code(s): N18.30 - Chronic kidney disease, stage 3 unspecified Category: Medical Qualifiers: Chronic kidney disease stage 3 subtype: stage 3b (GFR 30-44) Qualified Code(s): N18.32 - Chronic kidney disease, stage 3b Plan: Possible super imposed JULIO due to hypoperfusion Cr is at 1.22 Will keep Torsemide to 20 mg QOD Follow creatinine . (3) Hyponatremia: Code(s): E87.1 - Hypo-osmolality and hyponatremia Category: Medical Plan: Due to excess free water intake Na has improved after stopping beer However , she is on SSRI Discussed avoiding beer and limit PO water intake . (4) Renal artery aneurysm: Code(s): I72.2 - Aneurysm of renal artery Category: Medical Plan: as above Already on Eliquis Orders: Orders Basic Metabolic Panel 4 Months I10 - Essential (primary) hypertension, N18.32 - Chronic kidney disease, stage 3b Coding Level of Care Code Est Pt Level 4 (92446) Diagnoses Primary hypertension I10 Hypertension type: primary hypertension Stage 3b chronic kidney disease N18.32 Chronic kidney disease stage 3 subtype: stage 3b (GFR 30-44) Hyponatremia E87.1 Renal artery aneurysm I72.2
[2024-08-15 09:30] VITALS: BP 114/72; PULSE 65; O2SAT 97; BMI 31.0
== END 2024-08-15 09:43 | disposition home or self-care (01) ==
PROVIDERS: PCP Internal Medicine; Visit Provider Internal Medicine Hypertension Specialist
DX: I12.9 Hypertensive chronic kidney disease with stage 1 through stage 4 chronic kidney disease, or unspecified chronic kidney disease (principal); N18.32 Chronic kidney disease, stage 3b; E87.1 Hypo-osmolality and hyponatremia; I72.2 Aneurysm of renal artery
CPT/HCPCS: 99214

== ENCOUNTER → 2024-08-15 09:19 | Outpatient (BNVA) | payer MEDICARE, MEDICAID, SELFPAY | PROVIDERS: PCP Internal Medicine; Visit Provider Internal Medicine Hypertension Specialist | DX: I12.9 Hypertensive chronic kidney disease with stage 1 through stage 4 chronic kidney disease, or unspecified chronic kidney disease (principal); N18.32 Chronic kidney disease, stage 3b; E87.1 Hypo-osmolality and hyponatremia; I72.2 Aneurysm of renal artery | CPT/HCPCS: 99212 ==

== ENCOUNTER 2024-10-10 08:37 | Outpatient (AMB) | payer MEDICARE, MEDICAID, SELFPAY ==
[2024-10-10 08:40] VITALS: BP 128/80; PULSE 62; O2SAT 97; BMI 31.9
--- NOTE | 2024-10-10 08:40 | A.OFFPC_ITS ---
Vital Signs 10/10/24 08:40 Height 5 ft 6 in Weight 197 lb 6 oz BMI 31.9 BP 128/80 Blood Pressure Location Lt brachial Position Sitting Pulse 62 Pulse Source Pulse Oximeter Pulse Oximetry (%) 97 Oxygen Delivery Method Room Air Intake Visit Reasons: Office visit Allergies No Known Allergies Allergy (Verified 10/10/24 08:40) Medication List - Last Reconciled 10/10/24 by Carla Michael MD acetaminophen ER (Tylenol 8 Hour) 650 mg PO Q12H albuterol sulfate 90 mcg/actuation (Ventolin HFA) 1 inh inhalation QID PRN 30 days apixaban (Eliquis) 5 mg PO BID atorvastatin 80 mg PO QPM cetirizine (All Day Allergy (cetirizine)) 10 mg PO DAILY PRN escitalopram oxalate (Lexapro) 10 mg PO DAILY ferrous sulfate (Feosol) 325 mg PO DAILY gabapentin 600 mg PO BEDTIME 90 days metoprolol succinate ER 25 mg PO DAILY mirtazapine 15 mg PO BEDTIME mometasone-formoterol 200-5 mcg/actuation (Dulera) 2 puffs inhalation BID multivitamin (Daily Multi-Vitamin tablet) 1 tab PO DAILY senna 187 mg PO DAILY sennosides-docusate sodium 8.6-50 mg (Senokot-S) 1 tab-cap PO BEDTIME 90 days torsemide 20 mg PO .every other day Tobacco use date assessed: 10/10/24 Fall risk assessment: No Falls in past year Last assessed Fall Risk: 10/10/24 Dental Screening Dental Screen Date: 10/10/24 Did you have a dental visit in the last 12 months?: No Did you have a dental problem in the last 6 months where you did not have access to dental care?: No Was dental information given to patient?: Patient has dentist HPI Office visit HPI Details - The patient is a 69-year-old female pr esenting with back pain and a history of several chronic conditions. - Worsening of lower back pain is report ed without any leg involvement; the pain persists despite the use of gabapentin, 600 mg at night, mainly impacting morning routines. - The patient has undergone an ablation for atrial fibrillation and has seen improvement, with no further episodes reported. - History of COPD with a recent episode of bronchitis treated with antibiotics; mild lingering respiratory symptoms remain. - She is slightly anemic, with a history dating back to childhood, and continues to monitor iron levels. - Her renal artery aneurysm has spontane ously coagulated with improving renal function. - Depression and allergic rhinitis are m anaged with medication, with reported stability. - Weight gain has been noted, which may be contributing to back pain exacerbation. Mobility, particularly increased activity with caring for a young grandchild, might be influencing pain severity. Problem List - Atrial Fibrillation (post-ablation) - Chronic Obstructive Pulmonary Disease (COPD) - Anemia - Back Pain - Depression - Allergic Rhinitis - Bronchitis - Renal Artery Aneurysm (coagulated) Medications - Gabapentin 600 mg at night for back pa in - Escitalopram for depression - Antihistamines for allergic rhinitis - Mirtazapine for sleep - Antibiotics (recently completed course for bronchitis) Diagnostic results - Labs (July): Hemoglobin 11.7, slig ht anemia; kidney function slightly improved at GFR 44; creatinine and glucose levels stable; LDL cholesterol 51. [place] [facility] : docket specialist Cardiology Nephrology Patient Instructions - Continue taking gabapentin 600 mg at n ight and 300 mg in the morning[through PCP office] - Utilize back support when performing a ctivities involving bending. - Continue current medications unless ch anges are discussed during this visit. - Engage in physical activity as tolerat ed and consider weight management strategies. - Schedule labs before the appointment i november for further evaluation. Plan I plan to adjust the gabapentin dosage to 600 mg at night with an optional 300 mg dose in the morning to manage her back pain. She is also advised to use additional back support during activities that may stress her spine. For COPD, obtaining a home nebulizer is suggested to help manage respiratory symptoms efficiently. Follow-up with cardiology and nephrology should continue to monitor cardiac rhythm and renal function improvements. The patient's management of depression and allergic rhinitis with current medications should remain steady unless new symptoms arise. Addressing weight increase through exercise is ad vised, which may also help manage back pain effectively. Review of Systems - Musculoskeletal: Reports worsening joseph k pain. - Respiratory: Reports recent bronchitis . - Neurological: Denies new symptoms rela bernadette to previous atrial fibrillation. - Allergic/Immunologic: Denies new aller gic reactions. General: No fever no chills neurological: No headaches no dizziness ear nose throat: No sore throat no hearing difficulty no ear pain cardiovascular: No syncope, no chest pain, no palpitations gastrointestinal: No nausea vomiting or diarrhea endocrine: No polyuria polydipsia no heat intolerance genitourinary: No dysuria skin: No new complaints Physical Exam general: No acute distress HEENT: No acute findings neck: Supple respiratory system: Able to talk in full sentences, no audible wheeze, no stridor cardiovascular: S1-S2, regular gastrointestinal: No pain extremities: No new findings [employer]: Alert, awake, oriented x3, motor sensory intact skin: Normal turgor ON LICENSE OF [facility] Medical History Atherosclerotic heart disease Stress-induced cardiomyopathy (~08/2023) History of non-ST elevation myocardial infarction (NSTEMI) (~08/2023) PAF (paroxysmal atrial fibrillation) (~08/2023) HTN (hypertension) Renal artery aneurysm Kidney congenitally absent, right COPD mixed type Personal history of nicotine dependence Surgical History History of cardiac cath (~2022) History of right oophorectomy (~1979) History of left breast biopsy (~1974) History of tubal ligation History of tonsillectomy (~1969) Family History Father Cancer of prostate Mother Diabetes mellitus Brother No problems noted. Brother No problems noted. Brother No problems noted. Sister No problems noted. Sister No problems noted. Sister History of heart attack Daughter No problems noted. Daughter No problems noted. Maternal Grandfather No problems noted. Maternal Grandmother No problems noted. Paternal Grandfather No problems noted. Paternal Grandmother No problems noted. Maternal Aunt No problems noted. Social History Housing: Other Housing Other:: Mobile Home Alcohol intake: former Patient Tobacco Use Status: Former Tobacco user Tobacco use type: Cigarette Years Smoked: (onset 21yo, 1-2ppd x 41yrs, 60pyh - quit 2018) e-Cigarette/Vaping Use: Never Used service: No Current occupational status: retired Cognitive needs: No Hearing needs: No Vision needs: Yes Questionnaire PHQ-9 Over the last 2 weeks, how often have you been bothered by any of the following problems? 1. Little interest or pleasure in doing things: not at all 2. Feeling down, depressed, or hopeless: several days 3. Trouble falling or staying asleep, or sleeping too much: several days 4. Feeling tired or having little energy: not at all 5. Poor appetite or overeating: not at all 6. Feeling bad about yourself - or that you are a failure or have let yourself or your family down: not at all 7. Trouble concentrating on things, such as reading the newspaper or watching television: not at all 8. Moving or speaking so slowly that other people could have noticed. Or the opposite - being so fidgety or restless that you have been moving around a lot more than usual: not at all 9. Thoughts that you would be better off or of hurting yourself in some way: not at all Total score: 2 Depression Screening Interpretation: Negative Depression Screening Done: Yes 37218 - PHQ-9 Billing: Yes Source: Developed by Drs. Marco Antonio Oliva, Hoda Del Cid, Enmanuel Duenas and colleagues, with an educational arie from [employer]. Thrive Questionnaire Date Thrive assessed: 10/10/24 I am a: Patient What is your living situation today?: I have a steady place to live Within the past 12 months, did the food you bought not last and you didn't have the money to get more?: Never true Within the past 12 months, did you worry whether your food would run out before you got money to buy more?: Never true Do you have trouble paying for medicines?: No Do you have trouble getting transportation to medical appointments?: No Do you have trouble paying your heating and electricity bill?: Yes Do you have trouble taking care of your child, family member or friend?: No Do you have trouble with day-to-day activities such as bathing, preparing meals, shopping, managing finances, etc.?: No Are you currently unemployed and looking for a job?: I choose not to answer this question Are you interested in more education?: I choose not to answer this question Please select the resources that you would like help with: Utilities Currently or been in a relationship where the following occur: No concerns reported THRIVE Score: 1 AUDIT C Alcohol Use Questionnaire (AUDIT-C) 1. How often do you have a drink containing alcohol?: Never 3. How often do you have six or more drinks on one occasion?: Never Total Score: 0 Score Reviewed/Action Taken: Yes CAESAR-7 AMB Questionnaire CAESAR-7 Date CAESAR - 7 assessed: 10/10/24 Feeling nervous, anxious, or on edge: 0 = Not at all Not being able to stop or control worryin = Not at all Worrying too much about different things: 0 = Not at all Trouble relaxin = Not at all Being so restless that it is hard to sit still: 0 = Not at all Becoming easily annoyed or irritable: 0 = Not at all Feeling afraid as if something awful might happen: 0 = Not at all Total CAESAR-7 score (0-4 normal; 5-9 mild; 10-14 moderate; 15-21 severe): 0 Source: Developed by Drs. Marco Antonio Oliva, Hoda Del Cid, Enmanuel Duenas and colleagues, with an educational arie from [employer]. CAESAR-7 Assessment Billing CAESAR-7 Assessment Tool: CAESAR-7 Assessment 68829 Physical exam (Primary Care) Vital Signs: Last Vital Signs Pulse 62 10/10/24 08:40 BP 128/80 10/10/24 08:40 Pulse Ox 97 10/10/24 08:40 Oxygen Delivery Method Room Air 10/10/24 08:40 BMI result Body Mass Index 31.9 Tobacco/Smoking Status: Tobacco use Status Tobacco use date assessed 10/10/24 10/10/24 08:46 Patient Tobacco Use Status Former Tobacco user 10/10/24 08:46 Tobacco use type Cigarette 10/10/24 08:46 e-Cigarette/Vaping Use Never Used 10/10/24 08:46 PHQ-9: PHQ-9 Score PHQ-9: Total score 2 10/10/24 09:06 Depression Screening Interpretation: Negative Thrive Assessment: Date of Thrive Assessment Date Thrive assessed 10/10/24 10/10/24 08:46 Currently or been in a relationship where the following occur: No concerns reported Coding Level of Care Code Est Pt Level 5 (58959) Complex EM visit Add On G2211 Diagnoses Radiculitis of right cervical region M54.12 Lumbar back pain M54.50 Primary hypertension I10 Hypertension type: primary hypertension Hypertensive nephropathy I12.9 Elevated serum creatinine R79.89 Mild episode of recurrent major depressive disorder F33.0 Active/Remission status: currently active Major depression episode severity: mild COPD mixed type J44.9 Atherosclerosis of [place] coronary artery of [place] heart without angina pectori s I25.10 Associated angina: without angina Coronary Disease-Associated Artery/Lesion type: [place] artery [place] vs. transplanted heart: [place] heart Hyponatremia E87.1 Class 1 obesity due to excess calories with serious comorbidity and body mass index (BMI) of 30.0 to 30.9 in adult E66.09; Z68.30 Body mass index: BMI 30.0-30.9 Obesity classification: adult class 1 (BMI 30 - 34.9) Serious obesity comorbidity presence: with serious comorbidity Additional Codes CAESAR-7 Assessment Billing - CAESAR-7 Assessment Tool: CAESAR-7 Assessment 20571 ([id number]) PHQ-9 - 21977 - PHQ-9 Billing: Yes ([id number]) Assessment & Plan Assessment & Plan (1) Radiculitis of right cervical region: Code(s): M54.12 - Radiculopathy, cervical region Category: Medical (2) Lumbar back pain: Code(s): M54.50 - Low back pain, unspecified Category: Medical (3) HTN (hypertension): Comment: Right kidney is absent Left renal artery Aneurysm is calcified Left RA shows about 60 % stenosis Code(s): I10 - Essential (primary) hypertension Category: Medical Qualifiers: Hypertension type: primary hypertension Qualified Code(s): I10 - Essential (primary) hypertension (4) Hypertensive nephropathy: Code(s): I12.9 - Hypertensive chronic kidney disease with stage 1 through stage 4 chronic kidney disease, or unspecified chronic kidney disease Category: Medical (5) Elevated serum creatinine: Code(s): R79.89 - Other specified abnormal findings of blood chemistry Category: Medical (6) Major depression, recurrent: Code(s): F33.9 - Major depressive disorder, recurrent, unspecified Category: Medical Qualifiers: Active/Remission status: currently active Major depression episode severity: mild Qualified Code(s): F33.0 - Major depressive disorder, recurrent, mild (7) COPD mixed type: Comment: (COPD - secondary to smoking), MODERATELY SEVERE, WITH GOOD RESPONSE TO BRONCHODILATOR THERAPY. PATIENT HAS BEEN FEELING WELL WITH THE USE OF DULERA HFA 2 PUFFS B.I.D., AND HARDLY NEEDING TO USE THE RESCUE INHALER. NOW FOR THE PAST 1 WEEK SHE HAS A LINGERING COUGH WITH SOME WHEEZING, AND GETTING MORE SHORT OF BREATH. SHE SEEMS TO HAVE AN ACUTE EXACERBATIONS SECONDARY TO UPPER AIRWAYS ALLERGY OR A MILD VIRAL INFECTION. Code(s): J44.9 - Chronic obstructive pulmonary disease, unspecified Category: Medical (8) Atherosclerotic heart disease: Code(s): I25.10 - Atherosclerotic heart disease of [place] coronary artery without angina pectoris Category: Medical Qualifiers: Associated angina: without angina Coronary Disease-Associated Artery/Lesion type: [place] artery [place] vs. transplanted heart: [place] heart Qualified Code(s): I25.10 - Atherosclerotic heart disease of [place] coronary artery without angina pectoris (9) Hyponatremia: Code(s): E87.1 - Hypo-osmolality and hyponatremia Category: Medical (10) Obesity due to excess calories: Code(s): E66.09 - Other obesity due to excess calories Category: Medical Qualifiers: Body mass index: BMI 30.0-30.9 Obesity classification: adult class 1 (BMI 30 - 34.9) Serious obesity comorbidity presence: with serious comorbidity Qualified Code(s): E66.09 - Other obesity due to excess calories; Z68.30 - Body mass index [BMI] 30.0-30.9, adult Plan - The patient is a 69-year-old female presenting with back pain and a history of several chronic conditions. - Worsening of lower back pain is reported without any leg involvement; the pain persists despite the use of gabapentin, 600 mg at night, mainly impacting mo rning routines. - The patient has undergone an ablation for atrial fibrillation and has seen improvement, with no further episodes reported. - History of COPD with a recent episode of bronchitis treated with antibiotics; mild lingering respiratory symptoms remain. - She is slightly anemic, with a history dating back to childhood, and continues to monitor iron levels. - Her renal artery aneurysm has spontaneously coagulated with improving renal function. - Depression and allergic rhinitis are managed with medication, with reported stability. - Weight gain has been noted, which may be contributing to back pain exacerbation. Mobility, particularly increased activity with caring for a young grandchild, might be influencing pain severity. Problem List - Atrial Fibrillation (post-ablation) - Chronic Obstructive Pulmonary Disease (COPD) - Anemia - Back Pain - Depression - Allergic Rhinitis - Bronchitis - Renal Artery Aneurysm (coagulated) Medications - Gabapentin 600 mg at night for back pain - Escitalopram for depression - Antihistamines for allergic rhinitis - Mirtazapine for sleep - Antibiotics (recently completed course for bronchitis) Diagnostic results - Labs (July): Hemoglobin 11.7, slight anemia; kidney function slightly improved at GFR 44; creatinine and glucose levels stable; LDL cholesterol 51. [place] [facility] : docket specialist Cardiology Nephrology Patient Instructions - Continue taking gabapentin 600 mg at night and 300 mg in the morning[through PCP office] - Utilize back support when performing activities involving bending. - Continue current medications unless changes are discussed during this visit. - Engage in physical activity as tolerated and consider weight management strategies. - Schedule labs before the appointment in November for further evaluation. Plan I plan to adjust the gabapentin dosage to 600 mg at night with an optional 300 mg dose in the morning to manage her back pain. She is also advised to use additional back support during activities that may stress her spine. For COPD, obtaining a home nebulizer is suggested to help manage respiratory symptoms efficiently. Follow-up with cardiology and nephrology should continue to monitor cardiac rhythm and renal function improvements. The patient's management of depression and allergic rhinitis with current medications should remain steady unless new symptoms arise. Addressing weight increase through exercise is advised, which may also help manage back pain effectively. Orders: Orders Complete Blood Count Auto Diff Today E87.1 - Hypo-osmolality and hyponatremia, F33.0 - Major depressive disorder, recurrent, mild, I10 - Essential (primary) hypertension, I12.9 - Hypertensive chronic kidney disease with stage 1 through stage 4 chronic kidney disease, or unspecified chronic kidney disease, I25.10 - Atherosclerotic heart disease of [place] coronary artery without angina pectoris, J44.9 - Chronic obstructive pulmonary disease, unspecified, M54.12 - Radiculopathy, cervical region, M54.50 - Low back pain, unspecified, R79.89 - Other specified abnormal findings of blood chemistry Comprehensive Met. Panel Today E87.1 - Hypo-osmolality and hyponatremia, F33.0 - Major depressive disorder, recurrent, mild, I10 - Essential (primary) hypertension, I12.9 - Hypertensive chronic kidney disease with stage 1 through stage 4 chronic kidney disease, or unspecified chronic kidney disease, I25.10 - Atherosclerotic heart disease of [place] coronary artery without angina pectoris, J44.9 - Chronic obstructive pulmonary disease, unspecified, M54.12 - Radiculopathy, cervical region, M54.50 - Low back pain, unspecified, R79.89 - Other specified abnormal findings of blood chemistry Medications: New gabapentin 300 mg PO TID 90 days 270 caps 0RF Discontinued gabapentin Discontinued Reason: Doctor's Order 600 mg PO BEDTIME 90 days 90 tabs 0RF
== END 2024-10-10 09:02 | disposition home or self-care (01) ==
PROVIDERS: PCP Internal Medicine; Visit Provider Internal Medicine
DX: I12.9 Hypertensive chronic kidney disease with stage 1 through stage 4 chronic kidney disease, or unspecified chronic kidney disease (principal); M54.12 Radiculopathy, cervical region; F33.0 Major depressive disorder, recurrent, mild; J44.9 Chronic obstructive pulmonary disease, unspecified; M54.50 Low back pain, unspecified; I10 Essential (primary) hypertension; R79.89 Other specified abnormal findings of blood chemistry; I25.10 Atherosclerotic heart disease of native coronary artery without angina pectoris; E87.1 Hypo-osmolality and hyponatremia; E66.09 Other obesity due to excess calories; Z68.30 Body mass index [BMI] 30.0-30.9, adult

== ENCOUNTER → 2024-10-10 08:37 | Outpatient (BNVA) | payer MEDICARE, MEDICAID, SELFPAY | PROVIDERS: PCP Internal Medicine; Visit Provider Internal Medicine | DX: M54.12 Radiculopathy, cervical region (principal); M54.50 Low back pain, unspecified; I12.9 Hypertensive chronic kidney disease with stage 1 through stage 4 chronic kidney disease, or unspecified chronic kidney disease; N18.9 Chronic kidney disease, unspecified; R79.89 Other specified abnormal findings of blood chemistry; F33.0 Major depressive disorder, recurrent, mild; J44.9 Chronic obstructive pulmonary disease, unspecified; E87.1 Hypo-osmolality and hyponatremia; E66.09 Other obesity due to excess calories; Z68.30 Body mass index [BMI] 30.0-30.9, adult | CPT/HCPCS: 96127; 99212 ==

== ENCOUNTER 2024-11-07 10:34 | Outpatient (AMB) | payer MEDICARE, MEDICAID, SELFPAY ==
[2024-11-07 10:46] VITALS: BP 140/92; PULSE 71; O2SAT 98; BMI 32.6
--- NOTE | 2024-11-07 10:46 | MHC.OFFVIS ---
Vital Signs 11/07/24 10:46 Height 5 ft 6 in Weight 201 lb 11.567 oz BMI 32.6 BP 140/92 H Blood Pressure Location Lt brachial Position Sitting Pulse 71 Pulse Source Pulse Oximeter Pulse Oximetry (%) 98 Oxygen Delivery Method Room Air Intake Visit Reasons: COPD Intake Note: pt is here for follow up and states coughing and wheezing for a few days, a lot of mucous, but she has a rash all over the front and back of stomach. pt would like to talk about nebulizer. Paper Cone Machine Operator Required: No Allergies No Known Allergies Allergy (Verified 11/07/24 11:10) Medication List - Last Reconciled 11/07/24 by Enrique Albright MD acetaminophen ER (Tylenol 8 Hour) 650 mg PO Q12H albuterol sulfate 90 mcg/actuation (Ventolin HFA) 1 inh inhalation QID PRN 30 days apixaban (Eliquis) 5 mg PO BID atorvastatin 80 mg PO QPM cetirizine (All Day Allergy (cetirizine)) 10 mg PO DAILY PRN escitalopram oxalate (Lexapro) 10 mg PO DAILY ferrous sulfate (Feosol) 325 mg PO DAILY gabapentin 300 mg PO TID 90 days metoprolol succinate ER 25 mg PO DAILY mirtazapine 15 mg PO BEDTIME mometasone-formoterol 200-5 mcg/actuation (Dulera) 2 puffs inhalation BID multivitamin (Daily Multi-Vitamin tablet) 1 tab PO DAILY senna 187 mg PO DAILY sennosides-docusate sodium 8.6-50 mg (Senokot-S) 1 tab-cap PO BEDTIME 90 days Shower Chair Shower chair with back, use as directed NS torsemide 20 mg PO .every other day Do you need a note to return to daycare/school/sports/work: No HPI HPI COPD: Details: This 69 years old female is here for her routine follow-up, for COPD. She is ex smoker. Has been doing quite well except that about 2 weeks ago she had chest congestion and upper respiratory infection. She was treated with a course of Z-Julien, no steroids. Got better but still has some extra mucus in the upper airways. She has difficulty in using the Ventolin inhaler, which she usually needs at night. Now for the past few days she has developed a rash in front on the lower chest and abdominal wall and also on the back. It is dry , erythematous and itchy, [facility] Medical History (Updated 11/07/24 @ 11:20 by Enrique Albright MD) Dermatitis Atherosclerotic heart disease Stress-induced cardiomyopathy (~08/2023) History of non-ST elevation myocardial infarction (NSTEMI) (~08/2023) PAF (paroxysmal atrial fibrillation) (~08/2023) HTN (hypertension) Renal artery aneurysm Kidney congenitally absent, right COPD mixed type Personal history of nicotine dependence Surgical History History of cardiac cath (~2022) History of right oophorectomy (~1979) History of left breast biopsy (~1974) History of tubal ligation History of tonsillectomy (~1969) Family History Father Cancer of prostate Mother Diabetes mellitus Brother No problems noted. Brother No problems noted. Brother No problems noted. Sister No problems noted. Sister No problems noted. Sister History of heart attack Daughter No problems noted. Daughter No problems noted. Maternal Grandfather No problems noted. Maternal Grandmother No problems noted. Paternal Grandfather No problems noted. Paternal Grandmother No problems noted. Maternal Aunt No problems noted. Social History Housing: Other Housing Other:: Mobile Home Alcohol intake: former Patient Tobacco Use Status: Former Tobacco user Tobacco use type: Cigarette Years Smoked: (onset 21yo, 1-2ppd x 41yrs, 60pyh - quit 2017) e-Cigarette/Vaping Use: Never Used service: No Current occupational status: retired Cognitive needs: No Hearing needs: No Vision needs: Yes Review of Systems Const All systems reviewed & are unremarkable except as noted in HPI and below Eyes Reports no additional complaints ENT Reports no additional complaints Card Denies chest pain, Reports leg edema and Reports dyspnea on exertion Resp Reports as per HPI and Reports dyspnea on exertion GI Reports constipation Musc Reports no additional complaints Skin/Breast Reports system reviewed and no additional complaints, except as documented Neuro Reports no additional complaints Psych Reports depression Ang/Lymph Reports no additional complaints Physical Exam Vital Signs: Last Vital Signs Pulse 71 11/07/24 10:46 BP 140/92 H 11/07/24 10:46 Pulse Ox 98 11/07/24 10:46 Oxygen Delivery Method Room Air 11/07/24 10:46 BMI result Body Mass Index 32.6 Const General: comfortable, no acute distress, alert and awake Orientation/consciousness: patient oriented x3 HEENT Head: Yes normal to inspection General nose exam: No nasal polyps present and No nasal discharge present Face and sinus: Yes sinuses nontender Mouth: oropharynx normal Teeth and gingiva: caries and poor dentition Throat: Yes posterior oropharynx normal Eyes General: appearance normal, both eyes and all related structures Neck Neck: Yes normal visual inspection, Yes no lymphadenopathy, Yes trachea midline and Yes no JVD Thyroid: Thyroid normal Chest Chest palpation & inspection: normal inspection of the chest, normal palpation of entire chest wall and no tenderness Resp Other: PERCUSSION NOTE IS RESONANT. BREATH SOUNDS ARE DISTANT WITH PROLONGED EXPIRATORY PHASE HAS SCATTERED INSPIRATORY AND EXPIRATORY WHEEZES ESPECIALLY ON THE LEFT SIDE OF THE CHEST.. NO CREPITATIONS. Cardio Palpation: normal PMI Rate: regular rate Rhythm: regular rhythm Heart sounds: no gallops and no murmurs GI Palpation (GI): Soft to palpation, nontender, No hepatosplenomegaly present and no masses Auscultation: normal bowel sounds Back/Spine/Pelvis Thoracic/Lumbar Spine: thoracic and lumbar spine normal to inspection Skin General skin exam: other (Diffuse, nummular , erythematous rash on front of the chest ,abdomen/back) Neuro General: patient oriented x3 and no focal motor deficits Cranial nerves: Yes CN's II-XII intact bilaterally Extrem General: Yes normal to inspection, Yes no clubbing, cyanosis or edema and Yes no calf tenderness Psych Appearance: grossly normal and well kempt Speech and movement: Normal speech and movement present Assessment & Plan Assessment & Plan (1) COPD mixed type: Comment: (COPD - secondary to smoking), MODERATELY SEVERE, WITH GOOD RESPONSE TO BRONCHODILATOR THERAPY. PATIENT HAS BEEN FEELING WELL WITH THE USE OF DULERA HFA 2 PUFFS B.I.D., AND HARDLY NEEDING TO USE THE RESCUE INHALER. RECENTLY HAD A BOUT OF UPPER RESPIRATORY INFECTION WITH CHEST CONGESTION WHICH HAS IMPROVED WITH THE USE OF 1 COURSE OF Z-JULIEN. Code(s): J44.9 - Chronic obstructive pulmonary disease, unspecified Category: Medical Plan: CONTINUE TO USE DULERA 200-5 2 PUFFS B.I.D. AND VENTOLIN 2 PUFFS Q 6 HOURS P.R.N. PATIENT CLAIMS THAT SHE HAS DIFFICULTY IN USING VENTOLIN ESPECIALLY AT NIGHT, ASKING FOR POSSIBLE NEBULIZER. I EXPLAINED TO HER THE BETTER WAYS OF ADMINISTRATION OF THE INHALER. I THINK IS BEST TO TRY A SPACER BEFORE GOING TO THE NEBULIZER. SHE AGREES. (2) Personal history of nicotine dependence: Comment: (former smoker - onset 21yo, 1-2ppd x 41yrs, 60pyh - quit 2018) Code(s): Z87.891 - Personal history of nicotine dependence Category: Medical Plan: COMMENDED FOR NOT GOING BACK TO SMOKING, CONTINUE ANNUAL LUNG SCREENING PROGRAM.. (3) Dermatitis: Comment: SHE HAS DEVELOPED GENERALIZED ERYTHEMATOUS RASH ON FRONT OF THE CHEST AND ABDOMEN WELL ON THE BACK. THIS SEEMS TO BE NONSPECIFIC, POST INFECTIOUS, ECZEMATOUS RASH. Code(s): L30.9 - Dermatitis, unspecified Category: Medical Plan: TRY TO USE CETIRIZINE 10 MG OR BENADRYL 25 MG ONCE A DAY. NO NEED OF ANY ORAL TOPICAL STEROIDS. EXPLAINED TO HER THAT THIS KIND OF RASH USUALLY RESOLVES IN A FEW WEEKS BY HERSELF. HOWEVER IF THE RASH IS PERSISTING THEN SHE WOULD NEED TO SEE PRIMARY CARE PHYSICIAN AND A RESIDENT DIRECTOR, MORE INSTRUCTIONS. Medications: New inhalational spacing device (Bryon Aerosol Roosevelt Enhancer spacer) As directed 1 ea 0RF Coding Level of Care Code Est Pt Level 3 (12470) Diagnoses COPD mixed type J44.9 Personal history of nicotine dependence Z87.891 Dermatitis L30.9
== END 2024-11-07 11:10 | disposition home or self-care (01) ==
PROVIDERS: PCP Internal Medicine; Visit Provider Internal Medicine
DX: J44.9 Chronic obstructive pulmonary disease, unspecified (principal); Z87.891 Personal history of nicotine dependence; L30.9 Dermatitis, unspecified
CPT/HCPCS: 99213

== ENCOUNTER → 2024-11-07 10:34 | Outpatient (BNVA) | payer MEDICARE, MEDICAID, SELFPAY | PROVIDERS: PCP Internal Medicine; Visit Provider Internal Medicine | DX: J44.9 Chronic obstructive pulmonary disease, unspecified (principal); L30.9 Dermatitis, unspecified; Z87.891 Personal history of nicotine dependence | CPT/HCPCS: 99212 ==

== ENCOUNTER 2024-12-11 10:48 | Outpatient (REF) | payer MEDICARE, MEDICAID, SELFPAY ==
[2024-12-11 10:59] LABS: MANUAL DIFF FLAG NO
[2024-12-11 11:11] LABS: Basophils Percent Auto 0.2 % (0-2); Eosinophils Absolute Auto 0.1 X10*3/uL (0.0-0.4); Eosinophils Percent Auto 2.2 % (0-4); Hemoglobin 11.7 g/dl (12.0-16.0); Imm Gran Abs Auto 0.02 X10*3/uL (0.00-0.03); Imm Gran Pct Auto 0.4 % (0.0-0.4); Lymphocytes Absolute Auto 1.1 X10*3/uL (1.2-4.9); Lymphocytes Percent Auto 24.3 % (20-40); Mean Corpuscular HGB Conc 33.4 g/dl (31.0-35.0); Mean Corpuscular Hemoglobin 33.4 pg (27.0-33.0); Mean Platelet Volume 9.9 fL (9.4-12.3); Monocytes Absolute Auto 0.5 X10*3/uL (0.1-1.2); Monocytes Percent Auto 10.8 % (2-11); Neutrophils Absolute Auto 2.8 x10*3/uL (2.0-8.3); Neutrophils Percent Auto 62.1 % (45-73); Platelet Count 192 X10*3/uL (160-400); White Blood Count 4.5 X10*3/uL (4.8-10.8)
[2024-12-11 13:15] LABS: Alanine Aminotransferase 23 U/L (0-31); Albumin Level 3.9 g/dL (3.5-5.0); Alkaline Phosphatase 99 U/L (39-117); Anion Gap 15 (12-20); Aspartate Amino Transferase 36 U/L (5-31); Bilirubin Total 0.9 mg/dL (0.0-1.0); Blood Urea Nitrogen 18 mg/dL (9-16); Calcium 8.9 mg/dL (8.4-10.2); Carbon Dioxide 29 mmol/L (22-29); Chloride 98 mmol/L (96-108); Estimated Glomerular Filt Rate 45; Glucose Random 98 mg/dL (60-115); Potassium 4.7 mmol/L (3.3-5.1); Sodium 137 mmol/L (135-145); Total Protein 7.1 g/dL (6.5-8.0)
== END 2024-12-11 10:49 | disposition home or self-care (01) ==
LOC: HO.LAB 10:48
PROVIDERS: Internal Medicine; Absent Provider Internal Medicine Hypertension Specialist; PCP Psychiatry & Neurology Neurology; Visit Provider Psychiatry & Neurology Neurology
DX: R79.89 Other specified abnormal findings of blood chemistry (principal); F33.0 Major depressive disorder, recurrent, mild; J44.9 Chronic obstructive pulmonary disease, unspecified; I10 Essential (primary) hypertension; I25.10 Atherosclerotic heart disease of native coronary artery without angina pectoris; I12.9 Hypertensive chronic kidney disease with stage 1 through stage 4 chronic kidney disease, or unspecified chronic kidney disease; E87.1 Hypo-osmolality and hyponatremia; M54.12 Radiculopathy, cervical region; M54.50 Low back pain, unspecified
CPT/HCPCS: 36415; 80053; 85025

== ENCOUNTER 2024-12-12 09:46 | Outpatient (AMB) | payer MEDICARE, MEDICAID, SELFPAY ==
--- NOTE | 2024-12-12 09:47 | HO.NEPHOV_ITS ---
Vital Signs 12/12/24 09:48 12/12/24 10:00 Height 5 ft 6 in Weight 210 lb BMI 33.9 BP 156/84 H 130/74 Blood Pressure Location Lt brachial Lt brachial Position Sitting Sitting Pulse 59 Pulse Source Pulse Oximeter Pulse Oximetry (%) 97 Oxygen Delivery Method Room Air Intake Visit Reasons: CKD/ LVM Policy Service Coordinator Required: No Accompanied by: Self / Same As Patient Allergies environmental allergies Allergy (Unknown, Verified 12/12/24 09:50) Unknown Medication List - Last Reconciled 12/12/24 by Steve Catalan MD acetaminophen ER (Tylenol 8 Hour) 650 mg PO Q12H albuterol sulfate 90 mcg/actuation (Ventolin HFA) 1 inh inhalation QID PRN 30 days apixaban (Eliquis) 5 mg PO BID atorvastatin 80 mg PO QPM cetirizine (All Day Allergy (cetirizine)) 10 mg PO DAILY PRN doxycycline hyclate 100 mg PO DAILY escitalopram oxalate (Lexapro) 10 mg PO DAILY ferrous sulfate (Feosol) 325 mg PO DAILY fluticasone furoate-vilanterol 200-25 mcg/dose (Breo Ellipta) 1 inh inhalation DAILY 30 days gabapentin 300 mg PO TID 90 days inhalational spacing device (Bryon Aerosol [place] Enhancer spacer) As directed metoprolol succinate ER 25 mg PO DAILY mirtazapine 15 mg PO BEDTIME mometasone-formoterol 200-5 mcg/actuation (Dulera) 2 puffs inhalation BID multivitamin (Daily Multi-Vitamin tablet) 1 tab PO DAILY senna 187 mg PO DAILY sennosides-docusate sodium 8.6-50 mg (Senokot-S) 1 tab-cap PO BEDTIME 90 days Shower Chair Shower chair with back, use as directed NS torsemide 20 mg PO .every other day HPI Comments Details: 68 yr old woman with a solitary kidney an dh/o Renal artery aneurysm, well known to me , referred back for CKD She lost her in May 2023 and started drinknig beer. She was admitted to [facility] with hyponatremia Na was corrected Diuretics were changed LExapro has been added Recent creatinine is 1.54 mg/dL and hence this referral She quit smoking 7 years ago She has quit beer as well 12/09/23 ; Doing well.No edema;Still has dyspnea 04/18/2024. She underwent cardiac ablation due to paroxysmal supraventricular tachycardia. Overall his no new complaints today. 08/15/24 ; Doing well.Dyspnea on exertion. NO chest pain ;Follows with Dr. Albright and currently on inhalers ; Currently not smoking or consuming beer 12/12/24 Gained some weight. No change in breathing [facility] Medical History (Updated 11/07/24 @ 11:20 by Enrique Albright MD) Dermatitis Atherosclerotic heart disease Stress-induced cardiomyopathy (~08/2023) History of non-ST elevation myocardial infarction (NSTEMI) (~08/2023) PAF (paroxysmal atrial fibrillation) (~08/2023) HTN (hypertension) Renal artery aneurysm Kidney congenitally absent, right COPD mixed type Personal history of nicotine dependence Surgical History History of cardiac cath (~2022) History of right oophorectomy (~1979) History of left breast biopsy (~1974) History of tubal ligation History of tonsillectomy (~1969) Family History Father Cancer of prostate Mother Diabetes mellitus Brother No problems noted. Brother No problems noted. Brother No problems noted. Sister No problems noted. Sister No problems noted. Sister History of heart attack Daughter No problems noted. Daughter No problems noted. Maternal Grandfather No problems noted. Maternal Grandmother No problems noted. Paternal Grandfather No problems noted. Paternal Grandmother No problems noted. Maternal Aunt No problems noted. Social History Housing: Other Housing Other:: Mobile Home Alcohol intake: former Patient Tobacco Use Status: Former Tobacco user Tobacco use type: Cigarette Years Smoked: (onset 21yo, 1-2ppd x 41yrs, 60pyh - quit 2017) e-Cigarette/Vaping Use: Never Used service: No Current occupational status: retired Cognitive needs: No Hearing needs: No Vision needs: Yes Physical Exam Vital Signs: Last Vital Signs Pulse 59 12/12/24 09:48 BP 156/84 H 12/12/24 09:48 Pulse Ox 97 12/12/24 09:48 Oxygen Delivery Method Room Air 12/12/24 09:48 BMI result Body Mass Index 33.9 Const General: comfortable; No acute distress Orientation/consciousness: patient oriented x3 Eyes General: appearance normal, both eyes and all related structures Visual Kingsley: normal visual kingsley by confrontation Neck Neck: Yes supple and Yes no JVD Resp Effort & Inspection: normal respiratory effort and respiratory effort not decreased Cardio Palpation: no palpable S3 and no palpable S4 Heart sounds: no rubs GI Inspection: Yes normal to inspection Palpation (GI): Soft to palpation Percussion: Yes normal to percussion Auscultation: normal bowel sounds General: Yes no CVA tenderness Back/Spine/Pelvis Back: no CVA tenderness Skin General skin exam: no petechiae and no purpura Neuro General: patient oriented x3 and no focal motor deficits Extrem General: No clubbing and No edema Results Reviewed Results Reviewed: 1. Abnormal findings, consistent with less than 60% left renal artery stenosis. This could be more fully evaluated with CTA or MRA, if clinically indicated. 2. A 1.4 cm heavily calcified mid left renal artery aneurysm is redemonstrated, possibly thrombosed. This as well could be further evaluated with CTA/MRA. 3. The right kidney is congenitally absent. Nephrology Results: Hgb 11.7 g/dl (12.0-16.0) L 12/11/24 WBC 4.5 X10*3/uL (4.8-10.8) L 12/11/24 Plt Count 192 X10*3/uL (160-400) 12/11/24 Sodium 137 mmol/L (135-145) 12/11/24 Potassium 4.7 mmol/L (3.3-5.1) 12/11/24 Chloride 98 mmol/L (96-108) 12/11/24 Carbon Dioxide 29 mmol/L (22-29) 12/11/24 BUN 18 mg/dL (9-16) H 12/11/24 Creatinine 1.20 mg/dL (0.5-1.4) 12/11/24 Calcium 8.9 mg/dL (8.4-10.2) 12/11/24 Urine Protein Negative mg/dL (Neg-Trace) 08/07/24 Assessment & Plan Assessment & Plan (1) HTN (hypertension): Comment: Right kidney is absent Left renal artery Aneurysm is calcified Left RA shows about 60 % stenosis Code(s): I10 - Essential (primary) hypertension Category: Medical Qualifiers: Hypertension type: primary hypertension Qualified Code(s): I10 - Essential (primary) hypertension Plan: BP acceptable. No change in meds for now Would avoid CTA due to risk of Contrast nephropathy Will consider MRA IF Creatinine worsens of BP is difficulty Based on MRA,might need referral to Vascular surgery. (2) CKD (chronic kidney disease) stage 3, GFR 30-59 ml/min: Code(s): N18.30 - Chronic kidney disease, stage 3 unspecified Category: Medical Qualifiers: Chronic kidney disease stage 3 subtype: stage 3b (GFR 30-44) Qualified Code(s): N18.32 - Chronic kidney disease, stage 3b Plan: Possible super imposed JULIO due to hypoperfusion Cr is at 1.2 - unchanged over the past few months Will keep Torsemide to 20 mg QOD Follow creatinine . (3) Hyponatremia: Code(s): E87.1 - Hypo-osmolality and hyponatremia Category: Medical Plan: Due to excess free water intake Na has improved after stopping beer However , she is on SSRI Discussed avoiding beer and limit PO water intake . (4) Renal artery aneurysm: Code(s): I72.2 - Aneurysm of renal artery Category: Medical Plan: as above Already on Eliquis Orders: Orders Basic Metabolic Panel 5 Months N18.32 - Chronic kidney disease, stage 3b Coding Level of Care Code Est Pt Level 4 (24723) Diagnoses Primary hypertension I10 Hypertension type: primary hypertension Stage 3b chronic kidney disease N18.32 Chronic kidney disease stage 3 subtype: stage 3b (GFR 30-44) Hyponatremia E87.1 Renal artery aneurysm I72.2
[2024-12-12 09:48] VITALS: BP 156/84; PULSE 59; O2SAT 97; BMI 33.9
[2024-12-12 10:00] VITALS: BP 130/74
--- OUTSIDE RECORDS SUMMARY | 2024-12-12 10:51 | XMS_ITS | Clinical Summary ---
Author Organization [facility] Address [address] [place] [address] Phone Care Team Providers Care Janitor Head Name Role Phone Carla Michael MD Primary Care Provider [phone] Allergies No known active allergies Medications amLODIPine (NORVASC) 10 MG tablet Take 1 tablet by mouth 1 (one) time each day Active aspirin (ST [place]) 81 MG EC tablet Take 81 mg by mouth 1 (one) time each day Active atorvastatin (LIPITOR) 40 MG tablet Take 40 mg by mouth 1 (one) time each day Active escitalopram (LEXAPRO) 10 MG tablet Take 10 mg by mouth 1 (one) time each day Active gabapentin (NEURONTIN) 600 MG tablet Take 600 mg by mouth in the morning and 600 mg in the evening and 600 mg before bedtime. Active metoprolol tartrate 25 MG tablet Take 25 mg by mouth in the morning and 25 mg in the evening. Active SENNA PO Take by mouth Active torsemide (DEMADEX) 20 MG tablet Take 20 mg by mouth 1 (one) time each day Active Active Problems Problem Noted Date Diagnosed Date Hypertensive disorder 03/07/2021 Chronic kidney disease stage 2 03/07/2021 Social History Tobacco Use Types Packs/Day Years Used Date Smoking Tobacco: Unknown Comments Unknown Sex and Gender Information Value Date Recorded Sex Assigned at Not on file Legal Sex Female 5:04 PM EST Gender Identity Not on file Sexual Orientation Not on file Last Filed Vital Signs Vital Sign Reading Time Taken Comments Blood Pressure 132/64 02/17/2019 12:00 PM EDT Pulse 85 02/17/2019 12:00 PM EDT Temperature - - Respiratory Rate - - Oxygen Saturation 98% 02/17/2019 12:00 PM EDT Inhaled Oxygen Concentration - - Weight 87.1 kg (192 lb) 02/17/2019 12:00 PM EDT Height 170.2 cm (5' 7 ) 02/17/2019 12:00 PM EDT Body Mass Index 30.07 02/17/2019 12:00 PM EDT Plan of Treatment Health Maintenance Due Date Last Done Comments Breast Cancer Screening 1957 Pneumococcal Vaccine: 65+ Ye ars (1 of 2 - PCV) 1963 Colorectal Cancer Screening: Annual FOBT 2006 Colorectal Cancer Screening: Colonoscopy 2006 Colorectal Cancer Screening: Sigmoidoscopy 2006 Influenza Vaccine (#1) 2024 Hepatitis B Vaccine Aged Out No longe r eligible based on patient's age to complete this topic Insurance MEDICARE MEDICARE MEDICAID [place] Care Teams Janitor Head Relationship Specialty Start Date End Date Carla Michael MD [address] [place] [address] PCP - General Internal Medicine 11/09/23
--- OUTSIDE RECORDS SUMMARY | 2024-12-12 10:51 | XMS_ITS | Encounter Summary ---
Author Organization [facility] Address [address] [place] [address] Phone Care Team Providers Care Coal Trimmer Machine Operator Name Role Phone Carla Michael MD Primary Care Provider [phone] Encounter Details Date Type Department Care Team (Late st Contact Info) Description 11/09/2023 Documentation Only [facility] [place], [address] [place] [address] Kaitlin Olivas [address] [place] [address] Social History Tobacco Use Types Packs/Day Years Used Date Smoking Tobacco: Unknown Comments Unknown Sex and Gender Information Value Date Recorded Sex Assigned at Not on file Legal Sex Female 5:04 PM EST Gender Identity Not on file Sexual Orientation Not on file documented as of this encounter Plan of Treatment Not on file documented as of this encounter Visit Diagnoses Not on filedocumented in this encounter Care Teams Coal Trimmer Machine Operator Relationship Specialty Start Date End Date Carla Michael MD [facility] [place] [address] PCP - General Internal Medicine 11/09/23 documented as of this encounter
--- OUTSIDE RECORDS SUMMARY | 2024-12-12 10:51 | XMS_ITS | Encounter Summary ---
Author Organization [facility] Address [address] [place] [address] Phone Care Team Providers Care Foot Orthopedist Name Role Phone Carla Michael MD Primary Care Provider [phone] Encounter Details Date Type Department Care Team (Late st Contact Info) Description 11/09/2023 Documentation Only [facility] [place], [address] [place] [address] Kaitlin Olivas [address] [place] [address] Social History Tobacco Use Types [...] on filedocumented in this encounter Care Teams Foot Orthopedist Relationship Specialty Start Date End Date Carla Michael MD [facility] [place] [address] PCP - General Internal Medicine 11/09/23 documented as of this encounter
--- OUTSIDE RECORDS SUMMARY | 2024-12-12 10:51 | XMS_ITS | Encounter Summary ---
Author Organization [facility] Address [address] [place] [address] Phone Care Team Providers Care Rivet Hole Puncher Name Role Phone Carla Michael MD Primary Care Provider [phone] Encounter Details Date Type Department Care Team (Late st Contact Info) Description 11/09/2023 Documentation Only [facility] [place], [address] [place] [address] Kaitlin Olivas [address] [place] [address] Social History Tobacco Use Types [...] on filedocumented in this encounter Care Teams Rivet Hole Puncher Relationship Specialty Start Date End Date Carla Michael MD [place] [address] PCP - General Internal Medicine 11/09/23 documented as of this encounter
--- OUTSIDE RECORDS SUMMARY | 2024-12-12 10:51 | XMS_ITS | Encounter Summary ---
Author Organization [facility] Address [address] [place] [address] Phone Care Team Providers Care Ophthalmic Asst Name Role Phone Carla Michael MD Primary Care Provider [phone] Encounter Details Date Type Department Care Team (Late st Contact Info) Description 11/09/2023 Documentation Only [facility] [place], [address] [place] [address] Kaitlin Olivas [address] [place] [address] Social History Tobacco Use Types [...] on filedocumented in this encounter Care Teams Ophthalmic Asst Relationship Specialty Start Date End Date Car[place] [address] PCP - General Internal Medicine 11/09/23 documented as of this encounter
--- OUTSIDE RECORDS SUMMARY | 2024-12-12 10:51 | XMS_ITS | Encounter Summary ---
Author Organization [facility] Address [address] [place] [address] Phone Care Team Providers Care Sewing Machinist Name Role Phone Carla Michael MD Primary Care Provider Encounter Details Date Type Department Care Team (Late st Contact Info) Description 11/09/2023 Documentation Only [facility] [place], [address] [place] [address] Kaitlin Olivas [address] [place] [address] Social History Tobacco Use Types [...] on filedocumented in this encounter Care Teams Sewing Machinist Relationship Specialty Start Date End Date Carla Michael MD [place] [address] PCP - General Internal Medicine 11/09/23 documented as of this encounter
--- OUTSIDE RECORDS SUMMARY | 2024-12-12 10:51 | XMS_ITS | Encounter Summary ---
Author Organization [facility] Address [address] [place] [address] Phone Care Team Providers Care Taste Tester Name Role Phone Carla Michael MD Primary Care Provider [phone] Encounter Details Date Type Department Care Team (Late st Contact Info) Description 11/09/2023 Documentation Only [facility] [place], [address] [place] [address] Kaitlin Olivas [address] [place] [address] Social History Tobacco Use Types [...] on filedocumented in this encounter Care Teams Taste Tester Relationship Specialty Start Date End Date Carla Michael MD [facility] [place] [address] PCP - General Internal Medicine 11/09/23 documented as of this encounter
--- OUTSIDE RECORDS SUMMARY | 2024-12-12 10:51 | XMS_ITS | Encounter Summary ---
Author Organization [facility] Address [address] [place] [address] Phone Care Team Providers Care Administrative Assistant Coordinator Name Role Phone Carla Michael MD Primary Care Provider [phone] Encounter Details Date Type Department Care Team (Late st Contact Info) Description 11/09/2023 Documentation Only [facility] [place], [address] [place] [address] Kaitlin Olivas [address] [place] [address] Social History Tobacco Use Types [...] on filedocumented in this encounter Care Teams Administrative Assistant Coordinator Relationship Specialty Start Date End Date Carla Mihcael MD [facility] [place] [address] PCP - General Internal Medicine 11/09/23 documented as of this encounter
== END 2024-12-12 10:04 | disposition home or self-care (01) ==
LOC: HO.HKA 09:47
PROVIDERS: PCP Internal Medicine; Visit Provider Internal Medicine Hypertension Specialist
DX: I10 Essential (primary) hypertension (principal); N18.32 Chronic kidney disease, stage 3b; E87.1 Hypo-osmolality and hyponatremia; I72.2 Aneurysm of renal artery
CPT/HCPCS: 99214

== ENCOUNTER → 2024-12-12 09:46 | Outpatient (BNVA) | payer MEDICARE, MEDICAID, SELFPAY | PROVIDERS: PCP Internal Medicine; Visit Provider Internal Medicine Hypertension Specialist | DX: I12.9 Hypertensive chronic kidney disease with stage 1 through stage 4 chronic kidney disease, or unspecified chronic kidney disease (principal); N18.32 Chronic kidney disease, stage 3b; I72.2 Aneurysm of renal artery; E87.1 Hypo-osmolality and hyponatremia | CPT/HCPCS: 99212 ==

== ENCOUNTER 2024-12-26 08:55 | Outpatient (AMB) | payer MEDICARE, MEDICAID, SELFPAY ==
[2024-12-26 09:15] VITALS: BP 134/86; PULSE 66; O2SAT 99; BMI 33.3
--- NOTE | 2024-12-26 09:15 | A.OFFPC_ITS ---
Vital Signs 12/26/24 09:15 Height 5 ft 6 in Weight 206 lb 2 oz BMI 33.3 BP 134/86 Blood Pressure Location Lt brachial Position Sitting Pulse 66 Pulse Source Pulse Oximeter Pulse Oximetry (%) 99 Oxygen Delivery Method Room Air Intake Visit Reasons: Office visit Allergies environmental allergies Allergy (Unknown, Verified 12/26/24 09:16) Unknown Medication List - Last Reconciled 12/26/24 by Carla Michael MD acetaminophen ER (Tylenol 8 Hour) 650 mg PO Q12H albuterol sulfate 90 mcg/actuation (Ventolin HFA) 1 inh inhalation QID PRN 30 days apixaban (Eliquis) 5 mg PO BID atorvastatin 80 mg PO QPM cetirizine (All Day Allergy (cetirizine)) 10 mg PO DAILY PRN doxycycline hyclate 100 mg PO DAILY escitalopram oxalate (Lexapro) 10 mg PO DAILY ferrous sulfate (Feosol) 325 mg PO DAILY fluticasone furoate-vilanterol 200-25 mcg/dose (Breo Ellipta) 1 inh inhalation DAILY 30 days gabapentin 300 mg PO TID 90 days inhalational spacing device (Bryon Aerosol Venango Enhancer spacer) As directed metoprolol succinate ER 25 mg PO DAILY mirtazapine 15 mg PO BEDTIME mometasone-formoterol 200-5 mcg/actuation (Dulera) 2 puffs inhalation BID multivitamin (Daily Multi-Vitamin tablet) 1 tab PO DAILY nebulizers Use every 6 hrs as needed for shortness of breath or wheezing senna 187 mg PO DAILY sennosides-docusate sodium 8.6-50 mg (Senokot-S) 1 tab-cap PO BEDTIME 90 days Shower Chair Shower chair with back, use as directed NS torsemide 20 mg PO .every other day Tobacco use date assessed: 12/26/24 Fall risk assessment: No Falls in past year Last assessed Fall Risk: 12/26/24 Dental Screening Dental Screen Date: 12/26/24 Did you have a dental visit in the last 12 months?: No Did you have a dental problem in the last 6 months where you did not have access to dental care?: No Was dental information given to patient?: Patient has dentist HPI Office visit HPI Details History of Present Illness The patient is a 69-year-old female presenting with management of Chronic Obstructive Pulmonary Disease (COPD). She currently manages her COPD with Breo, though she believes an updraft machine would alleviate symptoms more effectiv daniel. Sleep issues have arisen, likely associated with COPD, contributing to poor rest. in spite of using inhalers, patient is requesting updraft machine which we will address today A family history of respiratory complications is noted, as her daughter requires oxygen therapy due to Hyaline membrane disease and complications from RSV. The patient addresses constipation with medication but must maintain regular intake to avoid symptoms. hypertension is managed through dietary changes, notably reduced salt consumption. patient is also on metoprolol Smoking cessation has been effective since 2018. The patient takes vitamins as needed for a minor deficiency, balancing this with constipation concerns. she also have back pain which is stable at this time with the help of gabapent in 300 mg 3 times a day - The patient has undergone an ablation for atrial fibrillation and has seen improvement, with no further episodes reported. - She is slightly anemic, with a history dating back to childhood, and continues to monitor iron levels. - Her renal artery aneurysm has spontane ously coagulated with improving renal function. - Depression and allergic rhinitis are m anaged with medication, with reported stability. 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) - Atrial Fibrillation (post-ablation) ma nagement through Cardiology - Chronic Obstructive Pulmonary Disease (COPD) - Anemia - Back Pain chronic - Depression table - Allergic Rhinitis - Renal Artery Aneurysm (coagulated) Medications - Breo for Chronic Obstructive Pulmonary Disease - Eliquis for anticoagulation - Atorvastatin for hyperlipidemia - Cetirizine for allergies - Lexapro for depression - Gabapentin 300 mg for neuropathy, 1 ta blet in the morning, and 1 at night, with an additional dose during the day if needed - Mirtazapine for sleep at night - Diuretic (unspecified), used every oth er day for fluid management - Gabapentin 600 mg at night for back pa in - Escitalopram for depression - Antihistamines for allergic rhinitis - Mirtazapine for sleep - Antibiotics (recently completed course for bronchitis) Diagnostic results - Labs: Hemoglobin at 11.7 (slightly low er than normal but stable), Electrolytes normal, Kidney function slightly improved, Liver enzymes normal - Labs (July): Hemoglobin 11.7, slig ht anemia; kidney function slightly improved at GFR 44; creatinine and glucose levels stable; LDL cholesterol 51. Patient Instructions - Continue taking medications as prescri bed, including Breo, Eliquis, Atorvastatin, Cetirizine, Lexapro, Gabapentin, and Mirtazapine. - Use diuretic every other day and samara nue avoiding salt to manage blood pressure. - Maintain vitamin intake as needed, bal ancing to avoid constipation. - Follow up on the new updraft machine a fter it has been sent. - Schedule follow-up appointments with y monique talent acquisition director in January, eye doctor this week, and kidney doctor in April. - Continue taking gabapentin as prescrib ed, with adjusted dosing if recommended. - Utilize back support when performing a ctivities involving bending. - Continue current medications unless ch anges are discussed during this visit. - Engage in physical activity as tolerat ed and consider weight management strategies. - Schedule labs before the appointment i november for further evaluation. General: No fever no chills neurological: No headaches no dizziness ear nose throat: No sore throat no hearing difficulty no ear pain cardiovascular: No syncope, no chest pain, no palpitations gastrointestinal: No nausea vomiting or diarrhea endocrine: No polyuria polydipsia no heat intolerance genitourinary: No dysuria skin: No new complaints Physical Exam general: No acute distress HEENT: No acute findings neck: Supple respiratory system: Able to talk in full sentences, no audible wheeze, no stridor cardiovascular: S1-S2, regular gastrointestinal: No pain extremities: No new findings SHIP MANAGER: Alert, awake, oriented x3, motor sensory intact skin: Normal turgor [facility] Medical History Dermatitis Atherosclerotic heart disease Stress-induced cardiomyopathy (~08/2023) History of non-ST elevation myocardial infarction (NSTEMI) (~08/2023) PAF (paroxysmal atrial fibrillation) (~08/2023) HTN (hypertension) Renal artery aneurysm Kidney congenitally absent, right COPD mixed type Personal history of nicotine dependence Surgical History History of cardiac cath (~2022) History of right oophorectomy (~1979) History of left breast biopsy (~1975) History of tubal ligation History of tonsillectomy (~1970) Family History Father Cancer of prostate Mother Diabetes mellitus Brother No problems noted. Brother No problems noted. Brother No problems noted. Sister No problems noted. Sister No problems noted. Sister History of heart attack Daughter No problems noted. Daughter No problems noted. Maternal Grandfather No problems noted. Maternal Grandmother No problems noted. Paternal Grandfather No problems noted. Paternal Grandmother No problems noted. Maternal Aunt No problems noted. Social History Housing: Other Housing Other:: Mobile Home Alcohol intake: former Patient Tobacco Use Status: Former Tobacco user Tobacco use type: Cigarette Years Smoked: (onset 21yo, 1-2ppd x 41yrs, 60pyh - quit 2017) e-Cigarette/Vaping Use: Never Used service: No Current occupational status: retired Cognitive needs: No Hearing needs: No Vision needs: Yes Questionnaire PHQ-9 Over the last 2 weeks, how often have you been bothered by any of the following problems? 1. Little interest or pleasure in doing things: more than half the days 2. Feeling down, depressed, or hopeless: several days 3. Trouble falling or staying asleep, or sleeping too much: several days 4. Feeling tired or having little energy: not at all 5. Poor appetite or overeating: more than half the days 6. Feeling bad about yourself - or that you are a failure or have let yourself or your family down: not at all 7. Trouble concentrating on things, such as reading the newspaper or watching television: not at all 8. Moving or speaking so slowly that other people could have noticed. Or the opposite - being so fidgety or restless that you have been moving around a lot more than usual: not at all 9. Thoughts that you would be better off or of hurting yourself in some way: not at all Total score: 6 Depression Screening Interpretation: Negative Depression Screening Done: Yes 27918 - PHQ-9 Billing: Yes Source: Developed by Drs. Marco Antonio Oliva, Hoda Del CidEnmanuel and colleagues, with an educational arie from [employer]. Thrive Questionnaire Date Thrive assessed: 10/03/24 Do you have trouble paying for medicines?: No Do you have trouble getting transportation to medical appointments?: No Do you have trouble paying your heating and electricity bill?: Yes Do you have trouble taking care of your child, family member or friend?: No Do you have trouble with day-to-day activities such as bathing, preparing meals, shopping, managing finances, etc.?: No Are you currently unemployed and looking for a job?: I choose not to answer this question Are you interested in more education?: I choose not to answer this question Please select the resources that you would like help with: Utilities Currently or been in a relationship where the following occur: No concerns reported THRIVE Score: 1 CAESAR-7 AMB Questionnaire CAESAR-7 Date CAESAR - 7 assessed: 10/10/24 Feeling nervous, anxious, or on edge: 2 = More than half the days Not being able to stop or control worryin = Not at all Worrying too much about different things: 2 = More than half the days Trouble relaxin = More than half the days Being so restless that it is hard to sit still: 2 = More than half the days Becoming easily annoyed or irritable: 2 = More than half the days Feeling afraid as if something awful might happen: 0 = Not at all Total CAESAR-7 score (0-4 normal; 5-9 mild; 10-14 moderate; 15-21 severe): 10 Source: Developed by Drs. Marco Antonio Oliva, Enmanuel Judd and colleagues, with an educational arie from [employer]. Physical exam (Primary Care) Vital Signs: Last Vital Signs Pulse 66 12/26/24 09:15 BP 134/86 12/26/24 09:15 Pulse Ox 99 12/26/24 09:15 Oxygen Delivery Method Room Air 12/26/24 09:15 BMI result Body Mass Index 33.3 Tobacco/Smoking Status: Tobacco use Status Tobacco use date assessed 12/26/24 12/26/24 09:24 Patient Tobacco Use Status Former Tobacco user 12/26/24 09:24 Tobacco use type Cigarette 12/26/24 09:24 e-Cigarette/Vaping Use Never Used 12/26/24 09:24 PHQ-9: PHQ-9 Score PHQ-9: Total score 6 12/26/24 11:42 Depression Screening Interpretation: Negative Thrive Assessment: Date of Thrive Assessment Date Thrive assessed 10/03/24 12/26/24 09:24 Currently or been in a relationship where the following occur: No concerns reported Coding Level of Care Code Est Pt Level 5 (91198) Diagnoses Primary hypertension I10 Hypertension type: primary hypertension Lumbar back pain M54.50 Elevated serum creatinine R79.89 Mild episode of recurrent major depressive disorder F33.0 Active/Remission status: currently active Major depression episode severity: mild COPD mixed type J44.9 Atherosclerosis of [place] coronary artery of [place] heart without angina pectoris I25.10 Associated angina: without angina Coronary Disease-Associated Artery/Lesion type: [place] artery [place] vs. transplanted heart: [place] heart Class 1 obesity due to excess calories with serious comorbidity and body mass index (BMI) of 30.0 to 30.9 in adult E66.09; Z68.30 Body mass index: BMI 30.0-30.9 Obesity classification: adult class 1 (BMI 30 - 34.9) Serious obesity comorbidity presence: with serious comorbidity Microcytic anemia D50.9 Stage 3b chronic kidney disease N18.32 Chronic kidney disease stage 3 subtype: stage 3b (GFR 30-44) Kidney congenitally absent, right Q60.0 Personal history of nicotine dependence Z87.891 Additional Codes PHQ-9 - 66590 - PHQ-9 Billing: Yes ([id number]) Time Spent (min) 40 Comment reviewing labs/ oanx-wn-ktna/coordination of care Assessment & Plan Assessment & Plan (1) HTN (hypertension): Comment: Right kidney is absent Left renal artery Aneurysm is calcified Left RA shows about 60 % stenosis Code(s): I10 - Essential (primary) hypertension Category: Medical Qualifiers: Hypertension type: primary hypertension Qualified Code(s): I10 - Essential (primary) hypertension (2) Lumbar back pain: Code(s): M54.50 - Low back pain, unspecified Category: Medical (3) Elevated serum creatinine: Code(s): R79.89 - Other specified abnormal findings of blood chemistry Category: Medical (4) Major depression, recurrent: Code(s): F33.9 - Major depressive disorder, recurrent, unspecified Category: Medical Qualifiers: Active/Remission status: currently active Major depression episode severity: mild Qualified Code(s): F33.0 - Major depressive disorder, recurrent, mild (5) COPD mixed type: Comment: (COPD - secondary to smoking), MODERATELY SEVERE, WITH GOOD RESPONSE TO BRONCHODILATOR THERAPY. PATIENT HAS BEEN FEELING WELL WITH THE USE OF DULERA HFA 2 PUFFS B.I.D., AND HARDLY NEEDING TO USE THE RESCUE INHALER. RECENTLY HAD A BOUT OF UPPER RESPIRATORY INFECTION WITH CHEST CONGESTION WHICH HAS IMPROVED WITH THE USE OF 1 COURSE OF Z-TORIE. Code(s): J44.9 - Chronic obstructive pulmonary disease, unspecified Category: Medical (6) Atherosclerotic heart disease: Code(s): I25.10 - Atherosclerotic heart disease of [place] coronary artery without angina pectoris Category: Medical Qualifiers: Associated angina: without angina Coronary Disease-Associated Artery/Lesion type: [place] artery [place] vs. transplanted heart: [place] heart Qualified Code(s): I25.10 - Atherosclerotic heart disease of [place] coronary artery without angina pectoris (7) Obesity due to excess calories: Code(s): E66.09 - Other obesity due to excess calories Category: Medical Qualifiers: Body mass index: BMI 30.0-30.9 Obesity classification: adult class 1 (BMI 30 - 34.9) Serious obesity comorbidity presence: with serious comorbidity Qualified Code(s): E66.09 - Other obesity due to excess calories; Z68.30 - Body mass index [BMI] 30.0-30.9, adult (8) Microcytic anemia: Code(s): D50.9 - Iron deficiency anemia, unspecified Category: Medical (9) CKD (chronic kidney disease) stage 3, GFR 30-59 ml/min: Code(s): N18.30 - Chronic kidney disease, stage 3 unspecified Category: Medical Qualifiers: Chronic kidney disease stage 3 subtype: stage 3b (GFR 30-44) Qualified Code(s): N18.32 - Chronic kidney disease, stage 3b (10) Kidney congenitally absent, right: Code(s): Q60.0 - Renal agenesis, unilateral Category: Medical (11) Personal history of nicotine dependence: Comment: (former smoker - onset 21yo, 1-2ppd x 41yrs, 60pyh - quit 2018) Code(s): Z87.891 - Personal history of nicotine dependence Category: Medical Plan History of Present Illness The patient is a 69-year-old female presenting with management of Chronic Obstructive Pulmonary Disease (COPD). She currently manages her COPD with Breo, though she believes an updraft machine would alleviate symptoms more effectively. Sleep issues have arisen, likely associated with COPD, contributing to poor rest. A family history of respiratory complications is noted, as her daughter requires oxygen therapy due to Hyaline membrane disease and complications from RSV. The patient addresses constipation with medication but must maintain regular intake to avoid symptoms. hypertension is managed through dietary changes, notably reduced salt consumption. patient is also on metoprolol Smoking cessation has been effective since 2018. The patient takes vitamins as needed for a minor deficiency, balancing this with constipation concerns. she also have back pain which is stable at this time with the help of gabapentin 300 mg 3 times a day - The patient has undergone an ablation for atrial fibrillation and has seen improvement, with no further episodes reported. - She is slightly anemic, with a history dating back to childhood, and continues to monitor iron levels. - Her renal artery aneurysm has spontaneously coagulated with improving renal function. - Depression and allergic rhinitis are managed with medication, with reported stability. 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) - Atrial Fibrillation (post-ablation) management through Cardiology - Chronic Obstructive Pulmonary Disease (COPD) - Anemia - Back Pain chronic - Depression table - Allergic Rhinitis - Renal Artery Aneurysm (coagulated) Medications - Breo for Chronic Obstructive Pulmonary Disease - Eliquis for anticoagulation - Atorvastatin for hyperlipidemia - Cetirizine for allergies - Lexapro for depression - Gabapentin 300 mg for neuropathy, 1 tablet in the morning, and 1 at night, with an additional dose during the day if needed - Mirtazapine for sleep at night - Diuretic (unspecified), used every other day for fluid management - Gabapentin 600 mg at night for back pain - Escitalopram for depression - Antihistamines for allergic rhinitis - Mirtazapine for sleep - Antibiotics (recently completed course for bronchitis) Diagnostic results - Labs: Hemoglobin at 11.7 (slightly lower than normal but stable), Electrolytes normal, Kidney function slightly improved, Liver enzymes normal - Labs (July): Hemoglobin 11.7, slight anemia; kidney function slightly improved at GFR 44; creatinine and glucose levels stable; LDL cholesterol 51. Patient Instructions - Continue taking medications as prescribed, including Breo, Eliquis, Atorvastatin, Cetirizine, Lexapro, Gabapentin, and Mirtazapine. - Use diuretic every other day and continue avoiding salt to manage blood pressure. - Maintain vitamin intake as needed, balancing to avoid constipation. - Follow up on the new [employer] machine after it has been sent. - Schedule follow-up appointments with your talent acquisition director in January, eye doctor this week, and kidney doctor in April. - Continue taking gabapentin as prescribed, with adjusted dosing if recommended. - Utilize back support when performing activities involving bending. - Continue current medications unless changes are discussed during this visit. - Engage in physical activity as tolerated and consider weight management strategies. - Schedule labs before the appointment in November for further evaluation. Medications: New ipratropium-albuterol 0.5 mg-3 mg(2.5 mg base)/3 mL 3 mL inhalation Q6-8H PRN 90 mL 0RF wheezing 30 days
--- OUTSIDE RECORDS SUMMARY | 2024-12-26 09:34 | XMS_ITS | Encounter Summary ---
Author Organization [facility] Address [address] [place] [address] Phone Care Team Providers Care Garment Parts Cutter Hand Name Role Phone Carla Michael MD Primary Care Provider [phone] Encounter Details Date Type Department Care Team (Late st Contact Info) Description 11/09/2023 Documentation Only [facility] [place], [address] [place] [address] Kaitlin Olivas [address] [place] [address] Social History Tobacco Use Types [...] on filedocumented in this encounter Care Teams Garment Parts Cutter Hand Relationship Specialty Start Date End Date Carla Michael MD [facility] [place] [address] PCP - General Internal Medicine 11/09/23 documented as of this encounter
--- OUTSIDE RECORDS SUMMARY | 2024-12-26 09:34 | XMS_ITS | Encounter Summary ---
Author Organization [facility] Address [address] [place] [address] Phone Care Team Providers Care Residential Program Director Name Role Phone Carla Michael MD Primary Care Provider [phone] Encounter Details Date Type Department Care Team (Late st Contact Info) Description 11/09/2023 Documentation Only [facility] [place], [address] [place] [address] Kaitlin Olivas [address] [place] [address] Social History Tobacco Use Types [...] on filedocumented in this encounter Care Teams Residential Program Director Relationship Specialty Start Date End Date Carla Michael MD [facility] [place] [address] PCP - General Internal Medicine 11/09/23 documented as of this encounter
--- OUTSIDE RECORDS SUMMARY | 2024-12-26 09:34 | XMS_ITS | Clinical Summary ---
Author Organization [facility] Address [address] [place] [address] Phone Care Team Providers Care Denture Technician Name Role Phone Carla Michael MD Primary Care Provider [phone] Allergies No known active allergies Medications amLODIPine [...] Insurance MEDICARE MEDICARE MEDICAID [place] Care Teams Denture Technician Relationship Specialty Start Date End Date Carla Michael MD [address] [place] [address] PCP - General Internal Medicine 11/09/23
--- OUTSIDE RECORDS SUMMARY | 2024-12-26 09:34 | XMS_ITS | Encounter Summary ---
Author Organization [facility] Address [address] [place] [address] Phone Care Team Providers Care Reproduction Machine Loader Name Role Phone Calra Michael MD Primary Care Provider [phone] Encounter Details Date Type Department Care Team (Late st Contact Info) Description 11/09/2023 Documentation Only [facility] [place], [address] [place] [address] Kaitlin Olivas [address] [place] [address] Social History Tobacco Use Types [...] on filedocumented in this encounter Care Teams Reproduction Machine Loader Relationship Specialty Start Date End Date Carla Michael MD [facility] [place] [address] PCP - General Internal Medicine 11/09/23 documented as of this encounter
--- OUTSIDE RECORDS SUMMARY | 2024-12-26 09:34 | XMS_ITS | Encounter Summary ---
Author Organization [facility] Address [address] [place] [address] Phone Care Team Providers Care Packing And Wrapping Supervisor Name Role Phone Carla Michael MD Primary Care Provider [phone] Encounter Details Date Type Department Care Team (Late st Contact Info) Description 11/09/2023 Documentation Only [facility] [place], [address] [place] [address] Kaitlin Olivas [address] [place] [address] Social History Tobacco Use Types [...] on filedocumented in this encounter Care Teams Packing And Wrapping Supervisor Relationship Specialty Start Date End Date Carla Michael MD [facility] [place] [address] PCP - General Internal Medicine 11/09/23 documented as of this encounter
--- OUTSIDE RECORDS SUMMARY | 2024-12-26 09:34 | XMS_ITS | Encounter Summary ---
Author Organization [facility] Address [address] [place] [address] Phone Care Team Providers Care Car Cleaning Supervisor Name Role Phone Carla Michael MD Primary Care Provider [phone] Encounter Details Date Type Department Care Team (Late st Contact Info) Description 11/09/2023 Documentation Only [facility] [place], [address] [place] [address] Kaitlin Olivas [address] [place] [address] Social History Tobacco Use Types [...] on filedocumented in this encounter Care Teams Car Cleaning Supervisor Relationship Specialty Start Date End Date Carla Michael MD [facility] [place] [address] PCP - General Internal Medicine 11/09/23 documented as of this encounter
--- OUTSIDE RECORDS SUMMARY | 2024-12-26 09:34 | XMS_ITS | Encounter Summary ---
Author Organization [facility] Address [address] [place] [address] Phone Care Team Providers Care Water Filterer Helper Name Role Phone Carla Michael MD Primary Care Provider [phone] Encounter Details Date Type Department Care Team (Late st Contact Info) Description 11/09/2023 Documentation Only [facility] [place], [address] [place] [address] Kaitlin Olivas [address] [place] [address] Social History Tobacco Use Types [...] on filedocumented in this encounter Care Teams Water Filterer Helper Relationship Specialty Start Date End Date Carla Michael MD [facility] [place] [address] PCP - General Internal Medicine 11/09/23 documented as of this encounter
--- OUTSIDE RECORDS SUMMARY | 2024-12-26 09:34 | XMS_ITS | Encounter Summary ---
Author Organization [facility] Address [address] [place] [address] Phone Care Team Providers Care Gluing Machine Operator Electronic Name Role Phone Carla Michael MD Primary Care Provider [phone] Encounter Details Date Type Department Care Team (Late st Contact Info) Description 11/09/2023 Documentation Only [facility] [place], [address] [place] [address] Kaitlin Olivas [address] [place] [address] Social History Tobacco Use Types [...] on filedocumented in this encounter Care Teams Gluing Machine Operator Electronic Relationship Specialty Start Date End Date Carla Michael MD [facility] [place] [address] PCP - General Internal Medicine 11/09/23 documented as of this encounter
== END 2024-12-26 09:30 | disposition home or self-care (01) ==
LOC: HO.HMCC 08:55
PROVIDERS: PCP Internal Medicine; Visit Provider Internal Medicine
DX: I12.9 Hypertensive chronic kidney disease with stage 1 through stage 4 chronic kidney disease, or unspecified chronic kidney disease (principal); F33.0 Major depressive disorder, recurrent, mild; J44.9 Chronic obstructive pulmonary disease, unspecified; N18.32 Chronic kidney disease, stage 3b; M54.50 Low back pain, unspecified; R79.89 Other specified abnormal findings of blood chemistry; I25.10 Atherosclerotic heart disease of native coronary artery without angina pectoris; E66.09 Other obesity due to excess calories; Z68.30 Body mass index [BMI] 30.0-30.9, adult; D50.9 Iron deficiency anemia, unspecified; Q60.0 Renal agenesis, unilateral; Z87.891 Personal history of nicotine dependence

== ENCOUNTER → 2024-12-26 08:55 | Outpatient (BNVA) | payer MEDICARE, MEDICAID, SELFPAY | PROVIDERS: PCP Internal Medicine; Visit Provider Internal Medicine | DX: R79.89 Other specified abnormal findings of blood chemistry (principal); F33.0 Major depressive disorder, recurrent, mild; J44.9 Chronic obstructive pulmonary disease, unspecified; I25.10 Atherosclerotic heart disease of native coronary artery without angina pectoris; E87.1 Hypo-osmolality and hyponatremia; M54.12 Radiculopathy, cervical region; M54.50 Low back pain, unspecified; I10 Essential (primary) hypertension | CPT/HCPCS: 96127; 99212 ==

== ENCOUNTER 2025-02-13 11:03 | Outpatient (AMB) | payer MEDICARE, MEDICAID, SELFPAY ==
--- NOTE | 2025-02-13 11:23 | MHC.OFFVIS ---
Vital Signs 02/13/25 11:25 Height 5 ft 6 in Weight 217 lb 13.067 oz BMI 35.2 BP 140/70 H Blood Pressure Location Lt brachial Position Sitting Pulse 62 Pulse Source Monitor Intake Visit Reasons: 6 mth f/up Injection Molding Machine Tender Required: No Accompanied by: Self / Same As Patient Allergies environmental allergies Allergy (Unknown, Verified 12/26/24 09:16) Unknown Medication List - Last Reconciled 02/13/25 by Bryan Barry MD acetaminophen ER (Tylenol 8 Hour) 650 mg PO Q12H albuterol sulfate 90 mcg/actuation (Ventolin HFA) 1 inh inhalation QID PRN 30 days apixaban (Eliquis) 5 mg PO BID atorvastatin 80 mg PO QPM cetirizine (All Day Allergy (cetirizine)) 10 mg PO DAILY PRN doxycycline hyclate 100 mg PO DAILY escitalopram oxalate (Lexapro) 10 mg PO DAILY ferrous sulfate (Feosol) 325 mg PO DAILY fluticasone furoate-vilanterol 200-25 mcg/dose (Breo Ellipta) 1 inh inhalation DAILY 30 days gabapentin 300 mg PO TID 90 days inhalational spacing device (Bryon Aerosol Asotin Enhancer spacer) As directed ipratropium-albuterol 0.5 mg-3 mg(2.5 mg base)/3 mL 3 mL inhalation Q6-8H PRN 30 days metoprolol succinate ER 25 mg PO DAILY mirtazapine 15 mg PO BEDTIME mometasone-formoterol 200-5 mcg/actuation (Dulera) 2 puffs inhalation BID multivitamin (Daily Multi-Vitamin tablet) 1 tab PO DAILY nebulizers Use every 6 hrs as needed for shortness of breath or wheezing senna 187 mg PO DAILY sennosides-docusate sodium 8.6-50 mg (Senokot-S) 1 tab-cap PO BEDTIME 90 days Shower Chair Shower chair with back, use as directed NS torsemide 20 mg PO .every other day HPI Comments Details: Josi returns for follow-up. To recall, she presented to [facility] with complaints of substernal chest pain. EKG as well as high sensitivity troponins were abnormal. Echocardiogram showed wall motion abnormalities and that led to cardiac catheterization but suspicion was rather stress-induced cardiomyopathy. She also had some atrial fibrillation and hence she was put on Eliquis. During outpatient visit, she also had evidence of junctional rhythm. Then we had stopped the beta-blockers. Sent to EP and she underwent atrial fibrillation ablation. She is back on a small dose of beta-blockers. Overall, no cardiac symptoms. [facility] Medical History Dermatitis Atherosclerotic heart disease Stress-induced cardiomyopathy (~08/2023) History of non-ST elevation myocardial infarction (NSTEMI) (~08/2023) PAF (paroxysmal atrial fibrillation) (~08/2023) HTN (hypertension) Renal artery aneurysm Kidney congenitally absent, right COPD mixed type Personal history of nicotine dependence Surgical History History of cardiac cath (~2022) History of right oophorectomy (~1979) History of left breast biopsy (~1974) History of tubal ligation History of tonsillectomy (~1969) Family History Father Cancer of prostate Mother Diabetes mellitus Brother No problems noted. Brother No problems noted. Brother No problems noted. Sister No problems noted. Sister No problems noted. Sister History of heart attack Daughter No problems noted. Daughter No problems noted. Maternal Grandfather No problems noted. Maternal Grandmother No problems noted. Paternal Grandfather No problems noted. Paternal Grandmother No problems noted. Maternal Aunt No problems noted. Social History Housing: Other Housing Other:: Mobile Home Alcohol intake: former Patient Tobacco Use Status: Former Tobacco user Tobacco use type: Cigarette Years Smoked: (onset 21yo, 1-2ppd x 41yrs, 60pyh - quit 2018) e-Cigarette/Vaping Use: Never Used service: No Current occupational status: retired Cognitive needs: No Hearing needs: No Vision needs: Yes Review of Systems Const Denies chills, Denies fatigue, Denies fever(s), Denies frequent falls, Denies weakness, Denies weight gain and Denies weight loss ENT Denies dizziness Card Denies chest pain, Denies leg edema, Denies lightheadedness, Reports palpitations, Denies dyspnea and Denies dyspnea on exertion Resp Denies cough, Denies dyspnea and Denies dyspnea on exertion GI Denies hematochezia Musc Denies abnormal gait, Denies muscle weakness, Denies numbness, Denies radiating pain into limb and Denies tingling Neuro Denies abnormal gait, Denies dizziness, Denies frequent falls, Denies numbness, Denies tingling and Denies weakness Endo Denies fatigue and Reports palpitations Physical Exam Vital Signs: Last Vital Signs Pulse 62 02/13/25 11:25 BP 140/70 H 02/13/25 11:25 BMI result Body Mass Index 35.2 Const General: comfortable and no acute distress Orientation/consciousness: patient oriented x3 HEENT Other: Unremarkable Head: Yes normal to inspection Neck Neck: Yes normal visual inspection Chest Chest palpation & inspection: normal inspection of the chest Resp Auscultation: clear to auscultation bilaterally Cardio Palpation: normal PMI Heart sounds: S1 normal heart sound present, S2 normal heart sound present, no gallops, no murmurs and no rubs GI Palpation (GI): Soft to palpation Back/Spine/Pelvis Other: unremarkable Skin General skin exam: no rashes or lesions noted Neuro General: patient oriented x3 Extrem General: Yes normal to inspection Psych Mental Status: mental status grossly normal Office Procedures EKG Details: EKG with underlying sinus rhythm at 62/Min; cannot exclude old septal infarct but could be from body habitus; [place]. [id number], Complete Assessment & Plan Assessment & Plan (1) Stress-induced cardiomyopathy: Onset Date: ~08/2023 Code(s): I51.81 - Takotsubo syndrome Category: Medical Plan: Echocardiogram at [facility] with LVEF of 20-25%. Mid/apical segments dyskinetic and basal segments hyperdynamic. Cardiac catheterization with 40% stenosis in the proximal LAD/RCA with minimal irregularities in circumflex. In the most recent echocardiogram, LVEF is 54%. Overall thought to be stress-induced cardiomyopathy. Clinically, no heart failure symptoms or signs. Not on any BRYON inhibitors or ARB and has had intermittently elevated creatinine. Remains on beta-blockers. (2) Atherosclerotic heart disease: Code(s): I25.10 - Atherosclerotic heart disease of [place] coronary artery without angina pectoris Category: Medical Qualifiers: Associated angina: without angina Coronary Disease-Associated Artery/Lesion type: [place] artery [place] vs. transplanted heart: [place] heart Qualified Code(s): I25.10 - Atherosclerotic heart disease of [place] coronary artery without angina pectoris Plan: Moderate coronary disease only. Continue statins. LDL 48 mg/dL. Triglycerides 52 mg/dL. (3) Junctional rhythm: Code(s): I49.8 - Other specified cardiac arrhythmias Category: Medical Plan: EKG in a prior visit had shown junctional rhythm. The issue is resolved at this time. (4) PAF (paroxysmal atrial fibrillation): Onset Date: ~08/2023 Code(s): I48.0 - Paroxysmal atrial fibrillation Category: Medical Plan: Noted during [facility] hospitalization. Now status post ablation. On a small dose of beta-blockers due to junctional rhythm history. Continue anticoagulation. In the last Holter monitor, underlying sinus rhythm with an average rate of 75/Min. Frequent supraventricular ectopy with a burden of 3.6%. Plan Discussion Notes We discussed the patient's weight concerns and reviewed dietary and exercise habits. I emphasized the value of maintaining a balanced diet and regular exercise for weight management. I recommended increased activity, particularly outdoor activities, to support weight loss goals. The patient acknowledged understanding the plan and the need for lifestyle modifications. Patient was informed and verbally consented to the use of an ambient scribe for clinic note documentation during this visit. Patient Instructions: - Continue eating a balanced diet with fruits and vegetables. - Limit junk food and ice cream. - Increase outdoor activities and walk more often. - Contact for any issues or further questions. Coding Level of Care Code Est Pt Level 4 (49176) Complex EM visit Add On G2211 Diagnoses Stress-induced cardiomyopathy I51.81 Atherosclerosis of [place] coronary artery of [place] heart without angina pectoris I25.10 Associated angina: without angina Coronary Disease-Associated Artery/Lesion type: [place] artery [place] vs. transplanted heart: [place] heart Junctional rhythm I49.8 PAF (paroxysmal atrial fibrillation) I48.0 CPT Codes EKG - CPT: 46592-[id number], Complete ([id number])
[2025-02-13 11:25] VITALS: BP 140/70; PULSE 62; BMI 35.2
--- OUTSIDE RECORDS SUMMARY | 2025-02-13 12:22 | XMS_ITS | Clinical Summary ---
Author Organization [facility] Address [address] [place] [address] Phone Care Team Providers Care Trustee Of Estate Name Role Phone Carla Michael MD Primary Care Provider Allergies No known active allergies Medications amLODIPine [...] Comments Breast Cancer Screening 1957 Pneumococcal Vaccine: 50+ Ye ars (1 of 2 - PCV) 1976 Colorectal Cancer Screening: Annual FOBT 2006 Colorectal Cancer Screening: Colonoscopy 2006 Colorectal Cancer Screening: Sigmoidoscopy 2006 Influenza Vaccine (Season Ended) 2025 Hepatitis B Vaccine Aged Out No longe r eligible based on patient's age to complete this topic Insurance Medicare Medicare Medicaid [place] Care Teams Trustee Of Estate Relationship Specialty Start Date End Date Carla Michael MD [address] [place] [address] PCP - General Internal Medicine 11/09/23
--- OUTSIDE RECORDS SUMMARY | 2025-02-13 12:22 | XMS_ITS | Encounter Summary ---
Author Organization [facility] Address [address] [place] [address] Phone Care Team Providers Care Alining Inspector Name Role Phone Carla Michael MD Primary Care Provider [phone] Encounter Details Date Type Department Care Team (Late st Contact Info) Description 11/09/2023 Documentation Only [facility] [place], [address] [place] [address] Kaitlin Olivas [address] [place] [address] Social History Tobacco Use Types [...] on filedocumented in this encounter Care Teams Alining Inspector Relationship Specialty Start Date End Date Carla Michael MD [facility] [place] [address] PCP - General Internal Medicine 11/09/23 documented as of this encounter
--- OUTSIDE RECORDS SUMMARY | 2025-02-13 12:22 | XMS_ITS | Encounter Summary ---
Author Organization [facility] Address [address] [place] [address] Phone Care Team Providers Care Onshore Diver Name Role Phone Carla Michael MD Primary Care Provider [phone] Encounter Details Date Type Department Care Team (Late st Contact Info) Description 11/09/2023 Documentation Only [facility] [place], [address] [place] [address] Kaitlin Olivas [address] [place] [address] Social History Tobacco Use Types [...] on filedocumented in this encounter Care Teams Onshore Diver Relationship Specialty Start Date End Date Carla Michael MD [facility] [place] [address] PCP - General Internal Medicine 11/09/23 documented as of this encounter
--- OUTSIDE RECORDS SUMMARY | 2025-02-13 12:22 | XMS_ITS | Encounter Summary ---
Author Organization [facility] Address [address] [place] [address] Phone Care Team Providers Care Sample Selector Name Role Phone Carla Michael MD Primary Care Provider [phone] Encounter Details Date Type Department Care Team (Late st Contact Info) Description 11/09/2023 Documentation Only [facility] [place], [address] [place] [address] Kaitlin Olivas [address] [place] [address] Social History Tobacco Use Types [...] on filedocumented in this encounter Care Teams Sample Selector Relationship Specialty Start Date End Date Carla Michael MD [facility] [place] [address] PCP - General Internal Medicine 11/09/23 documented as of this encounter
--- OUTSIDE RECORDS SUMMARY | 2025-02-13 12:22 | XMS_ITS | Encounter Summary ---
Author Organization [facility] Address [address] [place] [address] Phone Care Team Providers Care Construction Site Manager Name Role Phone Carla Michael MD Primary Care Provider [phone] Encounter Details Date Type Department Care Team (Late st Contact Info) Description 11/09/2023 Documentation Only [facility] [place], [address] [place] [address] Kaitlin Olivas [address] [place] [address] Social History Tobacco Use Types [...] on filedocumented in this encounter Care Teams Construction Site Manager Relationship Specialty Start Date End Date Carla Michael MD [facility] [place] [address] PCP - General Internal Medicine 11/09/23 documented as of this encounter
--- OUTSIDE RECORDS SUMMARY | 2025-02-13 12:22 | XMS_ITS | Encounter Summary ---
Author Organization [facility] Address [address] [place] [address] Phone Care Team Providers Care Restaurant Crew Name Role Phone Carla Michael MD Primary Care Provider [phone] Encounter Details Date Type Department Care Team (Late st Contact Info) Description 11/09/2023 Documentation Only [facility] [place], [address] [place] [address] Kaitlin Olivas [address] [place] [address] Social History Tobacco Use Types [...] on filedocumented in this encounter Care Teams Restaurant Crew Relationship Specialty Start Date End Date Carla Michael MD [facility] [place] [address] PCP - General Internal Medicine 11/09/23 documented as of this encounter
--- OUTSIDE RECORDS SUMMARY | 2025-02-13 12:22 | XMS_ITS | Encounter Summary ---
Author Organization [facility] Address [address] [place] [address] Phone Care Team Providers Care Restaurant Supervisor Name Role Phone Carla Michael MD Primary Care Provider [phone] Encounter Details Date Type Department Care Team (Late st Contact Info) Description 11/09/2023 Documentation Only [facility] [place], [address] [place] [address] Kaitlin Olivas [address] [place] [address] Social History Tobacco Use Types [...] filedocumented in this encounter Care Teams Restaurant Supervisor Relationship Specialty Start Date End Date Carla Michael MD [facility] [place] [address] PCP - General Internal Medicine 11/09/23 documented as of this encounter
--- OUTSIDE RECORDS SUMMARY | 2025-02-13 12:22 | XMS_ITS | Encounter Summary ---
Author Organization [facility] Address [address] [place] [address] Phone Care Team Providers Care Lot Worker Name Role Phone Carla Michael MD Primary Care Provider [phone] Encounter Details Date Type Department Care Team (Late st Contact Info) Description 11/09/2023 Documentation Only [facility] [place], [address] [place] [address] Kaitlin Olivas [address] [place] [address] Social History Tobacco Use Types [...] on filedocumented in this encounter Care Teams Lot Worker Relationship Specialty Start Date End Date Carla Michael MD [facility] [place] [address] PCP - General Internal Medicine 11/09/23 documented as of this encounter
== END 2025-02-13 11:38 | disposition home or self-care (01) ==
LOC: HO.HCS 11:04
PROVIDERS: PCP Internal Medicine; Visit Provider Internal Medicine
DX: I51.81 Takotsubo syndrome (principal); I25.10 Atherosclerotic heart disease of native coronary artery without angina pectoris; I49.8 Other specified cardiac arrhythmias; I48.0 Paroxysmal atrial fibrillation
CPT/HCPCS: 93010; 99214; G2211

== ENCOUNTER → 2025-02-13 11:03 | Outpatient (BNVA) | payer MEDICARE, MEDICAID, SELFPAY | PROVIDERS: PCP Internal Medicine; Visit Provider Internal Medicine | DX: I48.91 Unspecified atrial fibrillation (principal); I51.81 Takotsubo syndrome; I25.10 Atherosclerotic heart disease of native coronary artery without angina pectoris; I49.8 Other specified cardiac arrhythmias; I48.0 Paroxysmal atrial fibrillation; Z79.01 Long term (current) use of anticoagulants; Z87.891 Personal history of nicotine dependence | CPT/HCPCS: 93005; 99212 ==

== ENCOUNTER 2025-03-14 09:42 | Outpatient (REF) | payer MEDICARE, MEDICAID, SELFPAY ==
--- NOTE | ~2025-03-14 | CT_ITS ---
CLINICAL HISTORY: Z87.891 - Personal history of nicotine dependence CT lung cancer screening (LDCT) Comparison: 02/25/2024 Technique: Axial CT images of the chest using low-dose technique. Referring provider counseled the patient on shared decision-making for LDCT screening. Additional counseling was provided on smoking cessation. Effective radiation dose total: DLP 46.5 mGycm, CTDIvol 1.4 mGy. Findings: Lung: Mild emphysema. Stable 2 mm nodule of the left lower lobe series 4, image 88. Calcified granulomas. Coronary artery calcifications: Moderate Limited upper abdomen: Calcified aneurysm of the left renal artery is stable. Other: None Impression: LungRADS 2 - Benign Appearance: Continue annual screening with low dose Chest CT in 12 months. ##L2## Category 1: Normal; continue annual screening Category 2: Benign appearance or behavior, continue annual screening Category 3: Probably benign, [address] recommended Category 4A: Suspicious, [address] recommended; may consider PET/CT Category 4B: Suspicious, Additional diagnostics and/or tissue sampling recommended Category 4X: Suspicious, Additional diagnostics and/or tissue sampling recommended Category 0: Recalls (incomplete screen due to Incomplete coverage, Noise, Respiratory motion, Expiration, Obscured by acute abnormality) This document has been electronically signed by: Keyana Lindo MD on 03/14/2025 15:57:25
--- OUTSIDE RECORDS SUMMARY | 2025-03-14 10:44 | XMS_ITS | Encounter Summary ---
Author Organization [facility] Address [address] [place] [address] Phone Care Team Providers Care Towel Inspector Name Role Phone Carla Michael MD Primary Care Provider [phone] Encounter Details Date Type Department Care Team (Late st Contact Info) Description 11/09/2023 Documentation Only [facility] [place], [address] [place] [address] Kaitlin Olivas [address] [place] [address] Social History Tobacco Use Types [...] on filedocumented in this encounter Care Teams Towel Inspector Relationship Specialty Start Date End Date Carla Michael MD [facility] [place] [address] PCP - General Internal Medicine 11/09/23 documented as of this encounter
== END 2025-03-14 09:43 | disposition home or self-care (01) ==
LOC: HO.CT 09:42
PROVIDERS: PCP Internal Medicine; Visit Provider Physician Assistant Medical
DX: Z12.2 Encounter for screening for malignant neoplasm of respiratory organs (principal); Z87.891 Personal history of nicotine dependence
CPT/HCPCS: 71271

== ENCOUNTER → 2025-03-14 09:43 | Outpatient (BNV) | payer MEDICARE, MEDICAID, SELFPAY | PROVIDERS: PCP Internal Medicine; Visit Provider Nuclear Medicine | DX: Z87.891 Personal history of nicotine dependence (principal) | CPT/HCPCS: 71271 ==

== ENCOUNTER 2025-03-28 08:57 | Outpatient (AMB) | payer MEDICARE, MEDICAID, SELFPAY ==
--- OUTSIDE RECORDS SUMMARY | 2025-03-28 09:06 | XMS_ITS | Encounter Summary ---
Author Organization [facility] Address [address] [place] [address] Phone Care Team Providers Care Finance Accounting Internship Name Role Phone Carla Michael MD Primary Care Provider [phone] Encounter Details Date Type Department Care Team (Late st Contact Info) Description 11/09/2023 Documentation Only [facility] [place], [address] [place] [address] Kaitlin Olivas [address] [place] [address] Social History Tobacco Use Types [...] on filedocumented in this encounter Care Teams Finance Accounting Internship Relationship Specialty Start Date End Date Carla Michael MD [facility] [place] [address] PCP - General Internal Medicine 11/09/23 documented as of this encounter
[2025-03-28 09:11] VITALS: BP 144/92; PULSE 64; TEMP 36; O2SAT 97; BMI 33.3
--- NOTE | 2025-03-28 09:11 | A.OFFPC_ITS ---
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: No Is last menstrual period known: Yes Post menopausal: Yes Patient : No Allergies environmental allergies Allergy (Unknown, Verified 03/28/25 09:15) Unknown Medication List - Last Reconciled 03/28/25 by Carla Michael MD acetaminophen ER (Tylenol 8 Hour) 650 mg PO Q12H albuterol sulfate 90 mcg/actuation (Ventolin HFA) 1 inh inhalation QID PRN 30 days apixaban (Eliquis) 5 mg PO BID atorvastatin 80 mg PO QPM cetirizine (All Day Allergy (cetirizine)) 10 mg PO DAILY PRN doxycycline hyclate 100 mg PO DAILY escitalopram oxalate (Lexapro) 10 mg PO DAILY fluticasone furoate-vilanterol 200-25 mcg/dose (Breo Ellipta) 1 inh inhalation DAILY 30 days gabapentin 300 mg PO TID 90 days inhalational spacing device (Bryon Aerosol [place] Enhancer spacer) As directed ipratropium-albuterol 0.5 mg-3 mg(2.5 mg base)/3 mL 3 mL inhalation Q6-8H PRN 30 days metoprolol succinate ER 25 mg PO DAILY mirtazapine 15 mg PO BEDTIME mometasone-formoterol 200-5 mcg/actuation (Dulera) 2 puffs inhalation BID multivitamin (Daily Multi-Vitamin tablet) 1 tab PO DAILY nebulizers Use every 6 hrs as needed for shortness of breath or wheezing sennosides-docusate sodium 8.6-50 mg (Senokot-S) 1 tab-cap PO BEDTIME 90 days Shower Chair Shower chair with back, use as directed NS torsemide 20 mg PO .every other day Tobacco use date assessed: 03/28/25 Fall risk assessment: No Falls in past year Dental Screening Dental Screen Date: 12/26/24 Did you have a dental visit in the last 12 months?: No Did you have a dental problem in the last 6 months where you did not have access to dental care?: No HPI 3m f/u HPI Details History - The patient is a 69-year-old female pr esenting for a routine follow-up. Long- term care - She attended a cardiology visit last m [facility] with stable conditions. - Reports of anxiety are managed with a stable mood and improved sleep. - Complained of shortness of breath upon exertion, but otherwise stable breathing. - Kidney function is compromised but sta ble as reported. - Liver enzymes were reported as normal. - No new major health problems or concer ns raised during the visit. - Patient discussed difficulty with weig ht management and requested a referral to a weight management clinic. - Noted cessation of smoking for nearly eight years, coinciding with her great- grandson's first birthday. Problem List - Chronic Obstructive Pulmonary Disease (COPD) - Sleep disorder - Constipation - Hypertension - Vitamin deficiency - Atrial Fibrillation (post-ablation) ma nagement through Cardiology - Chronic Obstructive Pulmonary Disease (COPD) - Anemia - Back Pain chronic - Depression table - Allergic Rhinitis - Renal Artery Aneurysm (coagulated) Medications - Breo for Chronic Obstructive Pulmonary Disease - Eliquis for anticoagulation - Atorvastatin for hyperlipidemia - Cetirizine for allergies - Lexapro for depression - Gabapentin 300 mg for neuropathy, 1 ta blet in the morning, and 1 at night, with an additional dose during the day if needed - Mirtazapine for sleep at night - Diuretic (unspecified), used every oth er day for fluid management - Gabapentin 600 mg at night for back pa in - Escitalopram for depression - Antihistamines for allergic rhinitis - Mirtazapine for sleep - Antibiotics (recently completed course for bronchitis) Social History: - Unemployed; staying at home. - Ceased smoking nearly eight years ago. - Desires assistance in managing weight to prevent getting larger. - Mother of multiple children; involved in family matters. Diagnostic Results: - Labs: Hemoglobin at 11.7 (stable), ines ctrolytes within normal limits. - Diagnostics: Improved kidney function remains stable. Liver enzymes normal. - Recent pulmonary ultrasound showed no nodules. Patient Instructions - Continue current medication regimen as prescribed. - Plan to attend scheduled appointments with pulmonary and kidney specialists in April, and cardiology in August. - Referral to a weight management clinic provided. - Contact health provider if breathing i ssues worsen or if new symptoms arise. Review of Systems - General: No fever no chills - Neurological: No headaches no dizziness - Ear nose throat: No sore throat no hearing difficulty no ear pain - Cardiovascular: No syncope, no chest pain, no palpitations - Gastrointestinal: No nausea vomiting or diarrhea - Endocrine: No polyuria polydipsia no heat intolerance - Genitourinary: No dysuria , no blood in urine Physical Exam General: No acute distress HEENT: No acute findings Neck: Supple Respiratory system: Short-winded if overexerted, no audible wheeze Cardiovascular: S1-S2 regular in rate and rhythm Gastrointestinal: No pain Extremities: No new findings ORDER TRACER: Alert awake oriented x3 motor sensory intact Skin: Normal turgor [facility] Medical History Dermatitis Atherosclerotic heart disease Stress-induced cardiomyopathy (~08/2023) History of non-ST elevation myocardial infarction (NSTEMI) (~08/2023) PAF (paroxysmal atrial fibrillation) (~08/2023) HTN (hypertension) Renal artery aneurysm Kidney congenitally absent, right COPD mixed type Personal history of nicotine dependence Surgical History History of cardiac cath (~2022) History of right oophorectomy (~1979) History of left breast biopsy (~1974) History of tubal ligation History of tonsillectomy (~1969) Family History Father Cancer of prostate Mother Diabetes mellitus Brother No problems noted. Brother No problems noted. Brother No problems noted. Sister No problems noted. Sister No problems noted. Sister History of heart attack Daughter No problems noted. Daughter No problems noted. Maternal Grandfather No problems noted. Maternal Grandmother No problems noted. Paternal Grandfather No problems noted. Paternal Grandmother No problems noted. Maternal Aunt No problems noted. Social History Housing: Other Housing Other:: Mobile Home Alcohol intake: former Patient Tobacco Use Status: Former Tobacco user Tobacco use type: Cigarette Years Smoked: (onset 21yo, 1-2ppd x 41yrs, 60pyh - quit 2018) e-Cigarette/Vaping Use: Never Used service: No Current occupational status: retired Cognitive needs: No Hearing needs: No Vision needs: Yes Questionnaire PHQ-9 Over the last 2 weeks, how often have you been bothered by any of the following problems? 1. Little interest or pleasure in doing things: more than half the days 2. Feeling down, depressed, or hopeless: several days 3. Trouble falling or staying asleep, or sleeping too much: several days 4. Feeling tired or having little energy: not at all 5. Poor appetite or overeating: more than half the days 6. Feeling bad about yourself - or that you are a failure or have let yourself or your family down: not at all 7. Trouble concentrating on things, such as reading the newspaper or watching television: not at all 8. Moving or speaking so slowly that other people could have noticed. Or the opposite - being so fidgety or restless that you have been moving around a lot more than usual: not at all 9. Thoughts that you would be better off or of hurting yourself in some way: not at all Total score: 6 Depression Screening Interpretation: Negative Depression Screening Done: Yes 94612 - PHQ-9 Billing: Yes Source: Developed by Drs. Marco Antonio Oliva, Hoda Del Cid, Enmanuel Duenas and colleagues, with an educational arie from [employer]. Thrive Questionnaire Date Thrive assessed: 03/28/25 I am a: Patient What is your living situation today?: I have a steady place to live Within the past 12 months, did the food you bought not last and you didn't have the money to get more?: Never true Within the past 12 months, did you worry whether your food would run out before you got money to buy more?: Never true Do you have trouble paying for medicines?: No Do you have trouble getting transportation to medical appointments?: No Do you have trouble paying your heating and electricity bill?: Yes Do you have trouble taking care of your child, family member or friend?: No Do you have trouble with day-to-day activities such as bathing, preparing meals, shopping, managing finances, etc.?: No Are you currently unemployed and looking for a job?: I choose not to answer this question Are you interested in more education?: I choose not to answer this question Please select the resources that you would like help with: Utilities Currently or been in a relationship where the following occur: No concerns reported THRIVE Score: 1 CAESAR-7 AMB Questionnaire CAESAR-7 Date CAESAR - 7 assessed: 10/10/24 Source: Developed by Drs. Marco Antonio Oliva, Hoda Del Cid, Enmanuel uDenas and colleagues, with an educational arie from [employer]. Physical exam (Primary Care) Vital Signs: Last Vital Signs Temp 96.8 F 03/28/25 09:11 Pulse 64 03/28/25 09:11 BP 144/92 H 03/28/25 09:11 Pulse Ox 97 03/28/25 09:11 Oxygen Delivery Method Room Air 03/28/25 09:11 BMI result Body Mass Index 33.3 Tobacco/Smoking Status: Tobacco use Status Tobacco use date assessed 03/28/25 03/28/25 09:18 Patient Tobacco Use Status Former Tobacco user 03/28/25 09:18 Tobacco use type Cigarette 03/28/25 09:18 e-Cigarette/Vaping Use Never Used 03/28/25 09:18 PHQ-9: PHQ-9 Score PHQ-9: Total score 6 03/28/25 09:36 Depression Screening Interpretation: Negative Thrive Assessment: Date of Thrive Assessment Date Thrive assessed 03/28/25 03/28/25 09:18 Currently or been in a relationship where the following occur: No concerns reported Coding Level of Care Code Est Pt Level 4 (99400) Complex EM visit Add On G2211 Diagnoses Primary hypertension I10 Hypertension type: primary hypertension Mild episode of recurrent major depressive disorder F33.0 Active/Remission status: currently active Major depression episode severity: mild Class 1 obesity due to excess calories with serious comorbidity and body mass index (BMI) of 30.0 to 30.9 in adult E66.09; Z68.30 Body mass index: BMI 30.0-30.9 Obesity classification: adult class 1 (BMI 30 - 34.9) Serious obesity comorbidity presence: with serious comorbidity COPD mixed type J44.9 Atherosclerosis of [place] coronary artery of [place] heart without angina pe ctoris I25.10 Coronary Disease-Associated Artery/Lesion type: [place] artery [place] vs. transplanted heart: [place] heart Associated angina: without angina Microcytic anemia D50.9 Stage 3b chronic kidney disease N18.32 Chronic kidney disease stage 3 subtype: stage 3b (GFR 30-44) Personal history of nicotine dependence Z87.891 Kidney congenitally absent, right Q60.0 Stress-induced cardiomyopathy I51.81 PAF (paroxysmal atrial fibrillation) I48.0 Additional Codes PHQ-9 - 40140 - PHQ-9 Billing: Yes ([id number]) Assessment & Plan Assessment & Plan (1) HTN (hypertension): Comment: Right kidney is absent Left renal artery Aneurysm is calcified Left RA shows about 60 % stenosis Code(s): I10 - Essential (primary) hypertension Category: Medical Qualifiers: Hypertension type: primary hypertension Qualified Code(s): I10 - Essential (primary) hypertension (2) Major depression, recurrent: Code(s): F33.9 - Major depressive disorder, recurrent, unspecified Category: Medical Qualifiers: Active/Remission status: currently active Major depression episode severity: mild Qualified Code(s): F33.0 - Major depressive disorder, recurrent, mild (3) Obesity due to excess calories: Code(s): E66.09 - Other obesity due to excess calories Category: Medical Qualifiers: Body mass index: BMI 30.0-30.9 Obesity classification: adult class 1 (BMI 30 - 34.9) Serious obesity comorbidity presence: with serious comorbidity Qualified Code(s): E66.09 - Other obesity due to excess calories; Z68.30 - Body mass index [BMI] 30.0-30.9, adult (4) COPD mixed type: Comment: (COPD - secondary to smoking), MODERATELY SEVERE, WITH GOOD RESPONSE TO BRONCHODILATOR THERAPY. PATIENT HAS BEEN FEELING WELL WITH THE USE OF DULERA HFA 2 PUFFS B.I.D., AND HARDLY NEEDING TO USE THE RESCUE INHALER. RECENTLY HAD A BOUT OF UPPER RESPIRATORY INFECTION WITH CHEST CONGESTION WHICH H IMPROVED WITH THE USE OF 1 COURSE OF Z-TORIE. Code(s): J44.9 - Chronic obstructive pulmonary disease, unspecified Category: Medical (5) Atherosclerotic heart disease: Code(s): I25.10 - Atherosclerotic heart disease of [place] coronary artery without angina pectoris Category: Medical Qualifiers: Coronary Disease-Associated Artery/Lesion type: [place] artery [place] vs. transplanted heart: [place] heart Associated angina: without angina Qualified Code(s): I25.10 - Atherosclerotic heart disease of [place] coronary artery without angina pectoris (6) Microcytic anemia: Code(s): D50.9 - Iron deficiency anemia, unspecified Category: Medical (7) CKD (chronic kidney disease) stage 3, GFR 30-59 ml/min: Code(s): N18.30 - Chronic kidney disease, stage 3 unspecified Category: Medical Qualifiers: Chronic kidney disease stage 3 subtype: stage 3b (GFR 30-44) Qualified Code(s): N18.32 - Chronic kidney disease, stage 3b (8) Personal history of nicotine dependence: Comment: (former smoker - onset 21yo, 1-2ppd x 41yrs, 60pyh - quit 2018) Code(s): Z87.891 - Personal history of nicotine dependence Category: Medical (9) Kidney congenitally absent, right: Code(s): Q60.0 - Renal agenesis, unilateral Category: Medical (10) Stress-induced cardiomyopathy: Onset Date: ~08/2023 Code(s): I51.81 - Takotsubo syndrome Category: Medical (11) PAF (paroxysmal atrial fibrillation): Onset Date: ~08/2023 Code(s): I48.0 - Paroxysmal atrial fibrillation Category: Medical Plan History - The patient is a 69-year-old female presenting for a routine follow-up. Long- term care - She attended a cardiology visit last month with stable conditions. - Reports of anxiety are managed with a stable mood and improved sleep. - Complained of shortness of breath upon exertion, but otherwise stable breathing. - Kidney function is compromised but stable as reported. - Liver enzymes were reported as normal. - No new major health problems or concerns raised during the visit. - Patient discussed difficulty with weight management and requested a referral to a weight management clinic. - Noted cessation of smoking for nearly eight years, coinciding with her great- grandson's first birthday. Problem List - Chronic Obstructive Pulmonary Disease (COPD) - Sleep disorder - Constipation - Hypertension - Vitamin deficiency - Atrial Fibrillation (post-ablation) management through Cardiology - Chronic Obstructive Pulmonary Disease (COPD) - Anemia - Back Pain chronic - Depression table - Allergic Rhinitis - Renal Artery Aneurysm (coagulated) -stressed induced cardiomyopathy - congenitally absent 1 kidney Medications - Breo for Chronic Obstructive Pulmonary Disease - Eliquis for anticoagulation - Atorvastatin for hyperlipidemia - Cetirizine for allergies - Lexapro for depression - Gabapentin 300 mg for neuropathy, 1 tablet in the morning, and 1 at night, with an additional dose during the day if needed - Mirtazapine for sleep at night - Diuretic (unspecified), used every other day for fluid management - Gabapentin 600 mg at night for back pain - Escitalopram for depression - Antihistamines for allergic rhinitis - Mirtazapine for sleep - Antibiotics (recently completed course for bronchitis) Social History: - Unemployed; staying at home. - Ceased smoking nearly eight years ago. - Desires assistance in managing weight to prevent getting larger. - Mother of multiple children; involved in family matters. Diagnostic Results: - Labs: Hemoglobin at 11.7 (stable), electrolytes within normal limits. - Diagnostics: Improved kidney function remains stable. Liver enzymes normal. - Recent pulmonary ultrasound showed no nodules. Patient Instructions - Continue current medication regimen as prescribed. - Plan to attend scheduled appointments with pulmonary and kidney specialists in April, and cardiology in August. - Referral to a weight management clinic provided. - Contact health provider if breathing issues worsen or if new symptoms arise. Orders: Referrals Bariatric Surgery Referral E66.09 - Other obesity due to excess calories, Z68.30 - Body mass index [BMI] 30.0-30.9, adult
== END 2025-03-28 09:35 | disposition home or self-care (01) ==
LOC: HO.HMCC 08:58
PROVIDERS: PCP Internal Medicine; Visit Provider Internal Medicine
DX: J44.9 Chronic obstructive pulmonary disease, unspecified (principal); E66.09 Other obesity due to excess calories; Z68.30 Body mass index [BMI] 30.0-30.9, adult; N18.32 Chronic kidney disease, stage 3b; I48.0 Paroxysmal atrial fibrillation; I10 Essential (primary) hypertension; F33.0 Major depressive disorder, recurrent, mild; I25.10 Atherosclerotic heart disease of native coronary artery without angina pectoris; D50.9 Iron deficiency anemia, unspecified; Z87.891 Personal history of nicotine dependence; Q60.0 Renal agenesis, unilateral; I51.81 Takotsubo syndrome

== ENCOUNTER → 2025-03-28 08:57 | Outpatient (BNVA) | payer MEDICARE, MEDICAID, SELFPAY | PROVIDERS: PCP Internal Medicine; Visit Provider Internal Medicine | DX: R79.89 Other specified abnormal findings of blood chemistry (principal); F33.0 Major depressive disorder, recurrent, mild; J44.9 Chronic obstructive pulmonary disease, unspecified; I25.10 Atherosclerotic heart disease of native coronary artery without angina pectoris; I12.9 Hypertensive chronic kidney disease with stage 1 through stage 4 chronic kidney disease, or unspecified chronic kidney disease; N18.32 Chronic kidney disease, stage 3b; E87.1 Hypo-osmolality and hyponatremia; M54.12 Radiculopathy, cervical region; M54.50 Low back pain, unspecified; E66.09 Other obesity due to excess calories; Z68.30 Body mass index [BMI] 30.0-30.9, adult; Z71.3 Dietary counseling and surveillance; D50.9 Iron deficiency anemia, unspecified; Q60.0 Renal agenesis, unilateral; I51.81 Takotsubo syndrome; I48.0 Paroxysmal atrial fibrillation; Z87.891 Personal history of nicotine dependence | CPT/HCPCS: 96127; 99212 ==

== ENCOUNTER 2025-05-08 09:41 | Outpatient (REF) | payer MEDICARE, MEDICAID, SELFPAY ==
[2025-05-08 12:07] LABS: Anion Gap 16 (12-20); Blood Urea Nitrogen 26 mg/dL (9-16); Calcium 8.9 mg/dL (8.4-10.2); Carbon Dioxide 28 mmol/L (22-29); Chloride 94 mmol/L (96-108); Estimated Glomerular Filt Rate 37; Potassium 4.5 mmol/L (3.3-5.1); Sodium 133 mmol/L (135-145)
== END 2025-05-08 09:42 | disposition home or self-care (01) ==
LOC: HO.LAB 09:41
PROVIDERS: PCP Internal Medicine; Visit Provider Internal Medicine Hypertension Specialist
DX: N18.32 Chronic kidney disease, stage 3b (principal)
CPT/HCPCS: 36415; 80048

== ENCOUNTER 2025-05-10 09:13 | Outpatient (AMB) | payer MEDICARE, MEDICAID, SELFPAY ==
--- NOTE | 2025-05-10 09:21 | HO.NEPHOV_ITS ---
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 Required: No Accompanied by: Self / Same As Patient Allergies environmental allergies Allergy (Unknown, Verified 05/10/25 09:23) Unknown Medication List - Last Reconciled 05/10/25 by Steve Catalan MD acetaminophen ER (Tylenol 8 Hour) 650 mg PO Q12H albuterol sulfate 90 mcg/actuation (Ventolin HFA) 1 inh inhalation QID PRN 30 days apixaban (Eliquis) 5 mg PO BID atorvastatin 80 mg PO QPM Breo Ellipta 200-25 mcg/dose (fluticasone furoate-vilanterol) 1 ea PO DAILY NS cetirizine (All Day Allergy (cetirizine)) 10 mg PO DAILY PRN doxycycline hyclate 100 mg PO DAILY escitalopram oxalate (Lexapro) 10 mg PO DAILY gabapentin 300 mg PO TID 90 days inhalational spacing device (Bryon Aerosol [place] Enhancer spacer) As directed ipratropium-albuterol 0.5 mg-3 mg(2.5 mg base)/3 mL 3 mL inhalation Q6-8H PRN 30 days metoprolol tartrate 25 mg PO BID mirtazapine 15 mg PO BEDTIME mometasone-formoterol 200-5 mcg/actuation (Dulera) 2 puffs inhalation BID multivitamin (Daily Multi-Vitamin tablet) 1 tab PO DAILY nebulizers Use every 6 hrs as needed for shortness of breath or wheezing sennosides-docusate sodium 8.6-50 mg (Senokot-S) 1 tab-cap PO BEDTIME 90 days Shower Chair Shower chair with back, use as directed NS torsemide 20 mg PO .every other day HPI Comments Details: 68 yr old woman with a solitary kidney an dh/o Renal artery aneurysm, well known to me , referred back for CKD She lost her in May 2023 and started drinknig beer. She was admitted to [facility] with hyponatremia Na was corrected Diuretics were changed LExapro has been added Recent creatinine is 1.54 mg/dL and hence this referral She quit smoking 7 years ago She has quit beer as well 12/09/23 ; Doing well.No edema;Still has dyspnea 04/18/2024. She underwent cardiac ablation due to paroxysmal supraventricular tachycardia. Overall his no new complaints today. 08/15/24 ; Doing well.Dyspnea on exertion. NO chest pain ;Follows with Dr. Albright and currently on inhalers ; Currently not smoking or consuming beer 12/12/24;Gained some weight. No change in breathing 05/10/25 The patient is a 70-year-old female presenting with chronic kidney disease management and blood pressure monitoring. She has a history of atrial fibrillation, which was treated with an ablation procedure, and she reports no recurrence of symptoms since the procedure. The patient has been monitoring her kidney function, noting that her kidney numbers fluctuate but remain stable. She is currently on a regimen that includes Albuterol inhalers, Eliquis, Lexapro, Gabapentin, Metoprolol, and Torsemide, which she takes every other day. She reports adherence to her medication regimen and has recently increased her physical activity by walking more frequently, aided by acquiring a new dog. Her blood pressure has shown improvement, and she denies any new symptoms such as nausea, vomiting, or changes in appetite. [facility] Medical History Dermatitis Atherosclerotic heart disease Stress-induced cardiomyopathy (~08/2023) History of non-ST elevation myocardial infarction (NSTEMI) (~08/2023) PAF (paroxysmal atrial fibrillation) (~08/2023) HTN (hypertension) Renal artery aneurysm Kidney congenitally absent, right COPD mixed type Personal history of nicotine dependence Surgical History History of cardiac cath (~2022) History of right oophorectomy (~1979) History of left breast biopsy (~1974) History of tubal ligation History of tonsillectomy (~1969) Family History Father Cancer of prostate Mother Diabetes mellitus Brother No problems noted. Brother No problems noted. Brother No problems noted. Sister No problems noted. Sister No problems noted. Sister History of heart attack Daughter No problems noted. Daughter No problems noted. Maternal Grandfather No problems noted. Maternal Grandmother No problems noted. Paternal Grandfather No problems noted. Paternal Grandmother No problems noted. Maternal Aunt No problems noted. Social History Housing: Other Housing Other:: Mobile Home Alcohol intake: former Patient Tobacco Use Status: Former Tobacco user Tobacco use type: Cigarette Years Smoked: (onset 21yo, 1-2ppd x 41yrs, 60pyh - quit 2018) e-Cigarette/Vaping Use: Never Used service: No Current occupational status: retired Cognitive needs: No Hearing needs: No Vision needs: Yes Physical Exam Vital Signs: Last Vital Signs Pulse 68 05/10/25 09:22 BP 142/70 H 05/10/25 09:22 Pulse Ox 97 05/10/25 09:22 Oxygen Delivery Method Room Air 05/10/25 09:22 BMI result Body Mass Index 33.7 Const General: comfortable; No acute distress Orientation/consciousness: patient oriented x3 Eyes General: appearance normal, both eyes and all related structures Visual Kingsley: normal visual kingsley by confrontation Neck Neck: Yes supple and Yes no JVD Resp Effort & Inspection: normal respiratory effort and respiratory effort not decreased Cardio Palpation: no palpable S3 and no palpable S4 Heart sounds: no rubs GI Inspection: Yes normal to inspection Palpation (GI): Soft to palpation Percussion: Yes normal to percussion Auscultation: normal bowel sounds General: Yes no CVA tenderness Back/Spine/Pelvis Back: no CVA tenderness Skin General skin exam: no petechiae and no purpura Neuro General: patient oriented x3 and no focal motor deficits Extrem General: No clubbing and No edema Results Reviewed Nephrology Results: Sodium, (135-145) 133 mmol/L L 05/08/25 Potassium, (3.3-5.1) 4.5 mmol/L 05/08/25 Chloride, (96-108) 94 mmol/L L 05/08/25 Carbon Dioxide, (22-29) 28 mmol/L 05/08/25 BUN, (9-16) 26 mg/dL H 05/08/25 Creatinine, (0.5-1.4) 1.41 mg/dL H 05/08/25 Calcium, (8.4-10.2) 8.9 mg/dL 05/08/25 Renal US 11/10/23 Assessment & Plan Assessment & Plan (1) HTN (hypertension): Comment: Right kidney is absent Left renal artery Aneurysm is calcified Left RA shows about 60 % stenosis Code(s): I10 - Essential (primary) hypertension Category: Medical Qualifiers: Hypertension type: primary hypertension Qualified Code(s): I10 - Essential (primary) hypertension Plan: BP acceptable. No change in meds for now Would avoid CTA due to risk of Contrast nephropathy Will consider MRA IF Creatinine worsens of BP is difficulty Based on MRA,might need referral to Vascular surgery. (2) CKD (chronic kidney disease) stage 3, GFR 30-59 ml/min: Code(s): N18.30 - Chronic kidney disease, stage 3 unspecified Category: Medical Qualifiers: Chronic kidney disease stage 3 subtype: stage 3b (GFR 30-44) Qualified Code(s): N18.32 - Chronic kidney disease, stage 3b Plan: Cr is at 1.2 to 1.4 - unchanged Will keep Torsemide to 20 mg QOD Follow creatinine . (3) Hyponatremia: Code(s): E87.1 - Hypo-osmolality and hyponatremia Category: Medical Plan: Due to excess free water intake Na has improved after stopping beer However , she is on SSRI Discussed avoiding beer and limit PO water intake . (4) Renal artery aneurysm: Code(s): I72.2 - Aneurysm of renal artery Category: Medical Plan: as above Already on Eliquis Orders: Orders Basic Metabolic Panel 4 Months I10 - Essential (primary) hypertension Coding Level of Care Code Est Pt Level 4 (84867) Diagnoses Primary hypertension I10 Hypertension type: primary hypertension Stage 3b chronic kidney disease N18.32 Chronic kidney disease stage 3 subtype: stage 3b (GFR 30-44) Hyponatremia E87.1 Renal artery aneurysm I72.2
[2025-05-10 09:22] VITALS: BP 142/70; PULSE 68; O2SAT 97; BMI 33.7
--- OUTSIDE RECORDS SUMMARY | 2025-05-10 09:39 | XMS_ITS | Clinical Summary ---
Author Organization [facility] Address [address] [place], [place] [address] Phone Care Team Providers Care Specialty Cook Name Role Phone Carla Michael MD Primary Care Provider [phone] Allergies Active Allergy Reactions Criticality Noted Date Comments Pollen Extracts 01/24/2024 Medications albuterol 90 mcg/actuation inhaler INHALE 1 PUFF BY MOUTH 4 TIMES DAILY NEEDED FOR SHORTNESS OF BREATH OR WHEEZING 4 Active amLODIPine (NORVASC) 10 MG tablet Take 1 tablet by mouth. Active ELIQUIS 5 mg tablet Take 1 tablet by mouth 2 (two) times a day. 4 Active atorvastatin (LIPITOR) 80 MG tablet Take 80 mg by mouth every evening. 4 Active cetirizine (ZYRTEC) 10 MG tablet TAKE 1 TABLET BY MOUTH ONCE DAILY NEEDED FOR ALLERGY SYMPTOMS 4 Active escitalopram oxalate (LEXAPRO) 10 MG tablet Take 10 mg by mouth daily. Active gabapentin (NEURONTIN) 600 MG tablet Take 600 mg by mouth daily. Active metoprolol tartrate (LOPRESSOR) 25 MG tablet Take 25 mg by mouth daily. Active mirtazapine (REMERON) 15 MG tablet Take 15 mg by mouth nightly at bedtime. at bedtime. 4 Active STOOL SOFTENER-LAXATIVE 8.6-50 mg Take 1 tablet by mouth nightly at bedtime. at bedtime. 4 Active torsemide (DEMADEX) 20 MG tablet Take 20 mg by mouth every other day. Active therapeutic multivitamin tablet Take 1 tablet by mouth daily. Active DULERA 200-5 mcg/actuation HFAA Inhale 2 puffs into the lungs 2 (two) times a day. 07/10/202 4 Active Active Problems Problem Noted Date Diagnosed Date Paroxysmal atrial fibrillation 01/24/2024 Assessment & Plan (07/31/2024 9:12 AM EST): Status post PVI ablation. Patient denies any significant palpitations currently.. Counseled about dietary and lifestyle modification. Counseled about weight loss. Assessment & Plan (04/25/2024 3:59 PM EDT): Underwent ablation with Dr. Berger 03/16/2024 Sinus rhythm on ECG today Groin sites healing well, no bruising/ecchymosis noted. Continue Eliquis 5 mg twice daily Continue Metroprolol tartrate 25 mg once daily (per patient prescribed this way by primary doctor of naprapathic medicine) She can follow-up with Dr. Berger here in the office in 3 months time for further post ablation follow-up Assessment & Plan (01/24/2024 12:26 PM EDT): We had a detailed discussion with regards to rate control versus rhythm control. Patient at this point opted for rhythm control with ablation. Will request for PVI. Stress-induced cardiomyopathy 01/24/2024 Assessment & Plan (07/31/2024 9:13 AM EST): Following up with cardiology at [facility] Assessment & Plan (04/25/2024 4:01 PM EDT): Ejection fraction has normalized. Previously reported unable to tolerate beta-blockers however currently on metoprolol tartrate 25 mg daily per primary doctor of naprapathic medicine. Taking torsemide 20 mg every other day, recently decreased in frequency by wire temperer this spring she says she is tolerated this well. Currently warm/euvolemic on exam Assessment & Plan (01/24/2024 12:27 PM EDT): Her ejection fraction has returned to normal. Not able to tolerate beta- blockers. Paroxysmal supraventricular tachycardia 01/24/20 Assessment & Plan (07/31/2024 9:13 AM EST): Dual AV node physiology noted on EP study without any evidence of SVT. Assessment & Plan (01/24/2024 12:29 PM EDT): Not able to tolerate beta-blockers. Will do extensive EP study during the ablation procedure Social History Tobacco Use Types Packs/Day Years Used Date Smoking Tobacco: Never Smokeless Tobacco: Never Alcohol Use Standard Drinks/Week Comments Never 0 (1 standard drink = 0.6 oz pur e alcohol) Education Answer Date Recorded Are you interested in more education? Not on westley e 12/01/2023 Are you concerned about learning? Not on file 12/01/2023 No 12/01/2023 No 12/01/2023 Digital Access Answer Date Recorded No 12/01/2023 No 12/01/2023 Reliable internet access at home? Not on file 12/01/2023 Device with a working camera? Not on file Comments Unknown Sex and Gender Information Value Date Recorded Sex Assigned at Not on file Legal Sex Female 1:59 PM EST Gender Identity Not on file Sexual Orientation Not on file Last Filed Vital Signs Vital Sign Reading Time Taken Comments Blood Pressure 134/70 07/31/2024 8:27 AM EST Pulse 73 07/31/2024 8:27 AM EST Temperature - - Respiratory Rate - - Oxygen Saturation 98% 07/31/2024 8:27 AM EST Inhaled Oxygen Concentration - - Weight 87.1 kg (192 lb) 07/31/2024 8:27 AM EST Height 167.6 cm (5' 5.98 ) 07/31/2024 8:27 AM ES T Body Mass Index 31 07/31/2024 8:27 AM EST Plan of Treatment Health Maintenance Due Date Last Done Comments Adult Td,Tdap Booster 1957 CREATININE LEVEL 1957 LIPID PANEL 1957 DEPRESSION SCREENING 1969 HEPATITIS C SCREENING 1975 SCREENING FOR DIABETES 1992 MAMMOGRAM 1997 COLOGUARD 2002 COLONOSCOPY 2002 COLORECTAL CANCER SCREENING 2002 FIT TEST 2002 FOBT 2002 SIGMOIDOSCOPY 2002 VIRTUAL COLONOSCOPY 2002 PNEUMOCOCCAL VACCINES (50+ y ears) (1 of 1 - PCV) 2007 ZOSTER VACCINES (1 of 2) 2007 RSV VACCINE (1 - Risk 60-74 years 1-dose series) 2017 OSTEOPOROSIS SCREENING INITI AL (ONE-TIME) 2022 COVID-19 VACCINE (1 - 2023-2 5 season) 2024 SMOKING STATUS SCREENING (On ce After 26 Yrs) Completed 07/31/2024 HEPATITIS A VACCINES Aged Out No long er eligible based on patient's age to complete this topic HIB VACCINES Aged Out No longer eligi ble based on patient's age to complete this topic MENINGOCOCCAL VACCINES (ACWY) Aged Out No longer eligible based on patient's age to complete this topic MENINGOCOCCAL VACCINES (B) Aged Out N o longer eligible based on patient's age to complete this topic Medical Devices Not on file Insurance MEDICARE PART A & B [facility] MEDICARE PART A & [place] B Member Subscriber Plan / Payer (Ef fective 2022-) Name:Josi Bush Member ID:[id number] Relation to Subscriber:Self Name:Josi Bush Subscriber ID:[id number] Payer ID:[id number] Group ID:Not on file Type:Medicare Address: [employer] [address] [place] A & [place] [facility] Care Teams Specialty Cook Relationship Specialty Start Date End Date Carla Michael MD [address] [place] [address] PCP - General Internal Medicine 11/26/23 Additional Source Comments The information contained in this document represents components of the legal health record. It is not the complete legal health record.[facility]
--- OUTSIDE RECORDS SUMMARY | 2025-05-10 09:39 | XMS_ITS | Encounter Summary ---
Author Organization [facility] Address [address] [place] [address] Phone Care Team Providers Care Ignition Expert Name Role Phone Carla Michael MD Primary Care Provider [phone] Encounter Details Date Type Department Care Team (Late st Contact Info) Description 11/09/2023 Documentation Only [facility] [place], [address] [place] [address] Kaitlin Olivas [address] [place] [address] Social History Tobacco Use Types [...] on filedocumented in this encounter Care Teams Ignition Expert Relationship Specialty Start Date End Date Carla Michael MD [facility] [place] [address] PCP - General Internal Medicine 11/09/23 documented as of this encounter
[2025-05-10 09:41] VITALS: BP 120/70
== END 2025-05-10 09:43 | disposition home or self-care (01) ==
LOC: HO.HKA 09:14
PROVIDERS: PCP Internal Medicine; Visit Provider Internal Medicine Hypertension Specialist
DX: I10 Essential (primary) hypertension (principal); N18.32 Chronic kidney disease, stage 3b; E87.1 Hypo-osmolality and hyponatremia; I72.2 Aneurysm of renal artery
CPT/HCPCS: 99214

== ENCOUNTER → 2025-05-10 09:13 | Outpatient (BNVA) | payer MEDICARE, MEDICAID, SELFPAY | PROVIDERS: PCP Internal Medicine; Visit Provider Internal Medicine Hypertension Specialist | DX: I12.9 Hypertensive chronic kidney disease with stage 1 through stage 4 chronic kidney disease, or unspecified chronic kidney disease (principal); N18.32 Chronic kidney disease, stage 3b; I72.2 Aneurysm of renal artery; E87.1 Hypo-osmolality and hyponatremia | CPT/HCPCS: 99212 ==

== ENCOUNTER 2025-05-23 10:44 | Outpatient (AMB) | payer MEDICARE, MEDICAID, SELFPAY ==
[2025-05-23 11:08] VITALS: BP 100/60; PULSE 64; O2SAT 98; BMI 33.1
--- NOTE | 2025-05-23 11:08 | MHC.OFFVIS ---
Vital Signs 05/23/25 11:08 Height 5 ft 6 in Weight 205 lb 0.478 oz BMI 33.1 BP 100/60 Blood Pressure Location Lt brachial Position Sitting Pulse 64 Pulse Source Pulse Oximeter Pulse Oximetry (%) 98 Oxygen Delivery Method Room Air Intake Visit Reasons: copd Intake Note: Pt c/o of SOB with exertion x 1 month. Claim Auditor Required: No Accompanied by: Self / Same As Patient Allergies environmental allergies Allergy (Unknown, Verified 05/23/25 11:12) Unknown [facility] Medical History Dermatitis Atherosclerotic heart disease Stress-induced cardiomyopathy (~08/2023) History of non-ST elevation myocardial infarction (NSTEMI) (~08/2023) PAF (paroxysmal atrial fibrillation) (~08/2023) HTN (hypertension) Renal artery aneurysm Kidney congenitally absent, right COPD mixed type Personal history of nicotine dependence Surgical History History of cardiac cath (~2022) History of right oophorectomy (~1979) History of left breast biopsy (~1974) History of tubal ligation History of tonsillectomy (~1969) Family History Father Cancer of prostate Mother Diabetes mellitus Brother No problems noted. Brother No problems noted. Brother No problems noted. Sister No problems noted. Sister No problems noted. Sister History of heart attack Daughter No problems noted. Daughter No problems noted. Maternal Grandfather No problems noted. Maternal Grandmother No problems noted. Paternal Grandfather No problems noted. Paternal Grandmother No problems noted. Maternal Aunt No problems noted. Social History Housing: Other Housing Other:: Mobile Home Alcohol intake: former Patient Tobacco Use Status: Former Tobacco user Tobacco use type: Cigarette Years Smoked: (onset 21yo, 1-2ppd x 41yrs, 60pyh - quit 2017) e-Cigarette/Vaping Use: Never Used service: No Current occupational status: retired Cognitive needs: No Hearing needs: No Vision needs: Yes Coding
--- NOTE | 2025-05-23 11:36 | A.OFFVIS_ITS ---
Vital Signs 05/23/25 11:08 Height 5 ft 6 in Weight 205 lb 0.478 oz BMI 33.1 BP 100/60 Blood Pressure Location Lt brachial Position Sitting Pulse 64 Pulse Source Pulse Oximeter Pulse Oximetry (%) 98 Oxygen Delivery Method Room Air Intake Visit Reasons: copd Allergies environmental allergies Allergy (Unknown, Verified 05/23/25 11:37) Unknown Medication List - Last Reconciled 05/23/25 by Enrique Albright MD acetaminophen ER (Tylenol 8 Hour) 650 mg PO Q12H albuterol sulfate 90 mcg/actuation (Ventolin HFA) 1 inh inhalation QID PRN 30 days apixaban (Eliquis) 5 mg PO BID atorvastatin 80 mg PO QPM Breo Ellipta 200-25 mcg/dose (fluticasone furoate-vilanterol) 1 ea PO DAILY NS cetirizine (All Day Allergy (cetirizine)) 10 mg PO DAILY PRN escitalopram oxalate (Lexapro) 10 mg PO DAILY gabapentin 300 mg PO TID 90 days inhalational spacing device (Bryon Aerosol [place] Enhancer spacer) As directed ipratropium-albuterol 0.5 mg-3 mg(2.5 mg base)/3 mL 3 mL inhalation Q6-8H PRN 30 days metoprolol tartrate 25 mg PO BID mirtazapine 15 mg PO BEDTIME multivitamin (Daily Multi-Vitamin tablet) 1 tab PO DAILY nebulizers Use every 6 hrs as needed for shortness of breath or wheezing sennosides-docusate sodium 8.6-50 mg (Senokot-S) 1 tab-cap PO BEDTIME 90 days Shower Chair Shower chair with back, use as directed NS torsemide 20 mg PO .every other day Do you need a note to return to daycare/school/sports/work: No HPI HPI copd: Details: THIS PATIENT IS 70 YEARS OLD PLEASANT FEMALE, MODERATELY OBESE WITH DIAGNOSIS OF CHRONIC OBSTRUCTIVE PULMONARY DISEASE, DUE TO HER PAST SMOKING. WITH THE CURRENT MEDICAL REGIMEN WHICH IS CHANGED TO BREO 200-25 ONCE A DAY AND THE UPDRAFTS P.R.N., SHE HAS BEEN DOING WELL. HOWEVER IN THE PAST FEW DAYS SHE WAS EXPOSED TO HER GRANDDAUGHTER WHO HAS BEEN SICK, AND NOW SHE IS STARTING TO HAVE SCRATCHY THROAT WITH COUGH AND TIGHT FEELING IN THE CHEST. SHE IS AFRAID THAT SHE IS GOING TO COME WITH THE A BOUT OF LOWER RESPIRATORY INFECTION . SO FOR HER COUGH IS MOSTLY NONPRODUCTIVE. NORMALLY WITH THE USE OF BREO ONCE A DAY HER BREATHING REMAINS UNDER CONTROL AND SHE HAS TO USE ALBUTEROL HFA ONLY ONCE IN A WHILE, OR ALTERNATIVELY USES ALBUTEROL IN THE NEBULIZER P.R.N.. [facility] Medical History (Updated 05/23/25 @ 11:48 by Enrique Albright MD) Bronchitis Dermatitis Atherosclerotic heart disease Stress-induced cardiomyopathy (~08/2023) History of non-ST elevation myocardial infarction (NSTEMI) (~08/2023) PAF (paroxysmal atrial fibrillation) (~08/2023) HTN (hypertension) Renal artery aneurysm Kidney congenitally absent, right COPD mixed type Personal history of nicotine dependence Surgical History History of cardiac cath (~2022) History of right oophorectomy (~1979) History of left breast biopsy (~1974) History of tubal ligation History of tonsillectomy (~1969) Family History Father Cancer of prostate Mother Diabetes mellitus Brother No problems noted. Brother No problems noted. Brother No problems noted. Sister No problems noted. Sister No problems noted. Sister History of heart attack Daughter No problems noted. Daughter No problems noted. Maternal Grandfather No problems noted. Maternal Grandmother No problems noted. Paternal Grandfather No problems noted. Paternal Grandmother No problems noted. Maternal Aunt No problems noted. Social History Housing: Other Housing Other:: Mobile Home Alcohol intake: former Patient Tobacco Use Status: Former Tobacco user Tobacco use type: Cigarette Years Smoked: (onset 21yo, 1-2ppd x 41yrs, 60pyh - quit 2017) e-Cigarette/Vaping Use: Never Used service: No Current occupational status: retired Cognitive needs: No Hearing needs: No Vision needs: Yes Review of Systems Const All systems reviewed & are unremarkable except as noted in HPI and below Eyes Reports no additional complaints ENT Reports no additional complaints Card Denies chest pain, Reports leg edema and Reports dyspnea on exertion Resp Reports as per HPI and Reports dyspnea on exertion GI Reports constipation Musc Reports no additional complaints Skin/Breast Reports system reviewed and no additional complaints, except as documented Neuro Reports no additional complaints Psych Reports depression Ang/Lymph Reports no additional complaints Physical Exam Vital Signs: Last Vital Signs Pulse 64 05/23/25 11:08 BP 100/60 05/23/25 11:08 Pulse Ox 98 05/23/25 11:08 Oxygen Delivery Method Room Air 05/23/25 11:08 BMI result Body Mass Index 33.1 Const General: comfortable, no acute distress, alert and awake Orientation/consciousness: patient oriented x3 HEENT Head: Yes normal to inspection General nose exam: No nasal polyps present and No nasal discharge present Face and sinus: Yes sinuses nontender Mouth: oropharynx normal Teeth and gingiva: caries and poor dentition Throat: Yes posterior oropharynx normal Eyes General: appearance normal, both eyes and all related structures Neck Neck: Yes normal visual inspection, Yes no lymphadenopathy, Yes trachea midline and Yes no JVD Thyroid: Thyroid normal Chest Chest palpation & inspection: normal inspection of the chest, normal palpation of entire chest wall and no tenderness Resp Other: PERCUSSION NOTE IS RESONANT. BREATH SOUNDS ARE DISTANT WITH PROLONGED EXPIRATORY PHASE HAS SCATTERED INSPIRATORY AND EXPIRATORY WHEEZES IN BOTH UPPER PARTS OF THE CHEST. NO CREPITATIONS. Cardio Palpation: normal PMI Rate: regular rate Rhythm: regular rhythm Heart sounds: no gallops and no murmurs GI Palpation (GI): Soft to palpation, nontender, No hepatosplenomegaly present and no masses Auscultation: normal bowel sounds Back/Spine/Pelvis Thoracic/Lumbar Spine: thoracic and lumbar spine normal to inspection Skin General skin exam: no rashes or lesions noted Lesions: no lesions Neuro General: patient oriented x3 and no focal motor deficits Cranial nerves: Yes CN's II-XII intact bilaterally Extrem General: Yes normal to inspection, Yes no clubbing, cyanosis or edema and Yes no calf tenderness Psych Appearance: grossly normal and well kempt Speech and movement: Normal speech and movement present Assessment & Plan Assessment & Plan (1) COPD mixed type: Comment: (COPD - secondary to smoking), MODERATELY SEVERE, WITH GOOD RESPONSE TO BRONCHODILATOR THERAPY. PATIENT IS NOW USING BREO 200-25 ONCE A DAY, IN PLACE OF DULERA, PER INSURANCE COVERAGE.. SHE STATES THAT SHE IS DOING FAIRLY WELL WITH USE OF DULERA, AND NEEDS TO USE VENTOLIN 2 PUFFS Q 6 HOURS ONLY ONCE IN A WHILE. Code(s): J44.9 - Chronic obstructive pulmonary disease, unspecified Category: Medical Plan: ADVISED TO CONTINUE USING BREO ONCE A DAY AND USE VENTOLIN NEEDED (2) Personal history of nicotine dependence: Comment: (former smoker - onset 21yo, 1-2ppd x 41yrs, 60pyh - quit 2018) Code(s): Z87.891 - Personal history of nicotine dependence Category: Medical Plan: COMMENDED FOR NOT SMOKING. ADVISE THAT SHE SHOULD CONTINUE ANNUAL LUNG SCREENING WITH LDCT YEARLY. (3) Bronchitis: Comment: PATIENT IS COMING WITH UPPER RESPIRATORY INFECTION. HAS SCRATCHY THROAT AND INCREASED COUGH AND THERE ARE SOME WHEEZES IN THE UPPER PART OF THE CHEST INDICATING THAT SHE DOES HAVE A LOW-GRADE ACUTE BRONCHITIS. Code(s): J40 - Bronchitis, not specified as acute or chronic Category: Medical Plan: WILLGIVE HER DOXYCYCLINE 100 B.I.D. FOR 1 WEEK, ADVISED TO KEEP IT ON HAND AND IF SHE STARTS HAVING ANY FEVER OR MUCOPURULENT PHLEGM THEN SHE WILL TAKE IT FOR 1 WEEK. BECAUSE OF INTERACTION WITH ESCITALOPRAM AZITHROMYCIN IS NOT THE RIGHT SIZE FOR HER Medications: New doxycycline hyclate 100 mg PO BID 14 tabs 0RF COPD/BRONCHITIS 1 week Coding Level of Care Code Est Pt Level 3 (10448) Diagnoses COPD mixed type J44.9 Personal history of nicotine dependence Z87.891 Bronchitis J40
--- OUTSIDE RECORDS SUMMARY | 2025-05-23 11:39 | XMS_ITS | Encounter Summary ---
Author Organization [facility] Address [address] [place] [address] Phone Care Team Providers Care Air Lift Operator Name Role Phone Carla Michael MD Primary Care Provider [phone] Encounter Details Date Type Department Care Team (Late st Contact Info) Description 11/09/2023 Documentation Only [facility] [place], [address] [place] [address] Kaitlin Olivas [address] [place] [address] Social History Tobacco Use Types [...] on filedocumented in this encounter Care Teams Air Lift Operator Relationship Specialty Start Date End Date Carla Michael MD [facility] [place] [address] PCP - General Internal Medicine 11/09/23 documented as of this encounter
--- OUTSIDE RECORDS SUMMARY | 2025-05-23 11:39 | XMS_ITS | Encounter Summary ---
Author Organization [facility] Address [address] [place] [address] Phone Care Team Providers Care Golf Course Designer Name Role Phone Carla Michael MD Primary Care Provider [phone] Encounter Details Date Type Department Care Team (Late st Contact Info) Description 11/09/2023 Documentation Only [facility] [place], [address] [place] [address] Kaitlin Olivas [address] [place] [address] Social History Tobacco Use Types [...] on filedocumented in this encounter Care Teams Golf Course Designer Relationship Specialty Start Date End Date Carla Michael MD [facility] [place] [address] PCP - General Internal Medicine 11/09/23 documented as of this encounter
--- OUTSIDE RECORDS SUMMARY | 2025-05-23 11:39 | XMS_ITS | Encounter Summary ---
Author Organization [facility] Address [address] [place] [address] Phone Care Team Providers Care Heel Attacher Name Role Phone Carla Michael MD Primary Care Provider [phone] Encounter Details Date Type Department Care Team (Late st Contact Info) Description 11/09/2023 Documentation Only [facility] [place], [address] [place] [address] Kaitlin Olivas [address] [place] [address] Social History Tobacco Use Types [...] on filedocumented in this encounter Care Teams Heel Attacher Relationship Specialty Start Date End Date Carla Michael MD [facility] [place] [address] PCP - General Internal Medicine 11/09/23 documented as of this encounter
--- OUTSIDE RECORDS SUMMARY | 2025-05-23 11:39 | XMS_ITS | Clinical Summary ---
Author Organization [facility] Address [address] [place] [address] Phone Care Team Providers Care Multifocal Button Inspector Name Role Phone Carla Michael MD Primary Care Provider [phone] Allergies No known active allergies Medications amLODIPine [...] Cancer Screening: Sigmoidoscopy 2006 Influenza Vaccine (#1) 2025 Hepatitis B Vaccine Aged Out No longe r eligible based on patient's age to complete this topic Insurance Medicare Medicare Medicaid [place] Care Teams Multifocal Button Inspector Relationship Specialty Start Date End Date Carla Michael MD [address] [place] [address] PCP - General Internal Medicine 11/09/23
--- OUTSIDE RECORDS SUMMARY | 2025-05-23 11:39 | XMS_ITS | Encounter Summary ---
Author Organization [facility] Address [address] [place] [address] Phone Care Team Providers Care Paying Teller Name Role Phone Carla Michael MD Primary Care Provider [phone] Encounter Details Date Type Department Care Team (Late st Contact Info) Description 11/09/2023 Documentation Only [facility] [place], [address] [place] [address] Kaitlin Olivas [address] [place] [address] Social History Tobacco Use Types [...] on filedocumented in this encounter Care Teams Paying Teller Relationship Specialty Start Date End Date Carla Michael MD [facility] [place] [address] PCP - General Internal Medicine 11/09/23 documented as of this encounter
--- OUTSIDE RECORDS SUMMARY | 2025-05-23 11:39 | XMS_ITS | Encounter Summary ---
Author Organization [facility] Address [address] [place] [address] Phone Care Team Providers Care Test Engine Operator Name Role Phone Carla Michael MD Primary Care Provider [phone] Encounter Details Date Type Department Care Team (Late st Contact Info) Description 11/09/2023 Documentation Only [facility] [place], [address] [place] [address] Kaitlin Olivas [address] [place] [address] Social History Tobacco Use Types [...] on filedocumented in this encounter Care Teams Test Engine Operator Relationship Specialty Start Date End Date Carla Michael MD [facility] [place] [address] PCP - General Internal Medicine 11/09/23 documented as of this encounter
--- OUTSIDE RECORDS SUMMARY | 2025-05-23 11:39 | XMS_ITS | Encounter Summary ---
Author Organization [facility] Address [address] [place] [address] Phone Care Team Providers Care Vascular Ultrasound Technician Name Role Phone Carla Michael MD Primary Care Provider [phone] Encounter Details Date Type Department Care Team (Late st Contact Info) Description 11/09/2023 Documentation Only [facility] [place], [address] [place] [address] Kaitlin Olivas [address] [place] [address] Social History Tobacco Use Types [...] on filedocumented in this encounter Care Teams Vascular Ultrasound Technician Relationship Specialty Start Date End Date Carla Michael MD [facility] [place] [address] PCP - General Internal Medicine 11/09/23 documented as of this encounter
--- OUTSIDE RECORDS SUMMARY | 2025-05-23 11:39 | XMS_ITS | Encounter Summary ---
Author Organization [facility] Address [address] [place] [address] Phone Care Team Providers Care Cream Buyer Name Role Phone Carla Michael MD Primary Care Provider [phone] Encounter Details Date Type Department Care Team (Late st Contact Info) Description 11/09/2023 Documentation Only [facility] [place], [address] [place] [address] Kaitlin Olivas [address] [place] [address] Social History Tobacco Use Types [...] on filedocumented in this encounter Care Teams Cream Buyer Relationship Specialty Start Date End Date Carla Michael MD [facility] [place] [address] PCP - General Internal Medicine 11/09/23 documented as of this encounter
--- OUTSIDE RECORDS SUMMARY | 2025-05-23 11:39 | XMS_ITS | Clinical Summary ---
Author Organization [facility] Address [address] [place], [place] [address] Phone Care Team Providers Care Carpet Repairer Name Role Phone Carla Michael MD Primary Care Provider [phone] Allergies Active Allergy Reactions Criticality Noted Date [...] (per patient prescribed this way by primary milk pasteurizer) She can follow-up with Dr. Berger here [...] AM EST): Following up with cardiology at [facility] Assessment & Plan (04/25/2024 4:01 PM EDT): Ejection fraction has normalized. Previously reported unable to tolerate beta-blockers however currently on metoprolol tartrate 25 mg daily per primary milk pasteurizer. Taking torsemide 20 mg every other day, recently decreased in frequency by litigation services manager this spring she says she is tolerated [...] file Insurance MEDICARE PART A & B [facility] MEDICARE PART A & [place] B Member Subscriber Plan / Payer (Ef fective 2022-) Name:Josi Bush Member ID:[id number] Relation to Subscriber:Self Name:Josi Bush Subscriber ID:[id number] Payer ID:[id number] Group ID:Not on file Type:Medicare Address: [employer] [address] [place] B [facility] Care Teams Carpet Repairer Relationship Specialty Start Date End Date Carla Michael MD [address] [place] [address] PCP - General Internal Medicine 11/26/23 Additional Source Comments The information contained in this document represents components of the legal health record. It is not the complete legal health record.[facility]
== END 2025-05-23 11:35 | disposition home or self-care (01) ==
LOC: HO.HPS 10:45
PROVIDERS: PCP Internal Medicine; Visit Provider Internal Medicine
DX: J44.9 Chronic obstructive pulmonary disease, unspecified (principal); Z87.891 Personal history of nicotine dependence; J40 Bronchitis, not specified as acute or chronic
CPT/HCPCS: 99213

== ENCOUNTER → 2025-05-23 10:44 | Outpatient (BNVA) | payer MEDICARE, MEDICAID, SELFPAY | PROVIDERS: PCP Internal Medicine; Visit Provider Internal Medicine | DX: J44.0 Chronic obstructive pulmonary disease with (acute) lower respiratory infection (principal); Z87.891 Personal history of nicotine dependence | CPT/HCPCS: 99212 ==

== ENCOUNTER 2025-06-29 09:25 | Outpatient (AMB) | payer MEDICARE, MEDICAID, SELFPAY ==
[2025-06-29 09:28] VITALS: BP 94/52; PULSE 72; RESP 18; TEMP 36.6; O2SAT 98; BMI 32.6
--- NOTE | 2025-06-29 09:28 | A.OFFPC_ITS ---
Vital Signs 3 06/29/25 09:28 Height 5 ft 6 in Weight 202 lb BMI 32.6 BP 94/52 L Blood Pressure Location Rt brachial Position Sitting Respiration 18 Pulse 72 Pulse Source Pulse Oximeter Temp 97.8 F Temp Source Oral Pulse Oximetry (%) 98 Oxygen Delivery Method Room Air Intake Visit Reasons: 4m follow up Allergies environmental allergies Allergy (Unknown, Verified 06/29/25 09:30) Unknown Medication List - Last Reconciled 06/29/25 by Carla Michael MD acetaminophen ER (Tylenol 8 Hour) 650 mg PO Q12H albuterol sulfate 90 mcg/actuation (Ventolin HFA) 1 inh inhalation QID PRN 30 days apixaban (Eliquis) 5 mg PO BID atorvastatin 80 mg PO QPM Breo Ellipta 200-25 mcg/dose (fluticasone furoate-vilanterol) 1 ea PO DAILY NS cetirizine (All Day Allergy (cetirizine)) 10 mg PO DAILY PRN escitalopram oxalate (Lexapro) 10 mg PO DAILY gabapentin 300 mg PO TID 90 days inhalational spacing device (Bryon Aerosol Armstrong Enhancer spacer) As directed ipratropium-albuterol 0.5 mg-3 mg(2.5 mg base)/3 mL 3 mL inhalation Q6-8H PRN 30 days metoprolol tartrate 25 mg PO BID mirtazapine 15 mg PO BEDTIME multivitamin (Daily Multi-Vitamin tablet) 1 tab PO DAILY nebulizers Use every 6 hrs as needed for shortness of breath or wheezing sennosides-docusate sodium 8.6-50 mg (Senokot-S) 1 tab-cap PO BEDTIME 90 days Shower Chair Shower chair with back, use as directed NS torsemide 20 mg PO .every other day Tobacco use date assessed: 06/29/25 Fall risk assessment: 2 + Falls in past year Last assessed Fall Risk: 06/29/25 Dental Screening Dental Screen Date: 06/29/25 Did you have a dental visit in the last 12 months?: Yes Did you have a dental problem in the last 6 months where you did not have access to dental care?: No Was dental information given to patient?: Patient has dentist HPI 4m follow up 2 HPI0 Details History The patient is a 70 year old female presenting with concerns for low blood pressure, COPD, and an infected boil Low Blood Pressure: - The patient reported past instances of low blood pressure, with a previous reading in March documented as 100/60 mmHg. - Currently medicated with Metoprolol an d Torsemide, both of which can contribute to low blood pressure. - Denies experiencing symptoms such as l ightheadedness or dizziness. Chronic Obstructive Pulmonary Disease (COPD): - The patient suffers from severe COPD a nd is managed by Pulmonary - Symptoms include wheezing, and she latrell cribed feelings of being junky, suggesting exacerbation today - Her pulmonology follow-up is scheduled for October. Infected Boil: - New onset of a boil in the left groin area, described as painful, and swelling with a foul odor. - Initially perceived by the patient as either an ingrown hair or a rash. - Self-management attempts included the application of hot compresses. Medical History: - Chronic Obstructive Pulmonary Disease (COPD) - Atherosclerotic Heart Disease - Stress-induced Cardiomyopathy - Paroxysmal Atrial Fibrillation - Chronic Kidney Disease Stage 3 (Hypert ensive Nephropathy) - Anxiety Social History: - The patient struggles with weight sulema mcclendon and is attempting to lose weight through a program, noted a weight decrease from 209 lbs in April to 202 lbs currently. - Has a history of smoking cessation (ex -smoker). Problem List - Low Blood Pressure - Chronic Obstructive Pulmonary Disease (COPD) exacerbation - Infected Boil - Atherosclerotic Heart Disease - Stress-Induced Cardiomyopathy - Paroxysmal Atrial Fibrillation - Chronic Kidney Disease Stage 3 - Anxiety Diagnostic results - Last blood test in April showed compr omised kidney function with a GFR in the 30s and mild anemia. [place] [facility] - Cardiology with Dr. Barry for ca rdiology management - Pulmonology follow-up scheduled for Faina irwin - Nephrology for chronic kidney disease monitoring Patient Instructions - Monitor blood pressure daily with a wr ist machine and record the readings. - Ensure usage of hot compresses on the boil. - Follow prescribed antibiotics and pred nisone as instructed. Augmentin b.i.d. for 7 days and prednisone 20 mg once a day for 5 days for COPD exacerbation - Continue the weight management program . - Attend the next cardiology and nephrol ogy appointments as scheduled. - Notify if symptoms worsen or new sympt oms develop. Follow-up 3 months Review of Systems General: No fever no chills neurological: No headaches no dizziness ear nose throat: No sore throat no hearing difficulty no ear pain cardiovascular: No syncope, no chest pain, no palpitations gastrointestinal: No nausea vomiting or diarrhea endocrine: No polyuria polydipsia no heat intolerance genitourinary: No dysuria skin: No new complaints Physical Exam general: No acute distress HEENT: No acute findings neck: Supple respiratory system: Wheezing present bilateral with clearing rhonchi with cough cardiovascular: S1-S2 RRR gastrointestinal: No pain extremities: No new findings INBOUND TELEMARKETER: Alert awake oriented x3 motor intact skin: Normal turgor, boil in left groin area [facility] Medical History Bronchitis Dermatitis Atherosclerotic heart disease Stress-induced cardiomyopathy (~08/2023) History of non-ST elevation myocardial infarction (NSTEMI) (~08/2023) PAF (paroxysmal atrial fibrillation) (~08/2023) HTN (hypertension) Renal artery aneurysm Kidney congenitally absent, right COPD mixed type Personal history of nicotine dependence Surgical History History of cardiac cath (~2022) History of right oophorectomy (~1979) History of left breast biopsy (~1974) History of tubal ligation History of tonsillectomy (~1969) Family History Father Cancer of prostate Mother Diabetes mellitus Brother No problems noted. Brother No problems noted. Brother No problems noted. Sister No problems noted. Sister No problems noted. Sister History of heart attack Daughter No problems noted. Daughter No problems noted. Maternal Grandfather No problems noted. Maternal Grandmother No problems noted. Paternal Grandfather No problems noted. Paternal Grandmother No problems noted. Maternal Aunt No problems noted. Social History Housing: Other Housing Other:: Mobile Home Alcohol intake: former Patient Tobacco Use Status: Former Tobacco user Tobacco use type: Cigarette Years Smoked: (onset 21yo, 1-2ppd x 41yrs, 60pyh - quit 2018) e-Cigarette/Vaping Use: Never Used service: No Current occupational status: retired Cognitive needs: No Hearing needs: No Vision needs: Yes Questionnaire Thrive Questionnaire Date Thrive assessed: 10/03/24 I am a: Patient What is your living situation today?: I have a steady place to live Within the past 12 months, did the food you bought not last and you didn't have the money to get more?: Never true Within the past 12 months, did you worry whether your food would run out before you got money to buy more?: Never true Do you have trouble paying for medicines?: No Do you have trouble getting transportation to medical appointments?: No Do you have trouble paying your heating and electricity bill?: Yes Do you have trouble taking care of your child, family member or friend?: No Do you have trouble with day-to-day activities such as bathing, preparing meals, shopping, managing finances, etc.?: No Are you currently unemployed and looking for a job?: I choose not to answer this question Are you interested in more education?: I choose not to answer this question Please select the resources that you would like help with: Utilities Currently or been in a relationship where the following occur: No concerns reported THRIVE Score: 1 CAESAR-7 AMB Questionnaire CAESAR-7 Date CAESAR - 7 assessed: 10/10/24 Source: Developed by Drs. Marco Antonio Oliva, Hoda Del Cid, Enmanuel Duenas and colleagues, with an educational arie from [employer]. Physical exam (Primary Care) Vital Signs: Last Vital Signs Temp 97.8 F 06/29/25 09:28 Pulse 72 06/29/25 09:28 Resp 18 06/29/25 09:28 BP 94/52 L 06/29/25 09:28 Pulse Ox 98 06/29/25 09:28 Oxygen Delivery Method Room Air 06/29/25 09:28 BMI result Body Mass Index 32.6 Tobacco/Smoking Status: Tobacco use Status Tobacco use date assessed 06/29/25 06/29/25 09:35 Patient Tobacco Use Status Former Tobacco user 06/29/25 09:29 Tobacco use type Cigarette 06/29/25 09:29 e-Cigarette/Vaping Use Never Used 06/29/25 09:29 Thrive Assessment: Date of Thrive Assessment Date Thrive assessed 10/03/24 06/29/25 09:29 Currently or been in a relationship where the following occur: No concerns reported GI Abdomen image: 2 1. Erythema with central nodule Coding Level of Care Code Est Pt Level 5 (07998) Diagnoses COPD with exacerbation J44.1 Cellulitis of groin L03.314 Site of cellulitis: trunk Site of cellulitis of trunk: groin Primary hypertension I10 Hypertension type: primary hypertension Mild episode of recurrent major depressive disorder F33.0 Active/Remission status: currently active Major depression episode severity: mild Class 1 obesity due to excess calories with serious comorbidity and body mass index (BMI) of 30.0 to 30.9 in adult E66.09; Z68.30 Body mass index: BMI 30.0-30.9 Obesity classification: adult class 1 (BMI 30 - 34.9) Serious obesity comorbidity presence: with serious comorbidity Atherosclerosis of [place] coronary artery of [place] heart without angina pectoris I25.10 Associated angina: without angina Coronary Disease-Associated Artery/Lesion type: [place] artery [place] vs. 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 Stress-induced cardiomyopathy I51.81 PAF (paroxysmal atrial fibrillation) I48.0 Time Spent (min) 40 Comment Reviewing chart/labs/buay-jj-ojgu with the patient/reviewing consultation/documentation Assessment & Plan Assessment & Plan (1) COPD with exacerbation: Code(s): J44.1 - Chronic obstructive pulmonary disease with (acute) exacerbation Category: Medical (2) Cellulitis: Code(s): L03.90 - Cellulitis, unspecified Category: Medical Qualifiers: Site of cellulitis: trunk Site of cellulitis of trunk: groin Qualified Code(s): L03.314 - Cellulitis of groin (3) HTN (hypertension): Comment: Right kidney is absent Left renal artery Aneurysm is calcified Left RA shows about 60 % stenosis Code(s): I10 - Essential (primary) hypertension Category: Medical Qualifiers: Hypertension type: primary hypertension Qualified Code(s): I10 - Essential (primary) hypertension (4) Major depression, recurrent: Code(s): F33.9 - Major depressive disorder, recurrent, unspecified Category: Medical Qualifiers: Active/Remission status: currently active Major depression episode severity: mild Qualified Code(s): F33.0 - Major depressive disorder, recurrent, mild (5) Obesity due to excess calories: Code(s): E66.09 - Other obesity due to excess calories Category: Medical Qualifiers: Body mass index: BMI 30.0-30.9 Obesity classification: adult class 1 (BMI 30 - 34.9) Serious obesity comorbidity presence: with serious comorbidity Qualified Code(s): E66.09 - Other obesity due to excess calories; Z68.30 - Body mass index [BMI] 30.0-30.9, adult (6) Atherosclerotic heart disease: Code(s): I25.10 - Atherosclerotic heart disease of [place] coronary artery without angina pectoris Category: Medical Qualifiers: Associated angina: without angina Coronary Disease-Associated Artery/Lesion type: [place] artery [place] vs. transplanted heart: [place] heart Qualified Code(s): I25.10 - Atherosclerotic heart disease of [place] coronary artery without angina pectoris (7) Microcytic anemia: Code(s): D50.9 - Iron deficiency anemia, unspecified Category: Medical (8) CKD (chronic kidney disease) stage 3, GFR 30-59 ml/min: Code(s): N18.30 - Chronic kidney disease, stage 3 unspecified Category: Medical Qualifiers: Chronic kidney disease stage 3 subtype: stage 3b (GFR 30-44) Qualified Code(s): N18.32 - Chronic kidney disease, stage 3b (9) Kidney congenitally absent, right: Code(s): Q60.0 - Renal agenesis, unilateral Category: Medical (10) Stress-induced cardiomyopathy: Onset Date: ~08/2023 Code(s): I51.81 - Takotsubo syndrome Category: Medical (11) PAF (paroxysmal atrial fibrillation): Onset Date: ~08/2023 Code(s): I48.0 - Paroxysmal atrial fibrillation Category: Medical Plan History The patient is a 70 year old female presenting with concerns for low blood pressure, COPD, and an infected boil Low Blood Pressure: - The patient reported past instances of low blood pressure, with a previous reading in March documented as 100/60 mmHg. - Currently medicated with Metoprolol and Torsemide, both of which can contribute to low blood pressure. - Denies experiencing symptoms such as lightheadedness or dizziness. Chronic Obstructive Pulmonary Disease (COPD): - The patient suffers from severe COPD and is managed by Pulmonary - Symptoms include wheezing, and she described feelings of being junky, suggesting exacerbation today - Her pulmonology follow-up is scheduled for October. Infected Boil: - New onset of a boil in the left groin area, described as painful, and swelling with a foul odor. - Initially perceived by the patient as either an ingrown hair or a rash. - Self-management attempts included the application of hot compresses. Medical History: - Chronic Obstructive Pulmonary Disease (COPD) - Atherosclerotic Heart Disease - Stress-induced Cardiomyopathy - Paroxysmal Atrial Fibrillation - Chronic Kidney Disease Stage 3 (Hypertensive Nephropathy) - Anxiety Social History: - The patient struggles with weight management and is attempting to lose weight through a program, noted a weight decrease from 209 lbs in April to 202 lbs currently. - Has a history of smoking cessation (ex-smoker). Problem List - Low Blood Pressure - Chronic Obstructive Pulmonary Disease (COPD) exacerbation - Infected Boil - Atherosclerotic Heart Disease - Stress-Induced Cardiomyopathy - Paroxysmal Atrial Fibrillation - Chronic Kidney Disease Stage 3 - Anxiety Diagnostic results - Last blood test in April showed compromised kidney function with a GFR in the 30s and mild anemia. [place] [facility] - Cardiology with Dr. Barry for cardiology management - Pulmonology follow-up scheduled for October - Nephrology for chronic kidney disease monitoring Patient Instructions - Monitor blood pressure daily with a wrist machine and record the readings. - Ensure usage of hot compresses on the boil. - Follow prescribed antibiotics and prednisone as instructed. Augmentin b.i.d. for 7 days and prednisone 20 mg once a day for 5 days for COPD exacerbation - Continue the weight management program. - Attend the next cardiology and nephrology appointments as scheduled. - Notify if symptoms worsen or new symptoms develop. Follow-up 3 months Medications: New 2 prednisone 20 mg PO DAILY 5 tabs 0RF 5 days amoxicillin-pot clavulanate 875-125 mg 1 tab PO BID 14 tabs 0RF 7 days
--- OUTSIDE RECORDS SUMMARY | 2025-06-29 10:03 | XMS_ITS | Encounter Summary ---
Author Organization [facility] Address [address] [place] [address] Phone Care Team Providers Care Manager Leadership Development Name Role Phone Carla Michael MD Primary Care Provider [phone] Encounter Details Date Type Department Care Team (Late st Contact Info) Description 11/09/2023 Documentation Only [facility] [place], [address] [place] [address] Kaitlin Olivas [address] [place] [address] Social History Tobacco Use Types [...] on filedocumented in this encounter Care Teams Manager Leadership Development Relationship Specialty Start Date End Date Carla Michael MD [place] [address] PCP - General Internal Medicine 11/09/23 documented as of this encounter
--- OUTSIDE RECORDS SUMMARY | 2025-06-29 10:03 | XMS_ITS | Encounter Summary ---
Author Organization [facility] Address [address] [place] [address] Phone Care Team Providers Care Lime Spreader Name Role Phone Carla Michael MD Primary Care Provider [phone] Encounter Details Date Type Department Care Team (Late st Contact Info) Description 11/09/2023 Documentation Only [facility] [place], [address] [place] [address] Kaitlin Olivas [address] [place] [address] Social History Tobacco Use Types [...] on filedocumented in this encounter Care Teams Lime Spreader Relationship Specialty Start Date End Date Carla Michael MD [facility] [place] [address] PCP - General Internal Medicine 11/09/23 documented as of this encounter
--- OUTSIDE RECORDS SUMMARY | 2025-06-29 10:03 | XMS_ITS | Encounter Summary ---
Author Organization [facility] Address [address] [place] [address] Phone Care Team Providers Care Director Of Reservations Name Role Phone Carla Michael MD Primary Care Provider [phone] Encounter Details Date Type Department Care Team (Late st Contact Info) Description 11/09/2023 Documentation Only [facility] [place], [address] [place] [address] Kaitlin Olivas [address] [place] [address] Social History Tobacco Use Types [...] on filedocumented in this encounter Care Teams Director Of Reservations Relationship Specialty Start Date End Date Carla Michael MD [facility] [place] [address] PCP - General Internal Medicine 11/09/23 documented as of this encounter
--- OUTSIDE RECORDS SUMMARY | 2025-06-29 10:03 | XMS_ITS | Clinical Summary ---
Author Organization [facility] Address [address] [place] [address] Phone Care Team Providers Care Police Communications Dispatcher Name Role Phone Carla Michael MD Primary Care Provider [phone] Allergies No known active allergies Medications amLODIPine [...] Insurance Medicare Medicare Medicaid [place] Care Teams Police Communications Dispatcher Relationship Specialty Start Date End Date Carla Michael MD [address] [place] [address] PCP - General Internal Medicine 11/09/23
--- OUTSIDE RECORDS SUMMARY | 2025-06-29 10:03 | XMS_ITS | Encounter Summary ---
Author Organization [facility] Address [address] [place] [address] Phone Care Team Providers Care Copy Lathe Operator Name Role Phone Carla Michael MD Primary Care Provider [phone] Encounter Details Date Type Department Care Team (Late st Contact Info) Description 11/09/2023 Documentation Only [facility] [place], [address] [place] [address] Kaitlin Olivas [address] [place] [address] Social History Tobacco Use Types [...] on filedocumented in this encounter Care Teams Copy Lathe Operator Relationship Specialty Start Date End Date Carla Michael MD [facility] [place] [address] PCP - General Internal Medicine 11/09/23 documented as of this encounter
--- OUTSIDE RECORDS SUMMARY | 2025-06-29 10:03 | XMS_ITS | Encounter Summary ---
Author Organization [facility] Address [address] [place] [address] Phone Care Team Providers Care Varnishing Unit Tool Setter Name Role Phone Carla Michael MD Primary Care Provider [phone] Encounter Details Date Type Department Care Team (Late st Contact Info) Description 11/09/2023 Documentation Only [facility] [place], [address] [place] [address] Kaitlin Olivas [address] [place] [address] Social History Tobacco Use Types [...] on filedocumented in this encounter Care Teams Varnishing Unit Tool Setter Relationship Specialty Start Date End Date Carla Michael MD [facility] [place] [address] PCP - General Internal Medicine 11/09/23 documented as of this encounter
--- OUTSIDE RECORDS SUMMARY | 2025-06-29 10:03 | XMS_ITS | Clinical Summary ---
Author Organization [facility] Address [address] [place], [place] [id number] Phone Care Team Providers Care Suction Dredge Dumping Supervisor Name Role Phone Carla Michael MD Primary Care Provider [phone] Allergies Active Allergy Reactions Criticality Noted Date [...] (per patient prescribed this way by primary network/telecom engineer) She can follow-up with Dr. Berger here [...] AM EST): Following up with cardiology at [facility] Assessment & Plan (04/25/2024 4:01 PM EDT): Ejection fraction has normalized. Previously reported unable to tolerate beta-blockers however currently on metoprolol tartrate 25 mg daily per primary network/telecom engineer. Taking torsemide 20 mg every other day, recently decreased in frequency by bladder changer this spring she says she is tolerated [...] 2017 OSTEOPOROSIS SCREENING INITI AL (ONE-TIME) 2022 INFLUENZA VACCINE (#1) 2025 COVID-19 VACCINE (1 - 2023-2 5 season) 2025 SMOKING STATUS SCREENING (On ce After 26 [...] file Insurance MEDICARE PART A & B [facility] MEDICARE PART A & B [place] & [place] PART [place] & [place]IC[place] PART A & [facility] Care Teams Suction Dredge Dumping Supervisor Relationship Specialty Start Date End Date Carla Michael MD [address] [place] [address] PCP - General Internal Medicine 11/26/23 Additional Source Comments The information contained in this document represents components of the legal health record. It is not the complete legal health record.[facility]
--- OUTSIDE RECORDS SUMMARY | 2025-06-29 10:03 | XMS_ITS | Encounter Summary ---
Author Organization [facility] Address [address] [place] [address] Phone Care Team Providers Care Aircraft Engine Mechanic Name Role Phone Carla Michael MD Primary Care Provider [phone] Encounter Details Date Type Department Care Team (Late st Contact Info) Description 11/09/2023 Documentation Only [facility] [place], [address] [place] [address] Kaitlin Olivas [address] [place] [address] Social History Tobacco Use Types [...] on filedocumented in this encounter Care Teams Aircraft Engine Mechanic Relationship Specialty Start Date End Date Carla Michael MD [facility] [place] [address] PCP - General Internal Medicine 11/09/23 documented as of this encounter
--- OUTSIDE RECORDS SUMMARY | 2025-06-29 10:03 | XMS_ITS | Encounter Summary ---
Author Organization [facility] Address [address] [place] [address] Phone Care Team Providers Care Network Program Manager Name Role Phone Carla Michael MD Primary Care Provider [phone] Encounter Details Date Type Department Care Team (Late st Contact Info) Description 11/09/2023 Documentation Only [facility] [place], [address] [place] [address] Kaitlin Olivas [address] [place] [address] Social History Tobacco Use Types [...] on filedocumented in this encounter Care Teams Network Program Manager Relationship Specialty Start Date End Date Carla Michael MD [facility] [place] [address] PCP - General Internal Medicine 11/09/23 documented as of this encounter
== END 2025-06-29 09:49 | disposition home or self-care (01) ==
LOC: HO.HMCC 09:26
PROVIDERS: PCP Internal Medicine; Visit Provider Internal Medicine
DX: J44.1 Chronic obstructive pulmonary disease with (acute) exacerbation (principal); I12.9 Hypertensive chronic kidney disease with stage 1 through stage 4 chronic kidney disease, or unspecified chronic kidney disease; N18.32 Chronic kidney disease, stage 3b; I48.0 Paroxysmal atrial fibrillation; L03.314 Cellulitis of groin; F33.0 Major depressive disorder, recurrent, mild; E66.09 Other obesity due to excess calories; Z68.30 Body mass index [BMI] 30.0-30.9, adult; I25.10 Atherosclerotic heart disease of native coronary artery without angina pectoris; D50.9 Iron deficiency anemia, unspecified; Q60.0 Renal agenesis, unilateral; I51.81 Takotsubo syndrome

== ENCOUNTER → 2025-06-29 09:25 | Outpatient (BNVA) | payer MEDICARE, MEDICAID, SELFPAY | PROVIDERS: PCP Internal Medicine; Visit Provider Internal Medicine | DX: J44.1 Chronic obstructive pulmonary disease with (acute) exacerbation (principal); I95.9 Hypotension, unspecified; L02.224 Furuncle of groin; L03.314 Cellulitis of groin; I10 Essential (primary) hypertension; F33.0 Major depressive disorder, recurrent, mild; E66.09 Other obesity due to excess calories; E66.01 Morbid (severe) obesity due to excess calories; I25.10 Atherosclerotic heart disease of native coronary artery without angina pectoris; D50.9 Iron deficiency anemia, unspecified; I51.81 Takotsubo syndrome; I48.0 Paroxysmal atrial fibrillation; N18.32 Chronic kidney disease, stage 3b; Z68.30 Body mass index [BMI] 30.0-30.9, adult | CPT/HCPCS: 99212 ==

== ENCOUNTER 2025-08-27 08:06 | Outpatient (AMB) | payer MEDICARE, MEDICAID, SELFPAY ==
--- OUTSIDE RECORDS SUMMARY | 2025-08-27 08:15 | XMS_ITS | Clinical Summary ---
Author Organization [facility] Address [address] [place], [place] [address] Phone Care Team Providers Care Golf Course Designer Name Role Phone Carla Michael MD Primary Care Provider [phone] Allergies Active Allergy Reactions Criticality Noted Date [...] (per patient prescribed this way by primary assisted living manager) She can follow-up with Dr. Berger here [...] AM EST): Following up with cardiology at [facility] Assessment & Plan (04/25/2024 4:01 PM EDT): Ejection fraction has normalized. Previously reported unable to tolerate beta-blockers however currently on metoprolol tartrate 25 mg daily per primary assisted living manager. Taking torsemide 20 mg every other day, recently decreased in frequency by cctv technician this spring she says she is tolerated [...] 2007 ZOSTER VACCINES (1 of 2) 2007 OSTEOPOROSIS SCREENING INITI AL (ONE-TIME) 2022 INFLUENZA VACCINE (#1) 2025 COVID-19 VACCINE (1 - 2024-2 6 season) 2025 RSV VACCINE (1 - 1-dose 75+ series) 2032 SMOKING STATUS SCREENING (On ce After 26 [...] file Insurance MEDICARE PART A & B [facility] MEDICARE PART A [place] MEDICARE PART A & B [facility] Care Teams Golf Course Designer Relationship Specialty Start Date End Date Carla Michael MD [address] [place] [address] PCP - General Internal Medicine 11/26/23 Additional Source Comments The information contained in this document represents components of the legal health record. It is not the complete legal health record.[facility]
--- NOTE | 2025-08-27 08:33 | MHC.OFFVISWM ---
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 33.6* Allergies environmental allergies Allergy (Unknown, Verified 08/27/25 08:34) Unknown Medication List - Last Reconciled 08/27/25 by Jaylon Trent MD acetaminophen ER (Tylenol 8 Hour) 650 mg PO Q12H albuterol sulfate 90 mcg/actuation (Ventolin HFA) 1 inh inhalation QID PRN 30 days apixaban (Eliquis) 5 mg PO BID atorvastatin 80 mg PO QPM Breo Ellipta 200-25 mcg/dose (fluticasone furoate-vilanterol) 1 ea PO DAILY NS cetirizine (All Day Allergy (cetirizine)) 10 mg PO DAILY PRN escitalopram oxalate (Lexapro) 10 mg PO DAILY furosemide (Lasix) 20 mg PO DAILY gabapentin 300 mg PO TID 90 days inhalational spacing device (Bryon Aerosol Grady Enhancer spacer) As directed ipratropium-albuterol 0.5 mg-3 mg(2.5 mg base)/3 mL 3 mL inhalation Q6-8H PRN 30 days metoprolol tartrate 25 mg PO BID mirtazapine 15 mg PO BEDTIME multivitamin (Daily Multi-Vitamin tablet) 1 tab PO DAILY nebulizers Use every 6 hrs as needed for shortness of breath or wheezing prednisone 20 mg PO DAILY 5 days sennosides-docusate sodium 8.6-50 mg (Senokot-S) 1 tab-cap PO BEDTIME 90 days Shower Chair Shower chair with back, use as directed NS HPI 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 33.6*: Details: Start time: 8.27am, End time: 9.07am ?I spent 35 minutes speaking with the patient on the phone plus an additional 5 minutes reviewing and updating records for a total of 40 minutes HPI Comments Details: Previous weight loss efforts: WW Wakes up: 10am, Sleeps: 10pm Breakfast: skips Lunch: 1pm (half sandwich, soups) Dinner: 7pm (meat, pasta, potatoes, vegetables) Snacks: 11am (1/2 banana) Exercise: none Beverages: Coffee: none, Tea: none, Soda: none, Juice: none, ETOH: none PFSH Medical History (Updated 08/27/25 @ 09:02 by Jaylon Trent MD) Hyperlipidemia Anxiety Depression BMI 33.0-33.9,adult Obesity Bronchitis Dermatitis Atherosclerotic heart disease Stress-induced cardiomyopathy (~08/2023) History of non-ST elevation myocardial infarction (NSTEMI) (~08/2023) PAF (paroxysmal atrial fibrillation) (~08/2023) HTN (hypertension) Renal artery aneurysm Kidney congenitally absent, right COPD mixed type Personal history of nicotine dependence Surgical History History of cardiac cath (~2022) History of right oophorectomy (~1979) History of left breast biopsy (~1974) History of tubal ligation History of tonsillectomy (~1969) Family History Father Cancer of prostate Mother Diabetes mellitus Brother No problems noted. Brother No problems noted. Brother No problems noted. Sister No problems noted. Sister No problems noted. Sister History of heart attack Daughter No problems noted. Daughter No problems noted. Maternal Grandfather No problems noted. Maternal Grandmother No problems noted. Paternal Grandfather No problems noted. Paternal Grandmother No problems noted. Maternal Aunt No problems noted. Social History Housing: Other Housing Other:: Mobile Home Alcohol intake: former Patient Tobacco Use Status: Former Tobacco user Tobacco use type: Cigarette Years Smoked: (onset 21yo, 1-2ppd x 41yrs, 60pyh - quit 2018) e-Cigarette/Vaping Use: Never Used service: No Current occupational status: retired Cognitive needs: No Hearing needs: No Vision needs: Yes Telehealth Telehealth Telehealth Platform: Telephone Location of provider rendering services: practice address Location of patient: address on file Patient Identification confirmed using: Name, : Yes Telehealth method: voice only Patient verbally consented to treatment: Yes Patient verbally consented to billing insurance company: Yes Patient informed of any privacy concerns related to visit: Yes Minutes spent on Phone/Video with Pt.: 40 Assessment & Plan Assessment & Plan (1) Obesity: Code(s): E66.9 - Obesity, unspecified Category: Medical Qualifiers: Obesity type: due to excess calories Obesity classification: adult class 2 (BMI 35 - 39.9) Serious obesity comorbidity presence: with serious comorbidity Body mass index: BMI 35.0-35.9 Qualified Code(s): E66.812 - Obesity, class 2; Z68.35 - Body mass index [BMI] 35.0-35.9, adult Plan: 1. Nutritional counseling. Start with one CELEBRATE REBUILD protein (buy online with the link I gave you) shake (ONE scoop in 8oz low fat unsweetened almond milk) at 10am-12pm, 1 protein bar (CELEBRATE protein bars, buy at [facility]'s [employer] shop, buy online with the link I gave you) ) at 1pm-3pm, another CELEBRATE REBUILD protein shake (ONE scoop in 8oz low fat unsweetened almond milk) at 4pm-6pm, dinner at 7pm (8 forks of protein and 8 forks of salad/vegetables), another Celebrate protein bar at 8pm-10pm. So you do 2 protein shakes, 2 protein bars and one meal per day. Meal to include lean meat (beef, fish, pork, turkey, chicken), or indonesian yogurt, or egg whites, or beans with a salad with olive oil and fruits (berries, pears, apples, kiwi). Avoid salt, breads, potatoes, rice, pasta, desserts. 3. Each shake would be drunk slowly, like coffee in a period of 2 hours. 4. Cut each bar in 4 pieces and eat each piece in 30min ?to make each bar last 2 hours. 5. I emphasized the importance of measuring accurately the food portion and measure it when serving the food in plate 6. The meal portions include 8 full-size forks of meat and 8 full-size forks of salad. You always eat the meat portion but you can replace up to 4 forks for salad/vegetables with rice, potatoes or pasta, or a fruit ?if you like. The less you do it the better weight loss will be. 7. One full-size fork is what it can be scooped on the fork without falling aside and not what can be bit with the fork. Use regular forks like those you find in a typical restaurant. 8.? Please buy the body composition scale we discussed and send me weight measurements as soon as possible and then once a week. Always include your diet and exercise plan. 9. The best choice would be to purchase a stationary bike at home that can track calories. If you get one, please start stationary bike at a resistance level of 0.0 Increase level by 1.0 every 3 min to a max level of 6.0. Stay at this level for 3 min and then return to level 0.0 and repeat same steps until 300 calories are burned. Goal is to burn 2000 calories per week on exercise 10. Goal is to lose at least 1.5-2lbs per week 11. Goal to lose at least 10% of your weight, which is about 20lbs. Minimum weight goal: 240lbs 12. Please follow the diet plan exactly without any change. If you don't like something about the plan or you feel hungry you need to communicate with me so I can help you revise the plan. You should not change the plan yourself Orders: Orders TSH reflex Free T4 Today E66.812 - Obesity, class 2, E78.5 - Hyperlipidemia, unspecified, I10 - Essential (primary) hypertension, Z68.33 - Body mass index [BMI] 33.0-33.9, adult, Z68.35 - Body mass index [BMI] 35.0-35.9, adult Comprehensive Met. Panel Today E66.812 - Obesity, class 2, E78.5 - Hyperlipidemia, unspecified, I10 - Essential (primary) hypertension, Z68.33 - Body mass index [BMI] 33.0-33.9, adult, Z68.35 - Body mass index [BMI] 35.0-35.9, adult Complete Blood Count Auto Diff Today E66.812 - Obesity, class 2, E78.5 - Hyperlipidemia, unspecified, I10 - Essential (primary) hypertension, Z68.33 - Body mass index [BMI] 33.0-33.9, adult, Z68.35 - Body mass index [BMI] 35.0-35.9, adult Insulin Today E66.812 - Obesity, class 2, E78.5 - Hyperlipidemia, unspecified, I10 - Essential (primary) hypertension, Z68.33 - Body mass index [BMI] 33.0-33.9, adult, Z68.35 - Body mass index [BMI] 35.0-35.9, adult Ferritin Today E66.812 - Obesity, class 2, E78.5 - Hyperlipidemia, unspecified, I10 - Essential (primary) hypertension, Z68.33 - Body mass index [BMI] 33.0-33.9, adult, Z68.35 - Body mass index [BMI] 35.0-35.9, adult Vitamin B12 and Folate Today E66.812 - Obesity, class 2, E78.5 - Hyperlipidemia, unspecified, I10 - Essential (primary) hypertension, Z68.33 - Body mass index [BMI] 33.0-33.9, adult, Z68.35 - Body mass index [BMI] 35.0-35.9, adult Hemoglobin A1c Today E66.812 - Obesity, class 2, E78.5 - Hyperlipidemia, unspecified, I10 - Essential (primary) hypertension, Z68.33 - Body mass index [BMI] 33.0-33.9, adult, Z68.35 - Body mass index [BMI] 35.0-35.9, adult Vitamin D 25-OH Total Today E66.812 - Obesity, class 2, E78.5 - Hyperlipidemia, unspecified, I10 - Essential (primary) hypertension, Z68.33 - Body mass index [BMI] 33.0-33.9, adult, Z68.35 - Body mass index [BMI] 35.0-35.9, adult C Reactive Protein Today E66.812 - Obesity, class 2, E78.5 - Hyperlipidemia, unspecified, I10 - Essential (primary) hypertension, Z68.33 - Body mass index [BMI] 33.0-33.9, adult, Z68.35 - Body mass index [BMI] 35.0-35.9, adult Vitamin B1 Today E66.812 - Obesity, class 2, E78.5 - Hyperlipidemia, unspecified, I10 - Essential (primary) hypertension, Z68.33 - Body mass index [BMI] 33.0-33.9, adult, Z68.35 - Body mass index [BMI] 35.0-35.9, adult Lipid Panel Today E66.812 - Obesity, class 2, E78.5 - Hyperlipidemia, unspecified, I10 - Essential (primary) hypertension, Z68.33 - Body mass index [BMI] 33.0-33.9, adult, Z68.35 - Body mass index [BMI] 35.0-35.9, adult Vitamin A Today E66.812 - Obesity, class 2, E78.5 - Hyperlipidemia, unspecified, I10 - Essential (primary) hypertension, Z68.33 - Body mass index [BMI] 33.0-33.9, adult, Z68.35 - Body mass index [BMI] 35.0-35.9, adult Zinc Today E66.812 - Obesity, class 2, E78.5 - Hyperlipidemia, unspecified, I10 - Essential (primary) hypertension, Z68.33 - Body mass index [BMI] 33.0-33.9, adult, Z68.35 - Body mass index [BMI] 35.0-35.9, adult IRON PROFILE Today E66.812 - Obesity, class 2, E78.5 - Hyperlipidemia, unspecified, I10 - Essential (primary) hypertension, Z68.33 - Body mass index [BMI] 33.0-33.9, adult, Z68.35 - Body mass index [BMI] 35.0-35.9, adult
[2025-08-27 08:44] VITALS: BMI 33.6
== END 2025-08-27 09:08 | disposition home or self-care (01) ==
LOC: HO.HBS 08:06
PROVIDERS: PCP Internal Medicine; Visit Provider Surgery
DX: E66.812 Obesity, class 2 (principal); Z68.33 Body mass index [BMI] 33.0-33.9, adult
CPT/HCPCS: 99203

== ENCOUNTER 2025-09-03 13:00 | Outpatient (REF) | payer MEDICARE, MEDICAID, SELFPAY ==
[2025-09-03 13:24] LABS: MANUAL DIFF FLAG NO
[2025-09-03 14:23] LABS: Hematocrit 35.8 % (37.0-47.0); Hemoglobin 11.8 g/dl (12.0-16.0); Imm Gran Abs Auto 0.01 X10*3/uL (0.00-0.03); Imm Gran Pct Auto 0.3 % (0.0-0.4); Lymphocytes Absolute Auto 1.0 X10*3/uL (1.2-4.9); Mean Corpuscular HGB Conc 33.0 g/dl (31.0-35.0); Mean Corpuscular Hemoglobin 33.5 pg (27.0-33.0); Mean Corpuscular Volume 101.7 fL (80.0-98.0); NRBC Abs Auto 0.000 X10*3/uL (0.0-0.012); NRBC Pct Auto 0.0 /100WBC (0.0-0.2); Platelet Count 193 X10*3/uL (160-400); Red Blood Count 3.52 X10*6/uL (4.20-5.50); White Blood Count 3.8 X10*3/uL (4.8-10.8)
[2025-09-03 17:03] LABS: Alanine Aminotransferase 16 U/L (0-31); Albumin Level 4.2 g/dL (3.5-5.0); Alkaline Phosphatase 94 U/L (39-117); Anion Gap 14 (12-20); Aspartate Amino Transferase 35 U/L (5-31); Blood Urea Nitrogen 23 mg/dL (9-16); Calcium 8.6 mg/dL (8.4-10.2); Carbon Dioxide 26 mmol/L (22-29); Chloride 101 mmol/L (96-108); Cholesterol 163 mg/dL (<200); Estimated Glomerular Filt Rate 26; HDL Cholesterol 93 mg/dL (>40); Iron 68 mcg/dL (30-160); Percent Iron Saturation 26 % (15-50); Potassium 4.1 mmol/L (3.3-5.1); Sodium 137 mmol/L (135-145); Total Iron Binding Capacity 264 mcg/dL (228-428); Total Protein 6.9 g/dL (6.5-8.0); Triglycerides 55 mg/dL (<150); Unsaturated Iron Binding 196 ug/dL
[2025-09-03 17:12] LABS: Ferritin 31 ng/mL (10-250)
[2025-09-03 18:25] LABS: Folate 3.5 ng/mL (> or = 4.0); Vitamin B12 174 pg/mL (200-900)
--- OUTSIDE RECORDS SUMMARY | 2025-09-03 21:48 | XMS_ITS | Clinical Summary ---
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 Berger here [...] AM EST): Following up with cardiology at [facility] Assessment & Plan (04/25/2024 4:01 PM EDT): Ejection fraction has normalized. Previously reported unable to tolerate beta-blockers however currently on metoprolol tartrate 25 mg daily per primary aircraft systems repairer. Taking torsemide 20 mg every other day, recently decreased in frequency by four h agent this spring she says she is tolerated [...] file Insurance MEDICARE PART A & B [facility] MEDICARE PART A & [place] A & B Member Subscriber Plan / Payer (Ef fective 2022-Present) Name:Josi Bush Member ID:[id number] Relation to Subscriber:Self Name:Josi Bush Subscriber ID:[id number] Payer ID:[id number] Group ID:Not on file Type:Medicare Address: [employer] [facility] [address] [place] [address] [facility] Care Teams Refining Equipment Operator Relationship Specialty Start Date End Date Carla Michael MD [address] [place] [address] PCP - General Internal Medicine 11/26/23 Additional Source Comments The information contained in this document represents components of the legal health record. It is not the complete legal health record.[facility]
== END 2025-09-03 13:01 | disposition home or self-care (01) ==
LOC: HO.LAB 13:00
PROVIDERS: Internal Medicine Hypertension Specialist; PCP Internal Medicine; Visit Provider Surgery
DX: I10 Essential (primary) hypertension (principal); E78.5 Hyperlipidemia, unspecified; E66.812 Obesity, class 2; Z68.35 Body mass index [BMI] 35.0-35.9, adult; Z13.0 Encounter for screening for diseases of the blood and blood-forming organs and certain disorders involving the immune mechanism; Z13.1 Encounter for screening for diabetes mellitus
CPT/HCPCS: 36415; 80053; 80061; 82306; 82607; 82728; 82746; 83036; 83525; 83540; 84425; 84443; 84590; 84630; 85025; 86140